=== PATIENT | female | born 2000 | race Caucasian/White ===

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

== ENCOUNTER 2025-04-14 01:39 | Inpatient (IN) | payer BC, SELFPAY ==
[2025-04-14] VITALS (53 sets, daily range): BP systolic 106–129; BP diastolic 51–102; PULSE 61–101; RESP 14–20; TEMP 36.4–37.5; O2SAT 90–100
--- OUTSIDE RECORDS SUMMARY | 2025-04-14 02:01 | XMS RPT_ITS | CCD ---
Author Organization [facility] Care Team Providers Care Olericulturist Name Role Phone MEAGHAN CHAVES (KNOCK UP ASSEMBLER) Unavailable Unavail able MEAGHAN CHAVES (KNOCK UP ASSEMBLER) Unavailable Unavail Lupillo Ervin MD Primary Care Provider PHYSICIAN, NONE Primary Care Physician UnavailLupillo Tejeda MD Primary Care Provider Lupillo Bolton MD Primary Care Provider TRIXIE GOLDSMITH, DR BRET Eldridge Attending Unavailable PHYSICIAN, NONE Primary Care Unavailable ESPERANZA GOLDSMITH, DR SINCLAIR Attending Unavailab sherice PHYSICIAN, NONE Primary Care Unavailable Antonia Baker Attending Unavailable Lupillo Bolton Referring Unavailable Lupillo Bolton Primary Care Unavailable Lupillo Bolton MD Primary Care Provider MAKENZIE ARANGO Attending Unavailable LUPILLO BOLTON Primary Care Unavailable Allergies Allergy Classification Reported Allergen(s) Allergy Type Date of Onset Reaction(s) Facility (11 sources) sulfamethoxazole / trimethoprim; Translations: [SULFAMETHOXAZOLE-TR IMETHOPRIM] Drug Allergy 8 Rash [facility] Other [place] [facility] (3 sources) Bacitracin; Translations: [bacitracin] Drug Allergy [facility] Medications Current Medications Medication Drug Class(es) Dates Sig (Normalized) Sig (Original) acetaminophen 325 mg / butalbital 50 mg / caffeine 40 mg oral tablet (1 source) Barbiturate, Central Nervous System Stimulant, Methylxanthine Start: 05-16-2022 End: 05-19-2022 take 1 tablet by mouth every four hours as needed APAP/butalbital/caf feine 325-50-40 mg oral tablet (Fioricet) Dose = 1 tab(s), Oral, q4h, PRN as needed, X 3 day(s), # 18 tab(s), 0 Refill(s), Migraine Start Date: 05/16/22 Stop Date: 05/19/22 Status: Ordered cephalexin 500 mg oral capsule (2 sources) Cephalosporin Antibacterial Start: 06-10-2023 End: 06-17-2023 take 1 capsule by mouth twice daily cephALEXin (KEFLEX) 500 mg capsule Indications: Recurrent UTI (urinary tract infection) Take 1 capsule by mouth twice daily for 7 days. 14 capsule 0 06/10/2023 06/17/2023 Active Comment on above: [facility]. FLUoxetine 20 mg oral capsule (3 sources) Serotonin Reuptake Inhibitor Start: 09-13-2020 FLUoxetine 20 mg oral capsule Dose : 20 mg = 1 cap(s), Oral, qDay, # 30 cap(s), 0 Refill(s) Start Date: 09/13/20 Status: Ordered nitrofurantoin, macrocrystals 25 mg / nitrofurantoin, monohydrate 75 mg oral capsule (2 sources) Nitrofuran Antibacterial Start: 11-11-2022 End: 11-16-2022 take 1 capsule by mouth twice daily nitrofurantoin monohydrate and macrocrystal (MACROBID) 100 mg capsule Indications: Acute UTI Take 1 capsule by mouth twice daily for 5 days. 10 capsule 0 11/11/2022 11/16/2022 Active Comment on above: [facility] 1 capsule [facility] for 5 days. SUMAtriptan 100 mg oral tablet (1 source) Serotonin-1b and Serotonin-1d Receptor Agonist Start: 04-10-2022 End: 05-10-2022 take 1 tablet by mouth every twenty-four hours Imitrex 100 mg oral tablet Dose : 50 mg = 0.5 tab(s), Oral, qDay, PRN as needed for migraine headache, may repeat dose after 90 mins up to a maximum of 100 mg in 24 hours, X 30 day(s), # 9 tab(s), 0 Refill(s), 05/10/22 16:22:00 EDT, Headache Start Date: 04/10/22 Stop Date: 05/10/22 Status: Ordered Completed/Discontinued Medications Medication Drug Class(es) Dates Sig (Normalized) Sig (Original) Blood-Glucose Meter (PRECISION XTRA) misc (9 sources) Start: 12-01-2017 End: 12-29-2024 Blood-Glucose Meter (PRECISION XTRA) misc Use as directed 1 Each 12/01/2017 12/29/2024 Discontinued Start: 12-01-2017 Blood-Glucose Meter (PRECISION XTRA) misc Use as directed 1 Each 12/01/2017 Active Comment on above: Use as directed cyproheptadine hydrochloride 4 mg oral tablet (4 sources) Start: 04-03-20 End: 07-13-20 take 1 tablet by mouth at bedtime cyproheptadine (PERIACTIN) 4 mg tablet take 1 tablet by mouth at bedtime 30 tablet 2 04/03/2020 07/13/2022 Discontinued Comment on above: take 1 tablet by francisco th at bedtime Desogestrel / Ethinyl Estradiol (9 sources) Progestin, Estrogen Start: 04-25-20 End: 12-30-19 take 1 tablet by mouth once daily, then take 0.15 tablet by mouth once Desogestrel-Ethinyl Estradiol (APRI) 0.15-0.03 mg per tablet Take 1 tablet by mouth once daily. 1 Package 11 04/25/2020 12/29/2024 Discontinued Start: 04-25-2020 take 1 tablet by francisco th once daily, then take 0.15 tablet by mouth once Desogestrel-Ethinyl Estradiol (APRI) 0.15-0.03 mg per tablet Take 1 tablet by mouth once daily. 1 Package 11 04/25/2020 Active Comment on above: Take 1 tablet by francisco th once daily. FREESTYLE LITE METER monitoring kit (9 sources) Start: 12-01-2017 End: 12-29-2024 FREESTYLE LITE METER monitoring kit Supply to be used as directed. 1 Each 12/01/2017 12/29/2024 Discontinued Start: 12-01-2017 FREESTYLE LITE METER monitoring kit Supply to be used as directed. 1 Each 12/01/2017 Active Comment on above: Supply to be used as directed. ibuprofen 600 mg oral tablet (9 sources) Nonsteroidal Anti-inflammatory Drug Start: 12-11-19 End: 03-21-20 25 take 1 tablet by mouth every eight hours at mealtime ibuprofen (MOTRIN) 600 mg tablet TAKE 1 TABLET BY MOUTH EVERY 8 HOURS IF NEEDED. TAKE AT ONSET OF MIGRAINE AND WITH FOOD 30 tablet 2 12/11/2019 12/29/2024 Discontinued Comment on above: TAKE 1 TABLET BY FRANCISCO TH EVERY 8 HOURS IF NEEDED. TAKE AT ONSET OF MIGRAINE AND WITH FOOD 2 ml ketorolac tromethamine 30 mg/ml injection (1 source) Nonsteroidal Anti-inflammatory Drug, Cyclooxygenase Inhibitor Start: 03-17-20 End: 03-17-20 keTORolac 30 mg injection (TORADOL) Start: 03-17-2022 End: 03-17-2022 keTORolac 30 mg injection (T ORADOL) ondansetron 4 mg disintegrating oral tablet (1 source) Serotonin-3 Receptor Antagonist Start: 03-17-2022 End: 03-17-2022 ondansetron orally disintegrating 4 mg tab(s) (ZOFRAN ODT) Start: 03-17-2022 End: 03-17-2022 ondansetron orally disintegr ating 4 mg tab(s) (ZOFRAN ODT) pediatric multivitamin without iron chewable (POLY-VITAMINS) chewable tablet (4 sources) Start: 03-13-2015 End: 07-13-2022 take 1 tablet by mouth once daily pediatric multivitamin without iron chewable (POLY-VITAMINS) chewable tablet Take 1 tablet by mouth once daily. 30 tablet 11 03/13/2015 07/13/2022 Discontinued Start: 03-13-2015 take 1 tablet by francisco th once daily pediatric multivitamin without iron chewable (POLY-VITAMINS) chewable tablet Take 1 tablet by mouth once daily. 30 tablet 11 03/13/2015 Active Comment on above: Take 1 tablet by francisco th once daily. PRECISION XTRA B-KETONE strp (9 sources) Start: 12-01-2017 End: 12-29-2024 PRECISION XTRA B-KETONE strp Monitor blood ketones x3-4/day 100 Strip 11 12/01/2017 12/29/2024 Discontinued Start: 12-01-2017 PRECISION XTRA B-KETONE strp Monitor blood ketones x3-4/day 100 Strip 11 12/01/2017 Active Comment on above: Monitor blood ketone s x3-4/day Problems Active Problems Problem Classification Problem Date Documented Date Episodic/Chronic Contraceptive and procreative management (1 source) Patient encounter status; Translations: [Encounter for contraceptive management, unspecified] Episodic Genitourinary symptoms and ill-defined conditions (2 sources) Increased frequency of urination; Translations: [Frequency of micturition] Episodic Headache; including migraine (3 sources) Migraine; Translations: [Migraine, unspecified, not intractable, without status migrainosus] Onset: 05-16-2022 Chronic Headache; including migraine (2 sources) Headache; Translations: [Headache, unspecified headache type] Onset: 04-10-2022 Episodic Menstrual disorders (2 sources) Missed period; Translations: [Irregular menstruation, unspecified] Onset: 12-29-2024 12-29-2024 Chronic Nausea and vomiting (1 source) Vomiting; Translations: [Vomiting, unspecified] Episodic Nonmalignant breast conditions (1 source) Lump in upper outer quadrant of left breast; Translations: [Unspecified lump in the left breast, upper outer quadrant] Episodic Other endocrine disorders (9 sources) Hypoglycemia; Translations: [Hypoglycemia, unspecified] Onset: 08-10-2013 08-10-2013 Chronic Other nutritional; endocrine; and metabolic disorders (9 sources) Ketosis; 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] Onset: 03-27-2015 03-27-2015 Chronic Other nutritional; endocrine; and metabolic disorders (12 sources) Glycogen storage disease; Translations: [Glycogen storage disease, unspecified] 11-16-2017 Chronic Unclassified (1 source) Unknown / UNK(Unknown) Onset: 11-16-2017 Unclassified (3 sources) None (qualifier value) 08-28-2014 Urinary tract infections (2 sources) Acute urinary tract infection; Translations: [Urinary tract infection, site not specified] Episodic Past or Other Problems Problem Classification Problem Date Documented Da te Episodic/Chronic Diabetes mellitus without complication (9 sources) Hyperglycemia; Translations: [Hyperglycemia, unspecified] Onset: 08-10-2013 08-10-2013 Episodic Results Test Name Value Interpretation Reference Range Facility [facility] 12-29-2024 CNOV Office Visit (OBGYWM ) -------- ANIYAH KAPADIA ([id number]) 2 F Date Time Provider Department 12/29/24 2:45 PM MAKENZIE ARANGO OBGYWM During your visit today, we recorded the following information about you: Blood pressure Weight Last Period 110/60 51.3 kg 11/15/24 Makenzie Arango APRN.KNOCK UP ASSEMBLER 12/29/2024 2:55 PM Signed Aniyah Kapadia is a 24 year old female who presents for problem visit missed menses, LMP 11/15/2024, reported HPT 12/28/2024. 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 Worker History LMP: 11/15/2024 (Exact Date), Having periods Age at Menarche: Age at First : Age at Menopause: Soap Worker History Comments: Sexual Activity: Yes; Male Contraception: Pill PAST MEDICAL HISTORY Diagnosis Date Glycogen storage disease (HCC) PAST SURGICAL HISTORY Procedure Laterality Date NONE FAMILY HISTORY Problem Relation Age of Onset None Father Diabetes Maternal Grandmother Hypertension Maternal Grandmother Diabetes Maternal Grandfather Cancer Maternal Grandfather hodgkins Diabetes Paternal Grandmother Hypertension Paternal Grandmother Cancer Paternal Grandfather other (hypoglycemic) Mother Social History Tobacco Use Smoking status: Never Passive exposure: Yes Smokeless tobacco: Never Tobacco comments: mom and dad smoke - outside Vaping Use Vaping status: Never Used Substance Use Topics Alcohol use: Yes Comment: Occasionally Drug use: Yes Frequency: 1.0 times per week Types: Marijuana No current outpatient medications on file. No current facility-administered medications for this visit. Allergies As of Date: 12/29/2024 Allergen Noted Reaction BACTRIM [SULFAMETHOXAZOLE-TRIMET H*11/16/2007 Rash Fully Assessed 06/10/2023 REVIEW OF SYSTEMS Expanded ROS: N/A Allergies and current medication updated:Yes SENSITIVE EXAM: Sensitive exam not performed. EXAM: BP 110/60 Wt 113 lb 3.2 oz (51.3kg) LMP 11/15/2024 GENERAL: pleasant, female in no apparent distress HEENT: Normocephalic, atraumatic, mucus membranes moist, and no lesions CHEST: Normal inspiratory effort NEURO: alert and oriented x3,exam grossly non-focal EXTREMITIES: normal ASSESSMENT/PLAN: 1. Missed menses - ICD9: 626.4, ICD10: N92.6 - UA DIP,URINE HCG (POC)-positive Termination information given Follow up after for control options Makenzie Arango APRN.CNP Medical Decision Making: Problems: Low: Acute, uncomplicated illness or injury Data: Unique test(s) ordered: 1 Risk: Low: Low risk from testing/treatment Medical Decision Making Level: 3 - Low Allergies As of Date: 12/29/2024 Noted Allergy Reaction BACTRIM (SULFAMETHOXAZOLE-TRIMET H*11/16/2007 2 - Rash Date Reviewed: 06/10/2023 Reviewed by: Mery Mercado LPN - Fully Assessed Reason for Visit: Problem Visit [Other] Primary Visit Diagnosis:Missed menses [N92.6] Order(s):UA DIP,URINE HCG (POC) [[id number]] Order #: [id number] #:[id number] Meds Comments as of 04/19/2012: Problem List As Of Date 12/29/2024 Noted Resolved Hypoglycemia [E16.2] 08/10/2013 Hyperglycemia [R73.9] 08/10/2013 Ketosis [E88.89] 03/27/2015 Glycogen storage disease (HCC) [E74.00] Medications Discontinued During This Encounter Prescriptions - blood sugar diagnostic (FREESTYLE TEST) test strip (Discontinued) Monitor blood glucose 3 times daily Takes as needed - Desogestrel-Ethinyl Estradiol (APRI) 0.15-0.03 mg per tablet (Discontinued) Reported on 12/29/2024 - FREESTYLE LITE METER monitoring kit (Discontinued) Reported on 12/29/2024 - ibuprofen (MOTRIN) 600 mg tablet (Discontinued) Reported on 12/29/2024 - Ketone Blood Test (PRECISION XTRA B-KETONE) strp (Discontinued) Reported on 12/29/2024 - Lancets lancets (Discontinued) Monitor blood glucose 3 times daily Uses as needed - PRECISION XTRA B-KETONE strp (Discontinued) Monitor blood ketones x3-4/day Uses as needed - Blood-Glucose Meter (PRECISION XTRA) [facility] (Discontinued) Use as directed Encounter Status:Closed by MAKENZIE ARANGO on 12/29/24 Normal [facility] UA DIP,URINE HCG (POC)on Beta HCG ( test) Ql (U) Positive Abnormal Negative [facility] Comment on above: Location:[facility], [address] , [place], [address] Interpretation and review of laboratory results Abnormal [facility] Blood Bank Specialist (POCT) Internal QC OK [facility] Location:[facility], [address], [place], [address] [facility] POINT OF CARE [facility] UA DIP, URINE (POC)on 2022 BILIRUBIN UA (POCT) Small Abnormal Negative [facility] CLARITY UA (POCT) Clear [facility] COLOR UA (POCT) Rona [facility] GLUCOSE UA (POCT) Negative Negative mg/dL [facility] Hemoglobin Ql (U) Large Abnormal Negative [facility] KETONE UA (POCT) Trace Negative mg/dL [facility] LEUKOCYTES UA (POCT) Trace Abnormal Negative [facility] NITRITE UA (POCT) Negative Negative [facility] PH UA (POCT) 5.5 4.5 - 8.0 [facility] Protein Ql (U) >=300 Abnormal Negative mg/dL [facility] SPECIFIC GRAVITY UA (POCT) >=1.030 1.005 - 1.030 [facility] UROBILINOGEN UA (POCT) 1.0 E.U./dL Normal E.U./dL [facility] UA DIP, URINE (POC)on 2022 BILIRUBIN UA (POCT) Negative Negative [facility] CLARITY UA (POCT) Clear [facility] COLOR UA (POCT) Yellow [facility] GLUCOSE UA (POCT) Negative Negative mg/dL [facility] HEMOGLOBIN/BLOOD UA (POCT) Moderate Abnormal Negative [facility] KETONE UA (POCT) Negative Negative mg/dL [facility] LEUKOCYTES UA (POCT) Trace Abnormal Negative [facility] NITRITE UA (POCT) Negative Negative [facility] PH UA (POCT) 5.5 4.5 - 8.0 [facility] Protein Ql (U) Trace Abnormal Negative mg/dL [facility] SPECIFIC GRAVITY UA (POCT) 1.020 1.005 - 1.030 [facility] UROBILINOGEN UA (POCT) 0.2 E.U./dL Normal E.U./dL [facility] AFPon 11-16-2017 AFP <3.0 Normal <11 [facility] Comment on above: Result Comment: Resu lt rechecked. Performed By: #### C BCDIF, WSR, CK, CRP, IRON, URIC, CMP, FERR, VITD, AFP ####[place] [phone]#### LIPB ####[place] [address] C-Reactive Proteinon 018 C reactive protein (CRP) 0.1 mg/dL Normal <0.9 [facility] Comment on above: Performed By: #### C BCDIF, WSR, CK, CRP, IRON, URIC, CMP, FERR, VITD, AFP ####[place] [address]#### LIPB ####[place] [address] CBC and Differentialon 11-16 Abs Baso 0.08 k/uL Normal <0.11 [facility] Comment on above: Performed By: #### C BCDIF, WSR, CK, CRP, IRON, URIC, CMP, FERR, VITD, AFP ####[address] [place] [id number]#### LIPB ####[place] [address] [address] [place] [phone] Abs [place] 0.50 k/uL Normal <0.87 [facility] Comment on above: Performed By: #### C BCDIF, WSR, CK, CRP, IRON, URIC, CMP, FERR, VITD, AFP ####[address] [place] [phone]#### LIPB ####[place] [address] [place] [phone] Abs Neut 5.27 k/uL Normal 1.45-7.50 [facility] Comment on above: Performed By: #### C BCDIF, WSR, CK, CRP, IRON, URIC, CMP, FERR, VITD, AFP ####[place] [phone]#### LIPB ####[place] [phone] Basophils/100 WBC Auto (Bld) 0.8 % Normal [facility] Comment on above: Performed By: #### C BCDIF, WSR, CK, CRP, IRON, URIC, CMP, FERR, VITD, AFP ####[place] [phone]#### LIPB ####[place] [phone] DTYPE Auto Diff Normal [facility] Comment on above: Performed By: #### C BCDIF, WSR, CK, CRP, IRON, URIC, CMP, FERR, VITD, AFP ####[place] [phone]#### LIPB ####[place] [phone] Eosinophils 0.25 10*3/uL Normal <0.46 [facility] Comment on above: Performed By: #### C BCDIF, WSR, CK, CRP, IRON, URIC, CMP, FERR, VITD, AFP ####[place] [phone]#### LIPB ####[place] [phone] Eosinophils/100 leukocytes 2.6 % Normal [facility] Comment on above: Performed By: #### C BCDIF, WSR, CK, CRP, IRON, URIC, CMP, FERR, VITD, AFP ####[place] [phone]#### LIPB ####[place] [phone] Erythrocyte distribution width Auto Ratio (RBC) 12.0 % Normal 11.5-15.0 [facility] Comment on above: Performed By: #### C BCDIF, WSR, CK, CRP, IRON, URIC, CMP, FERR, VITD, AFP ####[place] [phone]#### LIPB ####[place] [phone] Erythrocytes (RBC) 0.1 /100 WBC High 0 [facility] Comment on above: Performed By: #### C BCDIF, WSR, CK, CRP, IRON, URIC, CMP, FERR, VITD, AFP ####[address] [place] [phone]#### LIPB ####[place] [phone] Erythrocytes (RBC) 10 10*6/uL High <0.01 [facility] Comment on above: Performed By: #### C BCDIF, WSR, CK, CRP, IRON, URIC, CMP, FERR, VITD, AFP ####[place] [phone]#### LIPB ####[place] [phone] Erythrocytes (RBC) 4.56 10*6/uL Normal 3.90-5.20 [facility] Comment on above: Performed By: #### C BCDIF, WSR, CK, CRP, IRON, URIC, CMP, FERR, VITD, AFP ####[place] [phone]#### LIPB ####[place] [address] Hematocrit (HCT) 40.0 % Normal 36.0-46.0 [facility] Comment on above: Performed By: #### C BCDIF, WSR, CK, CRP, IRON, URIC, CMP, FERR, VITD, AFP ####[address] [place] [place] [phone]#### LIPB ####[place] [address] [address], [place] [phone] Hemoglobin mass conc (Bld) 13.5 g/dL Normal 11.5-15.5 [facility] Comment on above: Performed By: #### C BCDIF, WSR, CK, CRP, IRON, URIC, CMP, FERR, VITD, AFP ####[place] [phone]#### LIPB ####[place] [phone] Lymphocytes 3.66 10*3/uL Normal 1.00-4.00 [facility] Comment on above: Performed By: #### C BCDIF, WSR, CK, CRP, IRON, URIC, CMP, FERR, VITD, AFP ####[place] [phone]#### LIPB ####[place] [phone] Lymphocytes/100 leukocytes 37.5 % Normal [facility] Comment on above: Performed By: #### C BCDIF, WSR, CK, CRP, IRON, URIC, CMP, FERR, VITD, AFP ####[place] [phone]#### LIPB ####[place] [id number] [phone] MCH 29.6 pG Normal 26.0-34.0 [facility] Comment on above: Performed By: #### C BCDIF, WSR, CK, CRP, IRON, URIC, CMP, FERR, VITD, AFP ####[address] [place] [phone]#### LIPB ####[place] [phone] MCHC mass conc (RBC) 33.8 g/dL Normal 30.5-36.0 [facility] Comment on above: Performed By: #### C BCDIF, WSR, CK, CRP, IRON, URIC, CMP, FERR, VITD, AFP ####[place] [phone]#### LIPB ####[place] [phone] MCV 87.7 fL Normal 80.0-100.0 [facility] Comment on above: Performed By: #### C BCDIF, WSR, CK, CRP, IRON, URIC, CMP, FERR, VITD, AFP ####[place] [phone]#### LIPB ####[place] [phone] Monocytes/100 leukocytes 5.1 % Normal [facility] Comment on above: Performed By: #### C BCDIF, WSR, CK, CRP, IRON, URIC, CMP, FERR, VITD, AFP ####[place] [phone]#### LIPB ####[place] [address] [place], [place] [address] Neutrophils/100 WBC Auto (Bld) 54.0 % Normal [facility] Comment on above: Performed By: #### C BCDIF, WSR, CK, CRP, IRON, URIC, CMP, FERR, VITD, AFP ####[address] [place] [phone]#### LIPB ####[place] [phone] Platelet mean volume (PMV) 10.5 fL Normal 9.0-12.7 [facility] Comment on above: Performed By: #### C BCDIF, WSR, CK, CRP, IRON, URIC, CMP, FERR, VITD, AFP ####[address] [place] [phone]#### LIPB ####[place] [phone] Platelets 335 10*3/uL Normal 150-400 [facility] Comment on above: Performed By: #### C BCDIF, WSR, CK, CRP, IRON, URIC, CMP, FERR, VITD, AFP ####[place] [phone]#### LIPB ####[place] [address] [place] [phone] WBC (Leukocytes) 9.76 10*3/uL Normal 3.70-11.00 [facility] Comment on above: Performed By: #### C BCDIF, WSR, CK, CRP, IRON, URIC, CMP, FERR, VITD, AFP ####[address] [place] [phone]#### LIPB ####[place] [phone] [address] [address] [place], [place] [phone] CKon 11-16-2017 Creatine kinase (CK) 106 U/L Normal 42-196 [facility] Comment on above: Result Comment: Refe rence ranges for this patient's age group have not been established. These reference ranges reflect verified or established ranges for the adult population. Interpret these ranges with caution using the clinical context and additional reference resources.Please note the updated, gender-specific reference range for this test (effective 09/24/2016). Performed By: #### C BCDIF, WSR, CK, CRP, IRON, URIC, CMP, FERR, VITD, AFP ####[address] [phone]#### LIPB ####[place] [phone] [place], [place] [phone] Comp Metabolic Panelon 11-16 Alanine aminotransferase (ALT) 12 U/L Normal 7-38 [facility] Comment on above: Result Comment: (NOT E)Reference ranges for this patient's age group have not beenestablished. These reference ranges reflect verified or establishedranges for the adult population. Interpret these ranges wtih cautionusing clinical context and additional reference resources. Performed By: #### C BCDIF, WSR, CK, CRP, IRON, URIC, CMP, FERR, VITD, AFP ####[address] [place] [phone]#### LIPB ####[place] [phone] [place] [address] [place], [place] [phone] Albumin 4.9 g/dL High 3.2-4.5 [facility] Comment on above: Performed By: #### C BCDIF, WSR, CK, CRP, IRON, URIC, CMP, FERR, VITD, AFP ####[place] [id number] [place], [place] [phone]#### LIPB ####[place] [phone] [phone] Alkaline phosphatase (ALP) 86 U/L Normal 32-117 [facility] Comment on above: Result Comment: (NOT E)Note that results are flagged as abnormal based on ADULT referenceranges, rather than age-specific ranges for the pediatric population.Lab-specific normal ranges have not been determined for thispatient's age group. Published reference range data, shown in thetable below, may contribute to proper clinical interpretation. Male FemaleAge Reference Range Reference Range Units1-30 days 75-316 48-406 U/L31-365 days 82-383 124-341 U/L1-3 years 104-345 108-317 U/L4-6 years 93-309 96-297 U/L7-9 years 86-315 69-325 U/L10-12 years 42-362 51-332 U/L13-15 years 74-390 50-162 U/L16-17 years 52-171 47-119 U/LReference:Deon MCCALLUM, Romaine GARCIA, Aurelia J, et al. Pediatric reference ranges foralkaline phosphatase on the [employer] 747 analyzer. Clin [id number];43:S198. Performed By: #### C BCDIF, WSR, CK, CRP, IRON, URIC, CMP, FERR, VITD, AFP ####[address] [phone]#### LIPB ####[place] [phone] [phone] Anion gap 12 mmol/L Normal 9-18 [facility] Comment on above: Result Comment: (NOT E)Reference ranges for this patient's age group have not beenestablished. These reference ranges reflect verified or establishedranges for the adult population. Interpret these ranges with cautionusing the clinical context and additional reference resources. Performed By: #### C BCDIF, WSR, CK, CRP, IRON, URIC, CMP, FERR, VITD, AFP ####[address] [place] [address]#### LIPB ####[place] [address] [place] [place] [address] Aspartate aminotransferase (AST) 21 U/L Normal 13-35 [facility] Comment on above: Result Comment: (NOT E)Reference ranges for this patient's age group have not beenestablished. These reference ranges reflect verified or establishedranges for the adult population. Interpret these ranges with cautionusing clinical context and additional reference resources. Performed By: #### C BCDIF, WSR, CK, CRP, IRON, URIC, CMP, FERR, VITD, AFP ####[place] [phone]#### LIPB ####[place] [address] Bilirubin (total) 0.4 mg/dL Normal 0.2-1.3 [facility] Comment on above: Result Comment: (NOT E)Reference ranges for this patient's age group have not beenestablished. These reference ranges reflect verified or establishedranges for the adult population. Interpret these ranges with cautionusing the clinical context and additional reference resources. Performed By: #### C BCDIF, WSR, CK, CRP, IRON, URIC, CMP, FERR, VITD, AFP ####[address] [place] [phone]#### LIPB ####[place] [address] [place] [phone] Calcium 9.5 mg/dL Normal 8.4-10.2 [facility] Comment on above: Performed By: #### C BCDIF, WSR, CK, CRP, IRON, URIC, CMP, FERR, VITD, AFP ####[place] [address] [address] [place] [phone]#### LIPB ####[place] [address] [address] [place] [phone] Chloride 102 mmol/L Normal 97-105 [facility] Comment on above: Result Comment: (NOT E)Reference ranges for this patient's age group have not beenestablished. These reference ranges reflect verified or establishedranges for the adult population. Interpret these ranges with cautionusing the clinical context and additional reference resources. Performed By: #### C BCDIF, WSR, CK, CRP, IRON, URIC, CMP, FERR, VITD, AFP ####[place] [address] [address] [place] [phone]#### LIPB ####[place] [address] [address] [place] [phone] CO2 24 mmol/L Normal 22-30 [facility] Comment on above: Result Comment: (NOT E)Reference ranges for this patient's age group have not beenestablished. These reference ranges reflect verified or establishedranges for the adult population. Interpret these ranges with cautionusing the clinical context and additional reference resources. Performed By: #### C BCDIF, WSR, CK, CRP, IRON, URIC, CMP, FERR, VITD, AFP ####[place] [address] [address] [place] [phone]#### LIPB ####[place] [address] [address] [place] [phone] Creatinine 0.73 mg/dL Normal 0.58-0.96 [facility] Comment on above: Result Comment: Refe rence ranges for this patient's age group have not been established. These reference ranges reflect verified or established ranges for the adult population. Interpret these ranges with caution using the clinical context and additional reference resources. Performed By: #### C BCDIF, WSR, CK, CRP, IRON, URIC, CMP, FERR, VITD, AFP ####[facility] [place] [phone]#### LIPB ####[place] [phone] [place] [address] [place] [phone] eGFR (non-black) 0.75 mL/min/{1.73_m2} Normal [facility] Comment on above: Result Comment: eGFR (Estimated GFR) Units of measure: mL/min/1.73 meters squaredeGFR in pediatric patients is derived from the 4 variable Hardin equation for glomerular filtration rate (GFR) based on a stable serum creatinine, gender, age, and height. The creatinine assay has been calibrated to be traceable to IDMS.TO CALCULATE THE PATIENT'S ESTIMATED GFR: Multiply the GFR Pediatric Factor by the patient's height (centimeters).An eGFR <60 mL/min/1.73m2 for >3 months is consistent with chronic kidney disease. Refer to KDOQI guidelines for clinical interpretation. Performed By: #### C BCDIF, WSR, CK, CRP, IRON, URIC, CMP, FERR, VITD, AFP ####[facility] [phone]#### LIPB ####[place] [phone] [place] [address] [address] [place] [phone] Glucose mass conc 78 mg/dL Normal 74-99 [facility] Comment on above: Result Comment: Refe rence ranges for this patient's age group have not been established. These reference ranges reflect verified or established ranges for the adult population. Interpret these ranges with caution using the clinical context and additional reference resources.The [place] Diabetes Association (ADA) provides guidance for cutoff values for fasting glucose and random glucose. The ADA defines fasting as no caloric intake for at least 8 hours. Fasting plasma glucose results between 100 to 125 mg/dL indicate increased risk for diabetes (prediabetes).Fasting plasma glucose results greater than or equal to 126 mg/dL meet the criteria for diagnosis of diabetes. In the absence of unequivocal hyperglycemia, results should be confirmed by repeat testing. In a patient with classic symptoms of hyperglycemia or hyperglycemic crisis, random plasma glucose results greater than or equal to 200 mg/dL meet the criteria for diagnosis of diabetes.Reference: Standards of Medical Care in Diabetes 2016, [place] Diabetes Association. Diabetes Care. 2016.39(Suppl 1). Performed By: #### C BCDIF, WSR, CK, CRP, IRON, URIC, CMP, FERR, VITD, AFP ####[place] [address] [address] [place] [phone]#### LIPB ####[place] [address] [place] [phone] Potassium molar conc 3.5 mmol/L Low 3.7-5.1 [facility] Comment on above: Result Comment: (NOT E)Reference ranges for this patient's age group have not beenestablished. These reference ranges reflect verified or establishedranges for the adult population. Interpret these ranges with cautionusing the clinical context and additional reference resources. Performed By: #### C BCDIF, WSR, CK, CRP, IRON, URIC, CMP, FERR, VITD, AFP ####[facility] [place] [phone]#### LIPB ####[place] [address] [address] [place] [phone] Protein 8.2 g/dL High 6.3-8.0 [facility] Comment on above: Result Comment: (NOT E)Note that results are flagged as abnormal based on ADULT referenceranges, rather than age-specific ranges for the pediatric population.Lab-specific normal ranges have not been determined for thispatient's age group. Published reference range data, shown in thetable below, may contibute to proper clinical interpretation.Age Reference Range Units0-12 months 4.9-7.3 g/dL1-5 years 6.2-8.0 g/dL6-10 years 6.6-8.6 g/dL11-14 years 6.4-8.5 g/dL15-17 years 6.4-8.3 g/dLReference:John OWENS, Angus I, [place] M, et al. [place] LaboratoryInitiative on Reference Interval Database(CALIPER): pediatricreference intervals for an integrated clinical chemistry andimmunoassay analyzer, Perez [employer] FORMING MACHINE TENDER [id number]. Clin Fpvdylo0648;42:885-891. Performed By: #### C BCDIF, WSR, CK, CRP, IRON, URIC, CMP, FERR, VITD, AFP ####[place] [phone]#### LIPB ####[place] [phone] [place] [address] [place] [phone] Sodium 138 mmol/L Normal 136-144 [facility] Comment on above: Result Comment: (NOT E)Reference ranges for this patient's age group have not beenestablished. These reference ranges reflect verified or establishedranges for the adult population. Interpret these ranges with cautionusing the clinical context and additional reference resources. Performed By: #### C BCDIF, WSR, CK, CRP, IRON, URIC, CMP, FERR, VITD, AFP ####[place] [id number] AveCMorris, [place] [phone]#### LIPB ####[place] [phone] [place], [place] [phone] Urea nitrogen 10 mg/dL Normal 5-18 [facility] Comment on above: Performed By: #### C BCDIF, WSR, CK, CRP, IRON, URIC, CMP, FERR, VITD, AFP ####[place] [phone]#### LIPB ####[place] [phone] Ferritinon 11-16-2017 Ferritin 48.6 ng/mL Normal 14.7-205.1 [facility] Comment on above: Performed By: #### C BCDIF, WSR, CK, CRP, IRON, URIC, CMP, FERR, VITD, AFP ####[place] [phone]#### LIPB ####[place] [phone] Iron and TIBCon 11-16-2017 Iron 89 ug/dL Normal 41-186 [facility] Comment on above: Performed By: #### C BCDIF, WSR, CK, CRP, IRON, URIC, CMP, FERR, VITD, AFP ####[place] [phone]#### LIPB ####[place] [phone] TIBC 316 ug/dL Normal 232-386 [facility] Comment on above: Performed By: #### C BCDIF, WSR, CK, CRP, IRON, URIC, CMP, FERR, VITD, AFP ####[place] [phone]#### LIPB ####[place] [phone] Transferrin Saturatn 28 % Normal 15-57 [facility] Comment on above: Performed By: #### C BCDIF, WSR, CK, CRP, IRON, URIC, CMP, FERR, VITD, AFP ####[place] [phone]#### LIPB ####[place] [phone] Lipid Panel, [facility] 018 Cholesterol 173 mg/dL High <170 [facility] Comment on above: Result Comment: <170 mg/dL, Acceptable 170-199 mg/dL, Borderline high>199 mg/dL, High Performed By: #### C BCDIF, WSR, CK, CRP, IRON, URIC, CMP, FERR, VITD, AFP ####[place] [phone]#### LIPB ####[place] [phone] Fasting Time Unknown Normal [facility] Comment on above: Performed By: #### C BCDIF, WSR, CK, CRP, IRON, URIC, CMP, FERR, VITD, AFP ####[place] [phone]#### LIPB ####[place] [address] [place] [address] HDL Cholesterol 40 mg/dL Low >45 [facility] Comment on above: Result Comment: >45 mg/dL, Acceptable 40-45 mg/dL, Borderline<40 mg/dL, Low Performed By: #### C BCDIF, WSR, CK, CRP, IRON, URIC, CMP, FERR, VITD, AFP ####[place] [address]#### LIPB ####[place] [phone] LDL Cholesterol 99 mg/dL Normal <110 [facility] Comment on above: Result Comment: <110 mg/dL, Acceptable 110-129 mg/dL, Borderline high>129 mg/dL, High Performed By: #### C BCDIF, WSR, CK, CRP, IRON, URIC, CMP, FERR, VITD, AFP ####[place] [address]#### LIPB ####[place] [address] LDL:HDL Ratio 2.48 High <2.42 [facility] Comment on above: Result Comment: Ethan sanchez:1. Expert Panel on Integrated Guidelines for Cardiovascular Health and Risk Reduction in Children and Adolescents: National Heart, Lung and Blood [place]. Pediatrics. 2011: 128(Suppl 5):G296-213. Performed By: #### C BCDIF, WSR, CK, CRP, IRON, URIC, CMP, FERR, VITD, AFP ####[place] [phone]#### LIPB ####[address] Non HDL Cholesterol 133 mg/dL High <120 [facility] Comment on above: Result Comment: <120 mg/dL, Acceptable 120-144 mg/dL, Borderline high>144 mg/dL, High Performed By: #### C BCDIF, WSR, CK, CRP, IRON, URIC, CMP, FERR, VITD, AFP ####[place] [address]#### LIPB ####[place] [address] TC:HDL Ratio 4.33 High <3.76 [facility] Comment on above: Performed By: #### C BCDIF, WSR, CK, CRP, IRON, URIC, CMP, FERR, VITD, AFP ####[place] [address]#### LIPB ####[place] [address] Triglyceride 169 mg/dL High <90 [facility] Comment on above: Result Comment: <90 mg/dL, Acceptable 90-129 mg/dL, Borderline high>129 mg/dL, High Performed By: #### C BCDIF, WSR, CK, CRP, IRON, URIC, CMP, FERR, VITD, AFP ####[place] [address]#### LIPB ####[place] [address] VLDL Cholesterol 34 mg/dL High <18 [facility] Comment on above: Performed By: #### C BCDIF, WSR, CK, CRP, IRON, URIC, CMP, FERR, VITD, AFP ####[place] [address] [address] [place] [phone]#### LIPB ####[place] [address] [place] [phone] Sed Rate Westergrenon 2017 Sed Rate Westergren 2 mm/hr Normal 0-20 [facility] Comment on above: Performed By: #### C BCDIF, WSR, CK, CRP, IRON, URIC, CMP, FERR, VITD, AFP ####[place] [phone]#### LIPB ####[place] [phone] Uric Acidon 11-16-2017 Urate 5.7 mg/dL Normal 2.5-6.6 [facility] Comment on above: Performed By: #### C BCDIF, WSR, CK, CRP, IRON, URIC, CMP, FERR, VITD, AFP ####[place] [phone]#### LIPB ####[place] [phone] Vitamin D 25 Hydroxyon 11-16 Vitamin D 25 Hydroxy 23.5 ng/mL Low 31.0-80.0 [facility] Comment on above: Result Comment: Clas sification of 25 [place] Vitamin D status:Insufficiency/Moderate Deficiency: < or = 30 ng/mLSufficiency/Optimal Levels: 31 to 80 ng/mLToxicity: > 100 ng/mLTest performed by chemiluminescent immunoassay. Performed By: #### C BCDIF, WSR, CK, CRP, IRON, URIC, CMP, FERR, VITD, AFP ####[facility] [address] [place], [place] [phone]#### LIPB ####[place] [id number] [place], [place] [phone] [facility] [place], [place] [phone] Vital Signs Date Time Vital Sign Value Performing Clinician Facility 12-29-2024 14:43-0400 Body mass index (BMI) [Ratio] 19.28 kg/m2 Makenzie Alba NEGATIVE TURNER.KNOCK UP ASSEMBLER Work Phone: [facility] 12-29-2024 14:43-0400 Body weight 51.35 kg Makenzie Alba NEGATIVE TURNER.KNOCK UP ASSEMBLER Work Phone: [facility] 12-29-2024 14:43-0400 Diastolic blood pressure 60 mm[Hg] Makenzie Alba NEGATIVE TURNER.KNOCK UP ASSEMBLER Work Phone: [facility] 12-29-2024 14:43-0400 Systolic blood pressure 110 mm[Hg] Makenzie Nba NEGATIVE TURNER.KNOCK UP ASSEMBLER Work Phone: [facility] 06-10-2023 19:09-0400 Body temperature 98.4 [degF] Treasure Lamb APRN.KNOCK UP ASSEMBLER Work Phone: [facility] 06-10-2023 19:09-0400 Body weight 50.35 kg Treasure Lamb APRN.KNOCK UP ASSEMBLER Work Phone: [facility] 06-10-2023 19:09-0400 Diastolic blood pressure 74 mm[Hg] Treasure Lamb APRN.KNOCK UP ASSEMBLER Work Phone: [facility] 06-10-2023 19:09-0400 Heart rate 99 /min Treasure Lamb APRN.KNOCK UP ASSEMBLER Work Phone: [facility] 06-10-2023 19:09-0400 Respiratory rate 18 /min Treasure Lamb APRN.KNOCK UP ASSEMBLER Work Phone: [facility] 06-10-2023 19:09-0400 SaO2% (BldA) [Mass fraction] 98 % Treasure Lamb APRN.KNOCK UP ASSEMBLER Work Phone: [facility] 06-10-2023 19:09-0400 Systolic blood pressure 110 mm[Hg] Treasure Lamb APRN.KNOCK UP ASSEMBLER Work Phone: [facility] 04-19-2023 22:27-0400 Diastolic Blood Pressure Non-Invasive [address] YAHIR MATA MD [facility] 04-19-2023 22:27-0400 Heart rate 86 /min DR YAHIR MATA MD [facility] 04-19-2023 22:27-0400 Reason For Taking VItal Signs DR YAHIR MATA MD [facility] 04-19-2023 22:27-0400 Respiratory rate 16 /min DR YAHIR MATA MD [facility] 04-19-2023 22:27-0400 Systolic Blood Pressure Non-Invasive [address] YAHIR MATA MD [facility] 04-19-2023 21:15-0400 Body temperature 98.6 [degF] DR YAHIR MATA MD [facility] 04-19-2023 21:15-0400 Diastolic Blood Pressure Non-Invasive [address] YAHIR MATA MD [facility] 04-19-2023 21:15-0400 Heart rate 113 /min DR YAHIR MATA MD [facility] 04-19-2023 21:15-0400 Respiratory rate 16 /min DR YAHIR MATA MD [facility] 04-19-2023 21:15-0400 Systolic Blood Pressure Non-Invasive [address] YAHIR MATA MD [facility] 11-11-2022 13:04-0500 Body temperature 98.71 [degF] Adore Praisler-Wood NEGATIVE TURNER.KNOCK UP ASSEMBLER Work Phone: [facility] 11-11-2022 13:04-0500 Body weight 53.43 kg Adore Praisler-Wood NEGATIVE TURNER.KNOCK UP ASSEMBLER Work Phone: [facility] 11-11-2022 13:04-0500 Diastolic blood pressure 82 mm[Hg] Adore Praisler-Wood NEGATIVE TURNER.KNOCK UP ASSEMBLER Work Phone: [facility] 11-11-2022 13:04-0500 Heart rate 98 /min Adore Praisler-Wood NEGATIVE TURNER.KNOCK UP ASSEMBLER Work Phone: [facility] 11-11-2022 13:04-0500 Respiratory rate 18 /min Adore Praisler-Wood NEGATIVE TURNER.KNOCK UP ASSEMBLER Work Phone: [facility] 11-11-2022 13:04-0500 SaO2% (BldA) [Mass fraction] 99 % Adore Praisler-Wood NEGATIVE TURNER.KNOCK UP ASSEMBLER Work Phone: [facility] 11-11-2022 13:04-0500 Systolic blood pressure 128 mm[Hg] Adore Praisler-Wood NEGATIVE TURNER.KNOCK UP ASSEMBLER Work Phone: [facility] 07-13-2022 13:28-0400 Body height 163.2 cm Makenzie Nba NEGATIVE TURNER.KNOCK UP ASSEMBLER Work Phone: [facility] 07-13-2022 13:28-0400 Body weight 54.43 kg Makenzie Nba NEGATIVE TURNER.KNOCK UP ASSEMBLER Work Phone: [facility] 07-13-2022 13:28-0400 Diastolic blood pressure 70 mm[Hg] Makenzie Alba NEGATIVE TURNER.KNOCK UP ASSEMBLER Work Phone: [facility] 07-13-2022 13:28-0400 Heart rate 114 /min Makenzie Nba NEGATIVE TURNER.KNOCK UP ASSEMBLER Work Phone: [facility] 07-13-2022 13:28-0400 Respiratory rate 14 /min Makenzie Alba NEGATIVE TURNER.KNOCK UP ASSEMBLER Work Phone: [facility] 07-13-2022 13:28-0400 SaO2% (BldA) [Mass fraction] 100 % Makenzie Alba NEGATIVE TURNER.KNOCK UP ASSEMBLER Work Phone: [facility] 07-13-2022 13:28-0400 Systolic blood pressure 130 mm[Hg] Makenzie Nba NEGATIVE TURNER.KNOCK UP ASSEMBLER Work Phone: [facility] 07-10-2022 17:23-0400 Body temperature 99.1 [degF] Dina Ke NEGATIVE TURNER.KNOCK UP ASSEMBLER Work Phone: [facility] 07-10-2022 17:23-0400 Body weight 55.16 kg Dina Ke NEGATIVE TURNER.KNOCK UP ASSEMBLER Work Phone: [facility] 07-10-2022 17:23-0400 Diastolic blood pressure 82 mm[Hg] Dina Ke NEGATIVE TURNER.KNOCK UP ASSEMBLER Work Phone: [facility] 07-10-2022 17:23-0400 Heart rate 136 /min Dina Ke NEGATIVE TURNER.KNOCK UP ASSEMBLER Work Phone: [facility] 07-10-2022 17:23-0400 Respiratory rate 18 /min Dina Ke NEGATIVE TURNER.KNOCK UP ASSEMBLER Work Phone: [facility] 07-10-2022 17:23-0400 SaO2% (BldA) [Mass fraction] 100 % Dina Ke NEGATIVE TURNER.KNOCK UP ASSEMBLER Work Phone: [facility] 07-10-2022 17:23-0400 Systolic blood pressure 128 mm[Hg] Dina Ke NEGATIVE TURNER.KNOCK UP ASSEMBLER Work Phone: [facility] 05-16-2022 22:22-0400 Diastolic blood pressure 72 mm[Hg] DR BRET MARCUM MD [facility] 05-16-2022 22:22-0400 Heart rate 72 /min DR BRET MARCUM MD [facility] 05-16-2022 22:22-0400 Respiratory rate 16 /min DR BRET MARCUM MD [facility] 05-16-2022 22:22-0400 Systolic blood pressure 122 mm[Hg] DR BRET MARCUM MD [facility] 05-16-2022 21:46-0400 Heart rate 74 /min DR BRET MARCUM MD [facility] 05-16-2022 21:46-0400 Respiratory rate 16 /min DR BRET MARCUM MD [facility] 05-16-2022 21:06-0400 Body temperature 98.96 [degF] DR BRET MARCUM MD [facility] 05-16-2022 21:06-0400 Diastolic blood pressure 82 mm[Hg] DR BRET MARCUM MD [facility] 05-16-2022 21:06-0400 Heart rate 75 /min DR BRET MARCUM MD [facility] 05-16-2022 21:06-0400 Mean blood pressure 103 mm[Hg] DR BRET MARCUM MD [facility] 05-16-2022 21:06-0400 Respiratory rate 18 /min DR BRET MARCUM MD [facility] 05-16-2022 21:06-0400 Systolic blood pressure 146 mm[Hg] DR BRET MARCUM MD [facility] 04-10-2022 17:04-0400 Diastolic blood pressure 70 mm[Hg] DR SCOT LEIVA DO [facility] 04-10-2022 17:04-0400 Heart rate 99 /min DR SCOT LEIVA DO [facility] 04-10-2022 17:04-0400 Respiratory rate 16 /min DR SCOT LEIVA DO [facility] 04-10-2022 17:04-0400 Systolic blood pressure 105 mm[Hg] DR SCOT LEIVA DO [facility] 04-10-2022 16:01-0400 Body temperature 98.96 [degF] DR SCOT LEIVA DO [facility] 04-10-2022 16:01-0400 Body weight 53.[address] SCOT LEIVA DO [facility] 04-10-2022 16:01-0400 Diastolic blood pressure 75 mm[Hg] DR SOCT LEIVA DO [facility] 04-10-2022 16:01-0400 Heart rate 108 /min DR SCOT LEIVA DO [facility] 04-10-2022 16:01-0400 Mean blood pressure 84 mm[Hg] DR SCOT LEIVA DO [facility] 04-10-2022 16:01-0400 Respiratory rate 16 /min DR SCOT LEIVA DO [facility] 04-10-2022 16:01-0400 Systolic blood pressure 103 mm[Hg] DR SCOT LEIVA DO [facility] 04-10-2022 14:30-0400 Body temperature 98.1 [degF] Treasure Lamb APRN.KNOCK UP ASSEMBLER Work Phone: [facility] 04-10-2022 14:30-0400 Body weight 53.43 kg Treasure Lamb APRN.KNOCK UP ASSEMBLER Work Phone: [facility] 04-10-2022 14:30-0400 Diastolic blood pressure 80 mm[Hg] Treasure Adonis NEGATIVE TURNER.KNOCK UP ASSEMBLER Work Phone: [facility] 04-10-2022 14:30-0400 Heart rate 123 /min Treasure Lamb NEGATIVE TURNER.KNOCK UP ASSEMBLER Work Phone: [facility] 04-10-2022 14:30-0400 Respiratory rate 20 /min Treasure Lamb NEGATIVE TURNER.KNOCK UP ASSEMBLER Work Phone: [facility] 04-10-2022 14:30-0400 SaO2% (BldA) [Mass fraction] 100 % Treasure Lamb NEGATIVE TURNER.KNOCK UP ASSEMBLER Work Phone: [facility] 04-10-2022 14:30-0400 Systolic blood pressure 110 mm[Hg] Treasure Adonis NEGATIVE TURNER.KNOCK UP ASSEMBLER Work Phone: [facility] 03-17-2022 16:22-0400 Body temperature 98.91 [degF] Mo Lalito NEGATIVE TURNER.KNOCK UP ASSEMBLER Work Phone: [facility] 03-17-2022 16:22-0400 Body weight 53.8 kg Mosenia Starkey NEGATIVE TURNER.KNOCK UP ASSEMBLER Work Phone: [facility] 03-17-2022 16:22-0400 Diastolic blood pressure 82 mm[Hg] Mo Lalito NEGATIVE TURNER.KNOCK UP ASSEMBLER Work Phone: [facility] [facility] 03-17-2022 16:22-0400 Heart rate 111 /min Mo Lalito NEGATIVE TURNER.KNOCK UP ASSEMBLER Work Phone: [facility] 03-17-2022 16:22-0400 Respiratory rate 20 /min Mo Lalito NEGATIVE TURNER.KNOCK UP ASSEMBLER Work Phone: [facility] 03-17-2022 16:22-0400 SaO2% (BldA) [Mass fraction] 100 % Mo Lalito NEGATIVE TURNER.KNOCK UP ASSEMBLER Work Phone: [facility] 03-17-2022 16:22-0400 Systolic blood pressure 126 mm[Hg] Mo Lalito NEGATIVE TURNER.KNOCK UP ASSEMBLER Work Phone: [facility] Encounters Encounter Date Encounter Type Care Provider Facility Start: 12-29-2024 End: 12-29-2024 Patient encounter procedure Makenzie Arango NEGATIVE TURNER.KNOCK UP ASSEMBLER Work Phone: OB/Gynecology Comment on above: Missed menses (Prima ry Dx) Start: 12-29-2024 End: 12-29-2024 ambulatory MAKENZIE LAZAROCALF Facility:[facility] Start: 08-07-2023 End: 08-07-2023 ambulatory Antonia CRUZ Facility:[facility] Start: 06-12-2023 Telephone encounter Kendall Bowden MD Work Phone: [facility] Comment on above: Results (Urine Cx mi xed.) Start: 06-10-2023 End: 06-10-2023 Patient encounter procedure Treasure Lamb NEGATIVE TURNER.KNOCK UP ASSEMBLER Work Phone: [facility] Comment on above: Urinary frequency (P rimary Dx); Recurrent UTI (urinary tract infection) Start: 04-19-2023 End: 04-20-2023 Emergency department patient visit DR YAHIR MATA MD Facility: Start: 04-19-2023 End: 04-19-2023 Emergency department patient visit DR YAHIR MATA MD [facility] Start: 11-13-2022 Telephone encounter Hollie Mehran vasquez NEGATIVE TURNER.KNOCK UP ASSEMBLER Work Phone: [facility] Comment on above: Results Start: 11-11-2022 End: 11-11-2022 Patient encounter procedure Adore Granado NEGATIVE TURNER.KNOCK UP ASSEMBLER Work Phone: [facility] Comment on above: Acute UTI (Primary D x); Urinary frequency Start: 07-13-2022 End: 07-13-2022 Patient encounter procedure Makenzie Arango NEGATIVE TURNER.KNOCK UP ASSEMBLER Work Phone: OB/Gynecology Comment on above: Encounter for gyneco logical examination (general) (routine) without abnormal findings (Primary Dx); Encounter for contraceptive management, unspecified type Start: 07-10-2022 End: 07-10-2022 Patient encounter procedure Dina Dempsey MACEY.KNOCK UP ASSEMBLER Work Phone: [facility] Comment on above: Mass of upper outer quadrant of left breast (Primary Dx) Start: 05-16-2022 End: 05-17-2022 Emergency department patient visit DR BRET MARCUM MD Facility:[facility] Start: 05-16-2022 End: 05-16-2022 Emergency department patient visit DR BRET MARCUM MD [facility] Start: 04-10-2022 End: 04-10-2022 Emergency department patient visit DR SCOT LEIVA DO [facility] Start: 04-10-2022 End: 04-10-2022 Patient encounter procedure Treasure Lamb APRN.[facility] Work Phone: [facility] Comment on above: Headache, unspecifie d headache type (Primary Dx); Vomiting, unspecified vomiting type, unspecified whether nausea present Start: 03-17-2022 End: 03-17-2022 Patient encounter procedure Mo Starkey APRN.KNOCK UP ASSEMBLER Work Phone: [facility] Comment on above: Migraine unspecified (Primary Dx) Start: 11-16-2017 Ambulatory MEAGHAN (KNOCK UP ASSEMBLER ) [facility] Procedures Date Procedure Procedure Detail Performing Clinician Start: 12-29-2024 UA DIP,URINE HCG (POC) Makenzie Arango NEGATIVE TURNER.KNOCK UP ASSEMBLER Work Phone: Start: 06-10-2023 Urnls dip stick/tabl et rgnt auto w/o microscopy Adore Granado NEGATIVE TURNER.KNOCK UP ASSEMBLER Work Phone: Start: 11-11-2022 Urnls dip stick/tabl et rgnt auto w/o microscopy Shanna Willams PA-C Work Phone: Start: 06-28-2019 Adult depression screening assessment Mo Starkey APRN.KNOCK UP ASSEMBLER Work Phone: None (qualifier value) DR RADHA LEIVA DO Plan of Treatment Date Care Activity Detail Author Start: 06-29-2024 Urine microalbumin profile [facility] Start: 06-11-2024 Covid-19 Vaccine ( season) Covid-19 Vaccine ( season) [facility] Start: 06-11-2024 Influenza vaccination Influenza Vacc ine (#1) [facility] Start: 06-11-2023 Influenza vaccination INFLUENZA (#1) [facility] Start: 2022 PAP TESTING PAP TESTING [facility] Start: 2022 Screening for malign ant neoplasm of cervix Cervical Cancer Screening [facility] Start: 10-11-2022 DEPRESSION ASSESSMENT DEPRESSION ASS ESSMENT [facility] Start: 06-11-2022 Influenza vaccination C [facility] Start: 04-10-2022 End: 04-24-2022 Influenza virus A and B RNA and SARS-CoV-2 (COVID-19) N gene panel - Respiratory specimen by KVNG with probe detection [facility] Work Phone: Comment on above: Expected: 04/10/2022 , Expires: 04/24/2022 Start: 01-05-2022 COVID-19 VACCINE (4 - Booster for Moderna series) COVID-19 VACCINE (4 - Booster for Moderna series) [facility] Start: 01-05-2022 COVID-19 VACCINE (4 - Moderna series) COVID-19 VACCINE (4 - Moderna series) [facility] Start: 10-11-2021 DEPRESSION ASSESSMENT DEPRESSION ASS ESSMENT [facility] Start: 06-28-2020 Adult depression screening assessment DEPRESSION SCREENING [facility] Start: 2019 Anxiety Screening Anxiety Screening [facility] Start: 2019 CHLAMYDIA SCREENING (18-24) CHLAMYDIA SCREENING (18-24) [facility] Start: 2019 Depression Screening Depression Scre ening [facility] Start: 2019 GC (GONORRHEA) SCREE ROMERO (18-24) GC (GONORRHEA) SCREENING (18-24) [facility] Start: 2019 HEPATITIS C SCREENING HEPATITIS C [facility] Start: 2019 Hepatitis C screening [facility] Start: 2019 HIV SCREENING HIV SCREENING [facility] Start: 2019 HIV screening HIV Screening [facility] Start: 2019 Screening for Chlamy mervin trachomatis Chlamydia Screening (18-24) [facility] Start: 2017 Meningococcal B Vacc ine (1 of 2 - Standard) Meningococcal B Vaccine (1 of 2 - Standard) [facility] Start: 2017 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 B: Consider based on risk (1 of 2 - Patient Seeks Protection) 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 B: Consider based on risk (1 of 2 - Patient Seeks Protection) [facility] Start: 2015 PEDS TO ADULT TRANSI TION ANNUAL ASSESSMENT PEDS TO ADULT TRANSITION ANNUAL ASSESSMENT [facility] Start: 2013 PEDS TO ADULT TRANSI TION INITIAL DISCUSSION PEDS TO ADULT TRANSITION INITIAL DISCUSSION [facility] Start: 2011 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 B: Consider based on risk (1 of 2 - Risk Bexsero 2-dose series) 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 B: Consider based on risk (1 of 2 - Risk Bexsero 2-dose series) [facility] Bacteria identified in Urine by Culture URINE CULTURE Microbiology Routine Urinary frequency Ordered: 11/11/2022 [facility] Work Phone: Comment on above: Ordered: 11/11/2022 Bacteria identified in Urine by Culture URINE CULTURE Microbiology Routine Urinary frequency 06/10/2023 7:44 PM EDT [facility] Work Phone: End: 08-09-2023 Us breast uni real time with image limited US BREAST LTD LT Radiology STAT Mass of upper outer quadrant of left breast 1 Occurrences starting 07/10/2022 until 08/09/2023 [facility] Work Phone: Comment on above: 1 Occurrences starti ng 07/10/2022 until 08/09/2023 [facility] Immun[facility] Immunization Date Immunization Notes Care Provider Destiny cevallos 06-28-2019 influenza, injectabl e, quadrivalent, contains preservative Mo Starkey APRN.CNP Work Phone: [facility] 06-28-2019 influenza virus vacc ine, unspecified formulation Makenzie Arango APRN.CNP Work Phone: [facility] 10-26-2017 Human Papillomavirus 9-valent vaccine Mo Starkey NEGATIVE TURNER.KNOCK UP ASSEMBLER Work Phone: [facility] 10-26-2017 influenza, injectabl e, quadrivalent, contains preservative Mo Starkey NEGATIVE TURNER.KNOCK UP ASSEMBLER Work Phone: [facility] 10-26-2017 meningococcal polysaccharide (groups A, C, Y and W-135) diphtheria toxoid conjugate vaccine (MCV4P) Mo Starkey APRN.KNOCK UP ASSEMBLER Work Phone: [facility] 07-13-2014 influenza, live, intranasal, quadrivalent Mo Starkey NEGATIVE TURNER.KNOCK UP ASSEMBLER Work Phone: [facility] 06-29-2014 human papilloma viru s vaccine, quadrivalent Mo Starkey NEGATIVE TURNER.[facility] Work Phone: [facility] Work Phone: 06-29-2014 meningococcal polysaccharide (groups A, C, Y and W-135) diphtheria toxoid conjugate vaccine (MCV4P) Mo Starkey APRN.KNOCK UP ASSEMBLER Work Phone: [facility] Work Phone: 06-29-2014 tetanus toxoid, redu leona diphtheria toxoid, and acellular pertussis vaccine, adsorbed Mo Starkey NEGATIVE TURNER.[facility] Work Phone: [facility] Work Phone: 07-13-2009 influenza virus vacc ine, unspecified formulation Mo Starkey NEGATIVE TURNER.KNOCK UP ASSEMBLER Work Phone: [facility] Work Phone: 06-09-2007 diphtheria, tetanus toxoids and acellular pertussis vaccine Mo Starkey NEGATIVE TURNER.KNOCK UP ASSEMBLER Work Phone: [facility] Work Phone: 06-09-2007 measles, mumps and rubella virus vaccine Mo Starkey NEGATIVE TURNER.KNOCK UP ASSEMBLER Work Phone: [facility] Work Phone: 06-09-2007 pneumococcal conjuga te vaccine, 7 valent Mo Starkey NEGATIVE TURNER.KNOCK UP ASSEMBLER Work Phone: [facility] Work Phone: 06-09-2007 poliovirus vaccine, inactivated Mo Starkey NEGATIVE TURNER.KNOCK UP ASSEMBLER Work Phone: [facility] Work Phone: 06-09-2007 varicella virus vaccine River tSarkey NEGATIVE TURNER.KNOCK UP ASSEMBLER Work Phone: [facility] Work Phone: 04-17-2004 diphtheria, tetanus toxoids and acellular pertussis vaccine Mo Starkey NEGATIVE TURNER.KNOCK UP ASSEMBLER Work Phone: [facility] Work Phone: 04-17-2004 haemophilus influenz ae type b vaccine, HbOC conjugate Mo King NEGATIVE TURNER.[facility] Work Phone: [facility] Work Phone: 04-17-2004 hepatitis B vaccine, pediatric or pediatric/adolescent dosage Mo Starkey NEGATIVE TURNER.[facility] Work Phone: [facility] Work Phone: 04-17-2004 varicella virus vaccine [place] Starkey NEGATIVE TURNER.[facility] Work Phone: [facility] Work Phone: 11-01-2002 measles, mumps and rubella virus vaccine Mo Starkey NEGATIVE TURNER.KNOCK UP ASSEMBLER Work Phone: [facility] Work Phone: 11-01-2002 pneumococcal conjuga te vaccine, 7 valent Mosenia Starkey NEGATIVE TURNER.KNOCK UP ASSEMBLER Work Phone: [facility] Work Phone: 11-01-2002 poliovirus vaccine, inactivated Mo Starkey NEGATIVE TURNER.KNOCK UP ASSEMBLER Work Phone: [facility] Work Phone: 04-21-2002 diphtheria, tetanus toxoids and acellular pertussis vaccine Mo Starkey NEGATIVE TURNER.KNOCK UP ASSEMBLER Work Phone: [facility] Work Phone: 04-21-2002 haemophilus influenz ae type b vaccine, HbOC conjugate Mo Lalito NEGATIVE TURNER.KNOCK UP ASSEMBLER Work Phone: [facility] Work Phone: 04-21-2002 pneumococcal conjuga te vaccine, 7 valent Mo Lalito NEGATIVE TURNER.KNOCK UP ASSEMBLER Work Phone: [facility] Work Phone: 02-13-2002 diphtheria, tetanus toxoids and acellular pertussis vaccine Mo Lalito NEGATIVE TURNER.[facility] Work Phone: [facility] Work Phone: 02-13-2002 haemophilus influenz ae type b vaccine, HbOC conjugate Mo Lalito NEGATIVE TURNER.[facility] Work Phone: [facility] Work Phone: 02-13-2002 pneumococcal conjuga te vaccine, 7 valent Mo Lalito NEGATIVE TURNER.[facility] Work Phone: [facility] Work Phone: 02-13-2002 poliovirus vaccine, inactivated Mo Lalito NEGATIVE TURNER.[facility] Work Phone: [facility] Work Phone: 2001 diphtheria, tetanus toxoids and acellular pertussis vaccine Mo Lalito NEGATIVE TURNER.[facility] Work Phone: [facility] Work Phone: 2001 haemophilus influenz ae type b vaccine, HbOC conjugate Mo Lalito NEGATIVE TURNER.[facility] Work Phone: [facility] Work Phone: 2001 hepatitis B vaccine, pediatric or pediatric/adolescent dosage Mo King NEGATIVE TURNER.KNOCK UP ASSEMBLER Work Phone: [facility] Work Phone: 2001 pneumococcal conjuga te vaccine, 7 valent Mo Lalito NEGATIVE TURNER.KNOCK UP ASSEMBLER Work Phone: [facility] Work Phone: 2001 poliovirus vaccine, inactivated Mo Lalito NEGATIVE TURNER.[facility] Work Phone: [facility] Work Phone: 2001 hepatitis B vaccine, pediatric or pediatric/adolescent dosage Mo Starkey APRN.[facility] Work Phone: [facility] Work Phone: Payers Date Payer Category Payer [employer] BLUE CARD PPO OOS [id number] 2024 Unknown [id number] 2023 Self-pay 2023 Private Health Insurance [id number] 2022 Private Health Insurance [id number] 2017 Medicaid [employer] [id number] 2017-Present [phone] [address] [place] [address] Medicaid [id number] 2017 Medicaid [id number] 2001 Unknown [id number] 2001 Unknown [id number] Unknown [id number] Social History Date Type Detail Facility Start: 09-13-2020 End: 07-10-2022 Tobacco smoking status NHIS Never smoked tobacco [facility] Start: 03-17-2022 End: 09-30-2022 Alcohol intake Lifetime non-drinker (finding) [facility] Start: 06-28-2019 History SDOH Alcohol Frequency 1 [facility] Start: 08-10-2013 End: 07-10-2022 Tobacco Comment mom and dad smoke - outside [facility] Start: 2001 Sex Assigned At Not on file [facility] Start: 03-31-2022 End: 07-13-2022 Exposure to SARS-CoV-2 (event) Not sure [facility] Work Phone: Sex Assigned At Sex [facility] History of tobacco use Passive smoker [facility] Start: 07-10-2022 Tobacco use and exposure Smokeless tobacco non-user [facility] Start: 07-13-2022 End: 06-10-2023 Alcohol intake Current drinker of alcohol (finding) [facility] Start: 07-13-2022 History SDOH Alcohol Comment Occasionally [facility] Start: 06-28-2019 End: 12-29-2024 History of Social function [facility] Start: 06-28-2019 End: 12-29-2024 Alcohol Use Disorder Identification Test - Consumption [AUDIT-C] [facility] How often to you hav e a drink containing alcohol? Never [facility] Average Number of Drinks Not on file [facility] Medical Equipment Procedure Code Equipment Code Equipment Origin al Text Equipment Identifier Dates [id number], [id number], [id number] Start: 12-01-2017 End: 12-29-2024 Comment on above: Monitor blood glucos e 3 times daily MONITOR BLOOD KETONE S X3-4/DAY. Precision ketone strips only. Take 30 g by mouth t hree times daily. Functional Status Date Assessment Result Facility 04-19-2023 Functional Status ID band on, Call device within reach, Bed in low position, Wheels locked, Bedside Cart Locked, Visitor at bedside, Safety level maintained [facility] 04-19-2023 Functional Status [facility] 05-16-2022 Functional Status Independent [facility] 05-16-2022 Functional Status Standard Safet y ID band on, Allergy Band on, Call device within reach, Bed in low position, Wheels locked, Upper/Half-Length side-rails up, Phone within reach, personal items within reach, Safety level maintained [facility] 04-10-2022 Functional Status Independent [place] [facility] w[facility] 04-10-2022 Functional Status Standard Safet y ID band on, Allergy Band on, Call device within reach, Bed in low position, Wheels locked, Upper/Half-Length side-rails up, Phone within reach, personal items within reach, Visitor at bedside [facility] 05-16-2015 Are you deaf, or do you have serious difficulty hearing No 05/16/2015 11:30 AM Elaine Johnosn Ma [facility] 05-16-2015 Are you blind, or do you have serious difficulty seeing, even when wearing glasses No 05/16/2015 11:30 AM Elaine Johnson Ma [facility] 05-16-2015 Do you have serious difficulty walking or climbing stairs No 05/16/2015 11:30 AM Elaine Johnson Ma [facility] 05-16-2015 Do you have difficul ty dressing or bathing No 05/16/2015 11:30 AM Elaine Johnson Ma [facility] Mental Status Date Assessment Result Facility 04-19-2023 Mental Status Oriented x 4 [facility] 04-19-2023 Mental Status [facility] 05-16-2022 Mental Status Orientation Oriented x 4 [facility] 05-16-2022 Mental Status [facility] 04-10-2022 Mental Status Orientation Oriented x 4 [facility] 04-10-2022 Mental Status [facility] 05-16-2015 Because of a physica l, mental, or emotional condition, do you have serious difficulty concentrating, remembering, or making decisions No 05/16/2015 11:30 AM Elaine Johnson Ma [facility] Clinical Notes 03-17-2022 to 12-29-2024 Makenzie Arango APRN.TONI - 12/29/2024 2:34 PM EDTTelephone Encounter - Lisa Lopez MA - 06/13/2023 2:42 PM EDTTelephone Encounter - María Elena Valdez LPN - 06/12/2023 8:50 AM EDT Note Date & Type Note Facility 12-29-2024 Note HNO ID: [id number] Author: MAKENZIE ARANGO APRN.KNOCK UP ASSEMBLER Service: ? Author Type: Nurse Practitioner Type: Progress Notes Filed: 12/29/2024 14:55 Note Text: Aniyah Kapadia is a 24 year old female who presents for problem visit missed menses, LMP 11/15/2024, reported HPT 12/28/2024. 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 Worker History LMP: 11/15/2024 (Exact Date), Having periods Age at Menarche: Age at First : Age at Menopause: Soap Worker History Comments: Sexual Activity: Yes; Male Contraception: Pill PAST MEDICAL HISTORY Diagnosis Date Glycogen storage disease (HCC) PAST SURGICAL HISTORY Procedure Laterality Date NONE FAMILY HISTORY Problem Relation Age of Onset None Father Diabetes Maternal Grandmother Hypertension Maternal Grandmother Diabetes Maternal Grandfather Cancer Maternal Grandfather hodgkins Diabetes Paternal Grandmother Hypertension Paternal Grandmother Cancer Paternal Grandfather other (hypoglycemic) Mother Social History Tobacco Use Smoking status: Never Passive exposure: Yes Smokeless tobacco: Never Tobacco comments: mom and dad smoke - outside Vaping Use Vaping status: Never Used Substance Use Topics Alcohol use: Yes Comment: Occasionally Drug use: Yes Frequency: 1.0 times per week Types: Marijuana No current outpatient medications on file. No current facility-administered medications for this visit. Allergies As of Date: 12/29/2024 Allergen Noted Reaction BACTRIM [SULFAMETHOXAZOLE-TRIMETH*2007 Rash Fully Assessed 06/10/2023 REVIEW OF SYSTEMS Expanded ROS: N/A Allergies and current medication updated:Yes SENSITIVE EXAM: Sensitive exam not performed. EXAM: BP 110/60 Wt 113 lb 3.2 oz (51.3kg) LMP 11/15/2024 GENERAL: pleasant, female in no apparent distress HEENT: Normocephalic, atraumatic, mucus membranes moist, and no lesions CHEST: Normal inspiratory effort NEURO: alert and oriented x3,exam grossly non-focal EXTREMITIES: normal ASSESSMENT/PLAN: 1. Missed menses - ICD9: 626.4, ICD10: N92.6 - UA DIP,URINE HCG (POC)-positive Termination information given Follow up after for control options Makenzie Arango APRN.TONI Medical Decision Making: Problems: Low: Acute, uncomplicated illness or injury Data: Unique test(s) ordered: 1 Risk: Low: Low risk from testing/treatment Medical Decision Making Level: 3 - Low [facility] 12-29-2024 History of Presen t illness Narrative Aniyah Kapadia is a 24 year old female who presents for problem visit missed menses, LMP 11/15/2024, reported HPT 12/28/2024. 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 Worker History LMP: 11/15/2024 (Exact Date), Having periods Age at Menarche: Age at First : Age at Menopause: Soap Worker History Comments: Sexual Activity: Yes; Male Contraception: Pill PAST MEDICAL HISTORY Diagnosis Date Glycogen storage disease (HCC) PAST SURGICAL HISTORY Procedure Laterality Date NONE FAMILY HISTORY Problem Relation Age of Onset None Father Diabetes Maternal Grandmother Hypertension Maternal Grandmother Diabetes Maternal Grandfather Cancer Maternal Grandfather hodgkins Diabetes Paternal Grandmother Hypertension Paternal Grandmother Cancer Paternal Grandfather other (hypoglycemic) Mother Social History Tobacco Use Smoking status: Never Passive exposure: Yes Smokeless tobacco: Never Tobacco comments: mom and dad smoke - outside Vaping Use Vaping status: Never Used Substance Use Topics Alcohol use: Yes Comment: Occasionally Drug use: Yes Frequency: 1.0 times per week Types: Marijuana No current outpatient medications on file. No current facility-administered medications for this visit. Allergies As of Date: 12/29/2024 Allergen Noted Reaction BACTRIM [SULFAMETHOXAZOLE-TRIMETH*2007 Rash Fully Assessed 06/10/2023 REVIEW OF SYSTEMS Expanded ROS: N/A Allergies and current medication updated:Yes SENSITIVE EXAM: Sensitive exam not performed. EXAM: BP 110/60 Wt 113 lb 3.2 oz (51.3kg) LMP 11/15/2024 GENERAL: pleasant, female in no apparent distress HEENT: Normocephalic, atraumatic, mucus membranes moist, and no lesions CHEST: Normal inspiratory effort NEURO: alert and oriented x3,exam grossly non-focal EXTREMITIES: normal ASSESSMENT/PLAN: 1. Missed menses - ICD9: 626.4, ICD10: N92.6 - UA DIP,URINE HCG (POC)-positive Termination information given Follow up after for control options Makenzie Arango APRN.TONI Medical Decision Making: Problems: Low: Acute, uncomplicated illness or injury Data: Unique test(s) ordered: 1 Risk: Low: Low risk from testing/treatment Medical Decision Making Level: 3 - Low documented in this encounter [facility] 06-13-2023 Miscellaneous Notes Patient notified of results, verbalized understanding of instructions given as listed below. Lisa Lopez MA Left message for patient to return call. María Elena Valdez LPN Urine culture did not look like a clear sample so it did not show a clear infection. She may finish the antibiotic if helping and follow up with PCP, urology, or SCIENTIST IMMUNOLOGY if symptoms persist. documented in this encounter [facility] 06-10-2023 History of Presen t illness Narrative CC: Patient presents with: Urinary Frequency: Frequency, burning x 1 day HPI Aniyah Kapadia is a 22 year old female who presents with complaint of possible UTI. These symptoms have been present for 1 days. Associated symptoms: burning and frequency Denies: hematuria, pressure, fever, chills, sweats, abdominal pain, and flank pain Treatments: nothing The ROS was otherwise negative. PMH, Medications, labs, allergies, and recent past visits with PCP were reviewed and updated as able. PHYSICAL EXAM: BP 110/74 Pulse 99 Temp 36.9 C (98.4 F) (Tympanic) Resp 18 Wt 50.3 kg (111 lb) LMP 07/09/2022 (Exact Date) SpO2 98% BMI 18.91 kg/m General: Well appearing and alert CV: Regular rate and rhythm without obvious murmur Lungs: clear to auscultation bilaterally Back: straight and symmetric Abdomen: soft, nontender, nondistended PAST MEDICAL HISTORY Diagnosis Date Glycogen storage disease (HCC) PAST SURGICAL HISTORY Procedure Laterality Date NONE ALLERGIES Bactrim [Sulfamethoxazole-Trimethoprim] MEDICATIONS Desogestrel-Ethinyl Estradiol (APRI) 0.15-0.03 mg per tablet Take 1 tablet by mouth once daily. ibuprofen (MOTRIN) 600 mg tablet TAKE 1 TABLET BY MOUTH EVERY 8 HOURS IF NEEDED. TAKE AT ONSET OF MIGRAINE AND WITH FOOD Ketone Blood Test (PRECISION XTRA B-KETONE) strp MONITOR BLOOD KETONES X3-4/DAY. Precision ketone strips only. Lancets lancets Monitor blood glucose 3 times daily (Patient taking differently: Monitor blood glucose 3 times daily Uses as needed) PRECISION XTRA B-KETONE strp Monitor blood ketones x3-4/day (Patient taking differently: Monitor blood ketones x3-4/day Uses as needed) Blood-Glucose Meter (PRECISION XTRA) [facility] Use as directed FREESTYLE LITE METER monitoring kit Supply to be used as directed. blood sugar diagnostic (FREESTYLE TEST) test strip Monitor blood glucose 3 times daily (Patient taking differently: Monitor blood glucose 3 times daily Takes as needed) cephALEXin (KEFLEX) 500 mg capsule Take 1 capsule by mouth twice daily for 7 days. FAMILY HISTORY Problem Relation Age of Onset None Father Diabetes Maternal Grandmother Hypertension Maternal Grandmother Diabetes Maternal Grandfather Cancer Maternal Grandfather hodgkins Diabetes Paternal Grandmother Hypertension Paternal Grandmother Cancer Paternal Grandfather other (hypoglycemic) Mother Social History Tobacco Use Smoking status: Never Passive exposure: Yes Smokeless tobacco: Never Tobacco comments: mom and dad smoke - outside Vaping Use Vaping Use: Never used Substance Use Topics Alcohol use: Yes Comment: Occasionally Drug use: Yes Frequency: 1.0 times per week Types: Marijuana ASSESSMENT/PLAN: 1. Urinary frequency - ICD9: 788.41, ICD10: R35.0 (primary diagnosis) - UA DIP, URINE (POC) - URINE CULTURE 2. Recurrent UTI (urinary tract infection) - ICD9: 599.0, ICD10: N39.0 - CEPHALEXIN 500 MG CAPSULE Prescription instructions reviewed with patient as applicable. Potential red flag symptoms discussed with the patient. Reviewed appropriate action plan to take if red flag symptoms occur. Patient agreeable to treatment plan. Treasure Lamb APRN.KNOCK UP ASSEMBLER documented in this encounter [facility] 04-20-2023 Hospital Discharg e instructions Patient Education 04/19/2023 22:35:34 HEADACHE, Migraine (Classical) Migraine Headache Migraine headaches are caused by changes in blood flow to the brain. This causes throbbing or constant pain on one or both sides of your head. The pain may last from a few hours to several days. You usually will have nausea, vomiting, sensitivity to light and sound, and blurred vision. A migraine may be triggered by emotional stress or depression, or by hormone changes during the menstrual cycle. Other triggers include control pills, overuse of migraine medicines, alcohol or caffeine, foods with tyramine, eye strain, weather changes, missed meals, or too little or too much sleep. Home care Follow these tips when taking care of yourself at home: Don t drive yourself home if you were given pain medicine for your headache. Instead, have someone else drive you home. Try to sleep when you get home. You should feel much better when you wake up. Cold can help ease migraine symptoms. Put an ice pack on your forehead or at the base of your skull. Put heat on the back of your neck to help ease any neck spasm. Drink only clear liquids or eat a light diet until your symptoms get better. This will help you avoid nausea and vomiting. How to prevent migraines Pay attention to what seems to trigger your headache. Try to avoid the triggers when you can. If you have frequent headaches, consider keeping a headache diary. In it, write down what you were doing, feeling, or eating in the hours before each headache. Show this to your health care provider to help find the cause of your headaches. If stress seems to be a trigger for your headaches, figure out what is causing stress in your life. Learn new ways to handle your stress. Ideas include regular exercise, biofeedback, self-hypnosis, and meditation. Talk with your health care provider to find out more information about managing stress. Many books and digital media are also available on this subject. Tyramine is a substance found in many foods. It can trigger a migraine in some people. These foods contain tyramine: Chocolate Yogurt All cheeses but cottage cheese and cream cheese Smoked or pickled fish and meat, including courtney, caviar, bologna, pepperoni, and salami Liver Avocados Bananas Figs Raisins Red wine Try staying away from these foods for 1 to 2 months to see if you have fewer headaches. How to treat future headaches Take time out at the first sign of a headache, if possible. Find a quiet, dark, comfortable place to sit or lie down. Let yourself relax or sleep. Put an ice pack on your forehead or on the area of greatest pain. A heating pad and massage may help if you are having a muscle spasm and tightness in your neck. If you have been prescribed a medicine to stop a migraine headache, use this at the first warning sign of the headache for best results. First signs may be an aura or pain. If you need to take medicine often for your migraine, talk with your health care provider about other ways to prevent your headaches. Follow-up care Follow up with your health care provider if your headache doesn t get better within the next 24 hours. Talk with your provider if you have frequent headaches. He or she can figure out a treatment plan. Ask if you can have medicine to take at home the next time you get a bad headache. This may keep you from having to visit the emergency department in the future. You may need to see a headache specialist (neurologist) if you continue to have headaches. When to seek medical advice Call your health care provider right away if any of these occur: Your head pain gets worse, or doesn t get better within 24 hours You can t keep liquids down (repeated vomiting) Pain in your sinuses, ears, or throat Fever of 100.4 F (38 C) or higher, or as directed by your health care provider Stiff neck Extreme drowsiness, confusion, or fainting Dizziness, or dizziness with spinning sensation (vertigo) Weakness in an arm or leg, or on one side of your face Difficulty talking or seeing 1144-5971 [employer]. [address] [place], [place] [id number]. All rights reserved. This information is not intended as a substitute for professional medical care. Always follow your healthcare professional's instructions. Follow Up Care 04/19/2023 21:13:08 With:Call Physician Referral Address:Unknown [facility] Discharge summary Discharge Instructions Thank you for allowing [facility] to assist you with your healthcare needs. The following is important discharge information regarding your hospital visit. Diagnosis from Today's Visit Migraine aura without headache Headache What to Do Next Instructions from Your Care Team No qualifying data available. Post Acute Orders No qualifying data available. You Need to Schedule the Following Appointments Follow Up with Call Physician Referral When Within 2-4 days Allergies bacitracin Medications Please ask your primary doctor or pharmacist before taking any other medication not listed, including over the counter drugs, herbal medications, vitamins and or supplements as they may interact with your home medications. What How Much When Instructions Last Dose Unchanged FLUoxetine (FLUoxetine 20 mg oral capsule) 1 cap by mouth Once a day Please take this list to your next doctor s visit. Bring all medications you take, including over the counter medications, herbals and other supplements with you to your doctor s visit. Patients and families are reminded to discard old lists and to update any records with all medication providers or retail pharmacies. Education Materials Migraine Headache Migraine headaches are caused by changes in blood flow to the brain. This causes throbbing or constant pain on one or both sides of your head. The pain may last from a few hours to several days. You usually will have nausea, vomiting, sensitivity to light and sound, and blurred vision. A migraine may be triggered by emotional stress or depression, or by hormone changes during the menstrual cycle. Other triggers include control pills, overuse of migraine medicines, alcohol or caffeine, foods with tyramine, eye strain, weather changes, missed meals, or too little or too much sleep. Home care Follow these tips when taking care of yourself at home: Don t drive yourself home if you were given pain medicine for your headache. Instead, have someone else drive you home. Try to sleep when you get home. You should feel much better when you wake up. Cold can help ease migraine symptoms. Put an ice pack on your forehead or at the base of your skull. Put heat on the back of your neck to help ease any neck spasm. Drink only clear liquids or eat a light diet until your symptoms get better. This will help you avoid nausea and vomiting. How to prevent migraines Pay attention to what seems to trigger your headache. Try to avoid the triggers when you can. If you have frequent headaches, consider keeping a headache diary. In it, write down what you were doing, feeling, or eating in the hours before each headache. Show this to your health care provider to help find the cause of your headaches. If stress seems to be a trigger for your headaches, figure out what is causing stress in your life. Learn new ways to handle your stress. Ideas include regular exercise, biofeedback, self-hypnosis, and meditation. Talk with your health care provider to find out more information about managing stress. Many books and digital media are also available on this subject. Tyramine is a substance found in many foods. It can trigger a migraine in some people. These foods contain tyramine: Chocolate Yogurt All cheeses but cottage cheese and cream cheese Smoked or pickled fish and meat, including courtney, caviar, bologna, pepperoni, and salami Liver Avocados Bananas Figs Raisins Red wine Try staying away from these foods for 1 to 2 months to see if you have fewer headaches. How to treat future headaches Take time out at the first sign of a headache, if possible. Find a quiet, dark, comfortable place to sit or lie down. Let yourself relax or sleep. Put an ice pack on your forehead or on the area of greatest pain. A heating pad and massage may help if you are having a muscle spasm and tightness in your neck. If you have been prescribed a medicine to stop a migraine headache, use this at the first warning sign of the headache for best results. First signs may be an aura or pain. If you need to take medicine often for your migraine, talk with your health care provider about other ways to prevent your headaches. Follow-up care Follow up with your health care provider if your headache doesn t get better within the next 24 hours. Talk with your provider if you have frequent headaches. He or she can figure out a treatment plan. Ask if you can have medicine to take at home the next time you get a bad headache. This may keep you from having to visit the emergency department in the future. You may need to see a headache specialist (neurologist) if you continue to have headaches. When to seek medical advice Call your health care provider right away if any of these occur: Your head pain gets worse, or doesn t get better within 24 hours You can t keep liquids down (repeated vomiting) Pain in your sinuses, ears, or throat Fever of 100.4 F (38 C) or higher, or as directed by your health care provider Stiff neck Extreme drowsiness, confusion, or fainting Dizziness, or dizziness with spinning sensation (vertigo) Weakness in an arm or leg, or on one side of your face Difficulty talking or seeing [id number] [employer]. [address] [place] [address]. All rights reserved. This information is not intended as a substitute for professional medical care. Always follow your healthcare professional's instructions. Additional Information VACCINATE! IT SAVES LIVES! Members of the community who have not yet received the COVID-19 vaccine and would like to receive it can visit one of [facility] vaccine clinics. There are many vaccine clinic locations within the [facility]. For locations and available times, please visit [email or web address] It is important to note that some COVID mobile vaccine clinics are held outdoors and may be canceled in rainy or stormy conditions. To learn more about pediatric vaccinations (ages 5-11), we invite you to visit the [facility] webpage. [email or web address]/p [email or web address]-Tnrijsgmnkw-Freq [email or web address].[email or web address] To learn more about the COVID-19 vaccine, we invite you to visit the CDC website for a list of frequently asked questions. https://www.cdc.gov/coronavirus/ 2019-ncov/vaccines/faq.html [facility] Patient Portal Access Instructions: Stay connected with your healthcare team and access your personal medical information anytime with the [facility] Patient Portal. If you would like a full copy of your medical records please contact the [facility] Medical Records Department Wednesday through Wednesday between 8a.m. and 4:30p.m. Please follow the directions below to access the portal: 1.Access the email account you provided upon registration to the hospital.2.Look for an invitation email from [facility].3.Open the email and access the invitation link: [facility].Fill in the required mary to create your account. Sign into [email or web address] with your username and password that you created in the above steps to stay up to date. You can then view a summary of results, a summary of your visits, and the ability to download your summaries to your computer or send the information securely to a physician. Remember that your healthcare information is confidential, so carefully consider who you will allow to register on the [employer] Patient Portal for access to your information. You can also access the [employer] Patient Portal on the [employer]. Simply click on Health Records under Health Data and then click on the [employer] logo. HOW TO SAFELY DISPOSE OF PRESCRIPTION MEDICATIONS Please use one of the following methods to safely dispose of your unused medications. 1.Use a drug disposal kit: the drug disposal pouch allows you to safely discard your old and unused drugs. Ask your nurse to give you one when you are discharged.2.Visit a local take-back location: Many local pharmacies and police departments have programs that collect old and unwanted prescription drugs. Call your local pharmacy or go to http://makr.ChannelAdvisor/0A5Lw7e to find one close to you.3.Make use of household items: Use cat litter or old coffee grounds to dispose medications if other options are not available. Mix your drugs with these household products, seal them in an airtight container and throw it into the garbage. Call [facility]: [phone] to be sure your drugs can be disposed of in this way. Some medicines may require a different approach.4.Never flush your medications down the toilet. IF YOU HAVE BEEN PRESCRIBED AN OPIOIDS FOR PAIN If you have been prescribed an opioid (such as hydrocodone, oxycodone or morphine), it is critical to understand the possible side effects and risks of opioid pain medications. Even when taken as directed, opioids can have several side effects including: Tolerance, meaning you might need to take more of a medication for the same pain relief. Nausea, vomiting and/or constipation. Sleepiness, dizziness, dry mouth, confusion, depression or itching. Physical dependence, meaning you have withdrawal symptoms when a medication is stopped ? this can develop within a few days. KNOW YOUR RESPONSIBILITIES It is important to know exactly how much and how often to take the opioid pain medications you are prescribed. Never take opioids in higher amounts or more often than prescribed. Do not combine opioids with alcohol or other drugs that cause drowsiness, such as benzodiazepines, also known as benzos, including diazepam and alprazolam, muscle relaxants or sleep aids. Never sell or share prescription opioids. This is illegal. Store opioids in a secure place and out of reach of others (including children, family, friends and visitors). The last page(s) of this document has been signed and retained as a CHART COPY Signatures Patient Education Materials HEADACHE, Migraine (Classical) Medication Leaflets My discharge plan and instructions have been reviewed and explained to me and IMINISTERIO MADISON N understand my current condition and have read and understand these discharge instructions. I have received a written copy of the plan/instructions. If I have questions, I am aware that I should contact my doctor. Patient/Packaging Specialist Signature: Date/Time: Relationship to Patient: Witness Name/Signature: Date/Time: [facility] 11-13-2022 Miscellaneous Notes Urine culture returns. > 100,000 e. Coli ATB prescribed is appropriate. Phone call placed. No answer. Voicemail message left. documented in this encounter [facility] 11-11-2022 Instructions Patience Bueno - 11/11/2022 1:28 PM EST ASSESSMENT/PLAN: 1. Acute UTI - ICD9: 599.0, ICD10: N39.0 (primary diagnosis) acute - UA positive for cr esterase, hematuria, and proteinuria - Send urine for culture - Begin treatment with Macrobid 100 mg BID for 5 days - Patient education for prevention given - NITROFURANTOIN MONOHYDRATE & MACROCRYSTAL 100 MG ORAL CAP 2. Urinary frequency - ICD9: 788.41, ICD10: R35.0 acute - UA DIP, URINE (POC) - URINE CULTURE Patience Bueno APRN -student Patient Education for Female Urinary Tract Infections Possible complications: Pyelonehritis Renal abscess Expected course/prognosis: * symptoms resolve within 2-3 days after starting treatment in almost all patients * one-fourth of women with simple UTI experience a second UTI within 6 months, and half at some time during lifetime. * patients with multiple recurrent UTI and no underlying urinary tract abnormality may receive long-term prophylactic antibioitic treatment. Trimethoprim-sulfamethoxazole and nitrofurantoin common used. * women with frequent or intercourse-related UTI should empty bladder immediately before and following intercourse and consider postcoital antibiotic treament Instructions: * Maintain good hydration * Avoid sexual intercourse when symptoms present *Take antibiotic as directed * Return if symptoms not resolved or markedly improved within 48 hours * Return if fever, chills, or flank pain develop * If taking prophylactic antiobiotics, take at bedtime * Take showers instead of tub baths * Avoid feminine hygiene sprays and scented douches * Wipe urethra from front to back documented in this encounter [facility] 11-11-2022 History of Presen t illness Narrative Subjective HPI Aniyah Kapadia is a 22 year old female who presents with 4 days of dysuria, and frequency. Patient reports hematuria for one day. Denies fever, chills, abdominal pain, back pain. Denies nausea, vomiting, diarrhea. Patient reports history of left ovarian cysts. LMP was 11/02/22. Denies vaginal itching, discharge, perineal lesions, rash or odor. No new sexual partners. Reports two days of AZO but discontinued use due to nausea. No recent use of antibiotics. Review of Systems Constitutional: Negative for chills, fever and malaise/fatigue. Respiratory: Negative for cough and shortness of breath. Cardiovascular: Negative for chest pain. Gastrointestinal: Negative for abdominal pain, diarrhea, nausea and vomiting. Genitourinary: Positive for dysuria, frequency and hematuria. Negative for flank pain. Musculoskeletal: Negative for back pain. PAST MEDICAL HISTORY Diagnosis Date Glycogen storage disease (HCC) PAST SURGICAL HISTORY Procedure Laterality Date NONE ALLERGIES Bactrim [Sulfamethoxazole-Trimethoprim] MEDICATIONS Desogestrel-Ethinyl Estradiol (APRI) 0.15-0.03 mg per tablet Take 1 tablet by mouth once daily. ibuprofen (MOTRIN) 600 mg tablet TAKE 1 TABLET BY MOUTH EVERY 8 HOURS IF NEEDED. TAKE AT ONSET OF MIGRAINE AND WITH FOOD Ketone Blood Test (PRECISION XTRA B-KETONE) strp MONITOR BLOOD KETONES X3-4/DAY. Precision ketone strips only. Lancets lancets Monitor blood glucose 3 times daily (Patient taking differently: Monitor blood glucose 3 times daily Uses as needed) PRECISION XTRA B-KETONE strp Monitor blood ketones x3-4/day (Patient taking differently: Monitor blood ketones x3-4/day Uses as needed) Blood-Glucose Meter (PRECISION XTRA) [facility] Use as directed FREESTYLE LITE METER monitoring kit Supply to be used as directed. blood sugar diagnostic (FREESTYLE TEST) test strip Monitor blood glucose 3 times daily (Patient taking differently: Monitor blood glucose 3 times daily Takes as needed) nitrofurantoin monohydrate and macrocrystal (MACROBID) 100 mg capsule Take 1 capsule by mouth twice daily for 5 days. FAMILY HISTORY Problem Relation Age of Onset None Father Diabetes Maternal Grandmother Hypertension Maternal Grandmother Diabetes Maternal Grandfather Cancer Maternal Grandfather hodgkins Diabetes Paternal Grandmother Hypertension Paternal Grandmother Cancer Paternal Grandfather other (hypoglycemic) Mother Social History Tobacco Use Smoking status: Never Passive exposure: Yes Smokeless tobacco: Never Tobacco comments: mom and dad smoke - outside Vaping Use Vaping Use: Never used Substance Use Topics Alcohol use: Yes Comment: Occasionally Drug use: Yes Frequency: 1.0 times per week Types: Marijuana Objective BP 128/82 Pulse 98 Temp 37.1 C (98.7 F) (Tympanic) Resp 18 Wt 53.4 kg (117 lb 12.8 oz) LMP 07/09/2022 (Exact Date) SpO2 99% BMI 20.06 kg/m Physical Exam Vitals reviewed. Constitutional: General: She is not in acute distress. Appearance: Normal appearance. She is not ill-appearing. HENT: Head: Normocephalic and atraumatic. Cardiovascular: Rate and Rhythm: Normal rate and regular rhythm. Pulmonary: Effort: Pulmonary effort is normal. Breath sounds: Normal breath sounds. Abdominal: General: Abdomen is flat. Bowel sounds are normal. There is no distension. Palpations: Abdomen is soft. Tenderness: There is abdominal tenderness in the left lower quadrant. There is no right CVA tenderness, left CVA tenderness or guarding. Neurological: Mental Status: She is alert. ASSESSMENT/PLAN: 1. Acute UTI - ICD9: 599.0, ICD10: N39.0 (primary diagnosis) acute - UA positive for cr esterase, hematuria, and proteinuria - Send urine for culture - Begin treatment with Macrobid 100 mg BID for 5 days - Patient education for prevention given - NITROFURANTOIN MONOHYDRATE & MACROCRYSTAL 100 MG ORAL CAP 2. Urinary frequency - ICD9: 788.41, ICD10: R35.0 acute - UA DIP, URINE (POC) - URINE CULTURE Patience Bueno APRN -student TEACHING PROVIDER (Physician/PA/NEGATIVE TURNER) NOTE OF PERSONAL INVOLVEMENT IN CARE: I have personally seen and examined the patient and performed the medical decision-making components. I have reviewed the Advanced Practice Registered Nurse (NEGATIVE TURNER) Student's documentation and verified the findings in the note as written. Any additions or changes are noted in bold/italics. Signature: Adore Granado Date: 11/11/2022 Time: 2:06 PM documented in this encounter [facility] 07-13-2022 History of Presen t illness Narrative Billboard Poster offered: Patient declines. Dill is a 21 year old who presents for an annual gynecologic exam without complaints. Presents: with partner Menses: cycles every 21-23 days and 4-5 days of flow. Contraception: combined hormonal contraceptives HPV vaccine: Yes Last pap smear: never Sexually active: Yes History of STDS: None Patient concerns for STD exposure: No. OB History T0 L0 SAB0 IAB0 Ectopic0 Multiple0 Live Births0 Soap Worker History LMP: 03/23/2022, Having periods Age at Menarche: Age at First : Age at Menopause: Soap Worker History Comments: Sexual Activity: Never; No partner data on record Contraception: No contraception data on record PAST MEDICAL HISTORY Diagnosis Date Glycogen storage disease (HCC) PAST SURGICAL HISTORY Procedure Laterality Date NONE FAMILY HISTORY Problem Relation Age of Onset None Father Diabetes Maternal Grandmother Hypertension Maternal Grandmother Diabetes Maternal Grandfather Cancer Maternal Grandfather hodgkins Diabetes Paternal Grandmother Hypertension Paternal Grandmother Cancer Paternal Grandfather other (hypoglycemic) Mother SOCIAL HISTORY Social History Tobacco Use Smoking status: Never Passive exposure: Yes Smokeless tobacco: Never Tobacco comments: mom and dad smoke - outside Substance Use Topics Alcohol use: Never Drug use: Never REVIEW OF SYSTEMS Abdomen: No bloating, early satiety, indigestion, or increased flatulence. No abdominal pain, nausea, vomiting, diarrhea, or constipation. Bladder: No dysuria, gross hematuria, urinary frequency, urinary urgency, or incontinence. Breast: Breast lump(s) noted. Left breast noticed a small lump and some pain- has US scheduled Allergies and current medication updated:Yes EXAM: LMP 03/23/2022 GENERAL: pleasant, in no apparent distress HEENT: Normocephalic, atraumatic, and no lesions CHEST: Normal inspiratory effort NEURO: alert and oriented x3,exam grossly non-focal EXTREMITIES: normal ASSESSMENT/PLAN: 1) Health maintenance: Pap starting at the age of 22. HPV vaccine completed series.. 2) Contraception: combined hormonal contraceptives. Contraceptive options reviewed and information provided. 3) STD screening: Declined STD check. 4) Follow up one year or sooner as needed. Makenzie Arango APRN.CNP documented in this encounter [facility] 07-10-2022 Instructions Dina Dempsey APRN.CNP - 07/10/2022 5:32 PM EDT Will check US and set up recheck with cytology laboratory manager documented in this encounter [facility] 07-10-2022 History of Presen t illness Narrative Images from the original note were not included. Subjective The history is provided by the patient and a friend. ALLAN Kapadia is a 21 year old female who presents today for CC of possible lump in upper left breast, states it doesn't feel right. She is mid cycle. She states she has limited caffeine use. She denies any family history of breast cancer. BP 128/82 Pulse (!) 136 Temp 37.3 C (99.1 F) Resp 18 Wt 55.2 kg (121 lb 9.6 oz) LMP 03/23/2022 SpO2 100% Social History Tobacco Use Smoking status: Never Passive exposure: Yes Smokeless tobacco: Never Tobacco comments: mom and dad smoke - outside Substance Use Topics Alcohol use: Never Drug use: Never PAST MEDICAL HISTORY Diagnosis Date Glycogen storage disease (HCC) I have confirmed and edited as necessary, the [facility] Review of Systems Constitutional: Negative for chills and fever. Musculoskeletal: Negative for joint pain and myalgias. Skin: Negative for itching and rash. ? Palpable breast lump, left upper quadrant All other systems reviewed and are negative. Objective Physical Exam Vitals and nursing note reviewed. Exam conducted with a check writing machine operator present. Pulmonary: Effort: Pulmonary effort is normal. Chest: Breasts: Right: Normal. Left: Normal. No swelling, bleeding, mass or tenderness. Comments: Diffuse small nodules present consistant with fibrocystic breast Skin: General: Skin is warm and dry. Neurological: Mental Status: She is alert and oriented to person, place, and time. Psychiatric: Mood and Affect: Affect normal. ASSESSMENT/PLAN: 1. Mass of upper outer quadrant of left breast - ICD9: 611.72, ICD10: N63.21 Will check us and follow up with results Advise patient to follow up with [facility] for recheck Will schedule appointments. - US BREAST LTD LT Diagnosis and treatment plan were discussed and questions were answered to the patient's satisfaction. Pt acknowledged understanding of concepts and follow up plan. Specific signs and symptoms that would indicate the need for higher level of care were discussed in detail warranting prompt ER evaluation. Dina Dempsey APRN.CNP documented in this encounter [facility] 05-17-2022 Hospital Discharg e instructions Patient Education 05/16/2022 22:29:57 Headache, Migraine, Classic Migraine Headache This often severe type of headache is different from other types of headaches in that symptoms other than pain occur with the headache. Nausea and vomiting, lightheadedness, sensitivity to light (photophobia), and other visual disturbances are common migraine symptoms. The pain may last from a few hours to several days. It is not clear why migraines occur but certain factors called triggers can raise the risk of having a migraine attack. A migraine may be triggered by emotional stress or depression, or by hormone changes during the menstrual cycle. Other triggers include control pills, overuse of migraine medicines, alcohol or caffeine, foods with tyramine (such as aged cheese and wine), eyestrain, weather changes, missed meals, or too little or too much sleep. Home care Follow these tips when taking care of yourself at home: Don t drive yourself home if you were given pain medicine for your headache or are having visual symptoms. Instead, have someone else drive you home. Try to sleep when you get home. You should feel much better when you wake up. Cold can help ease migraine symptoms. Put an ice pack on your forehead or at the base of your skull. Put heat on the back of your neck to help ease any neck spasm. Drink only clear liquids or eat a light diet until your symptoms get better. This will help you avoid nausea and vomiting. How to prevent migraines Pay attention to what seems to trigger your headache. Try to avoid the triggers when you can. If you have frequent headaches, consider keeping a headache diary. In it, write down what you were doing, feeling, or eating in the hours before each headache. Show this to your healthcare provider to help find the cause of your headaches. If stress seems to be a trigger for your headaches, figure out what is causing stress in your life. Learn new ways to handle your stress. Ideas include regular exercise, biofeedback, self-hypnosis, yoga, and meditation. Talk with your healthcare provider to find out more information about managing stress. Many books and digital media are also available on this subject. Tyramine is a substance found in many foods. It can trigger a migraine in some people. These foods contain tyramine: Chocolate Yogurt All cheeses, but especially aged cheeses Smoked or pickled fish and meat, including courtney, caviar, bologna, pepperoni, and salami Liver Avocados Bananas Figs Raisins Red wine Try staying away from these foods for 1 to 2 months to see if you have fewer headaches. How to treat future headaches Take time out at the first sign of a headache, if possible. Find a quiet, dark, comfortable place to sit or lie down. Let yourself relax or sleep. Put an ice pack on your forehead or on the area of greatest pain. A heating pad and massage may help if you are having a muscle spasm and tightness in your neck. If you have been prescribed a medicine to stop a migraine headache, use this at the first warning sign of the headache for best results. First signs may be an aura or pain. If you need to take medicine often for your migraine, talk with your healthcare provider about other ways to prevent your headaches. Follow-up care Follow up with your healthcare provider, or as advised. Talk with your provider if you have frequent headaches. He or she can figure out a treatment plan. Ask if you can have medicine to take at home the next time you get a bad headache. This may keep you from having to visit the emergency department in the future. You may need to see a headache specialist (neurologist) if you continue to have headaches. When to seek medical advice Call your healthcare provider right away if any of these occur: Your head pain gets worse, or doesn t get better within 24 hours You can t keep liquids down (repeated vomiting) Pain in your sinuses, ears, or throat Fever of 100.4 F (38 C) or higher, or as directed by your healthcare provider Stiff neck Extreme drowsiness, confusion, or fainting Dizziness, or dizziness with spinning sensation (vertigo) Weakness in an arm or leg, or on one side of your face Difficulty talking or seeing 4640-6417 [employer]. [address] [place] [address], [place] [address]. All rights reserved. This information is not intended as a substitute for professional medical care. Always follow your healthcare professional's instructions. Follow Up Care 05/16/2022 20:58:50 With:WILLI TOSCANO MD Address: [address] [place], [place] [id number]- When:2-4 days With:[facility] Address: [phone] When:2-4 days [facility] 05-16-2022 Note Discharge Instructions Thank you for allowing [facility] to assist you with your healthcare needs. The following is important discharge information regarding your hospital visit. Diagnosis from Today's Visit Migraine Headache What to Do Next Instructions from Your Care Team No qualifying data available. Post Acute Orders No qualifying data available. You Need to Schedule the Following Appointments Follow Up with WILLI TOSCANO MD When Within 2-4 days Where: [address] [place] [address]- Follow Up with [facility] When Within 2-4 days Where: [phone] Allergies bacitracin Medications Please ask your primary doctor or pharmacist before taking any other medication not listed, including over the counter drugs, herbal medications, vitamins and or supplements as they may interact with your home medications. What How Much When Why Instructions Last Dose New APAP/ butalbital/ caffeine (APAP/ butalbital/ caffeine 325-50-40 mg oral tablet (Fioricet)) 1 tab(s) by mouth Every 4 hours as needed for as needed Migraine Duration: 3 Days Printed Prescription Unchanged FLUoxetine (FLUoxetine 20 mg oral capsule) 1 cap by mouth Once a day Please take this list to your next doctor s visit. Bring all medications you take, including over the counter medications, herbals and other supplements with you to your doctor s visit. Patients and families are reminded to discard old lists and to update any records with all medication providers or retail pharmacies. Education Materials Migraine Headache This often severe type of headache is different from other types of headaches in that symptoms other than pain occur with the headache. Nausea and vomiting, lightheadedness, sensitivity to light (photophobia), and other visual disturbances are common migraine symptoms. The pain may last from a few hours to several days. It is not clear why migraines occur but certain factors called triggers can raise the risk of having a migraine attack. A migraine may be triggered by emotional stress or depression, or by hormone changes during the menstrual cycle. Other triggers include control pills, overuse of migraine medicines, alcohol or caffeine, foods with tyramine (such as aged cheese and wine), eyestrain, weather changes, missed meals, or too little or too much sleep. Home care Follow these tips when taking care of yourself at home: Don t drive yourself home if you were given pain medicine for your headache or are having visual symptoms. Instead, have someone else drive you home. Try to sleep when you get home. You should feel much better when you wake up. Cold can help ease migraine symptoms. Put an ice pack on your forehead or at the base of your skull. Put heat on the back of your neck to help ease any neck spasm. Drink only clear liquids or eat a light diet until your symptoms get better. This will help you avoid nausea and vomiting. How to prevent migraines Pay attention to what seems to trigger your headache. Try to avoid the triggers when you can. If you have frequent headaches, consider keeping a headache diary. In it, write down what you were doing, feeling, or eating in the hours before each headache. Show this to your healthcare provider to help find the cause of your headaches. If stress seems to be a trigger for your headaches, figure out what is causing stress in your life. Learn new ways to handle your stress. Ideas include regular exercise, biofeedback, self-hypnosis, yoga, and meditation. Talk with your healthcare provider to find out more information about managing stress. Many books and digital media are also available on this subject. Tyramine is a substance found in many foods. It can trigger a migraine in some people. These foods contain tyramine: Chocolate Yogurt All cheeses, but especially aged cheeses Smoked or pickled fish and meat, including courtney, caviar, bologna, pepperoni, and salami Liver Avocados Bananas Figs Raisins Red wine Try staying away from these foods for 1 to 2 months to see if you have fewer headaches. How to treat future headaches Take time out at the first sign of a headache, if possible. Find a quiet, dark, comfortable place to sit or lie down. Let yourself relax or sleep. Put an ice pack on your forehead or on the area of greatest pain. A heating pad and massage may help if you are having a muscle spasm and tightness in your neck. If you have been prescribed a medicine to stop a migraine headache, use this at the first warning sign of the headache for best results. First signs may be an aura or pain. If you need to take medicine often for your migraine, talk with your healthcare provider about other ways to prevent your headaches. Follow-up care Follow up with your healthcare provider, or as advised. Talk with your provider if you have frequent headaches. He or she can figure out a treatment plan. Ask if you can have medicine to take at home the next time you get a bad headache. This may keep you from having to visit the emergency department in the future. You may need to see a headache specialist (neurologist) if you continue to have headaches. When to seek medical advice Call your healthcare provider right away if any of these occur: Your head pain gets worse, or doesn t get better within 24 hours You can t keep liquids down (repeated vomiting) Pain in your sinuses, ears, or throat Fever of 100.4 F (38 C) or higher, or as directed by your healthcare provider Stiff neck Extreme drowsiness, confusion, or fainting Dizziness, or dizziness with spinning sensation (vertigo) Weakness in an arm or leg, or on one side of your face Difficulty talking or seeing [id number] [employer]. [address] [place] [address]. All rights reserved. This information is not intended as a substitute for professional medical care. Always follow your healthcare professional's instructions. Additional Information VACCINATE! IT SAVES LIVES! Members of the community who have not yet received the COVID-19 vaccine and would like to receive it can visit one of [facility] vaccine clinics. There are many vaccine clinic locations within the [facility]. For locations and available times, please visit [email or web address]. It is important to note that some COVID mobile vaccine clinics are held outdoors and may be canceled in rainy or stormy conditions. To learn more about pediatric vaccinations (ages 5-11), we invite you to visit the [facility] webpage. [email or web address] [email or web address] To learn more about the COVID-19 vaccine, we invite you to visit the [employer] website for a list of frequently asked questions. [email or web address] [facility] Patient Portal Access Instructions: Stay connected with your healthcare team and access your personal medical information anytime with the [employer] Patient Portal. If you would like a full copy of your medical records please contact the [facility] Medical Records Department Wednesday through Wednesday between 8a.m. and 4:30p.m. Please follow the directions below to access the portal: 1.Access the email account you provided upon registration to the [facility].2.Look for an invitation email from [facility].3.Open the email and access the invitation link: Accept Invitation to [facility]4.Fill in the required mary to create your account. Sign into [email or web address] with your username and password that you created in the above steps to stay up to date. You can then view a summary of results, a summary of your visits, and the ability to download your summaries to your computer or send the information securely to a physician. Remember that your healthcare information is confidential, so carefully consider who you will allow to register on the [employer] Patient Portal for access to your information. You can also access the [employer] Patient Portal on the [employer] ama. Simply click on Health Records under Health Data and then click on the [employer] logo. HOW TO SAFELY DISPOSE OF PRESCRIPTION MEDICATIONS Please use one of the following methods to safely dispose of your unused medications. 1.Use a drug disposal kit: the drug disposal pouch allows you to safely discard your old and unused drugs. Ask your nurse to give you one when you are discharged.2.Visit a local take-back location: Many local pharmacies and police departments have programs that collect old and unwanted prescription drugs. Call your local pharmacy or go to http://bit.ChannelAdvisor/2A4Hg6p to find one close to you.3.Make use of household items: Use cat litter or old coffee grounds to dispose medications if other options are not available. Mix your drugs with these household products, seal them in an airtight container and throw it into the garbage. Call [facility]: [phone] to be sure your drugs can be disposed of in this way. Some medicines may require a different approach.4.Never flush your medications down the toilet. IF YOU HAVE BEEN PRESCRIBED AN OPIOIDS FOR PAIN If you have been prescribed an opioid (such as hydrocodone, oxycodone or morphine), it is critical to understand the possible side effects and risks of opioid pain medications. Even when taken as directed, opioids can have several side effects including: Tolerance, meaning you might need to take more of a medication for the same pain relief. Nausea, vomiting and/or constipation. Sleepiness, dizziness, dry mouth, confusion, depression or itching. Physical dependence, meaning you have withdrawal symptoms when a medication is stopped ? this can develop within a few days. KNOW YOUR RESPONSIBILITIES It is important to know exactly how much and how often to take the opioid pain medications you are prescribed. Never take opioids in higher amounts or more often than prescribed. Do not combine opioids with alcohol or other drugs that cause drowsiness, such as benzodiazepines, also known as benzos, including diazepam and alprazolam, muscle relaxants or sleep aids. Never sell or share prescription opioids. This is illegal. Store opioids in a secure place and out of reach of others (including children, family, friends and visitors). The last page(s) of this document has been signed and retained as a CHART COPY Signatures Patient Education Materials Headache, Migraine, Classic Medication Leaflets My discharge plan and instructions have been reviewed and explained to me and IMINISTERIO MADISON N understand my current condition and have read and understand these discharge instructions. I have received a written copy of the plan/instructions. If I have questions, I am aware that I should contact my doctor. Patient/Packaging Specialist Signature: Date/Time: Relationship to Patient: Witness Name/Signature: Date/Time: [facility] 04-10-2022 Hospital Discharg e instructions Patient Education 04/10/2022 16:21:46 Headache, Unspecified Headache, Unspecified A number of things can cause headaches. The cause of your headache isn t clear. But it doesn t seem to be a sign of any serious illness. Headache affects almost everyone at some time. It is the most common reason people miss days from work or school. You could have a tension headache or a migraine headache. Stress can cause a tension headache. This can happen if you tense the muscles of your shoulders, neck, and scalp without knowing it. If this stress lasts long enough, you may develop a tension headache. It is not clear why migraines occur, but certain things called triggers can raise the risk of having a migraine attack. Migraine triggers may include emotional stress or depression, or by hormone changes during the menstrual cycle. Other triggers include control pills and other medicines, alcohol or caffeine, foods with tyramine (such as aged cheese, wine), eyestrain, weather changes, missed meals, and lack of sleep or oversleeping. Other causes of headache include: Viral illness with high fever Head injury with concussion Sinus, ear, or throat infection Dental pain and jaw joint (TMJ) pain More serious but less common causes of headache include stroke, brain hemorrhage, brain tumor, meningitis, and encephalitis. Home care Follow these tips when taking care of yourself at home: Don t drive yourself home if you were given pain medicine for your headache. Instead, have someone else drive you home. Try to sleep when you get home. You should feel much better when you wake up. Apply heat to the back of your neck to ease a neck muscle spasm. Take care of a migraine headache by putting an ice pack on your forehead or at the base of your skull. If you have nausea or vomiting, eat a light diet until your headache eases. If you have a migraine headache, use sunglasses when in the daylight or around bright indoor lighting until your symptoms get better. Bright glaring light can make this type of headache worse. Follow-up care Follow up with your healthcare provider, or as advised. Talk with your provider if you have frequent headaches. He or she can help figure out a treatment plan. By knowing the earliest signs of headache, and starting treatment right away, you may be able to stop the pain yourself. When to seek medical advice Call your healthcare provider right away if any of these occur: Your head pain suddenly gets worse after sexual intercourse or strenuous activity Your head pain doesn t get better within 24 hours You aren t able to keep liquids down (repeated vomiting) Fever of 100.4 F (38 C) or higher, or as directed by your healthcare provider Stiff neck Extreme drowsiness, confusion, or fainting Dizziness or dizziness with spinning sensation (vertigo) Weakness in an arm or leg or one side of your face You have trouble talking or seeing [id number] [employer]. [address] [place] [id number]. All rights reserved. This information is not intended as a substitute for professional medical care. Always follow your healthcare professional's instructions. Follow Up Care 04/10/2022 15:48:55 With:Follow up with primary care provider Address:Unknown When:2-4 days [facility] 04-10-2022 Note Discharge Instructions Thank you for allowing [facility] to assist you with your healthcare needs. The following is important discharge information regarding your hospital visit. Diagnosis from Today's Visit Headache Headache What to Do Next Instructions from Your Care Team No qualifying data available. Post Acute Orders No qualifying data available. You Need to Schedule the Following Appointments Follow Up with Follow up with primary care provider When Within 2-4 days Allergies bacitracin Medications Please ask your primary doctor or pharmacist before taking any other medication not listed, including over the counter drugs, herbal medications, vitamins and or supplements as they may interact with your home medications. What How Much When Why Instructions Last Dose New SUMAtriptan (Imitrex 100 mg oral tablet) 0.5 tab(s) by mouth Once a day as needed for as needed for migraine headache Headache Duration: 30 Days may repeat dose after 90 mins up to a maximum of 100 mg in 24 hours Printed Prescription Unchanged FLUoxetine (FLUoxetine 20 mg oral capsule) 1 cap by mouth Once a day Please take this list to your next doctor s visit. Bring all medications you take, including over the counter medications, herbals and other supplements with you to your doctor s visit. Patients and families are reminded to discard old lists and to update any records with all medication providers or retail pharmacies. Education Materials Headache, Unspecified A number of things can cause headaches. The cause of your headache isn t clear. But it doesn t seem to be a sign of any serious illness. Headache affects almost everyone at some time. It is the most common reason people miss days from work or school. You could have a tension headache or a migraine headache. Stress can cause a tension headache. This can happen if you tense the muscles of your shoulders, neck, and scalp without knowing it. If this stress lasts long enough, you may develop a tension headache. It is not clear why migraines occur, but certain things called triggers can raise the risk of having a migraine attack. Migraine triggers may include emotional stress or depression, or by hormone changes during the menstrual cycle. Other triggers include control pills and other medicines, alcohol or caffeine, foods with tyramine (such as aged cheese, wine), eyestrain, weather changes, missed meals, and lack of sleep or oversleeping. Other causes of headache include: Viral illness with high fever Head injury with concussion Sinus, ear, or throat infection Dental pain and jaw joint (TMJ) pain More serious but less common causes of headache include stroke, brain hemorrhage, brain tumor, meningitis, and encephalitis. Home care Follow these tips when taking care of yourself at home: Don t drive yourself home if you were given pain medicine for your headache. Instead, have someone else drive you home. Try to sleep when you get home. You should feel much better when you wake up. Apply heat to the back of your neck to ease a neck muscle spasm. Take care of a migraine headache by putting an ice pack on your forehead or at the base of your skull. If you have nausea or vomiting, eat a light diet until your headache eases. If you have a migraine headache, use sunglasses when in the daylight or around bright indoor lighting until your symptoms get better. Bright glaring light can make this type of headache worse. Follow-up care Follow up with your healthcare provider, or as advised. Talk with your provider if you have frequent headaches. He or she can help figure out a treatment plan. By knowing the earliest signs of headache, and starting treatment right away, you may be able to stop the pain yourself. When to seek medical advice Call your healthcare provider right away if any of these occur: Your head pain suddenly gets worse after sexual intercourse or strenuous activity Your head pain doesn t get better within 24 hours You aren t able to keep liquids down (repeated vomiting) Fever of 100.4 F (38 C) or higher, or as directed by your healthcare provider Stiff neck Extreme drowsiness, confusion, or fainting Dizziness or dizziness with spinning sensation (vertigo) Weakness in an arm or leg or one side of your face You have trouble talking or seeing [phone] [employer]. [address] [place] [address]. All rights reserved. This information is not intended as a substitute for professional medical care. Always follow your healthcare professional's instructions. Additional Information VACCINATE! IT SAVES LIVES! Members of the community who have not yet received the COVID-19 vaccine and would like to receive it can visit one of [facility] vaccine clinics. There are many vaccine clinic locations within the [facility]. For locations and available times, please visit [email or web address]. It is important to note that some COVID mobile vaccine clinics are held outdoors and may be canceled in rainy or stormy conditions. To learn more about pediatric vaccinations (ages 5-11), we invite you to visit the [facility] webpage. [email or web address] To learn more about the COVID-19 vaccine, we invite you to visit the [facility] website for a list of frequently asked questions. [email or web address] [facility] Patient Portal Access Instructions: Stay connected with your healthcare team and access your personal medical information anytime with the [employer] Patient Portal. If you would like a full copy of your medical records please contact the [facility] Medical Records Department Wednesday through Wednesday between 8a.m. and 4:30p.m. Please follow the directions below to access the portal: 1.Access the email account you provided upon registration to the hospital.2.Look for an invitation email from [facility].3.Open the email and access the invitation link: Accept Invitation to [employer]4.Fill in the required mary to create your account. Sign into [email or web address] with your username and password that you created in the above steps to stay up to date. You can then view a summary of results, a summary of your visits, and the ability to download your summaries to your computer or send the information securely to a physician. Remember that your healthcare information is confidential, so carefully consider who you will allow to register on the [employer] Patient Portal for access to your information. You can also access the [employer] Patient Portal on the [employer] ama. Simply click on Health Records under Health Data and then click on the [employer] logo. HOW TO SAFELY DISPOSE OF PRESCRIPTION MEDICATIONS Please use one of the following methods to safely dispose of your unused medications. 1.Use a drug disposal kit: the drug disposal pouch allows you to safely discard your old and unused drugs. Ask your nurse to give you one when you are discharged.2.Visit a local take-back location: Many local pharmacies and police departments have programs that collect old and unwanted prescription drugs. Call your local pharmacy or go to http://makr.[email or web address]/[email or web address] to find one close to you.3.Make use of household items: Use cat litter or old coffee grounds to dispose medications if other options are not available. Mix your drugs with these household products, seal them in an airtight container and throw it into the garbage. Call [facility]: [phone] to be sure your drugs can be disposed of in this way. Some medicines may require a different approach.4.Never flush your medications down the toilet. IF YOU HAVE BEEN PRESCRIBED AN OPIOIDS FOR PAIN If you have been prescribed an opioid (such as hydrocodone, oxycodone or morphine), it is critical to understand the possible side effects and risks of opioid pain medications. Even when taken as directed, opioids can have several side effects including: Tolerance, meaning you might need to take more of a medication for the same pain relief. Nausea, vomiting and/or constipation. Sleepiness, dizziness, dry mouth, confusion, depression or itching. Physical dependence, meaning you have withdrawal symptoms when a medication is stopped ? this can develop within a few days. KNOW YOUR RESPONSIBILITIES It is important to know exactly how much and how often to take the opioid pain medications you are prescribed. Never take opioids in higher amounts or more often than prescribed. Do not combine opioids with alcohol or other drugs that cause drowsiness, such as benzodiazepines, also known as benzos, including diazepam and alprazolam, muscle relaxants or sleep aids. Never sell or share prescription opioids. This is illegal. Store opioids in a secure place and out of reach of others (including children, family, friends and visitors). The last page(s) of this document has been signed and retained as a CHART COPY Signatures Patient Education Materials Headache, Unspecified Medication Leaflets My discharge plan and instructions have been reviewed and explained to me and IMINISTERIO MADISON N understand my current condition and have read and understand these discharge instructions. I have received a written copy of the plan/instructions. If I have questions, I am aware that I should contact my doctor. Patient/Packaging Specialist Signature: Date/Time: Relationship to Patient: Witness Name/Signature: Date/Time: [facility] 04-10-2022 History of Presen t illness Narrative CC: Patient presents with: Headache: with vomiting x1 day Patient said that it started last night only puked early this morning about 2am and hasn't since. Does not have any other symptoms at this time. No chance of . denies feeling like the worst headache of her life, denies feeling like a tight band, denies vision changes. No other symptoms associated not sure if she came in contact with anyone sick. HPI: Aniyah Kapadia is a 21 year old female who presents to the office with complaint of headache since last night. Symptoms are improving Associated symptoms includes headache and vomiting . Denies headache, body aches, fever, cough and diarrhea. Treatments tried include nothing so far. with no relief of symptoms. Sick contacts: unknown. History of asthma, frequent episodes of bronchitis, chronic bronchitis, bronchiectasis or COPD: No Smoker: No Seasonal/environmental allergies: No The ROS is otherwise negative. The patient's pmh, medications, allergies, and past visits are reviewed. PHYSICAL EXAM: BP 110/80 Pulse (!) 123 Temp 36.7 C (98.1 F) Resp 20 Wt 53.4 kg (117 lb 12.8 oz) LMP 03/23/2022 SpO2 100% General appearance: alert, cooperative, pleasant, in no acute distress Head: Normocephalic Eyes: EOM's intact, conjunctiva pink and moist, no icterus, sclera white, non-injected Heart: Negative. RRR without obvious murmur, gallop, or rubs. No ectopy. Lungs: clear to auscultation, without rales or wheeze, good air exchange PAST MEDICAL HISTORY Diagnosis Date Glycogen storage disease (HCC) PAST SURGICAL HISTORY Procedure Laterality Date NONE ALLERGIES Bactrim [Sulfamethoxazole-Trimethoprim] MEDICATIONS Desogestrel-Ethinyl Estradiol (APRI) 0.15-0.03 mg per tablet Take 1 tablet by mouth once daily. ibuprofen (MOTRIN) 600 mg tablet TAKE 1 TABLET BY MOUTH EVERY 8 HOURS IF NEEDED. TAKE AT ONSET OF MIGRAINE AND WITH FOOD Ketone Blood Test (PRECISION XTRA B-KETONE) strp MONITOR BLOOD KETONES X3-4/DAY. Precision ketone strips only. Protein (BENEPROTEIN) powd Take 30 g by mouth three times daily. Lancets lancets Monitor blood glucose 3 times daily PRECISION XTRA B-KETONE strp Monitor blood ketones x3-4/day Blood-Glucose Meter (PRECISION XTRA) [facility] Use as directed FREESTYLE LITE METER monitoring kit Supply to be used as directed. blood sugar diagnostic (FREESTYLE TEST) test strip Monitor blood glucose 3 times daily cyproheptadine (PERIACTIN) 4 mg tablet take 1 tablet by mouth at bedtime pediatric multivitamin without iron chewable (POLY-VITAMINS) chewable tablet Take 1 tablet by mouth once daily. FAMILY HISTORY Problem Relation Age of Onset None Father Diabetes Maternal Grandmother Hypertension Maternal Grandmother Diabetes Maternal Grandfather Cancer Maternal Grandfather hodgkins Diabetes Paternal Grandmother Hypertension Paternal Grandmother Cancer Paternal Grandfather other (hypoglycemic) Mother Social History Tobacco Use Smoking status: Passive Smoke Exposure - Never Smoker Smokeless tobacco: Never Used Tobacco comment: mom and dad smoke - outside Substance Use Topics Alcohol use: Never Drug use: Never ASSESSMENT/PLAN: 1. Headache, unspecified headache type - ICD9: 784.0, ICD10: R51.9 - COVID WITH FLUA+B, ROUTINE 2. Vomiting, unspecified vomiting type, unspecified whether nausea present - ICD9: 787.03, ICD10: R11.10 - COVID WITH FLUA+B, ROUTINE Potential red flag symptoms discussed with the patient and to proceed to the ER if any of these occur. Reviewed appropriate action plan to take if red flag symptoms occur. Patient agreeable to treatment plan. Treasure Lamb APRN.TONI documented in this encounter [facility] 03-17-2022 History of Presen t illness Narrative Subjective HPI HPI Aniyah Kapadia is a 21 year old female who presents today for CC of migrain. This started 2 days ago. Has tried otc medication without rleief. Symptoms are worsened by light. Risk factors hx of migraines, has needed a shot in the past to help. Denies possibility of being . Denies head injury. .Patient presents with: Headache: migraine x2 days, light sensitivity, nausea PAST MEDICAL HISTORY Diagnosis Date Glycogen storage disease (HCC) PAST SURGICAL HISTORY Procedure Laterality Date NONE ALLERGIES Bactrim [Sulfamethoxazole-Trimethoprim] MEDICATIONS Desogestrel-Ethinyl Estradiol (APRI) 0.15-0.03 mg per tablet Take 1 tablet by mouth once daily. ibuprofen (MOTRIN) 600 mg tablet TAKE 1 TABLET BY MOUTH EVERY 8 HOURS IF NEEDED. TAKE AT ONSET OF MIGRAINE AND WITH FOOD Ketone Blood Test (PRECISION XTRA B-KETONE) strp MONITOR BLOOD KETONES X3-4/DAY. Precision ketone strips only. Protein (BENEPROTEIN) powd Take 30 g by mouth three times daily. Lancets lancets Monitor blood glucose 3 times daily PRECISION XTRA B-KETONE strp Monitor blood ketones x3-4/day Blood-Glucose Meter (PRECISION XTRA) [facility] Use as directed FREESTYLE LITE METER monitoring kit Supply to be used as directed. blood sugar diagnostic (FREESTYLE TEST) test strip Monitor blood glucose 3 times daily cyproheptadine (PERIACTIN) 4 mg tablet take 1 tablet by mouth at bedtime pediatric multivitamin without iron chewable (POLY-VITAMINS) chewable tablet Take 1 tablet by mouth once daily. FAMILY HISTORY Problem Relation Age of Onset None Father Diabetes Maternal Grandmother Hypertension Maternal Grandmother Diabetes Maternal Grandfather Cancer Maternal Grandfather hodgkins Diabetes Paternal Grandmother Hypertension Paternal Grandmother Cancer Paternal Grandfather other (hypoglycemic) Mother Social History Tobacco Use Smoking status: Passive Smoke Exposure - Never Smoker Smokeless tobacco: Never Used Tobacco comment: mom and dad smoke - outside Substance Use Topics Alcohol use: Never Drug use: Never Review of Systems Constitutional: Negative for chills and fever. HENT: Negative for congestion, ear discharge, ear pain, hearing loss and sore throat. Eyes: Negative for blurred vision, double vision, photophobia, pain, discharge and redness. Respiratory: Negative for cough and shortness of breath. Cardiovascular: Negative for chest pain. Gastrointestinal: Negative for abdominal pain, nausea and vomiting. Musculoskeletal: Negative for myalgias and neck pain. Skin: Negative for rash. Neurological: Positive for headaches. Negative for dizziness, tremors, sensory change, speech change and focal weakness. Psychiatric/Behavioral: Negative for depression. Objective Physical Exam Constitutional: General: She is not in acute distress. Appearance: She is not diaphoretic. HENT: Head: Normocephalic and atraumatic. Right Ear: Hearing, tympanic membrane, ear canal and external ear normal. Left Ear: Hearing, tympanic membrane, ear canal and external ear normal. Eyes: General: Lids are normal. Lids are everted, no foreign bodies appreciated. No scleral icterus. Right eye: No discharge. Left eye: No discharge. Conjunctiva/sclera: Conjunctivae normal. Pupils: Pupils are equal, round, and reactive to light. Neck: Trachea: Trachea normal. Cardiovascular: Rate and Rhythm: Normal rate and regular rhythm. Heart sounds: Normal heart sounds. Pulmonary: Effort: Pulmonary effort is normal. Breath sounds: Normal breath sounds. Musculoskeletal: Cervical back: Normal range of motion and neck supple. Lymphadenopathy: Cervical: No cervical adenopathy. Skin: Findings: No rash. Neurological: Mental Status: She is alert. She is not disoriented. Cranial Nerves: Cranial nerves are intact. Sensory: Sensation is intact. Motor: No weakness or tremor. Coordination: Romberg sign negative. Coordination normal. Kmvltz-Pveo-Chxtje Test and Heel to Olivas Test normal. Rapid alternating movements normal. Gait: Gait is intact. Deep Tendon Reflexes: Reflexes are normal and symmetric. Reflex Scores: Bicep reflexes are 2+ on the right side and 2+ on the left side. Patellar reflexes are 2+ on the right side and 2+ on the left side. ASSESSMENT/PLAN: 1. Migraine unspecified - ICD9: 346.90, ICD10: G43.909 Patient reported relief Discussed lifestyle modification to improve migraines F/u for continued/worsening s/s. - KETOROLAC 60 MG/2 ML INTRAMUSCULAR SOLUTION - ONDANSETRON 4 MG DISINTEGRATING TABLET Mo Starkey APRN.TONI documented in this encounter [facility] Evaluation + Plan note No data available for this section [facility] Evaluation note Diagnosis Migraine unspecified- Primary [facility] Diagnosis Headache, unspecified headache type- Primary Vomiting, unspecified vomiting type, unspecified whether nausea present [facility] Diagnosis Mass of upper outer quadrant of left breast- Primary [facility]* Diagnosis Encounter for contraceptive management, unspecified type [facility] encounter [facility] Diagnosis Acute UTI- Primary Urinary tract infection, site not specified Urinary frequency [facility]* Diagnosis Urinary frequency- Primary Recurrent UTI (urinary tract infection) Urinary tract infection, site not specified documented [facility] this [facility]* Diagnosis Missed menses- Primary Absence of menstruation [facility] Diagnostic Procedure Only (Urgent) - Authorized Specialty Diagnoses / Procedures Referred By Sean nam Referred To Contact [facility] Diagnoses Mass of upper outer quadrant of left breast Procedures US BREAST LTD LT US BREAST UNI REAL TIME WITH IMAGE LIMITED Dina Dempsey APRN.CNP [address] [place] [address] [facility] [address] [id number] Referral ID Status Reason Start Date Expiration Date Visits Requested Visits Authorized [id number] Authorized Auto-Generat ed Referral 07/10/2022 08/09/2023 1 1 [facility] Summary Purpose Family History No Family History Records FoundNo Family History Records FoundNo Family History Records FoundNo Family History Records Found Advance Directives No Advanced Directives Records FoundNo Advanced Directives Records FoundNo Advanced Directives Records FoundNo Advanced Directives Records Found Medications Administered Section Inactive Administered Medications - up to 3 most recent administrations Medication Order MAR Action Action Date Dose Rate Site keTORolac 30 mg injection (TORADOL) 30 mg, INTRAMUSCULAR, ONCE, 1 dose, On Wed03/17/22 at 1700, Ketorolac (Toradol) is indicated for the short-term (up to 5 days) management of moderately severe acute pain. Continuation of ketorolac (Toradol) beyond 5 days increases the risk of developing serious adverse events. Please verify the duration of therapy for ketorolac (Toradol)., If ordered PRN for pain, patient/guardian may elect to receive this medication for higher pain levels INSTEAD of the opioid, if preferred: Yes Given 03/17/2022 4:43 PM EDT 30 mg Buttocks, Right ondansetron orally disintegrating 4 mg tab(s) (ZOFRAN ODT) 4 mg, ORAL, ONCE, 1 dose, On Wed03/17/22 at 1700, Place tablet on tongue and allow to dissolve; do not chew. Open packaging using dry hands; do not push tablet through packaging. Given 03/17/2022 4:46 PM EDT 4 mg Health Concerns Infection Onset Date Last Indicated Resolved Time COVID-19 Rule-Out 04/10/2022 04/10/2022 Additional Source Comments INFORMATION SOURCE (unrecogn ized section and content) DATE CREATED AUTHOR 04/04/2018 [facility] DATE CREATED AUTHOR AUTHOR'S ORGANIZ ATION 04/29/2023 [facility] ([place] DATE CREATED AUTHOR AUTHOR'S ORGANIZ ATION 08/09/2023 [facility] DATE CREATED AUTHOR AUTHOR'S ORGANIZ ATION 01/02/2025 [facility] Source Comments (unrecognize d section and content) In the event this informatio n is protected by the Federal Confidentiality of Alcohol and Drug Abuse Patient Records regulations: The Federal rules restrict any use of the information to criminally investigate or prosecute any alcohol or drug abuse patient.[facility] the event this information is protected by the Federal Confidentiality of Alcohol and Drug Abuse Patient Records regulations: The Federal rules restrict any use of the information to criminally investigate or prosecute any alcohol or drug abuse patient.[facility] the event this information is protected by the Federal Confidentiality of Alcohol and Drug Abuse Patient Records regulations: The Federal rules restrict any use of the information to criminally investigate or prosecute any alcohol or drug abuse patient.[facility] Center[facility] the event this information is protected by the Federal Confidentiality of Alcohol and Drug Abuse Patient Records regulations: The Federal rules restrict any use of the information to criminally investigate or prosecute any alcohol or drug abuse patient.[facility] Center[facility] the event this information is protected by the Federal Confidentiality of Alcohol and Drug Abuse Patient Records regulations: The Federal rules restrict any use of the information to criminally investigate or prosecute any alcohol or drug abuse patient.[facility] Center[facility] the event this information is protected by the Federal Confidentiality of Alcohol and Drug Abuse Patient Records regulations: The Federal rules restrict any use of the information to criminally investigate or prosecute any alcohol or drug abuse patient.[facility] Center[facility] the event this information is protected by the Federal Confidentiality of Alcohol and Drug Abuse Patient Records regulations: The Federal rules restrict any use of the information to criminally investigate or prosecute any alcohol or drug abuse patient.[facility] Center[facility] the event this information is protected by the Federal Confidentiality of Alcohol and Drug Abuse Patient Records regulations: The Federal rules restrict any use of the information to criminally investigate or prosecute any alcohol or drug abuse patient.[facility] Center[facility] the event this information is protected by the Federal Confidentiality of Alcohol and Drug Abuse Patient Records regulations: The Federal rules restrict any use of the information to criminally investigate or prosecute any alcohol or drug abuse patient.[facility] Reason for Visit (unrecogniz ed section and content) Reason Comments Headache migraine x2 days, li ght sensitivity, nausea Reason Comments Headache with vomiting x1 day Reason Comments Breast Problem Soreness in L breast x1 week, noticed lump last night 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 Reason Comments Problem Visit Care Teams (unrecognized sec tion and content) Olericulturist Relationship Specialty Start Date End Date Lupillo Bolton MD [address] [place], [place] [id number] PCP - General 11/07/07 Olericulturist Relationship Specialty Start Date End Date Lupillo Bolton MD [address] [place], [place] [id number] PCP - General 11/07/07 Olericulturist Relationship Specialty Start Date End Date Luplilo Bolton MD [address] [place], [place] [id number] PCP - General 11/07/07 Olericulturist Relationship Specialty Start Date End Date Lupillo Bolton MD [address] [place], [place] [id number] PCP - General 11/07/07 Olericulturist Relationship Specialty Start Date End Date Aramis, Lupillo P, MD [address] [place] [id number] PCP - General 11/07/07 Olericulturist Relationship Specialty Start Date End Date Lupillo Bolton MD [address] [place], [place] [id number] PCP - General 11/07/07 Olericulturist Relationship Specialty Start Date End Date Lupillo Bolton MD [address] [place], [place] [id number] PCP - General 11/07/07 Care Team (unrecognized sect ion and content) Care Team Personnel Name: PHYSICIAN, NONE Position: Physician Member Role: Primary Care Physician Care Team Related Persons Name: KULWANT ESPAÑA Address: [place] [address] [place] Name: KULWANT ESPAÑA Address: [place] [address] [place] Name: KULWANT ESPAÑA Address: [address] Care Team Personnel Name: PHYSICIAN, NONE Position: Physician Member Role: Primary Care Physician Care Team Related Persons Name: KULWANT ESPAÑA Address: [address] Name: KULWANT ESPAÑA Address: [place] [address] [place] Name: KULWANT ESPAÑA Address: [address] FOR RECORDS PERTAINING TO PATIENTS WHO ARE OR HAVE BEEN ENROLLED IN A CHEMICAL DEPENDENCY/SUBSTANCEABUSE PROGRAM, SOME INFORMATION MAY BE OMITTED. This clinical summary was aggregated from multiple sources. Caution should be exercised in using it in the provision of clinical care. This summary normalizes information from multiple sources, and as a consequence, information in this document may materially change the coding, format and clinical context of patient data. In addition, data may be omitted in some cases. CLINICAL DECISIONS SHOULD BE BASED ON THE PRIMARY CLINICAL RECORDS. [facility] [employer] [facility]. provides no warranty or guarantee of the accuracy or completeness of information in this document.
[2025-04-14 02:02] LABS: Hematocrit 32.9 % (37-47); Hemoglobin 11.9 g/dL (12.0-15.0); Immature Granulocytes Count 0.230 X10^3/uL (0.0-0.0); Mean Corp Hgb Conc 36.2 g/dL (32-36); Mean Corpuscular Volume 89.2 fL (81-99); Mean Platelet Vol. 10.4 fl (6.2-12.0); NRBC Flagged by Analyzer 0 % (0-5); POSITIVE DIFFERENTIAL YES; Platelet Count 285 K/mm3 (150-450); RBC Distribution Width CV 13.0 % (11.6-14.6); RBC Distribution Width SD 42.5 fl (35.1-43.9); Red Blood Count 3.69 M/mm3 (4.2-5.4); White Blood Count 23.9 K/mm3 (4.4-11.0)
[2025-04-14 02:04] LABS: Differential Indicated SCAN CRITERIA MET
--- NOTE | 2025-04-14 02:32 | EX.ED.DYSGE1 ---
HPI History of Present Illness Chief Complaint: Abd Pain Detail of Chief Complaint: Severe abdominal pain after taking Cytotec Informant: patient and spouse/S.O. Onset/Context/Timing Onset: Today and Yesterday Timing: Continuous and Waxes and wanes Quality: Colicky Location: Pelvic Current Severity: Severe Maximum Severity: Severe Worsened by: Taking additional doses of Cytotec Relieved by: Nothing Associated Symptoms Associated Symptoms: Nausea Narrative Narrative: Patient is a 24-year-old G1, P0 Ab0 female who believes she is 9 weeks gestation. Patient does not know blood type. She states she her customer solutions representative is through the [facility]. She denies any OB care. She states she obtained the Cytotec through an online service. She was instructed to take 4 200 mcg tablets followed by 4 additional tablets 4 to 5 hours later. She took her first dose at 1 AM on April 13. He took an additional 4 tablets at approximately 6 AM. Since she did not have any bleeding she contacted the online service. They told her to take an additional 2+2 tablets. Uncertain timeframe. She does not know her blood type. She has history of ovarian cyst. Denies history of endometriosis. Denies history of STI. Prior similar symptoms: No Recent Illness/Hospitalization: No PFSH PFSH Medical History no medical history no medical history Home Medications ?Medication ?Instructions ?Recorded ?Last Taken ?Type NK 04/14/25 Unknown History Allergy/AdvReac Type Severity Reaction Status Date / Time bacitracin Allergy Rash Verified 04/14/25 01:44 Surgical History no surgical history no surgical history Social History (Updated 04/14/25 @ 02:[address] Gatito Gottlieb MD) household members: significant other Smoking Status: Never smoker ROS ROS ED Constitutional Constitutional ED: Denies chills, fever(s), subjective or sweats Eyes Eyes: Denies blurry vision or change in vision ENT ENT ED: Denies ear pain or rhinorrhea Cardiovascular Cardiovascular: Denies chest pain or palpitations Respiratory/Chest Respiratory/Chest: Denies cough, dyspnea or dyspnea on exertion Gastrointestinal Gastrointestinal: Reports abdominal pain; Denies nausea or vomiting Musculoskeletal Musculoskeletal: Denies arthralgias or myalgias Integumentary Denies rash Neurologic Neurologic: Denies headache(s) Psychiatric Psychiatric: Reports anxiety Hematologic/Lymphatic Hematologic/Lymphatic: Reports systems reviewed and no addt'l complaints, except as documented EXAM Physical Exam Const Vital Signs: 04/14/25 01:41 Temperature 98.6 F Temperature Source Oral Pulse Rate 97 Respiratory Rate 20 H Blood Pressure 129/102 H Blood Pressure Mean 111 Pulse Ox 100 Positive well nourished and well developed Constitutional Narrative: Patient is in obvious discomfort. She is doubled over. General Appearance ED: well developed and pallor HEENT Reports moist mucous membranes HEENT Narrative: Head is atraumatic and normocephalic. Ears normal. Nares patent. Posterior pharynx is normal. Eyes PERRL and EOMs intact bilaterally General Eye ED: Negative for pale conjunctiva or scleral icterus Neck no lymphadenopathy, supple and no JVD Chest Wall inspection of chest normal and palpation of chest normal Resp normal respiratory effort and clear to auscultation bilaterally Cardio regular rate, regular rhythm, S1 normal heart sound, S2 normal heart sound and no murmurs GI no masses; Negative for normal to inspection, nondistended, normoactive bowel sounds, non-tender, non-distended or hepatosplenomegaly GI Narrative: Patient's abdomen is firm. Clinically I believe she is father than 9 weeks. Auscultation: hypoactive bowel sounds Back/Spine no CVA tenderness Extremity normal to inspection General Extremety ED: Negative for edema or tenderness General Extremity: Negative for edema Neuro oriented x3 and CN's II-XII intact bilaterally Sensorium / Orientation: alert Psych Mood & Affect: anxious Skin no rashes or lesions noted, no wounds and skin turgor normal General Skin Exam: pallor; Negative for jaundice MDM MDM MDM Narrative Medical decision making narrative: Patient took Cytotec as described in the HPI. Clinically I believe she is farther than 9 weeks. Ultrasound was ordered. Serum quantitative hCG was ordered, CBC as well to assess white count and H&H. Patient was made NPO. Patient went to the restroom. She delivered a nonviable uterus that is greater than 20 weeks. The umbilical cord was clamped. Spoke with customer solutions representative on [address] [facility] [address] Kelsey Leo. Plan is observation status L&D for her to deliver the placenta. If patient has Rh- blood will order RhoGAM protocol. Charge nurse is going through the protocol for demise greater than 20 weeks. Lab Data Lab results narrative: White count is elevated 23.9 thousand. There is a shift. H&H is 11.9 and 32.9. Labs: Laboratory Results - last 24 hr 04/14/25 01:53 WBC 23.9 H RBC 3.69 L Hgb 11.9 L Hct 32.9 L MCV 89.2 MCH 32.2 H MCHC 36.2 H RDW Std Deviation 42.5 RDW Coeff of Demetrio 13.0 Plt Count 285 MPV 10.4 Immature Gran % (Auto) 1.000 H Neut % (Auto) 85.4 H Lymph % (Auto) 8.6 L [place] % (Auto) 4.6 Eos % (Auto) 0.1 Baso % (Auto) 0.3 Absolute Neuts (auto) 20.4 H Absolute Lymphs (auto) 2.05 Nucleated RBC % 0 Management Discussion w/another healthcare provider: Nut Sheller Machine Operator (Documented MDM portion of the EMR) Treatment and Re-Evaluation :: Patient having minimal bleeding at this time. The umbilical cord was clamped. Discharge Plan Dx/Rx/DC Orders Clinical Impression: Medical , incomplete, without complication, Elevated blood-pressure reading without diagnosis of hypertension Disposition Disposition: Acute Care Hospital [facility]
[2025-04-14 02:53] LABS: Differential Comment SCANNED
[2025-04-14] MEDS: Oxytocin 15 Units/NS 250ml 15 UNITS/250 ML IV.SOLN 83 UNITS IV (02:55)
--- OUTSIDE RECORDS SUMMARY | 2025-04-14 02:55 | XMS RPT_ITS | CCD ---
Author Organization [facility] Care Team Providers Care Humidifier Maintenance Worker Name Role Phone MEAGHAN CHAVES (WORK STATION SUPPORT SPECIALIST) Unavailable Unavail able MEAGHAN CHAVES (WORK STATION SUPPORT SPECIALIST) Unavailable Unavail Lupillo Ervin MD Primary Care [...] Translations: [SULFAMETHOXAZOLE-TR IMETHOPRIM] Drug Allergy 8 Rash [facility] Other [place] Repository (3 sources) Bacitracin; Translations: [bacitracin] Drug Allergy [facility] Medications Current Medications Medication Drug Class(es) Dates [...] Comment on above: Take 1 capsule by [facility] twice daily for 7 days. FLUoxetine [...] Comment on above: Take 1 capsule by [facility] twice daily for 5 days. SUMAtriptan [...] Test Name Value Interpretation Reference Range Facility [facility] 12-29-2024 CNOV Office Visit (OBGYWM ) -------- ANIYAH KAPADIA ([id number]) 2 F Date Time Provider Department 12/29/24 2:45 PM MAKENZIE ARANGO OBGYWM During your visit today, we recorded the following information about you: Blood pressure Weight Last Period 110/60 51.3 kg 11/15/24 Makenzie Arango APRN.WORK STATION SUPPORT SPECIALIST 12/29/2024 2:55 PM Signed Aniyah Kapadia is a 24 year old female who presents for problem visit missed menses, LMP 11/15/2024, reported HPT 12/28/2024. 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 #:[id number] Meds Comments as of 04/19/2012: Problem [...] as needed - Blood-Glucose Meter (PRECISION XTRA[place] [facility] [place] Use as directed Encounter Status:Closed by MAKENZIE ARANGO on 12/29/24 Normal [facility] UA DIP,URINE HCG (POC)on Beta HCG ( test) Ql (U) Positive Abnormal Negative [facility] Comment on above: Location:[facility], [address] , [place], [address] Interpretation and review of laboratory results Abnormal [facility] Architecture Department Chair (POCT) Internal QC OK [facility] Location:[facility], [address] [facility], [place], [address] [facility] POINT OF CARE [facility] UA DIP, URINE (POC)on 2022 BILIRUBIN UA (POCT) Small Abnormal Negative [facility] CLARITY UA (POCT) Clear [facility] COLOR UA (POCT) Rona [facility] GLUCOSE UA (POCT) Negative Negative mg/dL [facility] Hemoglobin Ql (U) Large Abnormal Negative [facility] KETONE UA (POCT) Trace Negative mg/dL [facility] LEUKOCYTES UA (POCT) Trace Abnormal Negative [facility] NITRITE UA (POCT) Negative Negative [facility] PH UA (POCT) 5.5 4.5 - 8.0 [facility] Protein Ql (U) >=300 Abnormal Negative mg/dL [facility] SPECIFIC GRAVITY UA (POCT) >=1.030 1.005 - 1.030 [facility] UROBILINOGEN UA (POCT) 1.0 E.U./dL Normal E.U./dL [facility] UA DIP, URINE (POC)on 2022 BILIRUBIN UA (POCT) Negative Negative [facility] CLARITY UA (POCT) Clear [facility] COLOR UA (POCT) Yellow [facility] GLUCOSE UA (POCT) Negative Negative mg/dL [facility] HEMOGLOBIN/BLOOD UA (POCT) Moderate Abnormal Negative [facility] KETONE UA (POCT) Negative Negative mg/dL [facility] LEUKOCYTES UA (POCT) Trace Abnormal Negative [facility] NITRITE UA (POCT) Negative Negative [facility] PH UA (POCT) 5.5 4.5 - 8.0 [facility] Protein Ql (U) Trace Abnormal Negative mg/dL [facility] SPECIFIC GRAVITY UA (POCT) 1.020 1.005 - 1.030 [facility] UROBILINOGEN UA (POCT) 0.2 E.U./dL Normal E.U./dL [facility] AFPon 11-16-2017 AFP <3.0 Normal <11 [facility] Comment on above: Result Comment: Resu lt rechecked. Performed By: #### C BCDIF, WSR, CK, CRP, IRON, URIC, CMP, FERR, VITD, AFP ####[place] [phone]#### LIPB ####[place] [address] C-Reactive Proteinon 018 C reactive protein (CRP) 0.1 mg/dL Normal <0.9 [facility] Comment on above: Performed By: #### C BCDIF, WSR, CK, CRP, IRON, URIC, CMP, FERR, VITD, AFP ####[place] [address]#### LIPB ####[place] [address] CBC and Differentialon 11-16 Abs Baso 0.08 k/uL Normal <0.11 [facility] Comment on above: Performed By: #### C BCDIF, WSR, CK, CRP, IRON, URIC, CMP, FERR, VITD, AFP ####[address] [place] [place] [id number]#### LIPB ####[place] [address] [address] [place] [phone] Abs Arenac 0.50 k/uL Normal <0.87 [facility] Comment on above: Performed By: #### C BCDIF, WSR, CK, CRP, IRON, URIC, CMP, FERR, VITD, AFP ####[address] [place] [phone]#### LIPB ####[place] [address] [place] [address] Abs Neut 5.27 k/uL Normal 1.45-7.50 [facility] Comment on above: Performed By: #### C BCDIF, WSR, CK, CRP, IRON, URIC, CMP, FERR, VITD, AFP ####[place] [phone]#### LIPB ####[place] [phone] Basophils/100 WBC Auto (Bld) 0.8 % Normal [facility] Comment on above: Performed By: #### C BCDIF, WSR, CK, CRP, IRON, URIC, CMP, FERR, VITD, AFP ####[place] [phone]#### LIPB ####[place] [phone] DTYPE Auto Diff Normal [facility] Comment on above: Performed By: #### C BCDIF, WSR, CK, CRP, IRON, URIC, CMP, FERR, VITD, AFP ####[place] [phone]#### LIPB ####[place] [phone] Eosinophils 0.25 10*3/uL Normal <0.46 [facility] Comment on above: Performed By: #### C BCDIF, WSR, CK, CRP, IRON, URIC, CMP, FERR, VITD, AFP ####[place] [phone]#### LIPB ####[place] [phone] Eosinophils/100 leukocytes 2.6 % Normal [facility] Comment on above: Performed By: #### C BCDIF, WSR, CK, CRP, IRON, URIC, CMP, FERR, VITD, AFP ####[place] [phone]#### LIPB ####[place] [phone] Erythrocyte distribution width Auto Ratio (RBC) 12.0 % Normal 11.5-15.0 [facility] Comment on above: Performed By: #### C BCDIF, WSR, CK, CRP, IRON, URIC, CMP, FERR, VITD, AFP ####[place] [phone]#### LIPB ####[place] [phone] Erythrocytes (RBC) 0.1 /100 WBC High 0 [facility] Comment on above: Performed By: #### C BCDIF, WSR, CK, CRP, IRON, URIC, CMP, FERR, VITD, AFP ####[address] [place] [phone]#### LIPB ####[place] [phone] Erythrocytes (RBC) 10 10*6/uL High <0.01 [facility] Comment on above: Performed By: #### C BCDIF, WSR, CK, CRP, IRON, URIC, CMP, FERR, VITD, AFP ####[place] [phone]#### LIPB ####[place] [phone] Erythrocytes (RBC) 4.56 10*6/uL Normal 3.90-5.20 [facility] Comment on above: Performed By: #### C BCDIF, WSR, CK, CRP, IRON, URIC, CMP, FERR, VITD, AFP ####[place] [phone]#### LIPB ####[place] [address] Hematocrit (HCT) 40.0 % Normal 36.0-46.0 [facility] Comment on above: Performed By: #### C BCDIF, WSR, CK, CRP, IRON, URIC, CMP, FERR, VITD, AFP ####[address] [place] [phone]#### LIPB ####[place] [address] [address], [place] [phone] Hemoglobin mass conc (Bld) 13.5 g/dL Normal 11.5-15.5 [facility] Comment on above: Performed By: #### C BCDIF, WSR, CK, CRP, IRON, URIC, CMP, FERR, VITD, AFP ####[place] [phone]#### LIPB ####[place] [phone] Lymphocytes 3.66 10*3/uL Normal 1.00-4.00 [facility] Comment on above: Performed By: #### C BCDIF, WSR, CK, CRP, IRON, URIC, CMP, FERR, VITD, AFP ####[place] [phone]#### LIPB ####[place] [phone] Lymphocytes/100 leukocytes 37.5 % Normal [facility] Comment on above: Performed By: #### C BCDIF, WSR, CK, CRP, IRON, URIC, CMP, FERR, VITD, AFP ####[place] [phone]#### LIPB ####[place] [address] [phone] MCH 29.6 pG Normal 26.0-34.0 [facility] Comment on above: Performed By: #### C BCDIF, WSR, CK, CRP, IRON, URIC, CMP, FERR, VITD, AFP ####[address] [place] [phone]#### LIPB ####[place] [phone] MCHC mass conc (RBC) 33.8 g/dL Normal 30.5-36.0 [facility] Comment on above: Performed By: #### C BCDIF, WSR, CK, CRP, IRON, URIC, CMP, FERR, VITD, AFP ####[place] [phone]#### LIPB ####[place] [phone] MCV 87.7 fL Normal 80.0-100.0 [facility] Comment on above: Performed By: #### C BCDIF, WSR, CK, CRP, IRON, URIC, CMP, FERR, VITD, AFP ####[place] [phone]#### LIPB ####[place] [phone] Monocytes/100 leukocytes 5.1 % Normal [facility] Comment on above: Performed By: #### C BCDIF, WSR, CK, CRP, IRON, URIC, CMP, FERR, VITD, AFP ####[place] [phone]#### LIPB ####[place] [address] [place], [place] [address] Neutrophils/100 WBC Auto (Bld) 54.0 % Normal [facility] Comment on above: Performed By: #### C BCDIF, WSR, CK, CRP, IRON, URIC, CMP, FERR, VITD, AFP ####[address] [place] [phone]#### LIPB ####[place] [phone] Platelet mean volume (PMV) 10.5 fL Normal 9.0-12.7 [facility] Comment on above: Performed By: #### C BCDIF, WSR, CK, CRP, IRON, URIC, CMP, FERR, VITD, AFP ####[address] [place] [phone]#### LIPB ####[place] [phone] Platelets 335 10*3/uL Normal 150-400 [facility] Comment on above: Performed By: #### C BCDIF, WSR, CK, CRP, IRON, URIC, CMP, FERR, VITD, AFP ####[place] [phone]#### LIPB ####[place] [address] [place] [phone] WBC (Leukocytes) 9.76 10*3/uL Normal 3.70-11.00 [facility] Comment on above: Performed By: #### C BCDIF, WSR, CK, CRP, IRON, URIC, CMP, FERR, VITD, AFP ####[address] [place] [phone]#### LIPB ####[place] [phone] [address] [address] [place], [place] [phone] CKon 11-16-2017 Creatine kinase (CK) 106 U/L Normal 42-196 [facility] Comment on above: Result Comment: Refe [...] CRP, IRON, URIC, CMP, FERR, VITD, AFP ####[address] [phone]#### LIPB ####[place] [address] [place], [place] [address] Comp Metabolic Panelon 11-16 Alanine aminotransferase (ALT) 12 U/L Normal 7-38 [facility] Comment on above: Result Comment: (NOT E)Reference ranges for this patient's age group have not beenestablished. These reference ranges reflect verified or establishedranges for the adult population. Interpret these ranges wtih cautionusing clinical context and additional reference resources. Performed By: #### C BCDIF, WSR, CK, CRP, IRON, URIC, CMP, FERR, VITD, AFP ####[address] [place] [phone]#### LIPB ####[place] [phone] [place] [address] [place], [place] [phone] Albumin 4.9 g/dL High 3.2-4.5 [facility] Comment on above: Performed By: #### C BCDIF, WSR, CK, CRP, IRON, URIC, CMP, FERR, VITD, AFP ####[place] [address] [place], [place] [phone]#### LIPB ####[place] [phone] [phone] Alkaline phosphatase (ALP) 86 U/L Normal 32-117 [facility] Comment on above: Result Comment: (NOT E)Note [...] phosphatase on the [employer]achi 747 analyzer. Clin [id number];43:S198. Performed By: #### C BCDIF, WSR, CK, CRP, IRON, URIC, CMP, FERR, VITD, AFP ####[address] [phone]#### LIPB ####[place] [phone] [phone] Anion gap 12 mmol/L Normal 9-18 [facility] Comment on above: Result Comment: (NOT E)Reference ranges for this patient's age group have not beenestablished. These reference ranges reflect verified or establishedranges for the adult population. Interpret these ranges with cautionusing the clinical context and additional reference resources. Performed By: #### C BCDIF, WSR, CK, CRP, IRON, URIC, CMP, FERR, VITD, AFP ####[address] [place] [address]#### LIPB ####[place] [address] [place] [place] [address] Aspartate aminotransferase (AST) 21 U/L Normal 13-35 [facility] Comment on above: Result Comment: (NOT E)Reference ranges for this patient's age group have not beenestablished. These reference ranges reflect verified or establishedranges for the adult population. Interpret these ranges with cautionusing clinical context and additional reference resources. Performed By: #### C BCDIF, WSR, CK, CRP, IRON, URIC, CMP, FERR, VITD, AFP ####[place] [phone]#### LIPB ####[place] [address] Bilirubin (total) 0.4 mg/dL Normal 0.2-1.3 [facility] Comment on above: Result Comment: (NOT E)Reference ranges for this patient's age group have not beenestablished. These reference ranges reflect verified or establishedranges for the adult population. Interpret these ranges with cautionusing the clinical context and additional reference resources. Performed By: #### C BCDIF, WSR, CK, CRP, IRON, URIC, CMP, FERR, VITD, AFP ####[address] [place] [phone]#### LIPB ####[place] [address] [address] [place] [phone] Calcium 9.5 mg/dL Normal 8.4-10.2 [facility] Comment on above: Performed By: #### C BCDIF, WSR, CK, CRP, IRON, URIC, CMP, FERR, VITD, AFP ####[place] [address] [address] [place] [phone]#### LIPB ####[place] [address] [address] [place] [phone] Chloride 102 mmol/L Normal 97-105 [facility] Comment on above: Result Comment: (NOT E)Reference ranges for this patient's age group have not beenestablished. These reference ranges reflect verified or establishedranges for the adult population. Interpret these ranges with cautionusing the clinical context and additional reference resources. Performed By: #### C BCDIF, WSR, CK, CRP, IRON, URIC, CMP, FERR, VITD, AFP ####[place] [address] [address] [place] [phone]#### LIPB ####[place] [address] [address] [place] [phone] CO2 24 mmol/L Normal 22-30 [facility] Comment on above: Result Comment: (NOT E)Reference ranges for this patient's age group have not beenestablished. These reference ranges reflect verified or establishedranges for the adult population. Interpret these ranges with cautionusing the clinical context and additional reference resources. Performed By: #### C BCDIF, WSR, CK, CRP, IRON, URIC, CMP, FERR, VITD, AFP ####[place] [address] [address] [place] [phone]#### LIPB ####[place] [address] [address] [place]la [place] [phone] Creatinine 0.73 mg/dL Normal 0.58-0.96 [facility] Comment on above: Result Comment: Refe rence ranges for this patient's age group have not been established. These reference ranges reflect verified or established ranges for the adult population. Interpret these ranges with caution using the clinical context and additional reference resources. Performed By: #### C BCDIF, WSR, CK, CRP, IRON, URIC, CMP, FERR, VITD, AFP ####[facility] [place] [phone]#### LIPB ####[place] [address] [place] [address] [place] [phone] eGFR (non-black) 0.75 mL/min/{1.73_m2} Normal [facility] Comment on above: Result Comment: eGFR (Estimated [...] CRP, IRON, URIC, CMP, FERR, VITD, AFP ####[facility] [place] [phone]#### LIPB ####[place] [address] [place] [address] [place] [phone] Glucose mass conc 78 mg/dL Normal 74-99 [facility] Comment on above: Result Comment: Refe rence ranges for this patient's age group have not been established. These reference ranges reflect verified or established ranges for the adult population. Interpret these ranges with caution using the clinical context and additional reference resources.The [place] Diabetes Association (ADA) provides guidance for cutoff [...] Standards of Medical Care in Diabetes 2016, [place] Diabetes Association. Diabetes Care. 2016.39(Suppl 1). Performed By: #### C BCDIF, WSR, CK, CRP, IRON, URIC, CMP, FERR, VITD, AFP ####[place] [address] [address] [place] [phone]#### LIPB ####[place] [address] [place] [phone] Potassium molar conc 3.5 mmol/L Low 3.7-5.1 [facility] Comment on above: Result Comment: (NOT E)Reference ranges for this patient's age group have not beenestablished. These reference ranges reflect verified or establishedranges for the adult population. Interpret these ranges with cautionusing the clinical context and additional reference resources. Performed By: #### C BCDIF, WSR, CK, CRP, IRON, URIC, CMP, FERR, VITD, AFP ####[facility] [place] [phone]#### LIPB ####[place] [address] [address] [place] [phone] Protein 8.2 g/dL High 6.3-8.0 [facility] Comment on above: Result Comment: (NOT E)Note [...] OWENS, Angus I, [place] M, et al. [place] LaboratoryInitiative on Reference Interval Database(CALIPER): pediatricreference intervals for an integrated clinical chemistry andimmunoassay analyzer, Perez STERILE PROCESSING TECH [id number]. Clin Uvzkhfo1164;42:885-891. Performed By: #### C BCDIF, WSR, CK, CRP, IRON, URIC, CMP, FERR, VITD, AFP ####[place] [phone]#### LIPB ####[place] [address] [place] [address] [place] [phone] Sodium 138 mmol/L Normal 136-144 [facility] Comment on above: Result Comment: (NOT E)Reference ranges for this patient's age group have not beenestablished. These reference ranges reflect verified or establishedranges for the adult population. Interpret these ranges with cautionusing the clinical context and additional reference resources. Performed By: #### C BCDIF, WSR, CK, CRP, IRON, URIC, CMP, FERR, VITD, AFP ####[place] [address] Ave[address], [place] [phone]#### LIPB ####[place] [address] [place], [place] [address] Urea nitrogen 10 mg/dL Normal 5-18 [facility] Comment on above: Performed By: #### C BCDIF, WSR, CK, CRP, IRON, URIC, CMP, FERR, VITD, AFP ####[place] [phone]#### LIPB ####[place] [phone] Ferritinon 11-16-2017 Ferritin 48.6 ng/mL Normal 14.7-205.1 [facility] Comment on above: Performed By: #### C BCDIF, WSR, CK, CRP, IRON, URIC, CMP, FERR, VITD, AFP ####[place] [phone]#### LIPB ####[place] [phone] Iron and TIBCon 11-16-2017 Iron 89 ug/dL Normal 41-186 [facility] Comment on above: Performed By: #### C BCDIF, WSR, CK, CRP, IRON, URIC, CMP, FERR, VITD, AFP ####[place] [phone]#### LIPB ####[place] [phone] TIBC 316 ug/dL Normal 232-386 [facility] Comment on above: Performed By: #### C BCDIF, WSR, CK, CRP, IRON, URIC, CMP, FERR, VITD, AFP ####[place] [phone]#### LIPB ####[place] [phone] Transferrin Saturatn 28 % Normal 15-57 [facility] Comment on above: Performed By: #### C BCDIF, WSR, CK, CRP, IRON, URIC, CMP, FERR, VITD, AFP ####[place] [phone]#### LIPB ####[place] [phone] Lipid Panel, [facility] 018 Cholesterol 173 mg/dL High <170 [facility] Comment on above: Result Comment: <170 mg/dL, Acceptable 170-199 mg/dL, Borderline high>199 mg/dL, High Performed By: #### C BCDIF, WSR, CK, CRP, IRON, URIC, CMP, FERR, VITD, AFP ####[place] [phone]#### LIPB ####[place] [phone] Fasting Time Unknown Normal [facility] Comment on above: Performed By: #### C BCDIF, WSR, CK, CRP, IRON, URIC, CMP, FERR, VITD, AFP ####[place] [phone]#### LIPB ####[place] [address] [place] [address] HDL Cholesterol 40 mg/dL Low >45 [facility] Comment on above: Result Comment: >45 mg/dL, Acceptable 40-45 mg/dL, Borderline<40 mg/dL, Low Performed By: #### C BCDIF, WSR, CK, CRP, IRON, URIC, CMP, FERR, VITD, AFP ####[place] [address]#### LIPB ####[place] [phone] LDL Cholesterol 99 mg/dL Normal <110 [facility] Comment on above: Result Comment: <110 mg/dL, Acceptable 110-129 mg/dL, Borderline high>129 mg/dL, High Performed By: #### C BCDIF, WSR, CK, CRP, IRON, URIC, CMP, FERR, VITD, AFP ####[place] [address]#### LIPB ####[place] [address] LDL:HDL Ratio 2.48 High <2.42 [facility] Comment on above: Result Comment: Ethan sanchez:1. Expert Panel on Integrated Guidelines for Cardiovascular Health and Risk Reduction in Children and Adolescents: National Heart, Lung and Blood Mclean. Pediatrics. 2011: 128(Suppl 5):D864-168. Performed By: #### C BCDIF, WSR, CK, CRP, IRON, URIC, CMP, FERR, VITD, AFP ####[place] [id number]#### LIPB ####[address] Non HDL Cholesterol 133 mg/dL High <120 [facility] Comment on above: Result Comment: <120 mg/dL, Acceptable 120-144 mg/dL, Borderline high>144 mg/dL, High Performed By: #### C BCDIF, WSR, CK, CRP, IRON, URIC, CMP, FERR, VITD, AFP ####[place] [address]#### LIPB ####[place] [address] TC:HDL Ratio 4.33 High <3.76 [facility] Comment on above: Performed By: #### C BCDIF, WSR, CK, CRP, IRON, URIC, CMP, FERR, VITD, AFP ####[place] [address]#### LIPB ####[place] [address] Triglyceride 169 mg/dL High <90 [facility] Comment on above: Result Comment: <90 mg/dL, Acceptable 90-129 mg/dL, Borderline high>129 mg/dL, High Performed By: #### C BCDIF, WSR, CK, CRP, IRON, URIC, CMP, FERR, VITD, AFP ####[place] [address]#### LIPB ####[place] [address] VLDL Cholesterol 34 mg/dL High <18 [facility] Comment on above: Performed By: #### C BCDIF, WSR, CK, CRP, IRON, URIC, CMP, FERR, VITD, AFP ####[place] [address] [address] [place] [phone]#### LIPB ####[place] [address] [place] [address] Sed Rate Westergrenon 2017 Sed Rate Westergren 2 mm/hr Normal 0-20 [facility] Comment on above: Performed By: #### C BCDIF, WSR, CK, CRP, IRON, URIC, CMP, FERR, VITD, AFP ####[place] [phone]#### LIPB ####[place] [phone] Uric Acidon 11-16-2017 Urate 5.7 mg/dL Normal 2.5-6.6 [facility] Comment on above: Performed By: #### C BCDIF, WSR, CK, CRP, IRON, URIC, CMP, FERR, VITD, AFP ####[place] [address]56014[address]#### LIPB ####[place] 489364[address]5755 Vitamin D 25 Hydroxyon 11-16 Vitamin D 25 Hydroxy 23.5 ng/mL Low 31.0-80.0 [facility] Comment on above: Result Comment: Clas sification of 25 [place] Vitamin D status:Insufficiency/Moderate Deficiency: < or = 30 ng/mLSufficiency/Optimal Levels: 31 to 80 ng/mLToxicity: > 100 ng/mLTest performed by chemiluminescent immunoassay. Performed By: #### C BCDIF, WSR, CK, CRP, IRON, URIC, CMP, FERR, VITD, AFP ####[facility] [address] [place], [place] [phone]#### LIPB ####[place] [address] [place], [place] [phone] [place], [place] [phone] Vital Signs Date Time Vital Sign Value Performing Clinician Facility 12-29-2024 14:43-0400 Body mass index (BMI) [Ratio] 19.28 kg/m2 [place] FRONT DESK ADMINISTRATOR.WORK STATION SUPPORT SPECIALIST Work Phone: [facility] 12-29-2024 14:43-0400 Body weight 51.35 kg Makenzie [place] FRONT DESK ADMINISTRATOR.WORK STATION SUPPORT SPECIALIST Work Phone: [facility] 12-29-2024 14:43-0400 Diastolic blood pressure 60 mm[Hg] Makenzie [place] FRONT DESK ADMINISTRATOR.WORK STATION SUPPORT SPECIALIST Work Phone: [facility] 12-29-2024 14:43-0400 Systolic blood pressure 110 mm[Hg] Makenzie Nba FRONT DESK ADMINISTRATOR.WORK STATION SUPPORT SPECIALIST Work Phone: [facility] 06-10-2023 19:09-0400 Body temperature 98.4 [degF] Treasure Lamb APRN.WORK STATION SUPPORT SPECIALIST Work Phone: [facility] 06-10-2023 19:09-0400 Body weight 50.35 kg Treasure Lamb APRN.WORK STATION SUPPORT SPECIALIST Work Phone: [facility] 06-10-2023 19:09-0400 Diastolic blood pressure 74 mm[Hg] Treasure Lamb APRN.WORK STATION SUPPORT SPECIALIST Work Phone: [facility] 06-10-2023 19:09-0400 Heart rate 99 /min Treasure Lamb APRN.WORK STATION SUPPORT SPECIALIST Work Phone: [facility] 06-10-2023 19:09-0400 Respiratory rate 18 /min Treasure Lamb APRN.WORK STATION SUPPORT SPECIALIST Work Phone: [facility] 06-10-2023 19:09-0400 SaO2% (BldA) [Mass fraction] 98 % Treasure Lamb APRN.WORK STATION SUPPORT SPECIALIST Work Phone: [facility] 06-10-2023 19:09-0400 Systolic blood pressure 110 mm[Hg] Treasure Lamb APRN.WORK STATION SUPPORT SPECIALIST Work Phone: [facility] 04-19-2023 22:27-0400 Diastolic Blood Pressure Non-Invasive [address] YAHIR MATA MD [facility] 04-19-2023 22:27-0400 Heart rate 86 /min DR YAHIR MATA MD [facility] 04-19-2023 22:27-0400 Reason For Taking VItal Signs DR YAHIR MATA MD [facility] 04-19-2023 22:27-0400 Respiratory rate 16 /min DR YAHIR MATA MD [facility] 04-19-2023 22:27-0400 Systolic Blood Pressure Non-Invasive [address] YAHIR MATA MD [facility] 04-19-2023 21:15-0400 Body temperature 98.6 [degF] DR YAHIR MATA MD [facility] 04-19-2023 21:15-0400 Diastolic Blood Pressure Non-Invasive [address] YAHIR MATA MD [facility] 04-19-2023 21:15-0400 Heart rate 113 /min DR YAHIR MATA MD [facility] 04-19-2023 21:15-0400 Respiratory rate 16 /min DR YAHIR MATA MD [facility] 04-19-2023 21:15-0400 Systolic Blood Pressure Non-Invasive [address] YAHIR MATA MD [facility] 11-11-2022 13:04-0500 Body temperature 98.71 [degF] Adore [place] FRONT DESK ADMINISTRATOR.WORK STATION SUPPORT SPECIALIST Work Phone: [facility] 11-11-2022 13:04-0500 Body weight 53.43 kg Adore [place] FRONT DESK ADMINISTRATOR.WORK STATION SUPPORT SPECIALIST Work Phone: [facility] 11-11-2022 13:04-0500 Diastolic blood pressure 82 mm[Hg] Adore P[place]Wood FRONT DESK ADMINISTRATOR.WORK STATION SUPPORT SPECIALIST Work Phone: [facility] 11-11-2022 13:04-0500 Heart rate 98 /min Adore Praisler-Wood FRONT DESK ADMINISTRATOR.WORK STATION SUPPORT SPECIALIST Work Phone: [facility] 11-11-2022 13:04-0500 Respiratory rate 18 /min Adore Praisler-Wood FRONT DESK ADMINISTRATOR.WORK STATION SUPPORT SPECIALIST Work Phone: [facility] 11-11-2022 13:04-0500 SaO2% (BldA) [Mass fraction] 99 % Adore Praisler-Wood FRONT DESK ADMINISTRATOR.WORK STATION SUPPORT SPECIALIST Work Phone: [facility] 11-11-2022 13:04-0500 Systolic blood pressure 128 mm[Hg] Adore P[place]ler[place] FRONT DESK ADMINISTRATOR.WORK STATION SUPPORT SPECIALIST Work Phone: [facility] 07-13-2022 13:28-0400 Body height 163.2 cm Makenzie Nba FRONT DESK ADMINISTRATOR.WORK STATION SUPPORT SPECIALIST Work Phone: [facility] 07-13-2022 13:28-0400 Body weight 54.43 kg Makenzie Nba FRONT DESK ADMINISTRATOR.WORK STATION SUPPORT SPECIALIST Work Phone: [facility] 07-13-2022 13:28-0400 Diastolic blood pressure 70 mm[Hg] Makenzie [place] FRONT DESK ADMINISTRATOR.WORK STATION SUPPORT SPECIALIST Work Phone: [facility] 07-13-2022 13:28-0400 Heart rate 114 /min Makenzie Nba FRONT DESK ADMINISTRATOR.WORK STATION SUPPORT SPECIALIST Work Phone: [facility] 07-13-2022 13:28-0400 Respiratory rate 14 /min Makenzie [place] FRONT DESK ADMINISTRATOR.WORK STATION SUPPORT SPECIALIST Work Phone: [facility] 07-13-2022 13:28-0400 SaO2% (BldA) [Mass fraction] 100 % Makenzie [place] FRONT DESK ADMINISTRATOR.WORK STATION SUPPORT SPECIALIST Work Phone: [facility] 07-13-2022 13:28-0400 Systolic blood pressure 130 mm[Hg] Makenzie Nba FRONT DESK ADMINISTRATOR.WORK STATION SUPPORT SPECIALIST Work Phone: [facility] 07-10-2022 17:23-0400 Body temperature 99.1 [degF] Dina Ke FRONT DESK ADMINISTRATOR.WORK STATION SUPPORT SPECIALIST Work Phone: [facility] 07-10-2022 17:23-0400 Body weight 55.16 kg Dina Ke FRONT DESK ADMINISTRATOR.WORK STATION SUPPORT SPECIALIST Work Phone: [facility] 07-10-2022 17:23-0400 Diastolic blood pressure 82 mm[Hg] Dina Ke FRONT DESK ADMINISTRATOR.WORK STATION SUPPORT SPECIALIST Work Phone: [facility] 07-10-2022 17:23-0400 Heart rate 136 /min Dina Ke FRONT DESK ADMINISTRATOR.WORK STATION SUPPORT SPECIALIST Work Phone: [facility] 07-10-2022 17:23-0400 Respiratory rate 18 /min Dina Ke FRONT DESK ADMINISTRATOR.WORK STATION SUPPORT SPECIALIST Work Phone: [facility] 07-10-2022 17:23-0400 SaO2% (BldA) [Mass fraction] 100 % Dina Ke FRONT DESK ADMINISTRATOR.WORK STATION SUPPORT SPECIALIST Work Phone: [facility] 07-10-2022 17:23-0400 Systolic blood pressure 128 mm[Hg] Dina Ke FRONT DESK ADMINISTRATOR.WORK STATION SUPPORT SPECIALIST Work Phone: [facility] 05-16-2022 22:22-0400 Diastolic blood pressure 72 mm[Hg] DR BRET MARCUM MD [facility] 05-16-2022 22:22-0400 Heart rate 72 /min DR BRET MARCUM MD [facility] 05-16-2022 22:22-0400 Respiratory rate 16 /min DR BRET MARCUM MD [facility] 05-16-2022 22:22-0400 Systolic blood pressure 122 mm[Hg] DR BRET MARCUM MD [facility] 05-16-2022 21:46-0400 Heart rate 74 /min DR BRET MARCUM MD [facility] 05-16-2022 21:46-0400 Respiratory rate 16 /min DR BRET MARCUM MD [facility] 05-16-2022 21:06-0400 Body temperature 98.96 [degF] DR BRET MARCUM MD [facility] 05-16-2022 21:06-0400 Diastolic blood pressure 82 mm[Hg] DR BRET MARCUM MD [facility] 05-16-2022 21:06-0400 Heart rate 75 /min DR BRET MARCUM MD [facility] 05-16-2022 21:06-0400 Mean blood pressure 103 mm[Hg] DR BRET MARCUM MD [facility] 05-16-2022 21:06-0400 Respiratory rate 18 /min DR BRET MARCUM MD [facility] 05-16-2022 21:06-0400 Systolic blood pressure 146 mm[Hg] DR BRET MARCUM MD [facility] 04-10-2022 17:04-0400 Diastolic blood pressure 70 mm[Hg] DR SCOT LEIVA DO [facility] 04-10-2022 17:04-0400 Heart rate 99 /min DR SCOT LEIVA DO [facility] 04-10-2022 17:04-0400 Respiratory rate 16 /min DR SCOT LEIVA DO [facility] 04-10-2022 17:04-0400 Systolic blood pressure 105 mm[Hg] DR SCOT LEIVA DO [facility] 04-10-2022 16:01-0400 Body temperature 98.96 [degF] DR SCOT LEIVA DO [facility] 04-10-2022 16:01-0400 Body weight 53.[address] SCOT LEIVA DO [facility] 04-10-2022 16:01-0400 Diastolic blood pressure 75 mm[Hg] DR SCOT LEIVA DO [facility] 04-10-2022 16:01-0400 Heart rate 108 /min DR SCOT LEIVA DO [facility] 04-10-2022 16:01-0400 Mean blood pressure 84 mm[Hg] DR SCOT LEIVA DO [facility] 04-10-2022 16:01-0400 Respiratory rate 16 /min DR SCOT LEIVA DO [facility] 04-10-2022 16:01-0400 Systolic blood pressure 103 mm[Hg] DR SCOT LEIVA DO [facility] 04-10-2022 14:30-0400 Body temperature 98.1 [degF] Treasure Lamb APRN.WORK STATION SUPPORT SPECIALIST Work Phone: [facility] 04-10-2022 14:30-0400 Body weight 53.43 kg Treasure Lamb APRN.WORK STATION SUPPORT SPECIALIST Work Phone: [facility] 04-10-2022 14:30-0400 Diastolic blood pressure 80 mm[Hg] Treasure Adonis FRONT DESK ADMINISTRATOR.WORK STATION SUPPORT SPECIALIST Work Phone: [facility] 04-10-2022 14:30-0400 Heart rate 123 /min Treasure Lamb FRONT DESK ADMINISTRATOR.WORK STATION SUPPORT SPECIALIST Work Phone: [facility] 04-10-2022 14:30-0400 Respiratory rate 20 /min Treasure Lamb FRONT DESK ADMINISTRATOR.WORK STATION SUPPORT SPECIALIST Work Phone: [facility] 04-10-2022 14:30-0400 SaO2% (BldA) [Mass fraction] 100 % Treasure Lamb FRONT DESK ADMINISTRATOR.WORK STATION SUPPORT SPECIALIST Work Phone: [facility] 04-10-2022 14:30-0400 Systolic blood pressure 110 mm[Hg] Treasure Adonis FRONT DESK ADMINISTRATOR.WORK STATION SUPPORT SPECIALIST Work Phone: [facility] 03-17-2022 16:22-0400 Body temperature 98.91 [degF] Mo Lalito FRONT DESK ADMINISTRATOR.WORK STATION SUPPORT SPECIALIST Work Phone: [facility] 03-17-2022 16:22-0400 Body weight 53.8 kg Mosenia Starkey FRONT DESK ADMINISTRATOR.WORK STATION SUPPORT SPECIALIST Work Phone: [facility] 03-17-2022 16:22-0400 Diastolic blood pressure 82 mm[Hg] Mo Lalito FRONT DESK ADMINISTRATOR.WORK STATION SUPPORT SPECIALIST Work Phone: [facility] 03-17-2022 16:22-0400 Heart rate 111 /min Mo Lalito FRONT DESK ADMINISTRATOR.WORK STATION SUPPORT SPECIALIST Work Phone: [facility] 03-17-2022 16:22-0400 Respiratory rate 20 /min Mo Lalito FRONT DESK ADMINISTRATOR.WORK STATION SUPPORT SPECIALIST Work Phone: [facility] 03-17-2022 16:22-0400 SaO2% (BldA) [Mass fraction] 100 % Mo Lalito FRONT DESK ADMINISTRATOR.WORK STATION SUPPORT SPECIALIST Work Phone: [facility] 03-17-2022 16:22-0400 Systolic blood pressure 126 mm[Hg] Mo Lalito FRONT DESK ADMINISTRATOR.WORK STATION SUPPORT SPECIALIST Work Phone: [facility] Encounters Encounter Date Encounter Type Care Provider Facility Start: 12-29-2024 End: 12-29-2024 Patient encounter procedure Makenzie Arango FRONT DESK ADMINISTRATOR.WORK STATION SUPPORT SPECIALIST Work Phone: OB/Gynecology Comment on above: Missed menses (Prima ry Dx) Start: 12-29-2024 End: 12-29-2024 ambulatory MAKENZIE LAZAROCALF Facility:[facility] Start: 08-07-2023 End: 08-07-2023 ambulatory Antonia CRUZ Facility:[facility] Start: 06-12-2023 Telephone encounter Kendall Bowden MD Work Phone: [facility] Comment on above: Results (Urine Cx mi xed.) Start: 06-10-2023 End: 06-10-2023 Patient encounter procedure Treasure Lamb FRONT DESK ADMINISTRATOR.WORK STATION SUPPORT SPECIALIST Work Phone: [facility] Comment on above: Urinary frequency (P rimary Dx); Recurrent UTI (urinary tract infection) Start: 04-19-2023 End: 04-20-2023 Emergency department patient visit DR YAHIR MATA MD Facility: Start: 04-19-2023 End: 04-19-2023 Emergency department patient visit DR YAHIR MATA MD [facility] Start: 11-13-2022 Telephone encounter Hollie Mehran vasquez FRONT DESK ADMINISTRATOR.WORK STATION SUPPORT SPECIALIST Work Phone: [facility] Comment on above: Results Start: 11-11-2022 End: 11-11-2022 Patient encounter procedure Adore Granado FRONT DESK ADMINISTRATOR.WORK STATION SUPPORT SPECIALIST Work Phone: [facility] Comment on above: Acute UTI (Primary D x); Urinary frequency Start: 07-13-2022 End: 07-13-2022 Patient encounter procedure Makenzie Arango FRONT DESK ADMINISTRATOR.WORK STATION SUPPORT SPECIALIST Work Phone: OB/Gynecology Comment on above: Encounter for gyneco logical examination (general) (routine) without abnormal findings (Primary Dx); Encounter for contraceptive management, unspecified type Start: 07-10-2022 End: 07-10-2022 Patient encounter procedure Dina Dempsey MACEY.WORK STATION SUPPORT SPECIALIST Work Phone: [facility] Comment on above: Mass of upper outer quadrant of left breast (Primary Dx) Start: 05-16-2022 End: 05-17-2022 Emergency department patient visit DR BRET MARCUM MD Facility:[facility] Start: 05-16-2022 End: 05-16-2022 Emergency department patient visit DR BRET MARCUM MD [facility] Start: 04-10-2022 End: 04-10-2022 Emergency department patient visit DR SCOT LEIVA DO [facility] Start: 04-10-2022 End: 04-10-2022 Patient encounter procedure Treasure Lamb APRN.[facility] Work Phone: [facility] Comment on above: Headache, unspecifie d headache type (Primary Dx); Vomiting, unspecified vomiting type, unspecified whether nausea present Start: 03-17-2022 End: 03-17-2022 Patient encounter procedure Mo Starkey APRN.WORK STATION SUPPORT SPECIALIST Work Phone: [facility] Comment on above: Migraine unspecified (Primary Dx) Start: 11-16-2017 Ambulatory MEAGHAN (WORK STATION SUPPORT SPECIALIST ) [facility] Procedures Date Procedure Procedure Detail Performing Clinician Start: 12-29-2024 UA DIP,URINE HCG (POC) Makenzie Arango FRONT DESK ADMINISTRATOR.WORK STATION SUPPORT SPECIALIST Work Phone: Start: 06-10-2023 Urnls dip stick/tabl et rgnt auto w/o microscopy Adore Granado FRONT DESK ADMINISTRATOR.WORK STATION SUPPORT SPECIALIST Work Phone: Start: 11-11-2022 Urnls dip stick/tabl et rgnt auto w/o microscopy Shanna Willams PA-C Work Phone: Start: 06-28-2019 Adult depression screening assessment Mo Starkey APRN.WORK STATION SUPPORT SPECIALIST Work Phone: None (qualifier value) DR RADHA LEIVA DO Plan of Treatment Date Care Activity Detail Author Start: 06-29-2024 Urine microalbumin profile [facility] Start: 06-11-2024 Covid-19 Vaccine ( season) Covid-19 Vaccine ( season) [facility] Start: 06-11-2024 Influenza vaccination Influenza Vacc ine (#1) [facility] Start: 06-11-2023 Influenza vaccination INFLUENZA (#1) [facility] Start: 2022 PAP TESTING PAP TESTING [facility] Start: 2022 Screening for malign ant neoplasm of cervix Cervical Cancer Screening [facility] Start: 10-11-2022 DEPRESSION ASSESSMENT DEPRESSION ASS ESSMENT [facility] Start: 06-11-2022 Influenza vaccination [facility] Start: 04-10-2022 End: 04-24-2022 Influenza virus A and B RNA and SARS-CoV-2 (COVID-19) N gene panel - Respiratory specimen by KVNG with probe detection [facility] Work Phone: Comment on above: Expected: 04/10/2022 , Expires: 04/24/2022 Start: 01-05-2022 COVID-19 VACCINE (4 - Booster for Moderna series) COVID-19 VACCINE (4 - Booster for Moderna series) [facility] Start: 01-05-2022 COVID-19 VACCINE (4 - Moderna series) COVID-19 VACCINE (4 - Moderna series) [facility] Start: 10-11-2021 DEPRESSION ASSESSMENT DEPRESSION ASS ESSMENT [facility] Start: 06-28-2020 Adult depression screening assessment DEPRESSION SCREENING [facility] Start: 2019 Anxiety Screening Anxiety Screening [facility] Start: 2019 CHLAMYDIA SCREENING (18-24) CHLAMYDIA SCREENING (18-24) [facility] Start: 2019 Depression Screening Depression Scre ening [facility] Start: 2019 GC (GONORRHEA) SCREE ROMERO (18-24) GC (GONORRHEA) SCREENING (18-24) [facility] Start: 2019 HEPATITIS C SCREENING HEPATITIS C [facility] Start: 2019 Hepatitis C screening Hepatitis C [facility] Start: 2019 HIV SCREENING HIV SCREENING [facility] Start: 2019 HIV screening HIV Screening [facility] Start: 2019 Screening for Chlamy mervin trachomatis Chlamydia Screening (18-24) [facility] Start: 2017 Meningococcal B Vacc ine (1 of 2 - Standard) Meningococcal B Vaccine (1 of 2 - Standard) [facility] Start: 2017 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 B: Consider based on risk (1 of 2 - Patient Seeks Protection) 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 B: Consider based on risk (1 of 2 - Patient Seeks Protection) [facility] Start: 2015 PEDS TO ADULT TRANSI TION ANNUAL ASSESSMENT PEDS TO ADULT TRANSITION ANNUAL ASSESSMENT [facility] Start: 2013 PEDS TO ADULT TRANSI TION INITIAL DISCUSSION PEDS TO ADULT TRANSITION INITIAL DISCUSSION [facility] Start: 2011 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 B: Consider based on risk (1 of 2 - Risk Bexsero 2-dose series) 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 B: Consider based on risk (1 of 2 - Risk Bexsero 2-dose series) [facility] Bacteria identified in Urine by Culture URINE CULTURE Microbiology Routine Urinary frequency Ordered: 11/11/2022 [facility] Work Phone: Comment on above: Ordered: 11/11/2022 Bacteria identified in Urine by Culture URINE CULTURE Microbiology Routine Urinary frequency 06/10/2023 7:44 PM EDT [facility] Work Phone: End: 08-09-2023 Us breast uni real time with image limited US BREAST LTD LT Radiology STAT Mass of upper outer quadrant of left breast 1 Occurrences starting 07/10/2022 until 08/09/2023 [facility] Work Phone: Comment on above: 1 Occurrences starti ng 07/10/2022 until 08/09/2023 [facility] Immunizations Immunization Date Immunization Notes Care Provider Destiny cevallos 06-28-2019 influenza, injectabl e, quadrivalent, contains preservative Mo Starkey APRN.CNP Work Phone: [facility] 06-28-2019 influenza virus vacc ine, unspecified formulation Makenzie Arango APRN.CNP Work Phone: [facility] 10-26-2017 Human Papillomavirus 9-valent vaccine Mo Starkey FRONT DESK ADMINISTRATOR.WORK STATION SUPPORT SPECIALIST Work Phone: [facility] 10-26-2017 influenza, injectabl e, quadrivalent, contains preservative Mo Starkey FRONT DESK ADMINISTRATOR.WORK STATION SUPPORT SPECIALIST Work Phone: [facility] 10-26-2017 meningococcal polysaccharide (groups A, C, Y and W-135) diphtheria toxoid conjugate vaccine (MCV4P) Mo Starkey APRN.WORK STATION SUPPORT SPECIALIST Work Phone: [facility] 07-13-2014 influenza, live, intranasal, quadrivalent Mo Starkey FRONT DESK ADMINISTRATOR.WORK STATION SUPPORT SPECIALIST Work Phone: [facility] 06-29-2014 human papilloma viru s vaccine, quadrivalent Mo Starkey FRONT DESK ADMINISTRATOR.[facility] Work Phone: [facility] Work Phone: 06-29-2014 meningococcal polysaccharide (groups A, C, Y and W-135) diphtheria toxoid conjugate vaccine (MCV4P) Mo Starkey APRN.WORK STATION SUPPORT SPECIALIST Work Phone: [facility] Work Phone: 06-29-2014 tetanus toxoid, redu leona diphtheria toxoid, and acellular pertussis vaccine, adsorbed Mo Starkey FRONT DESK ADMINISTRATOR.[facility] Work Phone: [facility] Work Phone: 07-13-2009 influenza virus vacc ine, unspecified formulation Mo Starkey FRONT DESK ADMINISTRATOR.WORK STATION SUPPORT SPECIALIST Work Phone: [facility] Work Phone: 06-09-2007 diphtheria, tetanus toxoids and acellular pertussis vaccine Mo Starkey FRONT DESK ADMINISTRATOR.WORK STATION SUPPORT SPECIALIST Work Phone: [facility] Work Phone: 06-09-2007 measles, mumps and rubella virus vaccine Mo Starkey FRONT DESK ADMINISTRATOR.WORK STATION SUPPORT SPECIALIST Work Phone: [facility] Work Phone: 06-09-2007 pneumococcal conjuga te vaccine, 7 valent Mo Starkey FRONT DESK ADMINISTRATOR.WORK STATION SUPPORT SPECIALIST Work Phone: [facility] Work Phone: 06-09-2007 poliovirus vaccine, inactivated Mo Starkey FRONT DESK ADMINISTRATOR.WORK STATION SUPPORT SPECIALIST Work Phone: [facility] Work Phone: 06-09-2007 varicella virus vaccine River Starkey FRONT DESK ADMINISTRATOR.WORK STATION SUPPORT SPECIALIST Work Phone: [facility] Work Phone: 04-17-2004 diphtheria, tetanus toxoids and acellular pertussis vaccine Mo Starkey FRONT DESK ADMINISTRATOR.WORK STATION SUPPORT SPECIALIST Work Phone: [facility] Work Phone: 04-17-2004 haemophilus influenz ae type b vaccine, HbOC conjugate Mo King FRONT DESK ADMINISTRATOR.[facility] Work Phone: [facility] Work Phone: 04-17-2004 hepatitis B vaccine, pediatric or pediatric/adolescent dosage Mo Starkey FRONT DESK ADMINISTRATOR.[facility] Work Phone: [facility] Work Phone: 04-17-2004 varicella virus vaccine River Starkey FRONT DESK ADMINISTRATOR.[facility] Work Phone: [facility] Work Phone: 11-01-2002 measles, mumps and rubella virus vaccine Mo Starkey FRONT DESK ADMINISTRATOR.WORK STATION SUPPORT SPECIALIST Work Phone: [facility] Work Phone: 11-01-2002 pneumococcal conjuga te vaccine, 7 valent Mosenia Starkey FRONT DESK ADMINISTRATOR.WORK STATION SUPPORT SPECIALIST Work Phone: [facility] Work Phone: 11-01-2002 poliovirus vaccine, inactivated Mo Starkey FRONT DESK ADMINISTRATOR.WORK STATION SUPPORT SPECIALIST Work Phone: [facility] Work Phone: 04-21-2002 diphtheria, tetanus toxoids and acellular pertussis vaccine Mo Starkey FRONT DESK ADMINISTRATOR.WORK STATION SUPPORT SPECIALIST Work Phone: [facility] Work Phone: 04-21-2002 haemophilus influenz ae type b vaccine, HbOC conjugate Mo Lalito FRONT DESK ADMINISTRATOR.WORK STATION SUPPORT SPECIALIST Work Phone: [facility] Work Phone: 04-21-2002 pneumococcal conjuga te vaccine, 7 valent Mo Lalito FRONT DESK ADMINISTRATOR.WORK STATION SUPPORT SPECIALIST Work Phone: [facility] Work Phone: 02-13-2002 diphtheria, tetanus toxoids and acellular pertussis vaccine Mo Lalito FRONT DESK ADMINISTRATOR.[facility] Work Phone: [facility] Work Phone: 02-13-2002 haemophilus influenz ae type b vaccine, HbOC conjugate Mo Lalito FRONT DESK ADMINISTRATOR.[facility] Work Phone: [facility] Work Phone: 02-13-2002 pneumococcal conjuga te vaccine, 7 valent Mo Lalito FRONT DESK ADMINISTRATOR.[facility] Work Phone: [facility] Work Phone: 02-13-2002 poliovirus vaccine, inactivated Mo Lalito FRONT DESK ADMINISTRATOR.[facility] Work Phone: [facility] Work Phone: 2001 diphtheria, tetanus toxoids and acellular pertussis vaccine Mo Lalito FRONT DESK ADMINISTRATOR.[facility] Work Phone: [facility] Work Phone: 2001 haemophilus influenz ae type b vaccine, HbOC conjugate Mo Lalito FRONT DESK ADMINISTRATOR.[facility] Work Phone: [facility] Work Phone: 2001 hepatitis B vaccine, pediatric or pediatric/adolescent dosage Mo King FRONT DESK ADMINISTRATOR.WORK STATION SUPPORT SPECIALIST Work Phone: [facility] Work Phone: 2001 pneumococcal conjuga te vaccine, 7 valent Mo Lalito FRONT DESK ADMINISTRATOR.WORK STATION SUPPORT SPECIALIST Work Phone: [facility] Work Phone: 2001 poliovirus vaccine, inactivated Mo Lalito FRONT DESK ADMINISTRATOR.[facility] Work Phone: [facility] Work Phone: 2001 hepatitis B vaccine, pediatric or pediatric/adolescent dosage Mo Starkey APRN.[facility] Work Phone: [facility] Work Phone: Payers Date Payer Category Payer [employer] Blue [employer] BLUE CARD PPO OOS [id number] 2024 Unknown [id number] 2023 Self-pay 2023 Private Health Insurance [id number] 2022 Private Health Insurance [id number] 2017 Medicaid [facility] MEDICAID [facility] COMMUNITY PLAN MEDICAID [id number] 2017-Present [phone] [address] [place] [address] Medicaid [id number] 2017 Medicaid [id number] 2001 Unknown [id number] 2001 Unknown [id number] Unknown [id number] Social History Date Type Detail Facility Start: 09-13-2020 End: 07-10-2022 Tobacco smoking status NHIS Never smoked tobacco [facility] Start: 03-17-2022 End: 09-30-2022 Alcohol intake Lifetime non-drinker (finding) [facility] Start: 06-28-2019 History SDOH Alcohol Frequency 1 [facility] Start: 08-10-2013 End: 07-10-2022 Tobacco Comment mom and dad smoke - outside [facility] Start: 2000 Sex Assigned At Not on file [facility] Start: 03-31-2022 End: 07-13-2022 Exposure to SARS-CoV-2 (event) Not sure [facility] Work Phone: Sex Assigned At Sex [facility] History of tobacco use Passive smoker [facility] Start: 07-10-2022 Tobacco use and exposure Smokeless tobacco non-user [facility] Start: 07-13-2022 End: 06-10-2023 Alcohol intake Current drinker of alcohol (finding) [facility] Start: 07-13-2022 History SDOH Alcohol Comment Occasionally [facility] Start: 06-28-2019 End: 12-29-2024 History of Social function [facility] Start: 06-28-2019 End: 12-29-2024 Alcohol Use Disorder Identification Test - Consumption [AUDIT-C] [facility] How often to you hav e a drink containing alcohol? Never [facility] Average Number of Drinks Not on file [facility] Medical Equipment Procedure Code Equipment Code Equipment Origin al Text Equipment Identifier Dates [id number], [id number], [id number] Start: 12-01-2017 End: 12-29-2024 Comment on above: Monitor blood glucos e 3 times daily MONITOR BLOOD KETONE S X3-4/DAY. Precision ketone strips only. Take 30 g by mouth t hree times daily. Functional Status Date Assessment Result Facility 04-19-2023 Functional Status ID band on, Call device within reach, Bed in low position, Wheels locked, Bedside Cart Locked, Visitor at bedside, Safety level maintained [facility] 04-19-2023 Functional Status [facility] 05-16-2022 Functional Status Independent [facility] 05-16-2022 Functional Status Standard Safet y ID band on, Allergy Band on, Call device within reach, Bed in low position, Wheels locked, Upper/Half-Length side-rails up, Phone within reach, personal items within reach, Safety level maintained [facility] 04-10-2022 Functional Status Independent [facility] 04-10-2022 Functional Status Standard Safet y ID band on, Allergy Band on, Call device within reach, Bed in low position, Wheels locked, Upper/Half-Length side-rails up, Phone within reach, personal items within reach, Visitor at bedside [facility] 05-16-2015 Are you deaf, or do you have serious difficulty hearing No 05/16/2015 11:30 AM Elaine Johnson Ma [facility] 05-16-2015 Are you blind, or do you have serious difficulty seeing, even when wearing glasses No 05/16/2015 11:30 AM Elaine Jonhson Ma [facility] 05-16-2015 Do you have serious difficulty walking or climbing stairs No 05/16/2015 11:30 AM Elaine Johnson Ma [facility] 05-16-2015 Do you have difficul ty dressing or bathing No 05/16/2015 11:30 AM Elaine Johnson Ma [facility] Mental Status Date Assessment Result Facility 04-19-2023 Mental Status Oriented x 4 [facility] 04-19-2023 Mental Status [facility] 05-16-2022 Mental Status Orientation Oriented x 4 [facility]3] 05-16-2022 Mental Status [facility] 04-10-2022 Mental Status Orientation Oriented x 4 [facility]3] 04-10-2022 Mental Status [facility] 05-16-2015 Because of a physica l, mental, or emotional condition, do you have serious difficulty concentrating, remembering, or making decisions No 05/16/2015 11:30 AM Elaine Johnson Ma [facility] Clinical Notes 03-17-2022 to 12-29-2024 Makenzie Arango APRN.TONI - 12/29/2024 2:34 PM EDTTelephone Encounter - Lisa Lopez MA - 06/13/2023 2:42 PM EDTTelephone Encounter - María Elena Valdez LPN - 06/12/2023 8:50 AM EDT Note Date & Type Note Facility 12-29-2024 Note HNO ID: [id number] Author: MAKENZIE ARANGO APRN.WORK STATION SUPPORT SPECIALIST Service: ? Author Type: Nurse Practitioner Type: Progress Notes Filed: 12/29/2024 14:55 Note Text: Aniyah Kapadia is a 24 year old female who presents for problem visit missed menses, LMP 11/15/2024, reported HPT 12/28/2024. 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 Lisa Lopez MA Left message for patient to return call. María Elena Valdez LPN Urine culture did not look like a clear sample so it did not show a clear infection. She may finish the antibiotic if helping and follow up with PCP, urology, or INTERNET PROJECT MANAGER if symptoms persist. documented in this encounter [facility] 06-10-2023 History of Presen t illness Narrative [...] Uses as needed) Blood-Glucose Meter (PRECISION XTRA) [facility] Use as directed FREESTYLE LITE METER monitoring [...] Patient agreeable to treatment plan. Treasure Lamb APRN.WORK STATION SUPPORT SPECIALIST documented in this encounter [facility] 04-20-2023 Hospital Discharg e instructions Patient Education [...] of your face Difficulty talking or seeing [phone] [employer]. [address] [place], [place] [address]. All rights reserved. This information is not intended as a substitute for professional medical care. Always follow your healthcare professional's instructions. Follow Up Care 04/19/2023 21:13:08 With:Call Physician Referral Address:Unknown When:2-[address] [facility] Emergency department Discharge summary Discharge Instructions Thank you for allowing [facility] to assist you with your healthcare needs. [...] of your face Difficulty talking or seeing [phone] [employer]. [address] [place] [address]. All rights reserved. This information is not intended as a substitute for professional medical care. Always follow your healthcare professional's instructions. Additional Information VACCINATE! IT SAVES LIVES! Members of the community who have not yet received the COVID-19 vaccine and would like to receive it can visit one of [facility] vaccine clinics. There are many vaccine clinic locations within the [facility]. For locations and available times, please visit [email or web address] [email or web address] It is important to note that some COVID mobile vaccine clinics are held outdoors and may be canceled in rainy or stormy conditions. To learn more about pediatric vaccinations (ages 5-11), we invite you to visit the [facility] webpage. https://www.[facility].org/p ages/0237-Rttxp-Sssibromjnf-Freq bhwmlv-Dnqpa-Hupijohkr.html To learn more about the COVID-19 vaccine, we invite you to visit the CDC website for a list of frequently asked questions. https://www.cdc.gov/coronavirus/ 2019-ncov/vaccines/faq.html [facility] Patient Portal Access Instructions: Stay connected with your healthcare team and access your personal medical information anytime with the [facility] Patient Portal. If you would like a full copy of your medical records please contact the [facility] Medical Records Department Wednesday through Wednesday between 8a.m. and 4:30p.m. Please follow the directions below to access the portal: 1.Access the email account you provided upon registration to the hospital.2.Look for an invitation email from [facility].3.Open the email and access the invitation link: Accept Invitation to [facility].Fill in the required mary to create your account. Sign into [email or web address] with your username and password that you [...] you will allow to register on the [facility] Patient Portal for access to your information. You can also access the [facility] Patient Portal on the Mamba. Simply click on Health Records under Health Data and then click on the [employer] logo. HOW TO SAFELY DISPOSE OF PRESCRIPTION [...] Call your local pharmacy or go to http://Picovico.UP Online/1Y6Ka9v to find one close to you.3.Make use of household items: Use cat litter or old coffee grounds to dispose medications if other options are not available. Mix your drugs with these household products, seal them in an airtight container and throw it into the garbage. Call [facility]: [phone] to be sure your drugs can be [...] aware that I should contact my doctor. 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 > 100,000 e. Coli ATB prescribed is appropriate. Phone call placed. No answer. Voicemail message left. documented in this encounter [facility] 11-11-2022 Instructions Patience Bueno - 11/11/2022 1:28 [...] front to back documented in this encounter [facility] 11-11-2022 History of Presen t illness Narrative [...] Uses as needed) Blood-Glucose Meter (PRECISION XTRA) [facility] Use as directed FREESTYLE LITE METER monitoring [...] CULTURE Patience Bueno APRN -student TEACHING PROVIDER (Physician/PA/FRONT DESK ADMINISTRATOR) NOTE OF PERSONAL INVOLVEMENT IN CARE: I have personally seen and examined the patient and performed the medical decision-making components. I have reviewed the Advanced Practice Registered Nurse (FRONT DESK ADMINISTRATOR) Student's documentation and verified the findings in the note as written. Any additions or changes are noted in bold/italics. Signature: Adore Granado Date: 11/11/2022 Time: 2:06 PM documented in this encounter [facility] 07-13-2022 History of Presen t illness Narrative Division Supervisor offered: Patient declines. Dill is a 21 [...] L0 SAB0 IAB0 Ectopic0 Multiple0 Live Births0 Mercury Recoverer History LMP: 03/23/2022, Having periods Age at Menarche: Age at First : Age at Menopause: Mercury Recoverer History Comments: Sexual Activity: Never; No partner [...] Makenzie Arango APRN.CNP documented in this encounter [facility] 07-10-2022 Instructions Dina Dempsey APRN.CNP - 07/10/2022 5:32 PM EDT Will check US and set up recheck with ob/gyn doctor documented in this encounter [facility] 07-10-2022 History of Presen t illness Narrative [...] have confirmed and edited as necessary, the [facility] Review of Systems Constitutional: Negative for chills and fever. Musculoskeletal: Negative for joint pain and myalgias. Skin: Negative for itching and rash. ? Palpable breast lump, left upper quadrant All other systems reviewed and are negative. Objective Physical Exam Vitals and nursing note reviewed. Exam conducted with a electro optical engineer present. Pulmonary: Effort: Pulmonary effort is normal. [...] results Advise patient to follow up with INTERNET PROJECT MANAGER for recheck Will schedule appointments. - US BREAST LTD LT Diagnosis and treatment plan were discussed and questions were answered to the patient's satisfaction. Pt acknowledged understanding of concepts and follow up plan. Specific signs and symptoms that would indicate the need for higher level of care were discussed in detail warranting prompt ER evaluation. Dina Dempsey APRN.CNP documented in this encounter [facility] 05-17-2022 Hospital Discharg e instructions Patient Education [...] of your face Difficulty talking or seeing [phone] [employer]. [address] [place] [address], [place] [address]. All rights reserved. This information is not intended as a substitute for professional medical care. Always follow your healthcare professional's instructions. Follow Up Care 05/16/2022 20:58:50 With:WILLI TOSCANO MD Address: [address] [place], [place] [id number]- When:2-4 days With:[facility] Address: [phone] When:2-4 days [facility] 05-16-2022 Note Discharge Instructions Thank you for [...] 2-4 days Where: [address] [place] [address]- Follow Up with neurockamron When Within 2-4 days Where: [phone] Allergies bacitracin Medications Please ask your primary [...] of your face Difficulty talking or seeing [phone] [employer]. [address] [place] [address]. All rights reserved. This information is not intended as a substitute for professional medical care. Always follow your healthcare professional's instructions. Additional Information VACCINATE! IT SAVES LIVES! Members of the community who have not yet received the COVID-19 vaccine and would like to receive it can visit one of [facility] vaccine clinics. There are many vaccine clinic locations within the [facility]. For locations and available times, please visit www.[email or web address]. org. It is important to note that some COVID mobile vaccine clinics are held outdoors and may be canceled in rainy or stormy conditions. To learn more about pediatric vaccinations (ages 5-11), we invite you to visit the [facility] webpage. https://www.[facility].org/p ages/3228-Kqykp-Bljtrgbrsnd-Freq ugbpsi-Swfkq-Fjftilprf.html To learn more about the COVID-19 vaccine, we invite you to visit the [employer] website for a list of frequently asked questions. [email or web address] [email or web address] requently_[email or web address].pdf [facility] Patient Portal Access Instructions: Stay connected with your healthcare team and access your personal medical information anytime with the [facility] Patient Portal. If you would like a full copy of your medical records please contact the [facility] Medical Records Department Wednesday through Wednesday between 8a.m. and 4:30p.m. Please follow the directions below to access the portal: 1.Access the email account you provided upon registration to the [facility].2.Look for an invitation email from [facility].3.Open the email and access the invitation link: Accept Invitation to [facility]4.Fill in the required mary to create your account. Sign into [email or web address] with your username and password that you [...] you will allow to register on the [facility] Patient Portal for access to your information. You can also access the [facility] Patient Portal on the [employer] ama. Simply click on Health Records under Health Data and then click on the Venturepax logo. HOW TO SAFELY DISPOSE OF PRESCRIPTION [...] Call your local pharmacy or go to http://bit.UP Online/6Q5Jo9e to find one close to you.3.Make use of household items: Use cat litter or old coffee grounds to dispose medications if other options are not available. Mix your drugs with these household products, seal them in an airtight container and throw it into the garbage. Call [facility]: [phone] to be sure your drugs can be [...] aware that I should contact my doctor. Patient/Aerospace Engineer Officer Armament Signature: Date/Time: Relationship to Patient: Witness Name/Signature: Date/Time: [facility] 04-10-2022 Hospital Discharg e instructions Patient Education [...] face You have trouble talking or seeing [phone] [employer]. [address] [place] [address]. All rights reserved. This information is not intended as a substitute for professional medical care. Always follow your healthcare professional's instructions. Follow Up Care 04/10/2022 15:48:55 With:Follow up with primary care provider Address:Unknown When:2-4 days [facility] 04-10-2022 Note Discharge Instructions Thank you for allowing [facility] to assist you with your healthcare needs. [...] face You have trouble talking or seeing [phone] [employer]. [address] [place] [address]. All rights reserved. This information is not intended as a substitute for professional medical care. Always follow your healthcare professional's instructions. Additional Information VACCINATE! IT SAVES LIVES! Members of the community who have not yet received the COVID-19 vaccine and would like to receive it can visit one of [facility] vaccine clinics. There are many vaccine clinic locations within the [facility]. For locations and available times, please visit www.[email or web address].[place]. org. It is important to note that some COVID mobile vaccine clinics are held outdoors and may be canceled in rainy or stormy conditions. To learn more about pediatric vaccinations (ages 5-11), we invite you to visit the [facility] webpage. https://www.[facility].org/p ages/3987-Ujanr-Omrnqxprxko-Freq ygmztc-Oujcy-Xreiqgunb.html To learn more about the COVID-19 vaccine, we invite you to visit the [facility] website for a list of frequently asked questions. [email or web address] obu-[email or web address]/sdisi-Fssvenl-P requently_Asked-Questions.pdf [facility] Patient Portal Access Instructions: Stay connected with your healthcare team and access your personal medical information anytime with the [facility] Patient Portal. If you would like a full copy of your medical records please contact the [facility] Medical Records Department Wednesday through Wednesday between 8a.m. and 4:30p.m. Please follow the directions below to access the portal: 1.Access the email account you provided upon registration to the hospital.2.Look for an invitation email from [facility].3.Open the email and access the invitation link: Accept Invitation to [facility]4.Fill in the required mary to create your account. Sign into [email or web address] with your username and password that you [...] you will allow to register on the [facility] Patient Portal for access to your information. You can also access the [facility] Patient Portal on the [employer] ama. Simply click on Health Records under Health Data and then click on the [employer] logo. HOW TO SAFELY DISPOSE OF PRESCRIPTION [...] Call your local pharmacy or go to http://Picovico.UP Online/4Y1Hr1i to find one close to you.3.Make use of household items: Use cat litter or old coffee grounds to dispose medications if other options are not available. Mix your drugs with these household products, seal them in an airtight container and throw it into the garbage. Call [facility]: [phone] to be sure your drugs can be [...] aware that I should contact my doctor. Patient/Aerospace Engineer Officer Armament Signature: Date/Time: Relationship to Patient: Witness Name/Signature: Date/Time: [facility] 04-10-2022 History of Presen t illness Narrative [...] blood ketones x3-4/day Blood-Glucose Meter (PRECISION XTRA) [facility] Use as directed FREESTYLE LITE METER monitoring [...] Treasure Lamb APRN.TONI documented in this encounter [facility] 03-17-2022 History of Presen t illness Narrative [...] blood ketones x3-4/day Blood-Glucose Meter (PRECISION XTRA) [facility] Use as directed FREESTYLE LITE METER monitoring [...] tremor. Coordination: Romberg sign negative. Coordination normal. Apqfrk-Zxvi-Adozvb Test and Heel to Olivas Test normal. [...] Mo Starkey APRN.TONI documented in this encounter [facility] Evaluation + Plan note No data available for this section [facility] Evaluation note Diagnosis Migraine unspecified- Primary [facility] [place] [facility] Diagnosis Headache, unspecified headache type- Primary Vomiting, unspecified vomiting type, unspecified whether nausea present [facility] [place] [facility]* Diagnosis Mass of upper outer quadrant of left breast- Primary documented [facility] [place] [facility]* Diagnosis Encounter for contraceptive management, unspecified type [facility] Diagnosis Acute UTI- Primary Urinary tract infection, site not specified Urinary frequency [facility] Diagnosis Urinary frequency- Primary Recurrent UTI (urinary tract infection) Urinary tract infection, site not specified documented [facility] Diagnosis Missed menses- Primary Absence of menstruation [facility] Diagnostic Procedure Only (Urgent) - Authorized Specialty Diagnoses / Procedures Referred By Sean nam Referred To Contact [facility] Diagnoses Mass of upper outer quadrant of left breast Procedures US BREAST LTD LT US BREAST UNI REAL TIME WITH IMAGE LIMITED Dina Dempsey APRN.CNP [address] [place] [address] [facility] [address] [id number] Referral ID Status Reason Start Date Expiration Date Visits Requested Visits Authorized [id number] Authorized Auto-Generat ed Referral 07/10/2022 08/09/2023 1 1 [facility] Summary Purpose Family History No Family History [...] section and content) DATE CREATED AUTHOR 04/04/2018 [facility] DATE CREATED AUTHOR AUTHOR'S ORGANIZ ATION 04/29/2023 [facility] DATE CREATED AUTHOR AUTHOR'S ORGANIZ ATION 08/09/2023 [facility] DATE CREATED AUTHOR AUTHOR'S ORGANIZ ATION 01/02/2025 [facility] Source Comments (unrecognize d section and content) In the event this informatio n is protected by the Federal Confidentiality of Alcohol and Drug Abuse Patient Records regulations: The Federal rules restrict any use of the information to criminally investigate or prosecute any alcohol or drug abuse patient.[facility] HospitalIn the event this information is protected by the Federal Confidentiality of Alcohol and Drug Abuse Patient Records regulations: The Federal rules restrict any use of the information to criminally investigate or prosecute any alcohol or drug abuse patient.[facility] Hospital[facility] the event this information is protected by the Federal Confidentiality of Alcohol and Drug Abuse Patient Records regulations: The Federal rules restrict any use of the information to criminally investigate or prosecute any alcohol or drug abuse patient.[facility] the event this information is protected by the Federal Confidentiality of Alcohol and Drug Abuse Patient Records regulations: The Federal rules restrict any use of the information to criminally investigate or prosecute any alcohol or drug abuse patient.[facility] HospitalIn the event this information is protected by the Federal Confidentiality of Alcohol and Drug Abuse Patient Records regulations: The Federal rules restrict any use of the information to criminally investigate or prosecute any alcohol or drug abuse patient.[facility] HospitalIn the event this information is protected by the Federal Confidentiality of Alcohol and Drug Abuse Patient Records regulations: The Federal rules restrict any use of the information to criminally investigate or prosecute any alcohol or drug abuse patient.[facility] HospitalIn the event this information is protected by the Federal Confidentiality of Alcohol and Drug Abuse Patient Records regulations: The Federal rules restrict any use of the information to criminally investigate or prosecute any alcohol or drug abuse patient.[facility] HospitalIn the event this information is protected by the Federal Confidentiality of Alcohol and Drug Abuse Patient Records regulations: The Federal rules restrict any use of the information to criminally investigate or prosecute any alcohol or drug abuse patient.[facility] HospitalIn the event this information is protected by the Federal Confidentiality of Alcohol and Drug Abuse Patient Records regulations: The Federal rules restrict any use of the information to criminally investigate or prosecute any alcohol or drug abuse patient.[facility] Reason for Visit (unrecogniz ed section and content) Reason Comments Headache migraine x2 days, li ght sensitivity, nausea Reason Comments Headache with vomiting x1 day Reason Comments Breast Problem Soreness in L breast x1 week, noticed lump last night Reason Comments Mercury Recoverer Exam Contraception Reason Comments Urinary Frequency Frequency and burnin g x 4 days Reason Comments Results Reason Comments Urinary Frequency Frequency, burning x 1 day Reason Comments Results Urine Cx mixed. Reason Comments Problem Visit Care Teams (unrecognized sec tion and content) Humidifier Maintenance Worker Relationship Specialty Start Date End Date Lupillo Bolton MD [address] [place], [place] [id number] PCP - General 11/07/07 Humidifier Maintenance Worker Relationship Specialty Start Date End Date Lupillo Bolton MD [address] [place], [place] [id number] PCP - General 11/07/07 Humidifier Maintenance Worker Relationship Specialty Start Date End Date Lupillo Bolton MD [address] [place], [place] [id number] PCP - General 11/07/07 Humidifier Maintenance Worker Relationship Specialty Start Date End Date Lupillo Bolton MD [address], [place] [id number] PCP - General 11/07/07 Humidifier Maintenance Worker Relationship Specialty Start Date End Date Aramis, Lupillo P, MD [address] [place] [id number] PCP - General 11/07/07 Humidifier Maintenance Worker Relationship Specialty Start Date End Date Lupillo Bolton MD [address] [place], [place] [id number] PCP - General 11/07/07 Humidifier Maintenance Worker Relationship Specialty Start Date End Date Lupillo Bolton MD [address] [place], [place] [id number] PCP - General 11/07/07 Care Team (unrecognized sect ion and content) Care Team Personnel Name: PHYSICIAN, NONE Position: Physician Member Role: Primary Care Physician Care Team Related Persons Name: KULWANT ESPAÑA Address: [place] [address] [place] Name: KULWANT ESPAÑA Address: [place] [address] [place] Name: KULWANT ESPAÑA Address: [address] Care Team Personnel Name: PHYSICIAN, NONE Position: Physician Member Role: Primary Care Physician Care Team Related Persons Name: KULWANT ESPAÑA Address: [address] Name: KULWANT ESPAÑA Address: [place] [address] [place] Name: KULWANT ESPAÑA Address: [address] FOR RECORDS PERTAINING TO PATIENTS WHO [...] BE BASED ON THE PRIMARY CLINICAL RECORDS. [facility] [employer] [facility]. provides no warranty or guarantee of the accuracy or completeness of information in this document.
[2025-04-14 03:00] LABS: hCG Titer Quant., Serum 33542 mIU/mL (<9 non-preg)
--- NOTE | 2025-04-14 03:01 | ED.RN ---
Patient requesting to use the restroom to pee. Patient ambulated with S.O to bathroom. Patients S.O called Rn to bathroom. RN enters bathroom. patient states there is something in the toilet that I want to show you. RN states ok, when you are ready. RN sees baby legs in the toilet. Dr. Gottlieb requested to come to bathroom. patient asked to continue to push to deliver baby. Rn holds baby's feet as patient begins to push. baby's head delivered. Patient placed safely back in bed and returned to room. Umbilical clamp placed by Dr. Gottlieb. [facility] Nurse Roxann called and requested to help with further instructions for delivery. Baby delivery packet started in ED. TRACY Hackett states she will continue the paperwork in [facility]. Roxann clamped and cut cord. Patient states she thought she was 9 weeks and ordered the medication online to abort the baby. S.O states she has taken a total of 12 pills but unsure of the dosing.
--- NOTE | 2025-04-14 03:13 | PCM.HP.OB ---
HPI - General General Date of Admission: 04/14/25 Date of Service: 04/14/25 Chief Complaint: pain HPI Narrative JEFFERSON MANDEL, is a 24 F who presented to the ER in pain after taking 12 tablets of either 100 mcg or 200 mcg of Cytotec that she ordered through an online service for termination. She states she is uncertain of LMP and she was unsure how far along in the she was. She used an online service to obtain medication to terminate the , and took the medication yesterday. When in the ER she passed a 20+ week fetus that was already demised per ER physician into the toilet. The ER physician clamped the cord. She was brought to L&D for further management. PFSH PFSH Medical History no medical history Home Medications ?Medication ?Instructions ?Recorded ?Last Taken ?Type NK 04/14/25 Unknown History Allergy/AdvReac Type Severity Reaction Status Date / Time bacitracin Allergy Rash Verified 04/14/25 01:44 Surgical History no surgical history Social History (Updated 04/14/25 @ 02:[address] Gatito Gottlieb MD) household members: significant other Smoking Status: Never smoker History Addt'l History: Patient states this is her first Vital Signs Vital Signs Vital Signs: 04/14/25 01:41 04/14/25 02:53 04/14/25 02:53 Temperature 98.6 F Temperature Source Oral Temporal Pulse Rate 97 Respiratory Rate 20 H 14 Blood Pressure 129/102 H Blood Pressure Mean 111 BP Systolic BP Diastolic Pulse Ox 100 04/14/25 02:53 04/14/25 02:55 Temperature 98.7 F Temperature Source Pulse Rate Respiratory Rate Blood Pressure 127/69 H Blood Pressure Mean BP Systolic 127 BP Diastolic 69 Pulse Ox Weight Weight: 120 lb 13.013 oz Body Mass Index (BMI) 20.0 Physical Exam Const alert and no apparent distress General Appearance: comfortable Resp normal respiratory effort GI soft to palpation GI Narrative: FF@U-1 Narrative: Umbilical cord already clamped and at vaginal opening. With fundal massage and gentle traction on the umbilical cord the placenta did not deliver. Minimal dark red bleeding Labs Labs Labs: Blood Type A POSITIVE Hct 32.9 % (37-47) L Hgb 11.9 g/dL (12.0-15.0) L Assessment & Plan (1) Medical , incomplete, without complication: PLAN: Patient used an online service to terminate the using Cytotec. Presented to the ER in pain and passed the fetus. Fetus inspected and grossly normal in appearance, and 20-24 week gestation in size. Retained placenta at this time. Start Pitocin to assist with delivery. Will re assess. CBC and T&S completed in ER. Bleeding minimal currently.
--- NOTE | 2025-04-14 03:16 | NURSING ---
This RN was called by Khris GOLDSMITH to notify that there was a patient in the ED who presented with abdominal pain after taking cytotec at home thinking she was early gestation. Patient up to BR in ED and delivered infant on toilet, noted to be upon delivery, estimated gestation 20weeks. ED moved patient back to bed and called provider. Provider would like RN to go assess patient and call with update. This RN went to ER and upon assessment, noted approx 20-24 week gestation infant still attached to umbilical cord, bleeding minimal. Cord clamped and cut and fetus moved to crib. Slight traction applied to cord per this RN with no advancement of placenta. RN called provider, plan to admit patient down to [facility] and will be in for assessment.
--- NOTE | 2025-04-14 04:03 | PCM.PN.BLA ---
Progress Note At bedside to check on patient. Pain improved with Morphine. Assessment & Plan Assessment/Plan (1) Medical , incomplete, without complication: PLAN: Cont Morphine IV PRN. Bleeding minimal. Gentle traction applied to cord and placenta remains undelivered.
--- OUTSIDE RECORDS SUMMARY | 2025-04-14 05:43 | XMS RPT_ITS | CCD ---
Author Organization [facility] Care Team Providers Care Toll Gate Keeper Name Role Phone MEAGHAN CHAVES (LINING MAKER) Unavailable Unavail able MEAGHAN CHAVES (LINING MAKER) Unavailable Unavail Lupillo Ervin MD Primary Care Provider PHYSICIAN, NONE Primary Care Physician Unavailab Lupillo Eddy MD Primary Care Provider Lupillo Bolton MD Primary Care Provider TRIXIE GOLDSMITH, DR BRET Eldridge Attending Unavailable PHYSICIAN, NONE Primary Care Unavailable ESPERANZA GOLDSMITH, DR SINCLAIR Attending Unavailab le PHYSICIAN, NONE Primary Care Unavailable Antonia Baker Attending Unavailable Lupillo Bolton Referring Unavailable Lupillo Bolton Primary Care Unavailable Lupillo Bolton MD Primary Care Provider MAKENZIE ARANGO Attending Unavailable LUPILLO BOLTON Primary Care Unavailable Dr. Gatito Gottlieb MD Emergency Provider Care Physician, No Primary Primary Care Provider Unavailable Dr. Izzy Leo DO Admit Provider Dr. Izzy Leo DO Attending Provider [phone] Allergies Allergy Classification Reported Allergen(s) Allergy Type Date of Onset Reaction(s) Facility (11 sources) sulfamethoxazole / trimethoprim; Translations: [SULFAMETHOXAZOLE-TR IMETHOPRIM] Drug Allergy 8 [facility] Repository (4 sources) Bacitracin; Translations: [bacitracin] Drug Allergy 5 [facility] Medications Current Medications Medication Drug Class(es) [...] Comment on above: Take 1 capsule by mo [facility] twice daily for 7 days. FLUoxetine [...] Comment on above: Take 1 capsule by mo ut twice daily for 5 days. [place] (Nk) (1 source) Start: 04-14-2025 [place] (Nk) Active April 14, 2025 12:00am SUMAtriptan 100 mg oral tablet (1 source) [...] XTRA) misc Use as directed 1 Each 1 12/01/2017 12/29/2024 Discontinued Start: 12-01-2017 Blood-Glucose Meter (PRECISION XTRA) misc Use as directed 1 Each 1 12/01/2017 Active Comment on above: Use as [...] to be used as directed. 1 Each 1 12/01/2017 12/29/2024 Discontinued Start: 12-01-2017 FREESTYLE LITE METER monitoring kit Supply to be used as directed. 1 Each 12/01/2017 Active Comment on above: Supply to be used as directed. ibuprofen 600 mg oral tablet (9 sources) Nonsteroidal Anti-inflammatory Drug Start: 12-11-19 End: 12-30-19 take 1 tablet by mouth every eight [...] on above: Monitor blood ketone s x3-4/day predniSONE 20 mg oral tablet (1 source) Start: End: take 2 tablets by mouth once daily at mealtime Prednisone 20 MG tablet Discontinued 40 mg PO DAILY 4 0 May 16, 2019 12:00am April 14, 2025 1:42am With Food Problems Active Problems Problem Classification Problem Date Documented Date Episodic/Chronic Allergic reactions (1 source) Allergic reaction to drug; Translations: [Allergy, unspecified, initial encounter] 05-17-2019 Episodic Contraceptive and procreative management (1 source) Patient encounter status; Translations: [Encounter for contraceptive management, unspecified] Episodic Genitourinary symptoms and ill-defined conditions (2 sources) Increased frequency of urination; Translations: [Frequency of micturition] Episodic Headache; including migraine (3 sources) Migraine; Translations: [Migraine, unspecified, not intractable, without status migrainosus] Onset: 05-16-2022 Chronic Headache; including migraine (2 sources) Headache; Translations: [Headache, unspecified headache type] Onset: 04-10-2022 Episodic Induced (2 sources) Incomplete induced termination of ; Translations: [Failed attempted termination of without complication] 04-14-2025 Episodic Menstrual disorders (2 sources) Missed period; Translations: [Irregular menstruation, unspecified] Onset: 12-29-2024 12-29-2024 Chronic Nausea and vomiting (1 source) Vomiting; Translations: [Vomiting, unspecified] Episodic Nonmalignant breast conditions (1 source) Lump in upper outer quadrant of left breast; Translations: [Unspecified lump in the left breast, upper outer quadrant] Episodic Other circulatory disease (2 sources) Elevated blood-pressure reading without diagnosis of hypertension; Translations: [Elevated blood-pressure reading, without diagnosis of hypertension] 04-14-2025 Episodic Other endocrine disorders (9 sources) Hypoglycemia; [...] Test Name Value Interpretation Reference Range Facility Absolute lymphocyte countOrd ered By: Gatitoyojana Gottlieb on 04-14-2025 Lymphocytes Auto (Unsp spec) [#/Vol] 2.05 10*3/uL 0.83-4.51 [facility] Absolute neutrophil countOrd ered By: Gatitoyojana Gottlieb on 04-14-2025 Neutrophils (Bld) [#/Vol] 20.4 10*3/uL High 2.0-7.7 [facility] Automated lymphocyte count a s percentage of total leukocytesOrdered By: Gatiot Gottlieb on 04-14-2025 Lymphocytes/100 WBC Auto (Unsp spec) 8.6 % Low 19-41 [facility] Basophil percentageOrdered B y: Gatito Gottlieb on 04-14-2025 Basophils/100 WBC (Bld) 0.3 % 0-1 [facility] Blood manual differential co mment interpretation (narrative result)Ordered By: Gatito Gottlieb on 04-14-2025 Manual differential comment Alen (Bld) [Interp] SCANNED [facility] Eosinophil percentageOrdered By: Gatitoyojana Gottlieb on 04-14-2025 Eosinophils/100 WBC (Bld) 0.1 % 0-5 [facility] Erythrocyte distribution wid th ratioOrdered By: Gatitoyojana Gottlieb on 04-14-2025 Erythrocyte distribution width (RBC) [Ratio] 13.0 % 11.6-14.6 [facility] Erythrocyte distribution wid th standard deviationOrdered By: Gatito Gottlieb on 04-14-2025 Erythrocyte distribution width (RBC) [Ratio] 42.5 fl 35.1-43.9 [facility] Hematocrit Auto (Bld) [Volum e fraction]Ordered By: Gatito Gottlieb on 04-14-2025 Hematocrit (Bld) [Volume fraction] 32.9 % Low 37-47 [facility] Hemoglobin measurementOrdere d By: Gatito Gottlieb on 04-14-2025 Hemoglobin (Bld) [Mass/Vol] 11.9 g/dL Low 12.0-15.0 [facility] Immature granulocytes/100 WB C Auto (Bld)Ordered By: Gatitoyojana Gottlieb on 04-14-2025 Immature granulocytes/100 WBC (Bld) 1.000 % High 0.0-0.9 [facility] Comment on above: IG% - Immature Granu locytes (promyelocytes, myelocytes and metamyelocytes) > 1% indicates that a LEFT SHIFT is Present. MCV (mean corpuscular volume ) determinationOrdered By: Gatito Gottlieb on 04-14-2025 MCV (RBC) [Entitic vol] 89.2 fL 81-99 [facility] Mean corpuscular hemoglobin (MCH) determinationOrdered By: Gatitoyojana Gottlieb on 04-14-2025 MCH (RBC) [Entitic mass] 32.2 pg High 27.0-32.0 [facility] Mean corpuscular hemoglobin concentration (MCHC) determinationOrdered By: Gatito Gottlieb on 04-14-2025 MCHC (RBC) [Mass/Vol] 36.2 g/dL High 32-36 [facility] Mean platelet volume determi nationOrdered By: Gatito Gottlieb on 04-14-2025 Platelet mean volume (Bld) [Entitic vol] 10.4 fL 6.2-12.0 [facility] Monocyte percentageOrdered B y: Gatito Gottlieb on 04-14-2025 Monocytes/100 WBC (Bld) 4.6 % 0-10 [facility] Neutrophil percentageOrdered By: Gatitoyojana Gottlieb on 04-14-2025 Neutrophils/100 WBC (Bld) 85.4 % High 47-70 [facility] Nucleated red blood cell per centageOrdered By: Gatito Gottlieb on 04-14-2025 Nucleated RBC/100 WBC (Bld) [Ratio] 0 % 0-5 [facility] Platelet countOrdered By: Janel Gottlieb on 04-14-2025 Platelets (Bld) [#/Vol] 285 10*3/uL 150-450 [facility] RBC Auto (Bld) [#/Vol]Ordere d By: Gatito Gottlieb on 04-14-2025 RBC (Bld) [#/Vol] 3.69 10*6/uL Low 4.2-5.4 [facility] Serum human chorionic gonado tropin detection for pregnancyOrdered By: Gatito Gottlieb on 04-14-2025 HCG ( test) [place]l [address] mIU/mL High <9 [facility] Comment on above: Gestational Age0.2-1 Week: 5-50 mIU/mL1-2 Weeks: 50-500 mIU/mL2-3 Weeks: 100-5000 mIU/mL3-4 Weeks: 500-10,000 mIU/mL4-5 Weeks:1000-50,000 mIU/mL5-6 Weeks: 10,000-100,000 mIU/mL6-8 Weeks: 15,000-200,000 mIU/mL2-3 Months:10,000-100,000 mIU/mL White blood cell (WBC) count Ordered By: Gatito Gottlieb on 04-14-2025 WBC (Bld) [#/Vol] 23.9 10*3/uL High 4.4-11.0 [facility] CNOVon 12-29-2024 CNOV Office Visit (OBGYWM ) ANIYAH KAPADIA ([id number]) 2 F Date Time Provider Department 12/29/24 2:45 PM MAKENZIE ARANGO OBDUSTINWAlyce During your visit today, we recorded the following information about you: Blood pressure Weight Last Period 110/60 51.3 kg 11/15/24 Makenzie Arango APRN.CNP 12/29/2024 2:55 PM Signed Aniyah Kapadia is a 24 year old female who presents for problem visit missed menses, LMP 11/15/2024, reported HPT 12/28/2024. HPI: pt present for confirmation of and termination options OB History Gravida0 Para0 Term0 Preterm0 AB0 Living0 SAB0 IAB0 Ectopic0 Multiple0 Live Births0 Ux Manager History LMP: 11/15/2024 (Exact Date), Having periods Age at Menarche: Age at First : Age at Menopause: Ux Manager History Comments: Sexual Activity: Yes; Male Contraception: [...] of Date: 12/29/2024 Allergen Noted Reaction BACTRIM [SULFAMETHOXAZOLE-TRIME TH*11/16/2007 Rash Fully Assessed 06/10/2023 REVIEW OF SYSTEMS [...] of Date: 12/29/2024 Noted Allergy Reaction BACTRIM (SULFAMETHOXAZOLE-TRIME TH*11/16/2007 2 - Rash Date Reviewed: 06/10/2023 Reviewed by: Mery Mercado LPN - Fully Assessed Reason for Visit: Problem Visit [Other] Primary Visit Diagnosis:Missed menses [N92.6] Order(s):UA DIP,URINE HCG (POC) [[id number]] Order #: [id number]. #:[id number] Meds Comments as of 04/19/2012: Problem List [...] as needed - Blood-Glucose Meter (PRECISION XTRA) [facility] (Discontinued) Use as directed Encounter Status:Closed by MAKENZIE ARANGO on 12/29/24 Normal [facility] UA DIP,URINE HCG (POC)on Beta HCG ( test) Ql (U) Positive Abnormal Negative [facility] Comment on above: Location:[facility], [address], [place], [address] Interpretation and review of laboratory results Abnormal [facility] Care Manager (POCT) Internal QC OK [facility] Location: Jennifer [facility], [address], [place], [address] [facility] PO[facility] UA DIP, URINE (POC)on 2022 BILIRUBIN UA (POCT) Small Abnormal Negative [facility] CLARITY UA (POCT) Clear [facility] COLOR UA (POCT) Rona [facility] GLUCOSE UA (POCT) Negative Negative mg/dL [facility] Hemoglobin Ql (U) Large Abnormal [facility] KETONE UA (POCT) Trace Negative mg/dL [facility] LEUKOCYTES UA (POCT) Trace Abnormal Negative [facility] NITRITE UA (POCT) Negative Negative [facility] PH UA (POCT) 5.5 4.5 - 8.0 [facility] Protein Ql (U) >=300 Abnormal Negative mg/dL [facility] SPECIFIC GRAVITY UA (POCT) >=1.030 1.005 - 1.030 [facility] UROBILINOGEN UA (POCT) 1.0 E.U./dL Parul l E.U./dL [facility] UA DIP, URINE (POC)on 2022 BILIRUBIN UA (POCT) Negative Negative C[facility]ric [facility] CLARITY UA (POCT) Clear [facility] COLOR UA (POCT) Yellow [facility] GLUCOSE UA (POCT) Negative Negative mg/dL [facility] HEMOGLOBIN/BLOOD UA (POCT) Moderate Abnormal Negative [facility] KETONE UA (POCT) Negative Negative mg/dL [facility] LEUKOCYTES UA (POCT) Trace Abnormal Negative [facility] NITRITE UA (POCT) Negative Negative [facility] PH UA (POCT) 5.5 4.5 - 8.0 [facility] Protein Ql (U) Trace Abnormal Negative mg/dL [facility] SPECIFIC GRAVITY UA (POCT) 1.020 1.005 - 1.030 [facility] UROBILINOGEN UA (POCT) 0.2 E.U./dL Parul l E.U./dL [facility] AFPon 11-16-2017 AFP <3.0 Normal <11 [facility] Comment on above: Result Comment: Resu lt rechecked. Performed By: #### C BCDIF, WSR, CK, CRP, IRON, URIC, CMP, FERR, VITD, AFP ####[place] [address] [address] [place] [phone]#### LIPB ####[place] [address] [address] [place] [place] [address] C-Reactive Proteinon 018 C reactive protein (CRP) 0.1 mg/dL Normal <0.9 [facility] Comment on above: Performed By: #### C BCDIF, WSR, CK, CRP, IRON, URIC, CMP, FERR, VITD, AFP ####[address] [place] [phone]#### LIPB ####[place] [address] [address] [place] [address] CBC and Differentialon 11-16 Abs Baso 0.08 k/uL Normal <0.11 [facility] Comment on above: Performed By: #### C BCDIF, WSR, CK, CRP, IRON, URIC, CMP, FERR, VITD, AFP ####[place] [address] [address] [phone]#### LIPB ####[place] [address] [address] [place] [address] Abs [place] 0.50 k/uL Normal <0.87 [facility] Comment on above: Performed By: #### C BCDIF, WSR, CK, CRP, IRON, URIC, CMP, FERR, VITD, AFP ####[place] [address] [address] [phone]#### LIPB ####[place] [phone] Abs Neut 5.27 k/uL Normal 1.45-7.50 [facility] Comment on above: Performed By: #### C BCDIF, WSR, CK, CRP, IRON, URIC, CMP, FERR, VITD, AFP ####[place] [phone]#### LIPB ####[place] [phone] Basophils/100 WBC Auto (Bld) 0.8 % Normal [facility] Comment on above: Performed By: #### C BCDIF, WSR, CK, CRP, IRON, URIC, CMP, FERR, VITD, AFP ####[place] [phone]#### LIPB ####[place] [phone] DTYPE Auto Diff Normal [facility] Comment on above: Performed By: #### C BCDIF, WSR, CK, CRP, IRON, URIC, CMP, FERR, VITD, AFP ####[place] [phone]#### LIPB ####[place] [phone] Eosinophils 0.25 10*3/uL Normal <0.46 [facility] Comment on above: Performed By: #### C BCDIF, WSR, CK, CRP, IRON, URIC, CMP, FERR, VITD, AFP ####[place] [address] [address] [phone]#### LIPB ####[place] [address] [address] [place] [phone] Eosinophils/100 leukocytes 2.6 % Normal [facility] Comment on above: Performed By: #### C BCDIF, WSR, CK, CRP, IRON, URIC, CMP, FERR, VITD, AFP ####[place] [phone]#### LIPB ####[address] [place] [address] Erythrocyte distribution width Auto Ratio (RBC) 12.0 % Normal 11.5-15.0 [facility] Comment on above: Performed By: #### C BCDIF, WSR, CK, CRP, IRON, URIC, CMP, FERR, VITD, AFP ####[address] [place] [phone]#### LIPB ####[place] [address] [address] [place] [address] Erythrocytes (RBC) 0.1 /100 WBC High 0 [facility] Comment on above: Performed By: #### C BCDIF, WSR, CK, CRP, IRON, URIC, CMP, FERR, VITD, AFP ####[address] [place] [phone]#### LIPB ####[place] [address] [address] [place] [place] [phone] Erythrocytes (RBC) 10 10*6/uL High <0.01 [facility] Comment on above: Performed By: #### C BCDIF, WSR, CK, CRP, IRON, URIC, CMP, FERR, VITD, AFP ####[address] [place] [address]#### LIPB ####[place] [address] Erythrocytes (RBC) 4.56 10*6/uL Normal 3.90-5.20 [facility] Comment on above: Performed By: #### C BCDIF, WSR, CK, CRP, IRON, URIC, CMP, FERR, VITD, AFP ####[place] [address]#### LIPB ####[place] [address] Hematocrit (HCT) 40.0 % Normal 36.0-46.0 [facility] Comment on above: Performed By: #### C BCDIF, WSR, CK, CRP, IRON, URIC, CMP, FERR, VITD, AFP ####[place] [address]#### LIPB ####[place] [address] Hemoglobin mass conc (Bld) 13.5 g/dL Normal 11.5-15.5 [facility] Comment on above: Performed By: #### C BCDIF, WSR, CK, CRP, IRON, URIC, CMP, FERR, VITD, AFP ####[address], [place] [phone]#### LIPB ####[place] [phone] Lymphocytes 3.66 10*3/uL Normal 1.00-4.00 [facility] Comment on above: Performed By: #### C BCDIF, WSR, CK, CRP, IRON, URIC, CMP, FERR, VITD, AFP ####[phone]#### LIPB ####[place] [phone] Lymphocytes/100 leukocytes 37.5 % Normal [facility] Comment on above: Performed By: #### C BCDIF, WSR, CK, CRP, IRON, URIC, CMP, FERR, VITD, AFP ####[place] [phone]#### LIPB ####[phone] MCH 29.6 pG Normal 26.0-34.0 [facility] Comment on above: Performed By: #### C BCDIF, WSR, CK, CRP, IRON, URIC, CMP, FERR, VITD, AFP ####[place] [phone]#### LIPB ####[place] [phone] [place] [phone] MCHC mass conc (RBC) 33.8 g/dL Normal 30.5-36.0 [facility] Comment on above: Performed By: #### C BCDIF, WSR, CK, CRP, IRON, URIC, CMP, FERR, VITD, AFP ####[place] [phone]#### LIPB ####[place] [phone] MCV 87.7 fL Normal 80.0-100.0 [facility] Comment on above: Performed By: #### C BCDIF, WSR, CK, CRP, IRON, URIC, CMP, FERR, VITD, AFP ####[place] [phone]#### LIPB ####[place] [phone] Monocytes/100 leukocytes 5.1 % Normal [facility] Comment on above: Performed By: #### C BCDIF, WSR, CK, CRP, IRON, URIC, CMP, FERR, VITD, AFP ####[place] [phone]#### LIPB ####[place] [phone] Neutrophils/100 WBC Auto (Bld) 54.0 % Normal [facility] Comment on above: Performed By: #### C BCDIF, WSR, CK, CRP, IRON, URIC, CMP, FERR, VITD, AFP ####[place] [phone]#### LIPB ####[place] [address] [phone] Platelet mean volume (PMV) 10.5 fL Normal 9.0-12.7 [facility] Comment on above: Performed By: #### C BCDIF, WSR, CK, CRP, IRON, URIC, CMP, FERR, VITD, AFP ####[place] [phone]#### LIPB ####[place] [phone] [phone] Platelets 335 10*3/uL Normal 150-400 [facility] Comment on above: Performed By: #### C BCDIF, WSR, CK, CRP, IRON, URIC, CMP, FERR, VITD, AFP ####[place] [phone]#### LIPB ####[place] [address] [place], [place] [phone] WBC (Leukocytes) 9.76 10*3/uL Normal 3.70-11.00 [facility] Comment on above: Performed By: #### C BCDIF, WSR, CK, CRP, IRON, URIC, CMP, FERR, VITD, AFP ####[place] [phone]#### LIPB ####[place] [address] [place], [place] [phone] CKon 11-16-2017 Creatine kinase (CK) 106 U/L Normal 42-196 [facility] Comment on above: Result Comment: Refe [...] CRP, IRON, URIC, CMP, FERR, VITD, AFP ####[place] [address] [address] [phone]#### LIPB ####[place] [address] [phone] Comp Metabolic Panelon 11-16 Alanine aminotransferase (ALT) 12 U/L Normal 7-38 [facility] Comment on above: Result Comment: (NOT E)Reference ranges for this patient's age group have not beenestablished. These reference ranges reflect verified or establishedranges for the adult population. Interpret these ranges wtih cautionusing clinical context and additional reference resources. Performed By: #### C BCDIF, WSR, CK, CRP, IRON, URIC, CMP, FERR, VITD, AFP ####[address] [place] [phone]#### LIPB ####[place] [address] [address] [phone] Albumin 4.9 g/dL High 3.2-4.5 [facility] Comment on above: Performed By: #### C BCDIF, WSR, CK, CRP, IRON, URIC, CMP, FERR, VITD, AFP ####[place] [address] [address] [phone]#### LIPB ####[place] [address] [address] [phone] Alkaline phosphatase (ALP) 86 U/L Normal 32-117 [facility] Comment on above: Result Comment: (NOT [...] phosphatase on the [employer] 747 analyzer. Clin [id number];43:[id number]. Performed By: #### C BCDIF, WSR, CK, CRP, IRON, URIC, CMP, FERR, VITD, AFP ####[place] [phone]#### LIPB ####[address] [phone] [phone] Anion gap 12 mmol/L Normal 9-18 [facility] Comment on above: Result Comment: (NOT E)Reference ranges for this patient's age group have not beenestablished. These reference ranges reflect verified or establishedranges for the adult population. Interpret these ranges with cautionusing the clinical context and additional reference resources. Performed By: #### C BCDIF, WSR, CK, CRP, IRON, URIC, CMP, FERR, VITD, AFP ####[address] [phone]#### LIPB ####[address] [phone] [place], [place] [phone] [phone] Aspartate aminotransferase (AST) 21 U/L Normal 13-35 [facility] Comment on above: Result Comment: (NOT E)Reference ranges for this patient's age group have not beenestablished. These reference ranges reflect verified or establishedranges for the adult population. Interpret these ranges with cautionusing clinical context and additional reference resources. Performed By: #### C BCDIF, WSR, CK, CRP, IRON, URIC, CMP, FERR, VITD, AFP ####[place] [address] [address] [place] [phone]#### LIPB ####[place] [phone] [place] [address] [address] [place] [phone] Bilirubin (total) 0.4 mg/dL Normal 0.2-1.3 [facility] Comment on above: Result Comment: (NOT E)Reference ranges for this patient's age group have not beenestablished. These reference ranges reflect verified or establishedranges for the adult population. Interpret these ranges with cautionusing the clinical context and additional reference resources. Performed By: #### C BCDIF, WSR, CK, CRP, IRON, URIC, CMP, FERR, VITD, AFP ####[place] [address] [address] [phone]#### LIPB ####[place] [phone] [place] [address] [address] [place] [phone] Calcium 9.5 mg/dL Normal 8.4-10.2 [facility] Comment on above: Performed By: #### C BCDIF, WSR, CK, CRP, IRON, URIC, CMP, FERR, VITD, AFP ####[place] [address] [address] [phone]#### LIPB ####[place] [address] [address] [place] [phone] Chloride 102 mmol/L Normal 97-105 [facility] Comment on above: Result Comment: (NOT E)Reference ranges for this patient's age group have not beenestablished. These reference ranges reflect verified or establishedranges for the adult population. Interpret these ranges with cautionusing the clinical context and additional reference resources. Performed By: #### C BCDIF, WSR, CK, CRP, IRON, URIC, CMP, FERR, VITD, AFP ####[place] [address] [address] [place] [phone]#### LIPB ####[place] [address] [address] [place] [phone] CO2 24 mmol/L Normal 22-30 [facility] Comment on above: Result Comment: (NOT E)Reference ranges for this patient's age group have not beenestablished. These reference ranges reflect verified or establishedranges for the adult population. Interpret these ranges with cautionusing the clinical context and additional reference resources. Performed By: #### C BCDIF, WSR, CK, CRP, IRON, URIC, CMP, FERR, VITD, AFP ####[place] [address] [address] [place] [phone]#### LIPB ####[place] [address] [address] [place] [phone] Creatinine 0.73 mg/dL Normal 0.58-0.96 [facility] Comment on above: Result Comment: Refe rence ranges for this patient's age group have not been established. These reference ranges reflect verified or established ranges for the adult population. Interpret these ranges with caution using the clinical context and additional reference resources. Performed By: #### C BCDIF, WSR, CK, CRP, IRON, URIC, CMP, FERR, VITD, AFP ####[place] [phone]#### LIPB ####[place] [phone] [place], [place] [phone] eGFR (non-black) 0.75 mL/min/{1.73_m2} Normal [facility] Comment on above: Result Comment: eGFR [...] CRP, IRON, URIC, CMP, FERR, VITD, AFP ####[place] [phone]#### LIPB ####[place] [phone] [place] [address] [place] [phone] Glucose mass conc 78 mg/dL Normal 74-99 [facility] Comment on above: Result Comment: Refe rence ranges for this patient's age group have not been established. These reference ranges reflect verified or established ranges for the adult population. Interpret these ranges with caution using the clinical context and additional reference resources.The [place] Diabetes Association (ADA) provides guidance for cutoff [...] Standards of Medical Care in Diabetes 2016, [place] Diabetes Association. Diabetes Care. 2016.39(Suppl 1). Performed By: #### C BCDIF, WSR, CK, CRP, IRON, URIC, CMP, FERR, VITD, AFP ####[place] [address] [place] [phone]#### LIPB ####[place] [address] [place] [phone] Potassium molar conc 3.5 mmol/L Low 3.7-5.1 [facility] Comment on above: Result Comment: (NOT E)Reference ranges for this patient's age group have not beenestablished. These reference ranges reflect verified or establishedranges for the adult population. Interpret these ranges with cautionusing the clinical context and additional reference resources. Performed By: #### C BCDIF, WSR, CK, CRP, IRON, URIC, CMP, FERR, VITD, AFP ####[place] [address] [place] [phone]#### LIPB ####[place] [address] [place] [phone] Protein 8.2 g/dL High 6.3-8.0 [facility] Comment on above: Result Comment: (NOT [...] OWENS, Angus I, [place] M, et al. [facility] LaboratoryInitiative on Reference Interval Database(CALIPER): pediatricreference intervals for an integrated clinical chemistry andimmunoassay analyzer, Perez LINE STAKER ow1993. Clin [id number];42:885-891. Performed By: #### C BCDIF, WSR, CK, CRP, IRON, URIC, CMP, FERR, VITD, AFP ####[place] [phone]#### LIPB ####[place] [address] [place] [phone] Sodium 138 mmol/L Normal 136-144 [facility] Comment on above: Result Comment: (NOT E)Reference ranges for this patient's age group have not beenestablished. These reference ranges reflect verified or establishedranges for the adult population. Interpret these ranges with cautionusing the clinical context and additional reference resources. Performed By: #### C BCDIF, WSR, CK, CRP, IRON, URIC, CMP, FERR, VITD, AFP ####[place] [address] [place] [phone]#### LIPB ####[place] [id number] [address] [place] [phone] Urea nitrogen 10 mg/dL Normal 5-18 [facility] Comment on above: Performed By: #### C BCDIF, WSR, CK, CRP, IRON, URIC, CMP, FERR, VITD, AFP ####[place] [address] [place] [phone]#### LIPB ####[place] [phone] Ferritinon 11-16-2017 Ferritin 48.6 ng/mL Normal 14.7-205.1 [facility] Comment on above: Performed By: #### C BCDIF, WSR, CK, CRP, IRON, URIC, CMP, FERR, VITD, AFP ####[place] [phone]#### LIPB ####[place] [phone] Iron and TIBCon 11-16-2017 Iron 89 ug/dL Normal 41-186 [facility] Comment on above: Performed By: #### C BCDIF, WSR, CK, CRP, IRON, URIC, CMP, FERR, VITD, AFP ####[place] [phone]#### LIPB ####[place] [phone] TIBC 316 ug/dL Normal 232-386 [facility] Comment on above: Performed By: #### C BCDIF, WSR, CK, CRP, IRON, URIC, CMP, FERR, VITD, AFP ####[place] [phone]#### LIPB ####[place] [phone] Transferrin Saturatn 28 % Normal 15-57 [facility] Comment on above: Performed By: #### C BCDIF, WSR, CK, CRP, IRON, URIC, CMP, FERR, VITD, AFP ####[address]#### LIPB ####[address] [place], [place] [phone] Lipid Panel, [place] 018 Cholesterol 173 mg/dL High <170 [facility] Comment on above: Result Comment: <170 mg/dL, Acceptable 170-199 mg/dL, Borderline high>199 mg/dL, High Performed By: #### C BCDIF, WSR, CK, CRP, IRON, URIC, CMP, FERR, VITD, AFP ####[place] [address]#### LIPB ####[place] [address] Fasting Time Unknown Normal [facility] Comment on above: Performed By: #### C BCDIF, WSR, CK, CRP, IRON, URIC, CMP, FERR, VITD, AFP ####[place] [address]#### LIPB ####[place] [address] [address] [place] [address] HDL Cholesterol 40 mg/dL Low >45 [facility] Comment on above: Result Comment: >45 mg/dL, Acceptable 40-45 mg/dL, Borderline<40 mg/dL, Low Performed By: #### C BCDIF, WSR, CK, CRP, IRON, URIC, CMP, FERR, VITD, AFP ####[place] [phone]#### LIPB ####[place] [phone] LDL Cholesterol 99 mg/dL Normal <110 [facility] Comment on above: Result Comment: <110 mg/dL, Acceptable 110-129 mg/dL, Borderline high>129 mg/dL, High Performed By: #### C BCDIF, WSR, CK, CRP, IRON, URIC, CMP, FERR, VITD, AFP ####[place] [phone]#### LIPB ####[place] [phone] LDL:HDL Ratio 2.48 High <2.42 [facility] Comment on above: Result Comment: Refe daniel:1. Expert Panel on Integrated Guidelines for Cardiovascular Health and Risk Reduction in Children and Adolescents: National Heart, Lung and Blood Anderson. Pediatrics. 2011: 128(Suppl 5):C105-288. Performed By: #### C BCDIF, WSR, CK, CRP, IRON, URIC, CMP, FERR, VITD, AFP ####[place] [phone]#### LIPB ####[place] [phone] [place], [place] [phone] Non HDL Cholesterol 133 mg/dL High <120 [facility] Comment on above: Result Comment: <120 mg/dL, Acceptable 120-144 mg/dL, Borderline high>144 mg/dL, High Performed By: #### C BCDIF, WSR, CK, CRP, IRON, URIC, CMP, FERR, VITD, AFP ####[place] [phone]#### LIPB ####[place] [address] TC:HDL Ratio 4.33 High <3.76 [facility] Comment on above: Performed By: #### C BCDIF, WSR, CK, CRP, IRON, URIC, CMP, FERR, VITD, AFP ####[place] [phone]#### LIPB ####[place] [address] Triglyceride 169 mg/dL High <90 [facility] Comment on above: Result Comment: <90 mg/dL, Acceptable 90-129 mg/dL, Borderline high>129 mg/dL, High Performed By: #### C BCDIF, WSR, CK, CRP, IRON, URIC, CMP, FERR, VITD, AFP ####[address]#### LIPB ####[place] [address] VLDL Cholesterol 34 mg/dL High <18 [facility] Comment on above: Performed By: #### C BCDIF, WSR, CK, CRP, IRON, URIC, CMP, FERR, VITD, AFP ####[place] [phone]#### LIPB ####[place] [phone] Sed Rate Westergrenon 2017 Sed Rate Westergren 2 mm/hr Normal 0-20 [facility] Comment on above: Performed By: #### C BCDIF, WSR, CK, CRP, IRON, URIC, CMP, FERR, VITD, AFP ####[place] [phone]#### LIPB ####[place] [phone] Uric Acidon 11-16-2017 Urate 5.7 mg/dL Normal 2.5-6.6 [facility] Comment on above: Performed By: #### C BCDIF, WSR, CK, CRP, IRON, URIC, CMP, FERR, VITD, AFP ####[place] [phone]#### LIPB ####[place] [phone] Vitamin D 25 Hydroxyon 11-16 Vitamin D 25 Hydroxy 23.5 ng/mL Low 31.0-80.0 [facility] Comment on above: Result Comment: Clas sification of 25 [place] Vitamin D status:Insufficiency/Moderate Deficiency: < or = 30 ng/mLSufficiency/Optimal Levels: 31 to 80 ng/mLToxicity: > 100 ng/mLTest performed by chemiluminescent immunoassay. Performed By: #### C BCDIF, WSR, CK, CRP, IRON, URIC, CMP, FERR, VITD, AFP ####[place] [phone]#### LIPB ####[place] [id number] [phone] Vital Signs Date Time Vital Sign Value Performing Clinician Facility 04-14-2025 02:55-0400 Diastolic blood pressure 69 mm[Hg] Dr. Gatito Gottlieb MD Work Phone: 5(778)[phone] [place] [address] 04-14-2025 02:55-0400 Systolic blood pressure 127 mm[Hg] Dr. Gatito Gottlieb MD Work Phone: [phone](654)015-829527 [place] [address] 04-14-2025 02:53-0400 Body temperature 98.7 [degF] Dr. Gatito Gottlieb MD Work Phone: 6(556)328-231827 [place] [address] 04-14-2025 02:53-0400 Respiratory rate 14 /min Dr. Gatito Gottlieb MD Work Phone: 8([phone])[phone] [place] [address] 04-14-2025 01:41-0400 Body height 165.[address] Gatito Gottlieb MD Work Phone: 0([phone])[phone] [place] [address] 04-14-2025 01:41-0400 Body mass index (BMI) [Ratio] 20 kg/m2 Dr. Gatito Gottlieb MD Work Phone: 9(018)[phone] [place] [address] 04-14-2025 01:41-0400 Body weight 54.[address] Gatito Gottlieb MD Work Phone: 3([phone])[phone] [place] [address] 04-14-2025 01:41-0400 Heart rate 97 /min Dr. Gatito oGttlieb MD Work Phone: 8([phone])[phone] [place] [address] 04-14-2025 01:41-0400 SaO2% (BldA) [Mass fraction] 100 % Dr. Gatito Gottlieb MD Work Phone: [phone] [address] 12-29-2024 14:43-0400 Body mass index (BMI) [Ratio] 19.28 kg/m2 Makenzie Tom WE[employer]OWER.[employer]ING [employer] Work Phone: [facility] 12-29-2024 14:43-0400 Body weight 51.35 kg Makenzie Mojave [employer] Work Phone: [facility] 12-29-2024 14:43-0400 Diastolic blood pressure 60 mm[Hg] Makenzie Tom WE[employer] Work Phone: [facility] 12-29-2024 14:43-0400 Systolic blood pressure 110 mm[Hg] Makenzie Mojave [employer] Work Phone: [facility] 06-10-2023 19:09-0400 Body temperature 98.4 [degF] Treasure Lamb APRN.LINING MAKER Work Phone: [facility] 06-10-2023 19:09-0400 Body weight 50.35 kg Treasure Lamb APRN.LINING MAKER Work Phone: [facility] 06-10-2023 19:09-0400 Diastolic blood pressure 74 mm[Hg] Treasure Lamb APRN.LINING MAKER Work Phone: [facility] 06-10-2023 19:09-0400 Heart rate 99 /min Treasure Lamb APRN.LINING MAKER Work Phone: [facility] 06-10-2023 19:09-0400 Respiratory rate 18 /min Treasure Lamb APRN.LINING MAKER Work Phone: [facility] 06-10-2023 19:09-0400 SaO2% (BldA) [Mass fraction] 98 % Treasure Lamb APRN.LINING MAKER Work Phone: [facility] 06-10-2023 19:09-0400 Systolic blood pressure 110 mm[Hg] Treasure Lamb APRN.LINING MAKER Work Phone: [facility] 04-19-2023 22:27-0400 Diastolic Blood Pressure Non-Invasive [address] YAHIR MATA MD [facility] 04-19-2023 22:27-0400 Heart rate 86 /min DR YAHIR MATA MD [facility] 04-19-2023 22:27-0400 Reason For Taking VItal Signs DR YAHIR MATA MD [facility] 04-19-2023 22:27-0400 Respiratory rate 16 /min DR YAHIR MATA MD [facility] 04-19-2023 22:27-0400 Systolic Blood Pressure Non-Invasive [address] YAHIR MATA MD [facility] 04-19-2023 21:15-0400 Body temperature 98.6 [degF] DR YAHIR MATA MD [facility] 04-19-2023 21:15-0400 Diastolic Blood Pressure Non-Invasive [address] YAHIR MATA MD [facility] 04-19-2023 21:15-0400 Heart rate 113 /min DR YAHIR MATA MD [facility] 04-19-2023 21:15-0400 Respiratory rate 16 /min DR YAHIR MATA MD [facility] 04-19-2023 21:15-0400 Systolic Blood Pressure Non-Invasive [address] YAHIR MATA MD [facility] 11-11-2022 13:04-0500 Body temperature 98.71 [degF] Adore Praisler-Wood [employer] Work Phone: [facility] 11-11-2022 13:04-0500 Body weight 53.43 kg Adore Praisler-Wood [employer] Work Phone: [facility] 11-11-2022 13:04-0500 Diastolic blood pressure 82 mm[Hg] Adore Praisler-Wood [employer]ING [employer]KER Work Phone: [facility] 11-11-2022 13:04-0500 Heart rate 98 /min Adore Praisler-Wood [employer] Work Phone: [facility] 11-11-2022 13:04-0500 Respiratory rate 18 /min Adore Praisler-Wood [employer] Work Phone: [facility] 11-11-2022 13:04-0500 SaO2% (BldA) [Mass fraction] 99 % Adore Praisler-Wood [employer] Work Phone: [facility] 11-11-2022 13:04-0500 Systolic blood pressure 128 mm[Hg] Adore Praisler-Wood [employer] Work Phone: [facility] 07-13-2022 13:28-0400 Body height 163.2 cm Makenzie Mojave [employer] Work Phone: [facility] 07-13-2022 13:28-0400 Body weight 54.43 kg Makenzie Tom [employer] Work Phone: [facility] 07-13-2022 13:28-0400 Diastolic blood pressure 70 mm[Hg] Makenzie Tom [employer] Work Phone: [facility] 07-13-2022 13:28-0400 Heart rate 114 /min Makenzie Tom [employer] Work Phone: [facility] 07-13-2022 13:28-0400 Respiratory rate 14 /min Makenzie Mojave [employer] Work Phone: [facility] 07-13-2022 13:28-0400 SaO2% (BldA) [Mass fraction] 100 % Makenzie Mojave [employer] Work Phone: [facility] 07-13-2022 13:28-0400 Systolic blood pressure 130 mm[Hg] Makenzie Mojave [employer] Work Phone: [facility] 07-10-2022 17:23-0400 Body temperature 99.1 [degF] Dina Ke [employer] Work Phone: [facility] 07-10-2022 17:23-0400 Body weight 55.16 kg Dina Ke [employer] Work Phone: [facility] 07-10-2022 17:23-0400 Diastolic blood pressure 82 mm[Hg] Dina Ke [employer] Work Phone: [facility] 07-10-2022 17:23-0400 Heart rate 136 /min Dina Ke [employer] Work Phone: [facility] 07-10-2022 17:23-0400 Respiratory rate 18 /min Dina Ke [employer]KER Work Phone: [facility] 07-10-2022 17:23-0400 SaO2% (BldA) [Mass fraction] 100 % Dina Ke [employer]KER Work Phone: [facility] 07-10-2022 17:23-0400 Systolic blood pressure 128 mm[Hg] Dina Ke WE[employer]ING [employer]KER Work Phone: [facility] 05-16-2022 22:22-0400 Diastolic blood pressure 72 mm[Hg] DR BRET MARCUM MD [facility] 05-16-2022 22:22-0400 Heart rate 72 /min DR BRET MARCUM MD [facility] 05-16-2022 22:22-0400 Respiratory rate 16 /min DR BRET MARCUM MD [facility] 05-16-2022 22:22-0400 Systolic blood pressure 122 mm[Hg] DR BRET MARCUM MD [facility] 05-16-2022 21:46-0400 Heart rate 74 /min DR BRET MARCUM MD [facility] 05-16-2022 21:46-0400 Respiratory rate 16 /min DR BRET MARCUM MD [facility] 05-16-2022 21:06-0400 Body temperature 98.96 [degF] DR BRET MARCUM MD [facility] 05-16-2022 21:06-0400 Diastolic blood pressure 82 mm[Hg] DR BRET MARCUM MD [facility] 05-16-2022 21:06-0400 Heart rate 75 /min DR BRET MARCUM MD [facility] 05-16-2022 21:06-0400 Mean blood pressure 103 mm[Hg] DR BRET MARCUM MD [facility] 05-16-2022 21:06-0400 Respiratory rate 18 /min DR BRET MARCUM MD [facility] 05-16-2022 21:06-0400 Systolic blood pressure 146 mm[Hg] DR BRET MARCUM MD [facility] 04-10-2022 17:04-0400 Diastolic blood pressure 70 mm[Hg] DR SCOT LEIVA DO [facility] 04-10-2022 17:04-0400 Heart rate 99 /min DR SCOT LEIVA DO [facility] 04-10-2022 17:04-0400 Respiratory rate 16 /min DR SCOT LEIVA DO [facility] 04-10-2022 17:04-0400 Systolic blood pressure 105 mm[Hg] DR SCOT LEIVA DO [facility] 04-10-2022 16:01-0400 Body temperature 98.96 [degF] DR SCOT LEIVA DO [facility] 04-10-2022 16:01-0400 Body weight 53.[address] SCOT LEIVA DO [facility] 04-10-2022 16:01-0400 Diastolic blood pressure 75 mm[Hg] DR SCOT LEIVA DO [facility] 04-10-2022 16:01-0400 Heart rate 108 /min DR SCOT LEIVA DO [facility] 04-10-2022 16:01-0400 Mean blood pressure 84 mm[Hg] DR SCOT LEIVA DO [facility] 04-10-2022 16:01-0400 Respiratory rate 16 /min DR SCOT LEIVA DO [facility] 04-10-2022 16:01-0400 Systolic blood pressure 103 mm[Hg] DR SCOT LEIVA DO [facility] 04-10-2022 14:30-0400 Body temperature 98.1 [degF] Treasure Lamb APRN.LINING MAKER Work Phone: [facility] 04-10-2022 14:30-0400 Body weight 53.43 kg Treasure Lamb APRN.LINING MAKER Work Phone: [facility] 04-10-2022 14:30-0400 Diastolic blood pressure 80 mm[Hg] Treasure Lamb APRN.LINING MAKER Work Phone: [facility] 04-10-2022 14:30-0400 Heart rate 123 /min Treasure Lamb APRN.LINING MAKER Work Phone: [facility] 04-10-2022 14:30-0400 Respiratory rate 20 /min Treasure Lamb APRN.LINING MAKER Work Phone: [facility] 04-10-2022 14:30-0400 SaO2% (BldA) [Mass fraction] 100 % Treasure Lamb APRN.LINING MAKER Work Phone: [facility] 04-10-2022 14:30-0400 Systolic blood pressure 110 mm[Hg] Treasure Lamb APRN.LINING MAKER Work Phone: [facility] 03-17-2022 16:22-0400 Body temperature 98.91 [degF] Mo Starkey [employer] Work Phone: [facility] 03-17-2022 16:22-0400 Body weight 53.8 kg Mo Starkey [employer] Work Phone: [facility] 03-17-2022 16:22-0400 Diastolic blood pressure 82 mm[Hg] Mo Starkey [employer] Work Phone: [facility] 03-17-2022 16:22-0400 Heart rate 111 /min Mo Starkey [employer]ER Work Phone: [facility] 03-17-2022 16:22-0400 Respiratory rate 20 /min Mo Starkey [employer]KER Work Phone: [facility] 03-17-2022 16:22-0400 SaO2% (BldA) [Mass fraction] 100 % Mo Starkey [employer]KER Work Phone: [facility] 03-17-2022 16:22-0400 Systolic blood pressure 126 mm[Hg] Mo Starkey [employer]KER Work Phone: [facility] Encounters Encounter Date Encounter Type Care Provider Facility Start: 04-14-2025 Evaluation and manag ement of inpatient Dr. Izzy Leo DO -[facility] [place] Work Phone: Start: 04-14-[address] Gatito Gottlieb MD [facility] Start: 12-29-2024 End: 12-29-2024 Patient encounter procedure Makenzie Mojave [employer] Work Phone: OB/Gynecology Comment on above: Missed menses (Prima ry Dx) Start: 12-29-2024 End: 12-29-2024 ambulatory MAKENZIE TOM Facility:[facility] Start: 08-07-2023 End: 08-07-2023 ambulatory Antonia CRUZ [place]: 06-12-2023 Telephone encounter Kendall Bowden MD Work Phone: [facility] Comment on above: Results (Urine Cx mi xed.) Start: 06-10-2023 End: 06-10-2023 Patient encounter procedure Treasure Lamb [employer] Work Phone: [facility] Comment on above: Urinary frequency (P rimary Dx); Recurrent UTI (urinary tract infection) Start: 04-19-2023 End: 04-20-2023 Emergency department patient visit DR YAHIR MATA MD Facility:[facility] Start: 04-19-2023 End: 04-19-2023 Emergency department patient visit DR YAHIR MATA MD [facility] Start: 11-13-2022 Telephone encounter Hollie Mehran vasquez [employer] Work Phone: [facility] Comment on above: Results Start: 11-11-2022 End: 11-11-2022 Patient encounter procedure Adore Granado [employer] Work Phone: [facility] Comment on above: Acute UTI (Primary D x); Urinary frequency Start: 07-13-2022 End: 07-13-2022 Patient encounter procedure Makenzie Arango [employer] Work Phone: OB/Gynecology Comment on above: Encounter for gyneco logical examination (general) (routine) without abnormal findings (Primary Dx); Encounter for contraceptive management, unspecified type Start: 07-10-2022 End: 07-10-2022 Patient encounter procedure Dina Dempsey [employer] Work Phone: [facility] Comment on above: Mass of upper outer quadrant of left breast (Primary Dx) Start: 05-16-2022 End: 05-17-2022 Emergency department patient visit DR BRET MARCUM MD Facility:[facility] Start: 05-16-2022 End: 05-16-2022 Emergency department patient visit DR BRET MARCUM MD [facility] Start: 04-10-2022 End: 04-10-2022 Emergency department patient visit DR SCOT LEIVA DO [facility] Start: 04-10-2022 End: 04-10-2022 Patient encounter procedure Treasure James MACEY.LINING MAKER Work Phone: [facility] Comment on above: Headache, unspecifie d headache type (Primary Dx); Vomiting, unspecified vomiting type, unspecified whether nausea present Start: 03-17-2022 End: 03-17-2022 Patient encounter procedure Mo King [employer]ACEY.LINING MAKER Work Phone: [facility] Comment on above: Migraine unspecified (Primary Dx) Start: 11-16-2017 Ambulatory MEAGHAN (LINING MAKER ) [facility] Procedures Date Procedure Procedure Detail Performing Clinician Start: 12-29-2024 UA DIP,URINE HCG (POC) Makenzie Arango APRN.LINING MAKER Work Phone: Start: 06-10-2023 Urnls dip stick/tabl et rgnt auto w/o microscopy Adore Granado APRN.LINING MAKER Work Phone: Start: 11-11-2022 Urnls dip stick/tabl et rgnt auto w/o microscopy Shanna Willams PA-C Work Phone: Start: 06-28-2019 Adult depression screening assessment Mo Starkey APRN.LINING MAKER Work Phone: None (qualifier value) DR RADHA LEIVA DO Plan of Treatment Date Care Activity Detail Author Start: 04-14-2025 Vital signs measurements [facility] Start: 04-14-2025 Vital signs measurements [facility] Start: 04-14-2025 Vital signs measurements [facility] Start: 04-14-2025 Vital signs measurements [facility] Start: 04-14-2025 Vital signs measurements [facility] Start: 04-14-2025 Vital signs measurements [facility] Start: 04-14-2025 Vital signs measurements [facility] Start: 04-14-2025 Vital signs measurements [facility] Start: 04-14-2025 Vital signs measurements [facility] Start: 04-14-2025 Vital signs measurements [facility] Start: 04-14-2025 Admission procedure [facility] Start: 04-14-2025 Assessment of risk o f venous thromboembolism [facility] Start: 04-14-2025 Medication education [facility] Start: 04-14-2025 Application of intermittent pneumatic compression device [facility] Start: 04-14-2025 Bedrest with bathroo m privileges [facility] Start: 04-14-2025 Verification routine [facility] Start: 04-14-2025 Hospital admission, emergency, from emergency room, medical nature [facility] Start: 04-14-2025 Consultation [facility] Start: 06-29-2024 Urine microalbumin profile [facility] Start: 06-11-2024 Covid-19 Vaccine ( season) Covid-19 Vaccine () [facility] Start: 06-11-2024 Influenza vaccination Influenza Vacc ine (#1) [facility] Start: 06-11-2023 Influenza vaccination INFLUENZA (#1) [facility] Start: 2022 PAP TESTING PAP TESTING [facility] Start: 2022 Screening for malign ant neoplasm of cervix Cervical Cancer Screening [facility] Start: 10-11-2022 DEPRESSION ASSESSMENT DEPRESSION ASS ESSMENT [facility] Start: 06-11-[address] [facility] Start: 04-10-2022 End: 04-24-2022 Influenza virus A and B RNA and SARS-CoV-2 (COVID-19) N gene panel - Respiratory specimen by KVNG with probe detection [facility] Work Phone: Comment on above: Expected: 04/10/2022 , Expires: 04/24/2022 Start: 01-05-2022 COVID-19 VACCINE (4 - Booster for Moderna series) COVID-19 VACCINE (4 - Booster for Moderna series) [facility] Start: 01-05-2022 COVID-19 VACCINE (4 - Moderna series) COVID-19 VACCINE (4 - Moderna series) [facility] Start: 10-11-2021 DEPRESSION ASSESSMENT DEPRESSION ASS ESSMENT [facility] Start: 06-28-2020 Adult depression screening assessment DEPRESSION SCREENING [facility] Start: 2019 Anxiety Screening Anxiety Screening [facility] Start: 2019 CHLAMYDIA SCREENING (18-24) CHLAMYDIA SCREENING (1824) [facility] Start: 2019 Depression Screening Depression Scre ening [facility] Start: 2019 GC (GONORRHEA) SCREE ROMERO (1824) GC (GONORRHEA) SCREENING (18-24) [facility] Start: 2019 HEPATITIS C SCREENING HEPATITIS C [facility] Start: 2019 Hepatitis C screening Hepatitis C [facility] Start: 2019 HIV SCREENING HIV SCREENING [facility] Start: 2019 HIV screening HIV Screening [facility] Start: 2019 Screening for Chlamy mervin trachomatis Chlamydia Screening () [facility] Start: 2017 Meningococcal B Vacc ine (1 of 2 - Standard) Meningococcal B Vaccine (1 of 2 - Standard) [facility] Start: 2017 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 (1 of 2 - Patient Seeks Protection) 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 B: Consider based on risk (1 of 2 - Patient Seeks Protection) [facility] Start: 2015 PEDS TO ADULT TRANSI TION ANNUAL ASSESSMENT PEDS TO ADULT TRANSITION ANNUAL ASSESSMENT [facility] Start: 2013 PEDS TO ADULT TRANSI TION INITIAL DISCUSSION PEDS TO ADULT TRANSITION INITIAL DISCUSSION [facility] Start: 2011 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 (1 of 2 - Risk Bexsero 2-dose series) 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 B: Consider based on risk (1 of 2 - Risk Bexsero 2-dose series) [facility] Bacteria identified in Urine by Culture URINE CULTURE Microbiology Routine Urinary frequency Ordered: 11/11/2022 [facility] Work Phone: Comment on above: Ordered: 11/11/2022 Bacteria identified in Urine by Culture URINE CULTURE Microbiology Routine Urinary frequency 06/10/2023 7:44 PM EDT [facility] Work Phone: End: 08-09-2023 Us breast uni real time with image limited US BREAST LTD LT Radiology STAT Mass of upper outer quadrant of left breast 1 Occurrences starting 07/10/2022 until 08/09/2023 [facility] Work Phone: Comment on above: 1 Occurrences starti ng 07/10/2022 until 08/09/2023 [facility] Immunizations Immunization Date Immunization Notes Care Provider Destiny cevallos 06-28-2019 influenza, injectabl e, quadrivalent, contains preservative Mo Lalito WELL BLOWER.LINING MAKER Work Phone: [facility] 06-28-2019 influenza virus vacc ine, unspecified formulation Makenzie Tom WELL BLOWER.LINING MAKER Work Phone: [facility] 10-26-2017 Human Papillomavirus 9-valent vaccine Mo Lalito WELL BLOWER.LINING MAKER Work Phone: [facility] 10-26-2017 influenza, injectabl e, quadrivalent, contains preservative Mo Lalito WELL BLOWER.LINING MAKER Work Phone: [facility] 10-26-2017 meningococcal polysaccharide (groups A, C, Y and W-135) diphtheria toxoid conjugate vaccine (MCV4P) Mo Lalito WELL BLOWER.LINING MAKER Work Phone: [facility] 07-13-2014 influenza, live, intranasal, quadrivalent Mo Lalito WELL BLOWER.LINING MAKER Work Phone: [facility] 06-29-2014 human papilloma viru s vaccine, quadrivalent Mo Lalito WELL BLOWER.LINING MAKER Work Phone: [facility] Work Phone: 06-29-2014 meningococcal polysaccharide (groups A, C, Y and W-135) diphtheria toxoid conjugate vaccine (MCV4P) Mo Starkey WELL BLOWER.LINING MAKER Work Phone: [facility] Work Phone: 06-29-2014 tetanus toxoid, redu leona diphtheria toxoid, and acellular pertussis vaccine, adsorbed Mo Lalito WELL BLOWER.LINING MAKER Work Phone: [facility] Work Phone: 07-13-2009 influenza virus vacc ine, unspecified formulation Mo Lalito WELL BLOWER.[facility] Work Phone: [facility] Work Phone: 06-09-2007 diphtheria, tetanus toxoids and acellular pertussis vaccine Mo Starkey APRN.LINING MAKER Work Phone: [facility] Work Phone: 06-09-2007 measles, mumps and rubella virus vaccine Mo King ISAIN.[facility] Work Phone: [facility] Work Phone: 06-09-2007 pneumococcal conjuga te vaccine, 7 valent Mo Starkey APRN.[facility] Work Phone: [facility] Work Phone: 06-09-2007 poliovirus vaccine, inactivated Mo Starkey APRN.[facility] Work Phone: [facility] Work Phone: 06-09-2007 varicella virus vaccine River monisha King MACEY.[facility] Work Phone: [facility] Work Phone: 04-17-2004 diphtheria, tetanus toxoids and acellular pertussis vaccine Mo King ISAIN.[facility] Work Phone: [facility] Work Phone: 04-17-2004 haemophilus influenz ae type b vaccine, HbOC conjugate Mo Starkey APRN.[facility] Work Phone: [facility] Work Phone: 04-17-2004 hepatitis B vaccine, pediatric or pediatric/adolescent dosage Mo Starkey APRN.LINING MAKER Work Phone: [facility] Work Phone: 04-17-2004 varicella virus vaccine Riverthomas bearden King MACEY.[facility] Work Phone: [facility] Work Phone: 11-01-2002 measles, mumps and rubella virus vaccine Mo King ISAIN.[facility] Work Phone: [facility] Work Phone: 11-01-2002 pneumococcal conjuga te vaccine, 7 valent Mo Lalito WELL BLOWER.[facility] Work Phone: [facility] Work Phone: 11-01-2002 poliovirus vaccine, inactivated Mo Lalito WELL BLOWER.LINING MAKER Work Phone: [facility] Work Phone: 04-21-2002 diphtheria, tetanus toxoids and acellular pertussis vaccine Mo Lalito WELL BLOWER.LINING MAKER Work Phone: [facility] Work Phone: 04-21-2002 haemophilus influenz ae type b vaccine, HbOC conjugate Mo Starkey WELL BLOWER.[facility] Work Phone: [facility] Work Phone: 04-21-2002 pneumococcal conjuga te vaccine, 7 valent Mo Lalito WELL BLOWER.[facility] Work Phone: [facility] Work Phone: 02-13-2002 diphtheria, tetanus toxoids and acellular pertussis vaccine Mo Lalito WELL BLOWER.LINING MAKER Work Phone: [facility] Work Phone: 02-13-2002 haemophilus influenz ae type b vaccine, HbOC conjugate Mo Starkey WELL BLOWER.LINING MAKER Work Phone: [facility] Work Phone: 02-13-2002 pneumococcal conjuga te vaccine, 7 valent Mo Lalito WELL BLOWER.LINING MAKER Work Phone: [facility] Work Phone: 02-13-2002 poliovirus vaccine, inactivated Mo Starkey WELL BLOWER.LINING MAKER Work Phone: [facility] Work Phone: 2001 diphtheria, tetanus toxoids and acellular pertussis vaccine Mo Lalito WELL BLOWER.LINING MAKER Work Phone: [facility] Work Phone: 2001 haemophilus influenz ae type b vaccine, HbOC conjugate Mo Lalito WELL BLOWER.LINING MAKER Work Phone: [facility] Work Phone: 2001 hepatitis B vaccine, pediatric or pediatric/adolescent dosage Mo Starkey WELL BLOWER.LINING MAKER Work Phone: [facility] Work Phone: 2001 pneumococcal conjuga te vaccine, 7 valent Mo Starkey WELL BLOWER.LINING MAKER Work Phone: [facility] Work Phone: 2001 poliovirus vaccine, inactivated Mo Starkey WELL BLOWER.LINING MAKER Work Phone: [facility] Work Phone: 2001 hepatitis B vaccine, pediatric or pediatric/adolescent dosage Mo Starkey WELL BLOWER.LINING MAKER Work Phone: [facility] Work Phone: Payers Date Payer Category Payer [place] Blue [facility] BLUE CARD PPO OOS [id number] 2024 Unknown [id number] 2023 Self-pay 2023 Private Health Insurance [id number] 2022 Private Health Insurance [id number] 2017 Medicaid [facility] MED[facility] [employer] MEDICAID [id number] 2017-Present [phone] [address] [place] [address] Medicaid [id number] 2017 Medicaid [id number] 2001 Unknown [id number] 2001 Unknown [id number] Unknown [id number] Unknown [id number] Social History Date Type Detail Facility Start: 09-13-2020 End: 04-14-2025 Tobacco smoking status NHIS Never smoked tobacco [facility] Start: 03-17-2022 End: 07-10-2022 Alcohol intake Lifetime non-drinker (finding) [facility] Start: 06-28-2019 History SDOH Alcohol Frequency 1 [facility] Start: 08-10-2013 End: 07-10-2022 Tobacco Comment mom and dad smoke - outside [facility] Start: 2001 Sex Assigned At Not on file [facility] Start: 03-31-2022 End: 07-13-2022 Exposure to SARS-CoV-2 (event) Not sure [facility] Work Phone: Sex Assigned At Sex [facility] History of tobacco use Passive smoker [facility] Start: 07-10-2022 Tobacco use and exposure Smokeless tobacco non-user [facility] Start: 07-13-2022 End: 06-10-2023 Alcohol intake Current drinker of alcohol (finding) [facility] Start: 07-13-2022 History SDOH Alcohol Comment Occasionally [facility] Start: 06-28-2019 End: 12-29-2024 History of Social function [facility] Start: 06-28-2019 End: 12-29-2024 Alcohol Use Disorder Identification Test - Consumption [AUDIT-C] [facility] How often to you hav e a drink containing alcohol? Never [facility] Average Number of Drinks Not on file [facility] Start: 05-16-2019 Lives Lives [facility] Start: 2001 Sex Assigned At Female [facility] Medical Equipment Procedure Code Equipment Code Equipment Origin al Text Equipment Identifier Dates [id number], [id number], [id number] Start: 12-01-2017 End: 12-29-2024 Comment on above: Monitor blood glucos e 3 times daily MONITOR BLOOD KETONE S X3-4/DAY. Precision ketone strips only. Take 30 g by mouth t hree times daily. Goals Date Patient Goal Desired Activity /State Functional Status Date Assessment Result Facility 04-19-2023 Functional Status ID band on, Call device within reach, Bed in low position, Wheels locked, Bedside Cart Locked, Visitor at bedside, Safety level maintained [facility] 04-19-2023 Functional Status [facility] 05-16-2022 Functional Status Independent [facility] 05-16-2022 Functional Status Standard Safet y ID band on, Allergy Band on, Call device within reach, Bed in low position, Wheels locked, Upper/Half-Length side-rails up, Phone within reach, personal items within reach, Safety level maintained [facility] 04-10-2022 Functional Status Independent [facility] 04-10-2022 Functional Status Standard Safet y ID band on, Allergy Band on, Call device within reach, Bed in low position, Wheels locked, Upper/Half-Length side-rails up, Phone within reach, personal items within reach, Visitor at bedside [facility] 05-16-2015 Are you deaf, or do you have serious difficulty hearing No 05/16/2015 11:30 AM Elaine Johnson Ma [facility] 05-16-2015 Are you blind, or do you have serious difficulty seeing, even when wearing glasses No 05/16/2015 11:30 AM Elaine Johnson Ma [facility] 05-16-2015 Do you have serious difficulty walking or climbing stairs No 05/16/2015 11:30 AM Elaine Johnson Ma [facility] 05-16-2015 Do you have difficul ty dressing or bathing No 05/16/2015 11:30 AM Elaine Johnson Ma [facility] Mental Status Date Assessment Result Facility 04-19-2023 Mental Status Oriented x [address] [facility] 04-19-[address] [facility] 05-16-2022 Mental Status Orientation Oriented x 4 [facility] 05-16-[address] [facility] 04-10-2022 Mental Status Orientation Oriented x 4 [facility] 04-10-[address] [facility] 05-16-2015 Because of a physica l, mental, or emotional condition, do you have serious difficulty concentrating, remembering, or making decisions No 05/16/2015 11:30 AM EDT Elaine Sanchez Ma [facility] Clinical Notes 03-17-2022 to 04-14-2025 Makenzie Arango APRN.CNP - 12/29/2024 2:34 PM EDTTelephone Encounter - Lisa Lopez MA - 06/13/2023 2:42 PM EDTTelephone Encounter - María Elena Valdez LPN - 06/12/2023 8:50 AM EDT Note Date & Type Note Facility 04-14-2025 Discharge summary [facility] 12-29-2024 Note HNO ID: [id number] Author: MAKENZIE ARANGO APRN.CNP Service: ? Author Type: Nurse Practitioner Type: Progress Notes Filed: 12/29/2024 14:55 Note Text: Aniyah Kapadia is a 24 year old female who presents for problem visit missed menses, LMP 11/15/2024, reported HPT 12/28/2024. HPI: pt present for confirmation of and termination options OB History Gravida0 Para0 Term0 Preterm0 AB0 Living0 SAB0 IAB0 Ectopic0 Multiple0 Live Births0 Ux Manager History LMP: 11/15/2024 (Exact Date), Having periods Age at Menarche: Age at First : Age at Menopause: Ux Manager History Comments: Sexual Activity: Yes; Male Contraception: [...] of Date: 12/29/2024 Allergen Noted Reaction BACTRIM [SULFAMETHOXAZOLE-TRIMETH*11/16/2007 Rash Fully Assessed 06/10/2023 REVIEW OF SYSTEMS [...] up after for control options Makenzie Arango APRN.LINING MAKER Medical Decision Making: Problems: Low: Acute, uncomplicated illness or injury Data: Unique test(s) ordered: 1 Risk: Low: Low risk from testing/treatment Medical Decision Making Level: 3 - Low [facility] 12-29-2024 History of Present illness Narrative Formatting of this note is different fro m the original. Aniyah Kapadia is a 24 year old female who presents for problem visit missed menses, LMP 11/15/2024, reported HPT 12/28/2024. HPI: pt present for confirmation of and termination options OB History Gravida0 Para0 Term0 Preterm0 AB0 Living0 SAB0 IAB0 Ectopic0 Multiple0 Live Births0 Ux Manager History LMP: 11/15/2024 (Exact Date), Having periods Age at Menarche: Age at First : Age at Menopause: Ux Manager History Comments: Sexual Activity: Yes; Male Contraception: [...] of Date: 12/29/2024 Allergen Noted Reaction BACTRIM [SULFAMETHOXAZOLE-TRIMETH*11/16/2007 Rash Fully Assessed 06/10/2023 REVIEW OF SYSTEMS [...] 3 - Low documented in this encounter [facility] 06-13-2023 Miscellaneous Notes Formatting of this note might be differe nt from the original. Patient notified of results, verbalized understanding of instructions given as listed below. Lisa Lopez MA Left message for patient to return call. María Elena Valdez LPN Urine culture did not look like a clear sample so it did not show a clear infection. She may finish the antibiotic if helping and follow up with PCP, urology, or LOANS OFFICER if symptoms persist. documented in this encounter [facility] 06-10-2023 History of Present illness Narrative Formatting of this note is different fro m the original. CC: Patient presents with: Urinary Frequency: Frequency, [...] Uses as needed) Blood-Glucose Meter (PRECISION XTRA) [facility] Use as directed FREESTYLE LITE METER monitoring [...] Patient agreeable to treatment plan. Treasure Lamb APRN.LINING MAKER documented in this encounter [facility] 04-20-2023 Hospital Discharge instructions Patient Education 04/19/2023 22:35:34 HEADACHE, Migraine [...] of your face Difficulty talking or seeing [phone] [employer]. [address] [place] [address]. All rights reserved. This information is not intended as a substitute for professional medical care. Always follow your healthcare professional's instructions. Follow Up Care 04/19/2023 21:13:08 With:Call Physician Referral Address:Unknown When:2-4 days [facility] 04-19-2023 Emergency department Discharge summary Discharge Instructions Thank you for allowing [facility] to assist you with your healthcare needs. [...] of your face Difficulty talking or seeing [phone] [employer]. [address] [place] [address], [place] [address]. All rights reserved. This information is not intended as a substitute for professional medical care. Always follow your healthcare professional's instructions. Additional Information VACCINATE! IT SAVES LIVES! Members of the community who have not yet received the COVID-19 vaccine and would like to receive it can visit one of [facility] vaccine clinics. There are many vaccine clinic locations within the [facility]. For locations and available times, please visit [email or web address] It is important to note that some COVID mobile vaccine clinics are held outdoors and may be canceled in rainy or stormy conditions. To learn more about pediatric vaccinations (ages 5-11), we invite you to visit the [facility] webpage. [email or web address] l To learn more about the COVID-19 vaccine, we invite you to visit the CDC website for a list of frequently asked questions. https://www.cdc.gov/coronavirus/2019-ncov/vac cines/faq.html [facility] Patient Portal Access Instructions: Stay connected with your healthcare team and access your personal medical information anytime with the [facility] Patient Portal. If you would like a full copy of your medical records please contact the [facility] Medical Records Department Wednesday through Wednesday between 8a.m. and 4:30p.m. Please follow the directions below to access the portal: 1.Access the email account you provided upon registration to the [facility].2.Look for an invitation email from [facility].3.Open the email and access the invitation link: Accept Invitation to [facility]4.Fill in the required mary to create your account. Sign into www.[facility] with your username and password that you [...] you will allow to register on the [facility] Patient Portal for access to your information. You can also access the [facility] Patient Portal on the [employer] ama. Simply click on Health Records under Health Data and then click on the [employer] logo. HOW TO SAFELY DISPOSE OF PRESCRIPTION [...] Call your local pharmacy or go to [email or web address] to find one close to you.3.Make use of household items: Use cat litter or old coffee grounds to dispose medications if other options are not available. Mix your drugs with these household products, seal them in an airtight container and throw it into the garbage. Call [facility]: [phone] to be sure your drugs can be [...] been reviewed and explained to me and I,ANIYAH KAPADIA understand my current condition and have read and understand these discharge instructions. I have received a written copy of the plan/instructions. If I have questions, I am aware that I should contact my doctor. Patient/Industrial Sociologist Signature: Date/Time: Relationship to Patient: Witness Name/Signature: Date/Time: [facility] [place] 11-13-2022 Miscellaneous Notes Formatting of this note might be differe nt from the original. Urine culture returns. > 100,000 e. Coli ATB prescribed is appropriate. Phone call placed. No answer. Voicemail message left. documented in this encounter [facility] 11-11-2022 Instructions Patience Bueno - 11/11/2022 [...] front to back documented in this encounter [facility] 11-11-2022 History of Present illness Narrative Formatting of this note is different fro m the original. Subjective HPI Aniyah Kapadia is a 22 [...] Uses as needed) Blood-Glucose Meter (PRECISION XTRA) [facility] Use as directed FREESTYLE LITE METER monitoring [...] CULTURE Patience Bueno APRN -student TEACHING PROVIDER (Physician/PA/WELL BLOWER) NOTE OF PERSONAL INVOLVEMENT IN CARE: I have personally seen and examined the patient and performed the medical decision-making components. I have reviewed the Advanced Practice Registered Nurse (WELL BLOWER) Student's documentation and verified the findings in the note as written. Any additions or changes are noted in bold/italics. Signature: Adore Granado Date: 11/11/2022 Time: 2:06 PM documented in this encounter [facility] 07-13-2022 History of Present illness Narrative Formatting of this note is different fro m the original. Mining Manager offered: Patient declines. Dill is a 21 [...] L0 SAB0 IAB0 Ectopic0 Multiple0 Live Births0 Ux Manager History LMP: 03/23/2022, Having periods Age at Menarche: Age at First : Age at Menopause: Ux Manager History Comments: Sexual Activity: Never; No partner [...] Makenzie Arango APRN.CNP documented in this encounter [facility] 07-10-2022 Instructions Dina Dempsey APRN.CNP - 07/10/2022 5:32 PM EDT Will check US and set up recheck with sleep technologist documented in this encounter [facility] 07-10-2022 History of Present illness Narrative Formatting of this note is different fro m the original. Images from the original note were not [...] have confirmed and edited as necessary, the [facility] Review of Systems Constitutional: Negative for chills and fever. Musculoskeletal: Negative for joint pain and myalgias. Skin: Negative for itching and rash. ? Palpable breast lump, left upper quadrant All other systems reviewed and are negative. Objective Physical Exam Vitals and nursing note reviewed. Exam conducted with a production clerks supervisor present. Pulmonary: Effort: Pulmonary effort is normal. [...] results Advise patient to follow up with LOANS OFFICER for recheck Will schedule appointments. - US BREAST LTD LT Diagnosis and treatment plan were discussed and questions were answered to the patient's satisfaction. Pt acknowledged understanding of concepts and follow up plan. Specific signs and symptoms that would indicate the need for higher level of care were discussed in detail warranting prompt ER evaluation. Dina Dempsey APRN.TONI documented in this encounter [facility] 05-17-2022 Hospital Discharge instructions Patient Education 05/16/2022 22:29:57 Headache, Migraine, [...] of your face Difficulty talking or seeing [phone] [employer]. [address] [place] [address]. All rights reserved. This information is not intended as a substitute for professional medical care. Always follow your healthcare professional's instructions. Follow Up Care 05/16/2022 20:58:50 With:WILLI TOSCANO MD Address: [address] [place] [address]- When:2-4 days With:[facility] Address: [phone] When:2-4 days [facility] 05-16-2022 Note Discharge Instructions Thank you for allowing [facility] to assist you with your healthcare needs. The following is important discharge information regarding your hospital visit. Diagnosis from Today's Visit Migraine Headache What to Do Next Instructions from Your Care Team No qualifying data available. Post Acute Orders No qualifying data available. You Need to Schedule the Following Appointments Follow Up with WILLI TOSCANO MD When Within 2-4 days Where: [place] [address]- Follow Up with [facility] When Within 2-4 days Where: [phone] Allergies bacitracin Medications Please ask your primary [...] of your face Difficulty talking or seeing [phone] [employer]. [address] [place] [address], [place] [address]. All rights reserved. This information is not intended as a substitute for professional medical care. Always follow your healthcare professional's instructions. Additional Information VACCINATE! IT SAVES LIVES! Members of the community who have not yet received the COVID-19 vaccine and would like to receive it can visit one of [facility] vaccine clinics. There are many vaccine clinic locations within the [facility]. For locations and available times, please visit [email or web address]. It is important to note that some COVID mobile vaccine clinics are held outdoors and may be canceled in rainy or stormy conditions. To learn more about pediatric vaccinations (ages 5-11), we invite you to visit the [facility] webpage. https://www.[facility].org/pages/ lp-Xhxbmmifgdz-Yaqlyyeges-Asked-Questions.htm l To learn more about the COVID-19 vaccine, we invite you to visit the [facility] website for a list of frequently asked questions. https://tanisha.org/assets/Vorjpchf-adp-Ivbif ors/wtsdu-Hjnyrra-Mswzkokzas_Nlgws-Questions. pdf [facility] Patient Portal Access Instructions: Stay connected with your healthcare team and access your personal medical information anytime with the [facility] Patient Portal. If you would like a full copy of your medical records please contact the [facility] Medical Records Department Wednesday through Wednesday between 8a.m. and 4:30p.m. Please follow the directions below to access the portal: 1.Access the email account you provided upon registration to the [facility].2.Look for an invitation email from [facility].3.Open the email and access the invitation link: Accept Invitation to [facility]4.Fill in the required mary to create your account. Sign into www.Link Medicine with your username and password that you [...] you will allow to register on the [facility] Patient Portal for access to your information. You can also access the [facility] Patient Portal on the [employer] ama. Simply click on Health Records under Health Data and then click on the [employer] logo. HOW TO SAFELY DISPOSE OF PRESCRIPTION [...] Call your local pharmacy or go to http://EQUIP Advantage.QuNano/8W8Rr7l to find one close to you.3.Make use of household items: Use cat litter or old coffee grounds to dispose medications if other options are not available. Mix your drugs with these household products, seal them in an airtight container and throw it into the garbage. Call [facility]: [phone] to be sure your drugs can be [...] been reviewed and explained to me and I,ANIYAH KAPADIA Calvin understand my current condition and have read and understand these discharge instructions. I have received a written copy of the plan/instructions. If I have questions, I am aware that I should contact my doctor. Patient/Industrial Sociologist Signature: Date/Time: Relationship to Patient: Witness Name/Signature: Date/Time: [facility] 04-10-2022 Hospital Discharge instructions Patient Education 04/10/2022 16:21:46 Headache, Unspecified [...] face You have trouble talking or seeing [phone] The [employer]. [address] [place] [address]. All rights reserved. This information is not intended as a substitute for professional medical care. Always follow your healthcare professional's instructions. Follow Up Care 04/10/2022 15:48:55 With:Follow up with primary care provider Address:Unknown When:2-4 days [facility] 04-10-2022 Note Discharge Instructions Thank you for allowing [facility] to assist you with your healthcare needs. [...] face You have trouble talking or seeing [phone] [employer]. [address] [place] [address]. All rights reserved. This information is not intended as a substitute for professional medical care. Always follow your healthcare professional's instructions. Additional Information VACCINATE! IT SAVES LIVES! Members of the community who have not yet received the COVID-19 vaccine and would like to receive it can visit one of [facility] vaccine clinics. There are many vaccine clinic locations within the [facility]. For locations and available times, please visit [email or web address]. It is important to note that some COVID mobile vaccine clinics are held outdoors and may be canceled in rainy or stormy conditions. To learn more about pediatric vaccinations (ages 5-11), we invite you to visit the [facility] webpage. https://www.[facility].org/pages/ bx-Uppqljvxrgj-Xpvizqkoff-Asked-Questions.htm l To learn more about the COVID-19 vaccine, we invite you to visit the [facility] website for a list of frequently asked questions. https://speedwell.[facility]/assets/Hxkqhedl-igv-Lgmsn ors/mlfhm-Nfaiyxw-Vihbrgbfbw_Vsqrk-Questions. pdf [facility] Patient Portal Access Instructions: Stay connected with your healthcare team and access your personal medical information anytime with the [facility] Patient [facility]. If you would like a full copy of your medical records please contact the [facility] Medical Records Department Wednesday through Wednesday between 8a.m. and 4:30p.m. Please follow the directions below to access the portal: 1.Access the email account you provided upon registration to the [facility].2.Look for an invitation email from [facility].3.Open the email and access the invitation link: Accept Invitation to [facility]4.Fill in the required mary to create your account. Sign into www.[email or web address] with your username and password that you [...] you will allow to register on the [facility] Patient Portal for access to your information. You can also access the [facility] Patient Portal on the [employer] ama. Simply click on Health Records under Health Data and then click on the Adility logo. HOW TO SAFELY DISPOSE OF PRESCRIPTION [...] Call your local pharmacy or go to http://bit.ly/8L7Ox8l to find one close to you.3.Make use of household items: Use cat litter or old coffee grounds to dispose medications if other options are not available. Mix your drugs with these household products, seal them in an airtight container and throw it into the garbage. Call [facility]: [phone] to be sure your drugs can be [...] aware that I should contact my doctor. Patient/Industrial Sociologist Signature: Date/Time: Relationship to Patient: Witness Name/Signature: Date/Time: [facility] 04-10-2022 History of Present illness Narrative CC: Patient presents with: Headache: [...] blood ketones x3-4/day Blood-Glucose Meter (PRECISION XTRA) [facility] [place] as directed FREESTYLE LITE METER monitoring [...] Treasure Lamb APRN.TONI documented in this encounter [facility] 03-17-2022 History of Present illness Narrative Subjective HPI HPI Aniyah Kapadia [...] blood ketones x3-4/day Blood-Glucose Meter (PRECISION XTRA) [facility] Use as directed FREESTYLE LITE METER monitoring [...] tremor. Coordination: Romberg sign negative. Coordination normal. Nrhscd-Twtt-Hwlsox Test and Heel to Olivas Test normal. [...] ONDANSETRON 4 MG DISINTEGRATING TABLET Mo Starkey APRN.LINING MAKER documented in this encounter [facility] Discharge summary Note Date/Time April 14, 2025 2:42am [facility] Medical Records Department [address] [place] [address] Emergency Department Summary 04/14/25 MR#: [id number] Acct: [id number] Name: ANIYAH KAPADIA Rep #:[id number] : 2000 24 From: Gatito Gottlieb MD PCP: Care Physician,No Primary Status :REG ER Location: ED HPI History of Present Illness Chief Complaint: Abd Pain Detail of Chief Complaint: Severe abdominal pain after taking Cytotec Informant: patient and spouse/S.O. Onset/Context/Timing Onset: Today and Yesterday Timing: Continuous and Waxes and wanes Quality: Colicky Location: Pelvic Current Severity: Severe Maximum Severity: Severe Worsened by: Taking additional doses of Cytotec Relieved by: Nothing Associated Symptoms Associated Symptoms: Nausea Narrative Narrative: Patient is a 24-year-old G1, P0 Ab0 female who believes she is 9 weeks gestation. Patient does not know blood type. She states she her sound installation worker is through the [facility]. She denies any OB care. She states she obtained the Cytotec through an online service. She was instructed to take 4 200 mcg tablets followed by 4 additional tablets 4 to 5 hours later. She took herfirst dose at 1 AM on April 13. He took an additional 4 tablets at approximately 6 AM. Since she did not have any bleeding she contacted the online service. They told her to take an additional 2+2 tablets. Uncertain timeframe. She doesnot know her blood type. She has history of ovarian cyst. Denies history of endometriosis. Denies history of STI. Prior similar symptoms: No Recent Illness/Hospitalization: No PFSH PFSH Medical History no medical history no medical history Home Medications ?Medication ?Instructions ?Recorded ?Last Taken ?Type NK 04/14/25 Unknown History Allergy/AdvReac Type Severity Reaction Status Date / Time bacitracin Allergy Rash Verified 04/14/25 01:44 Surgical History no surgical history no surgical history Social History (Updated 04/14/25 @ 02:[address] Gatito Gottlieb MD) household members: significant other Smoking Status: Never smoker ROS ROS ED Constitutional Constitutional ED: Denies chills, fever(s), subjective or sweats Eyes Eyes: Denies blurry vision or change in vision ENT ENT ED: Denies ear pain or rhinorrhea Cardiovascular Cardiovascular: Denies chest pain or palpitations Respiratory/Chest Respiratory/Chest: Denies cough, dyspnea or dyspnea on exertion Gastrointestinal Gastrointestinal: Reports abdominal pain; Denies nausea or vomiting Musculoskeletal Musculoskeletal: Denies arthralgias or myalgias Integumentary Denies rash Neurologic Neurologic: Denies headache(s) Psychiatric Psychiatric: Reports anxiety Hematologic/Lymphatic Hematologic/Lymphatic: Reports systems reviewed and no addt'l complaints, exceptas documented EXAM Physical Exam Const Vital Signs: 04/14/25 01:41 Temperature 98.6 F Temperature Source Oral Pulse Rate 97 Respiratory Rate 20 H Blood Pressure 129/102 H Blood Pressure Mean 111 Pulse Ox 100 Positive well nourished and well developed Constitutional Narrative: Patient is in obvious discomfort. She is doubled over. General Appearance ED: well developed and pallor HEENT Reports moist mucous membranes HEENT Narrative: Head is atraumatic and normocephalic. Ears normal. Nares patent. Posterior pharynx is normal. Eyes PERRL and EOMs intact bilaterally General Eye ED: Negative for pale conjunctiva or scleral icterus Neck no lymphadenopathy, supple and no JVD Chest Wall inspection of chest normal and palpation of chest normal Resp normal respiratory effort and clear to auscultation bilaterally Cardio regular rate, regular rhythm, S1 normal heart sound, S2 normal heart sound and no murmurs GI no masses; Negative for normal to inspection, nondistended, normoactive bowel sounds, non-tender, non-distended or hepatosplenomegaly GI Narrative: Patient's abdomen is firm. Clinically I believe she is father than 9 weeks. Auscultation: hypoactive bowel sounds Back/Spine no CVA tenderness Extremity normal to inspection General Extremety ED: Negative for edema or tenderness General Extremity: Negative for edema Neuro oriented x3 and CN's II-XII intact bilaterally Sensorium / Orientation: alert Psych Mood & Affect: anxious Skin no rashes or lesions noted, no wounds and skin turgor normal General Skin Exam: pallor; Negative for jaundice MDM MDM MDM Narrative Medical decision making narrative: Patient took Cytotec as described in the HPI. Clinically I believe she is farther than 9 weeks. Ultrasound was ordered. Serum quantitative hCG was ordered, CBC as well to assess white count and H&H. Patient was made NPO. Patient went to the restroom. She delivered a nonviable uterus that is greater than 20 weeks. The umbilical cord was clamped. Spoke with sound installation worker on [address] [facility] [address] Kelsey Leo. Plan is observation status L&D for her to deliver the placenta. If patient has Rh- blood will order RhoGAM protocol. Charge nurse is going through the protocol for demise greater than 20 weeks. Lab Data Lab results narrative: White count is elevated 23.9 thousand. There is a shift. H&H is 11.9 and 32.9. Labs: Laboratory Results - last 24 hr 04/14/25 01:53 WBC 23.9 H RBC 3.69 L Hgb 11.9 L Hct 32.9 L MCV 89.2 MCH 32.2 H MCHC 36.2 H RDW Std Deviation 42.5 RDW Coeff of Demetrio 13.0 Plt Count 285 MPV 10.4 Immature Gran % (Auto) 1.000 H Neut % (Auto) 85.4 H Lymph % (Auto) 8.6 L [place] % (Auto) 4.6 Eos % (Auto) 0.1 Baso % (Auto) 0.3 Absolute Neuts (auto) 20.4 H Absolute Lymphs (auto) 2.05 Nucleated RBC % 0 Management Discussion w/another healthcare provider: Cloud Subject Matter Expert (Documented MDM portion of the EMR) Treatment and Re-Evaluation :: Patient having minimal bleeding at this time. The umbilical cord was clamped. Discharge Plan Dx/Rx/DC Orders Clinical Impression: Medical , incomplete, without complication, Elevated blood-pressure reading without diagnosis of hypertension Disposition Disposition: Acute Care Hospital [facility] What to do if you have Problems For any increased pain, shortness of breath, bleeding, nausea or vomiting, chestpain, or any unexpected problems, contact your Primary Care Provider. Call [facility] ([phone]) or report to the closest Emergency Room. Call 911 if necessary. 04/14/25 0242 <Electronically signed by Gatito Gottlieb MD> Cosigner Signature (if applicable): CC: No Primary Care Physician ~ Signed [facility] Work Phone: Evaluation + Plan note No data available for this section [facility] Evaluation note* Diagnosis Migraine unspecified- Primary [facility] Diagnosis Headache, unspecified headache type- Primary Vomiting, unspecified vomiting type, unspecified whether nausea present [facility] Diagnosis Mass of upper outer quadrant of left breast- Primary [facility]* Diagnosis Encounter for contraceptive management, unspecified type [facility] Diagnosis Acute UTI- Primary Urinary tract infection, site not specified Urinary frequency documented in this encounter [facility] note* Diagnosis Urinary frequency- Primary Recurrent UTI (urinary tract infection) Urinary tract infection, site not specified documented in this encounter [facility] note* Diagnosis Missed menses- Primary Absence of menstruation documented in this encounter [facility] note* Diagnosis Onset Date Resolution Status Admit Date Elevated blood-pressure read ing without diagnosis of hypertension acute April 14, 2025 2:52am Medical , incomplete , without complication acute April 14 2:52am [facility] Work Phone: Reason for referral (narrative)* Diagnostic Procedure Only (Urgent) - Authorized Specialty Diagnoses / Procedures Referred By Contac t Referred To Contact [facility] Diagnoses Mass of upper outer quadrant of left breast Procedures US BREAST LTD LT US BREAST UNI REAL TIME WITH IMAGE LIMITED Dina Dempsey APRN.CNP [address] [place] [address] [facility] [address] [place] [address] Referral ID Status Reason Start Date Expiration Date Visits Requested Visits Authorized [id number] Authorized Auto-Generat ed Referral 07/10/2022 08/09/2023 1 1 [facility] for referral (narrative)No reason for referral [facility] Work Phone: Summary Purpose Family History No Family History Records FoundNo Family History Records FoundNo Family History Records FoundNo Family History Records Found Advance Directives Advance Directive Response Recorded Date/ Time Do you have a Healthcare Power of Animal Services Officer? No April 14, 2025 1:44am Medications Administered Section Inactive Administered Medications - [...] Indicated Resolved Time COVID-19 Rule-Out 04/10/2022 04/10/2022 Chief Complaint and Reason for Visit Chief Complaint Admit Date INCOMPLETE MEDICAL April 14 2:52am Reason for Visit Admit Date Elevated blood-pressure read ing without diagnosis of hypertension April 14, 2025 2:52am Medical , incomplete, without co mplication April 14, 2025 2:52am Additional Source Comments INFORMATION SOURCE (unrecogn ized section and content) DATE CREATED AUTHOR 04/04/2018 [facility] DATE CREATED AUTHOR AUTHOR'S ORGANIZ ATION 04/29/2023 [facility] ([place]) DATE CREATED AUTHOR AUTHOR'S ORGANIZ ATION 08/09/[address] [facility] DATE CREATED AUTHOR AUTHOR'S ORGANIZ ATION 01/02/2025 [facility] Source Comments (unrecognize d section and content) In the event this informatio n is protected by the Federal Confidentiality of Alcohol and Drug Abuse Patient Records regulations: The Federal rules restrict any use of the information to criminally investigate or prosecute any alcohol or drug abuse patient.[facility] the event this information is protected by the Federal Confidentiality of Alcohol and Drug Abuse Patient Records regulations: The Federal rules restrict any use of the information to criminally investigate or prosecute any alcohol or drug abuse patient.[facility] HospitalIn the event this information is protected by the Federal Confidentiality of Alcohol and Drug Abuse Patient Records regulations: The Federal rules restrict any use of the information to criminally investigate or prosecute any alcohol or drug abuse patient.[facility] HospitalIn the event this information is protected by the Federal Confidentiality of Alcohol and Drug Abuse Patient Records regulations: The Federal rules restrict any use of the information to criminally investigate or prosecute any alcohol or drug abuse patient.[facility] HospitalIn the event this information is protected by the Federal Confidentiality of Alcohol and Drug Abuse Patient Records regulations: The Federal rules restrict any use of the information to criminally investigate or prosecute any alcohol or drug abuse patient.[facility] HospitalIn the event this information is protected by the Federal Confidentiality of Alcohol and Drug Abuse Patient Records regulations: The Federal rules restrict any use of the information to criminally investigate or prosecute any alcohol or drug abuse patient.[facility] HospitalIn the event this information is protected by the Federal Confidentiality of Alcohol and Drug Abuse Patient Records regulations: The Federal rules restrict any use of the information to criminally investigate or prosecute any alcohol or drug abuse patient.[facility] HospitalIn the event this information is protected by the Federal Confidentiality of Alcohol and Drug Abuse Patient Records regulations: The Federal rules restrict any use of the information to criminally investigate or prosecute any alcohol or drug abuse patient.[facility] HospitalIn the event this information is protected by the Federal Confidentiality of Alcohol and Drug Abuse Patient Records regulations: The Federal rules restrict any use of the information to criminally investigate or prosecute any alcohol or drug abuse patient.[facility] Reason for Visit (unrecogniz ed section and content) Reason Comments Headache migraine x2 days, li ght sensitivity, nausea Reason Comments Headache with vomiting x1 day Reason Comments Breast Problem Soreness in L breast x1 week, noticed lump last night Reason Comments Ux Manager Exam Contraception Reason Comments Urinary Frequency Frequency and burnin g x 4 days Reason Comments Results Reason Comments Urinary Frequency Frequency, burning x 1 day Reason Comments Results Urine Cx mixed. Reason Comments Problem Visit Care Teams (unrecognized sec tion and content) Toll Gate Keeper Relationship Specialty Start Date End Date Lupillo Bolton MD [address] [place] [address] PCP - General 11/07/07 Toll Gate Keeper Relationship Specialty Start Date End Date Lupillo Bolton MD [address] [place] [address] PCP - General 11/07/07 Toll Gate Keeper Relationship Specialty Start Date End Date Lupillo Bolton MD [address] [place] [address] PCP - General 11/07/07 Toll Gate Keeper Relationship Specialty Start Date End Date Lupillo Bolton MD [address] [place] [address] PCP - General 11/07/07 Toll Gate Keeper Relationship Specialty Start Date End Date Lupillo Bolton MD [address] [place] [address] PCP - General 11/07/07 Toll Gate Keeper Relationship Specialty Start Date End Date Lupillo Bolton MD [address] [place] [address] PCP - General 11/07/07 Toll Gate Keeper Relationship Specialty [place] [address] [place] [id number] PCP - General 11/07/07 Team Status: Active Member Role/Relationship Status Dates No Primary Care Physician Primary Care Provider Active Team Status: Active Member Role/Relationship Status Dates Dr. Gatito Gottlieb MD Emergency Provider Active Sta rt: April 14, 2025 No Primary Care Physician Primary Care Provider Active Start: April 14, 2025 Dr. Izzy Leo DO Admit Provider Active Star t: April 14, 2025 Dr. Izzy Leo , Attending Provider Active Start: April 14, 2025 Care Team (unrecognized sect ion and content) Care Team Personnel Name: PHYSICIAN, NONE Position: Physician Member Role: Primary Care Physician Care Team Related Persons Name: KULWANT ESPAÑA Viet Address: [place] [address] [place] Name: HUONG ESPAÑAGINO Llanos Address: [place] [address] [place] Name: TACO KULWANT L Address: [address] Care Team Personnel Name: PHYSICIAN, NONE Position: Physician Member Role: Primary Care Physician Care Team Related Persons Name: KULWANT ESPAÑA Viet Address: [place] [address] [place] Name: HUOGN ESPAÑAGINO Llanos Address: [place] [address] [place] Name: KULWANT ESPAÑA Viet Address: [address] FOR RECORDS PERTAINING TO PATIENTS WHO [...] BE BASED ON THE PRIMARY CLINICAL RECORDS. [employer] provides no warranty or guarantee of the accuracy or completeness of information in this document.
--- OUTSIDE RECORDS SUMMARY | 2025-04-14 05:43 | XMS RPT_ITS | CCD ---
Author Organization [facility] Care Team Providers [employer] Cook Name Role Phone MEAGHAN CHAVES (WEIGHTS AND MEASURES INSPECTOR) Unavailable Unavail able MEAGHAN CHAVES (WEIGHTS AND MEASURES INSPECTOR) Unavailable Unavail Lupillo Ervin MD Primary Care [...] Provider Dr. Izzy Leo DO Attending Provider [phone] Allergies Allergy Classification Reported Allergen(s) Allergy Type Date of Onset Reaction(s) Facility (11 sources) sulfamethoxazole / trimethoprim; Translations: [SULFAMETHOXAZOLE-TR IMETHOPRIM] Drug Allergy 8 [facility] Repository (4 sources) Bacitracin; Translations: [bacitracin] Drug Allergy 5 [facility] Medications Current Medications Medication Drug Class(es) Dates [...] on above: Take 1 capsule by mo [facility] twice daily for 7 days. FLUoxetine 20 [...] mo ut twice daily for 5 days. [place] (Nk) (1 source) Start: 04-14-2025 [place] (Nk) Active April 14, 2025 12:00am SUMAtriptan [...] Auto (Unsp spec) [#/Vol] 2.05 10*3/uL 0.83-4.51 [facility] Absolute neutrophil countOrd ered By: Gatitoyojana Gottlieb on 04-14-2025 Neutrophils (Bld) [#/Vol] 20.4 10*3/uL High 2.0-7.7 [facility] Automated lymphocyte count a s percentage of total leukocytesOrdered By: Gatito Gottlieb on 04-14-2025 Lymphocytes/100 WBC Auto (Unsp spec) 8.6 % Low 19-41 [facility] Basophil percentageOrdered B y: Gatito Gottlieb on 04-14-2025 Basophils/100 WBC (Bld) 0.3 % 0-1 [facility] Blood manual differential co mment interpretation (narrative result)Ordered By: Gatito Gottlieb on 04-14-2025 Manual differential comment Alen (Bld) [Interp] SCANNED [facility] Eosinophil percentageOrdered By: Gatitoyojana Gottlieb on 04-14-2025 Eosinophils/100 WBC (Bld) 0.1 % 0-5 [facility] Erythrocyte distribution wid th ratioOrdered By: Gatitoyojana Gottlieb on 04-14-2025 Erythrocyte distribution width (RBC) [Ratio] 13.0 % 11.6-14.6 [facility] Erythrocyte distribution wid th standard deviationOrdered By: Gatito Gottlieb on 04-14-2025 Erythrocyte distribution width (RBC) [Ratio] 42.5 fl 35.1-43.9 [facility] Hematocrit Auto (Bld) [Volum e fraction]Ordered By: Gatito Gottlieb on 04-14-2025 Hematocrit (Bld) [Volume fraction] 32.9 % Low 37-47 [facility] Hemoglobin measurementOrdere d By: Gatito Gottlieb on 04-14-2025 Hemoglobin (Bld) [Mass/Vol] 11.9 g/dL Low 12.0-15.0 [facility] Immature granulocytes/100 WB C Auto (Bld)Ordered By: Gatitoyojana Gottlieb on 04-14-2025 Immature granulocytes/100 WBC (Bld) 1.000 % High 0.0-0.9 [facility] Comment on above: IG% - Immature Granu locytes (promyelocytes, myelocytes and metamyelocytes) > 1% indicates that a LEFT SHIFT is Present. MCV (mean corpuscular volume ) determinationOrdered By: Gatito Gottlieb on 04-14-2025 MCV (RBC) [Entitic vol] 89.2 fL 81-99 [facility] Mean corpuscular hemoglobin (MCH) determinationOrdered By: Gatitoyojana Gottlieb on 04-14-2025 MCH (RBC) [Entitic mass] 32.2 pg High 27.0-32.0 [facility] Mean corpuscular hemoglobin concentration (MCHC) determinationOrdered By: Gatito Gottlieb on 04-14-2025 MCHC (RBC) [Mass/Vol] 36.2 g/dL High 32-36 [facility] Mean platelet volume determi nationOrdered By: Gatito Gottlieb on 04-14-2025 Platelet mean volume (Bld) [Entitic vol] 10.4 fL 6.2-12.0 [facility] Monocyte percentageOrdered B y: Gaitto Gottlieb on 04-14-2025 Monocytes/100 WBC (Bld) 4.6 % 0-10 [facility] Neutrophil percentageOrdered By: Gatitoyojana Gottlieb on 04-14-2025 Neutrophils/100 WBC (Bld) 85.4 % High 47-70 [facility] Nucleated red blood cell per centageOrdered By: Gatito Gottlieb on 04-14-2025 Nucleated RBC/100 WBC (Bld) [Ratio] 0 % 0-5 [facility] Platelet countOrdered By: Janel Gottlieb on 04-14-2025 Platelets (Bld) [#/Vol] 285 10*3/uL 150-450 [facility] RBC Auto (Bld) [#/Vol]Ordere d By: Gatito Gottlieb on 04-14-2025 RBC (Bld) [#/Vol] 3.69 10*6/uL Low 4.2-5.4 [facility] Serum human chorionic gonado tropin detection for pregnancyOrdered By: Gatito Gottlieb on 04-14-2025 HCG ( test) [place]l [address] mIU/mL High <9 [facility] Comment on above: Gestational Age0.2-1 Week: 5-50 mIU/mL1-2 Weeks: 50-500 mIU/mL2-3 Weeks: 100-5000 mIU/mL3-4 Weeks: 500-10,000 mIU/mL4-5 Weeks:1000-50,000 mIU/mL5-6 Weeks: 10,000-100,000 mIU/mL6-8 Weeks: 15,000-200,000 mIU/mL2-3 Months:10,000-100,000 mIU/mL White blood cell (WBC) count Ordered By: Gatito Gottlieb on 04-14-2025 WBC (Bld) [#/Vol] 23.9 10*3/uL High 4.4-11.0 [facility] CNOVon 12-29-2024 CNOV Office Visit (OBGYWM ) ANIYAH KAPADIA ([id number]) 2 F Date Time Provider Department 12/29/24 [...] Living0 SAB0 IAB0 Ectopic0 Multiple0 Live 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 #:[id number] Meds Comments as of 04/19/2012: Problem [...] as needed - Blood-Glucose Meter (PRECISION XTRA) [facility] (Discontinued) Use as directed Encounter Status:Closed by MAKENZIE ARANGO on 12/29/24 Normal [place] UA DIP,URINE HCG (POC)on Beta HCG ( test) Ql (U) Positive Abnormal Negative [facility] Comment on above: Location:[facility], [address], [place], [address] Interpretation and review of laboratory results Abnormal [facility] Marketing Sales Representative (POCT) Internal QC OK [facility] Location: Jennifer [facility], [address], [place], [address] [facility] POINT [facility] C[facility] UA DIP, URINE (POC)on 2022 BILIRUBIN UA (POCT) Small Abnormal Negative [facility] CLARITY UA (POCT) Clear [facility] COLOR UA (POCT) Rona [facility] GLUCOSE UA (POCT) Negative Negative mg/dL [facility] Hemoglobin Ql (U) Large Abnormal Negative [facility] KETONE UA (POCT) Trace Negative mg/dL [facility] LEUKOCYTES UA (POCT) Trace Abnormal Negative [facility] NITRITE UA (POCT) Negative Negative [facility] PH UA (POCT) 5.5 4.5 - 8.0 [facility] Protein Ql (U) >=300 Abnormal Negative mg/dL [facility] SPECIFIC GRAVITY UA (POCT) >=1.030 1.005 - 1.030 [facility] UROBILINOGEN UA (POCT) 1.0 E.U./dL Parul l E.U./dL [facility] UA DIP, URINE (POC)on 2022 BILIRUBIN UA (POCT) Negative Negative [facility] CLARITY UA (POCT) Clear [facility] COLOR UA (POCT) Yellow [facility] GLUCOSE UA (POCT) Negative Negative mg/dL [facility] HEMOGLOBIN/BLOOD UA (POCT) Moderate Abnormal Negative [facility] KETONE UA (POCT) Negative Negative mg/dL [facility] LEUKOCYTES UA (POCT) Trace Abnormal Negative [facility] NITRITE UA (POCT) Negative Negative [facility] PH UA (POCT) 5.5 4.5 - 8.0 [facility] Protein Ql (U) Trace Abnormal Negative mg/dL [facility] SPECIFIC GRAVITY UA (POCT) 1.020 1.005 - 1.030 [facility] UROBILINOGEN UA (POCT) 0.2 E.U./dL Parul l E.U./dL [facility] AFPon 11-16-2017 AFP <3.0 Normal <11 [facility] Comment on above: Result Comment: Resu lt rechecked. Performed By: #### C BCDIF, WSR, CK, CRP, IRON, URIC, CMP, FERR, VITD, AFP ####[place] [address] [address] [place] [phone]#### LIPB ####[place] [address] [address] [place] [address] C-Reactive Proteinon 018 C reactive protein (CRP) 0.1 mg/dL Normal <0.9 [facility] Comment on above: Performed By: #### C BCDIF, WSR, CK, CRP, IRON, URIC, CMP, FERR, VITD, AFP ####[address] [place] [phone]#### LIPB ####[place] [address] [address] [place] [address] CBC and Differentialon 11-16 Abs Baso 0.08 k/uL Normal <0.11 [facility] Comment on above: Performed By: #### C BCDIF, WSR, CK, CRP, IRON, URIC, CMP, FERR, VITD, AFP ####[place] [address] [address] [phone]#### LIPB ####[place] [address] [address] [place] [address] Abs Navarro 0.50 k/uL Normal <0.87 [facility] Comment on above: Performed By: #### C BCDIF, WSR, CK, CRP, IRON, URIC, CMP, FERR, VITD, AFP ####[place] [address] [address] [phone]#### LIPB ####[place] [phone] Abs Neut 5.27 k/uL Normal 1.45-7.50 [facility] Comment on above: Performed By: #### C BCDIF, WSR, CK, CRP, IRON, URIC, CMP, FERR, VITD, AFP ####[place] [phone]#### LIPB ####[place] [phone] Basophils/100 WBC Auto (Bld) 0.8 % Normal [facility] Comment on above: Performed By: #### C BCDIF, WSR, CK, CRP, IRON, URIC, CMP, FERR, VITD, AFP ####[place] [phone]#### LIPB ####[place] [phone] DTYPE Auto Diff Normal [facility] Comment on above: Performed By: #### C BCDIF, WSR, CK, CRP, IRON, URIC, CMP, FERR, VITD, AFP ####[place] [phone]#### LIPB ####[place] [phone] Eosinophils 0.25 10*3/uL Normal <0.46 [facility] Comment on above: Performed By: #### C BCDIF, WSR, CK, CRP, IRON, URIC, CMP, FERR, VITD, AFP ####[place] [address] [address] [phone]#### LIPB ####[place] [address] [address] [place] [phone] Eosinophils/100 leukocytes 2.6 % Normal [facility] Comment on above: Performed By: #### C BCDIF, WSR, CK, CRP, IRON, URIC, CMP, FERR, VITD, AFP ####[place] [phone]#### LIPB ####[address] [address] Erythrocyte distribution width Auto Ratio (RBC) 12.0 % Normal 11.5-15.0 [facility] Comment on above: Performed By: #### C BCDIF, WSR, CK, CRP, IRON, URIC, CMP, FERR, VITD, AFP ####[address] [place] [phone]#### LIPB ####[place] [address] [address] [place] [address] Erythrocytes (RBC) 0.1 /100 WBC High 0 [facility] Comment on above: Performed By: #### C BCDIF, WSR, CK, CRP, IRON, URIC, CMP, FERR, VITD, AFP ####[address] [place] [phone]#### LIPB ####[place] [address] [address] [place] [phone] Erythrocytes (RBC) 10 10*6/uL High <0.01 [facility] Comment on above: Performed By: #### C BCDIF, WSR, CK, CRP, IRON, URIC, CMP, FERR, VITD, AFP ####[address] [place] [address]#### LIPB ####[place] [address] Erythrocytes (RBC) 4.56 10*6/uL Normal 3.90-5.20 [facility] Comment on above: Performed By: #### C BCDIF, WSR, CK, CRP, IRON, URIC, CMP, FERR, VITD, AFP ####[place] [address]#### LIPB ####[place] [address] Hematocrit (HCT) 40.0 % Normal 36.0-46.0 [facility] Comment on above: Performed By: #### C BCDIF, WSR, CK, CRP, IRON, URIC, CMP, FERR, VITD, AFP ####[place] [address]#### LIPB ####[place] [address] Hemoglobin mass conc (Bld) 13.5 g/dL Normal 11.5-15.5 [facility] Comment on above: Performed By: #### C BCDIF, WSR, CK, CRP, IRON, URIC, CMP, FERR, VITD, AFP ####[address], [place] [phone]#### LIPB ####[place] [phone] Lymphocytes 3.66 10*3/uL Normal 1.00-4.00 [facility] Comment on above: Performed By: #### C BCDIF, WSR, CK, CRP, IRON, URIC, CMP, FERR, VITD, AFP ####[phone]#### LIPB ####[place] [phone] Lymphocytes/100 leukocytes 37.5 % Normal [facility] Comment on above: Performed By: #### C BCDIF, WSR, CK, CRP, IRON, URIC, CMP, FERR, VITD, AFP ####[place] [phone]#### LIPB ####[phone] MCH 29.6 pG Normal 26.0-34.0 [facility] Comment on above: Performed By: #### C BCDIF, WSR, CK, CRP, IRON, URIC, CMP, FERR, VITD, AFP ####[place] [phone]#### LIPB ####[place] [phone] [place] [phone] MCHC mass conc (RBC) 33.8 g/dL Normal 30.5-36.0 [facility] Comment on above: Performed By: #### C BCDIF, WSR, CK, CRP, IRON, URIC, CMP, FERR, VITD, AFP ####[place] [phone]#### LIPB ####[place] [phone] MCV 87.7 fL Normal 80.0-100.0 [facility] Comment on above: Performed By: #### C BCDIF, WSR, CK, CRP, IRON, URIC, CMP, FERR, VITD, AFP ####[place] [phone]#### LIPB ####[place] [phone] Monocytes/100 leukocytes 5.1 % Normal [facility] Comment on above: Performed By: #### C BCDIF, WSR, CK, CRP, IRON, URIC, CMP, FERR, VITD, AFP ####[place] [phone]#### LIPB ####[place] [phone] Neutrophils/100 WBC Auto (Bld) 54.0 % Normal [facility] Comment on above: Performed By: #### C BCDIF, WSR, CK, CRP, IRON, URIC, CMP, FERR, VITD, AFP ####[place] [phone]#### LIPB ####[place] [address] [phone] Platelet mean volume (PMV) 10.5 fL Normal 9.0-12.7 [facility] Comment on above: Performed By: #### C BCDIF, WSR, CK, CRP, IRON, URIC, CMP, FERR, VITD, AFP ####[place] [phone]#### LIPB ####[place] [phone] [phone] Platelets 335 10*3/uL Normal 150-400 [facility] Comment on above: Performed By: #### C BCDIF, WSR, CK, CRP, IRON, URIC, CMP, FERR, VITD, AFP ####[place] [phone]#### LIPB ####[place] [phone] [place], [place] [address] WBC (Leukocytes) 9.76 10*3/uL Normal 3.70-11.00 [facility] Comment on above: Performed By: #### C BCDIF, WSR, CK, CRP, IRON, URIC, CMP, FERR, VITD, AFP ####[place] [phone]#### LIPB ####[place] [address] [place], [place] [phone] CKon 11-16-2017 Creatine kinase (CK) 106 U/L Normal 42-196 [facility] Comment on above: Result Comment: Refe [...] CRP, IRON, URIC, CMP, FERR, VITD, AFP ####[place] [address] [address] [place] [phone]#### LIPB ####[place] [address] [phone] Comp Metabolic Panelon 11-16 Alanine aminotransferase (ALT) 12 U/L Normal 7-38 [facility] Comment on above: Result Comment: (NOT E)Reference ranges for this patient's age group have not beenestablished. These reference ranges reflect verified or establishedranges for the adult population. Interpret these ranges wtih cautionusing clinical context and additional reference resources. Performed By: #### C BCDIF, WSR, CK, CRP, IRON, URIC, CMP, FERR, VITD, AFP ####[address] [place] [phone]#### LIPB ####[place] [address] [address] [place] [phone] Albumin 4.9 g/dL High 3.2-4.5 [facility] Comment on above: Performed By: #### C BCDIF, WSR, CK, CRP, IRON, URIC, CMP, FERR, VITD, AFP ####[place] [address] [address] [place] [phone]#### LIPB ####[place] [address] [address] [place] [phone] Alkaline phosphatase (ALP) 86 U/L Normal 32-117 [facility] Comment on above: Result Comment: (NOT E)Note [...] phosphatase on the [employer] 747 analyzer. Clin Mwco2008;43:S198. Performed By: #### C BCDIF, WSR, CK, CRP, IRON, URIC, CMP, FERR, VITD, AFP ####[place] [phone]#### LIPB ####[address] [phone] [phone] Anion gap 12 mmol/L Normal 9-18 [facility] Comment on above: Result Comment: (NOT E)Reference ranges for this patient's age group have not beenestablished. These reference ranges reflect verified or establishedranges for the adult population. Interpret these ranges with cautionusing the clinical context and additional reference resources. Performed By: #### C BCDIF, WSR, CK, CRP, IRON, URIC, CMP, FERR, VITD, AFP ####[address] [phone]#### LIPB ####[address] [phone] [place], [place] [phone] [phone] Aspartate aminotransferase (AST) 21 U/L Normal 13-35 [facility] Comment on above: Result Comment: (NOT E)Reference ranges for this patient's age group have not beenestablished. These reference ranges reflect verified or establishedranges for the adult population. Interpret these ranges with cautionusing clinical context and additional reference resources. Performed By: #### C BCDIF, WSR, CK, CRP, IRON, URIC, CMP, FERR, VITD, AFP ####[place] [address] [address] AveCE[address] [phone]#### LIPB ####[place] [phone] [place] [address] [place] [address] [place] [phone] Bilirubin (total) 0.4 mg/dL Normal 0.2-1.3 [facility] Comment on above: Result Comment: (NOT E)Reference ranges for this patient's age group have not beenestablished. These reference ranges reflect verified or establishedranges for the adult population. Interpret these ranges with cautionusing the clinical context and additional reference resources. Performed By: #### C BCDIF, WSR, CK, CRP, IRON, URIC, CMP, FERR, VITD, AFP ####[place] [address] [address] [phone]#### LIPB ####[place] [phone] [place] [address] [address] [place] [phone] Calcium 9.5 mg/dL Normal 8.4-10.2 [facility] Comment on above: Performed By: #### C BCDIF, WSR, CK, CRP, IRON, URIC, CMP, FERR, VITD, AFP ####[place] [address] [address] [phone]#### LIPB ####[place] [address] [address] [place] [phone] Chloride 102 mmol/L Normal 97-105 [facility] Comment on above: Result Comment: (NOT E)Reference ranges for this patient's age group have not beenestablished. These reference ranges reflect verified or establishedranges for the adult population. Interpret these ranges with cautionusing the clinical context and additional reference resources. Performed By: #### C BCDIF, WSR, CK, CRP, IRON, URIC, CMP, FERR, VITD, AFP ####[place] [address] [address] [place] [phone]#### LIPB ####[place] [address] [address] [place] [phone] CO2 24 mmol/L Normal 22-30 [facility] Comment on above: Result Comment: (NOT E)Reference ranges for this patient's age group have not beenestablished. These reference ranges reflect verified or establishedranges for the adult population. Interpret these ranges with cautionusing the clinical context and additional reference resources. Performed By: #### C BCDIF, WSR, CK, CRP, IRON, URIC, CMP, FERR, VITD, AFP ####[place] [address] [address] [place] [phone]#### LIPB ####[place] [address] [address] [place] [phone] Creatinine 0.73 mg/dL Normal 0.58-0.96 [facility] Comment on above: Result Comment: Refe rence ranges for this patient's age group have not been established. These reference ranges reflect verified or established ranges for the adult population. Interpret these ranges with caution using the clinical context and additional reference resources. Performed By: #### C BCDIF, WSR, CK, CRP, IRON, URIC, CMP, FERR, VITD, AFP ####[place] [phone]#### LIPB ####[place] [phone] [place], [place] [phone] eGFR (non-black) 0.75 mL/min/{1.73_m2} Normal [facility] Comment on above: Result Comment: eGFR (Estimated [...] CRP, IRON, URIC, CMP, FERR, VITD, AFP ####[place] [phone]#### LIPB ####[place] [phone] [place] [address] [place] [phone] Glucose mass conc 78 mg/dL Normal 74-99 [facility] Comment on above: Result Comment: Refe rence ranges for this patient's age group have not been established. These reference ranges reflect verified or established ranges for the adult population. Interpret these ranges with caution using the clinical context and additional reference resources.The [place] Diabetes Association (ADA) provides guidance for cutoff [...] Standards of Medical Care in Diabetes 2016, [place] Diabetes Association. Diabetes Care. 2016.39(Suppl 1). Performed By: #### C BCDIF, WSR, CK, CRP, IRON, URIC, CMP, FERR, VITD, AFP ####[place] [address] [address] [place] [phone]#### LIPB ####[place] [address] [address] [place] [phone] Potassium molar conc 3.5 mmol/L Low 3.7-5.1 [facility] Comment on above: Result Comment: (NOT E)Reference ranges for this patient's age group have not beenestablished. These reference ranges reflect verified or establishedranges for the adult population. Interpret these ranges with cautionusing the clinical context and additional reference resources. Performed By: #### C BCDIF, WSR, CK, CRP, IRON, URIC, CMP, FERR, VITD, AFP ####[place] [address] [address] [place] [phone]#### LIPB ####[place] [address] [address] [place] [phone] Protein 8.2 g/dL High 6.3-8.0 [facility] Comment on above: Result Comment: (NOT E)Note [...] OWENS, Angus I, [place] M, et al. [facility] LaboratoryInitiative on Reference Interval Database(CALIPER): pediatricreference intervals for an integrated clinical chemistry andimmunoassay analyzer, Perez BAND LINING BANDER cx2164. Clin Yifvlpl2053;42:885-891. Performed By: #### C BCDIF, WSR, CK, CRP, IRON, URIC, CMP, FERR, VITD, AFP ####[place] [phone]#### LIPB ####[place] [address] [address] [phone] Sodium 138 mmol/L Normal 136-144 [facility] Comment on above: Result Comment: (NOT E)Reference ranges for this patient's age group have not beenestablished. These reference ranges reflect verified or establishedranges for the adult population. Interpret these ranges with cautionusing the clinical context and additional reference resources. Performed By: #### C BCDIF, WSR, CK, CRP, IRON, URIC, CMP, FERR, VITD, AFP ####[place] [address] [address] [place] [phone]#### LIPB ####[place] [address] [address] [address] [place] [phone] Urea nitrogen 10 mg/dL Normal 5-18 [facility] Comment on above: Performed By: #### C BCDIF, WSR, CK, CRP, IRON, URIC, CMP, FERR, VITD, AFP ####[place] [address] [place] [phone]#### LIPB ####[place] [phone] Ferritinon 11-16-2017 Ferritin 48.6 ng/mL Normal 14.7-205.1 [facility] Comment on above: Performed By: #### C BCDIF, WSR, CK, CRP, IRON, URIC, CMP, FERR, VITD, AFP ####[place] [phone]#### LIPB ####[place] [phone] Iron and TIBCon 11-16-2017 Iron 89 ug/dL Normal 41-186 [facility] Comment on above: Performed By: #### C BCDIF, WSR, CK, CRP, IRON, URIC, CMP, FERR, VITD, AFP ####[place] [phone]#### LIPB ####[place] [phone] TIBC 316 ug/dL Normal 232-386 [facility] Comment on above: Performed By: #### C BCDIF, WSR, CK, CRP, IRON, URIC, CMP, FERR, VITD, AFP ####[place] [phone]#### LIPB ####[place] [phone] Transferrin Saturatn 28 % Normal 15-57 [facility] Comment on above: Performed By: #### C BCDIF, WSR, CK, CRP, IRON, URIC, CMP, FERR, VITD, AFP ####[address]5[address]#### LIPB ####[address] [place], [place] [phone] Lipid Panel, [place] 018 Cholesterol 173 mg/dL High <170 [facility] Comment on above: Result Comment: <170 mg/dL, Acceptable 170-199 mg/dL, Borderline high>199 mg/dL, High Performed By: #### C BCDIF, WSR, CK, CRP, IRON, URIC, CMP, FERR, VITD, AFP ####[place] [address]#### LIPB ####[place] [address] Fasting Time Unknown Normal [facility] Comment on above: Performed By: #### C BCDIF, WSR, CK, CRP, IRON, URIC, CMP, FERR, VITD, AFP ####[place] [address]#### LIPB ####[place] [address] [address] [place] [address] HDL Cholesterol 40 mg/dL Low >45 [facility] Comment on above: Result Comment: >45 mg/dL, Acceptable 40-45 mg/dL, Borderline<40 mg/dL, Low Performed By: #### C BCDIF, WSR, CK, CRP, IRON, URIC, CMP, FERR, VITD, AFP ####[place] [address]53154[address]#### LIPB ####[place] [id number] LDL Cholesterol 99 mg/dL Normal <110 [facility] Comment on above: Result Comment: <110 mg/dL, Acceptable 110-129 mg/dL, Borderline high>129 mg/dL, High Performed By: #### C BCDIF, WSR, CK, CRP, IRON, URIC, CMP, FERR, VITD, AFP ####[place] [id number]#### LIPB ####[place] [id number] LDL:HDL Ratio 2.48 High <2.42 [facility] Comment on above: Result Comment: Refe daniel:1. Expert Panel on Integrated Guidelines for Cardiovascular Health and Risk Reduction in Children and Adolescents: National Heart, Lung and Blood [place]. Pediatrics. 2011: 128(Suppl 5):N241-841. Performed By: #### C BCDIF, WSR, CK, CRP, IRON, URIC, CMP, FERR, VITD, AFP ####[place] [id number]#### LIPB ####[place] [id number] [place], [place] [address] Non HDL Cholesterol 133 mg/dL High <120 [facility] Comment on above: Result Comment: <120 mg/dL, Acceptable 120-144 mg/dL, Borderline high>144 mg/dL, High Performed By: #### C BCDIF, WSR, CK, CRP, IRON, URIC, CMP, FERR, VITD, AFP ####[place] [id number]#### LIPB ####[place] [address] TC:HDL Ratio 4.33 High <3.76 [facility] Comment on above: Performed By: #### C BCDIF, WSR, CK, CRP, IRON, URIC, CMP, FERR, VITD, AFP ####[place] [id number]#### LIPB ####[place] [address] Triglyceride 169 mg/dL High <90 [facility] Comment on above: Result Comment: <90 mg/dL, Acceptable 90-129 mg/dL, Borderline high>129 mg/dL, High Performed By: #### C BCDIF, WSR, CK, CRP, IRON, URIC, CMP, FERR, VITD, AFP ####[address]#### LIPB ####[place] [address] VLDL Cholesterol 34 mg/dL High <18 [facility] Comment on above: Performed By: #### C BCDIF, WSR, CK, CRP, IRON, URIC, CMP, FERR, VITD, AFP ####[place] [id number]#### LIPB ####[place] [id number] Sed Rate Westergrenon 2017 Sed Rate Westergren 2 mm/hr Normal 0-20 [facility] Comment on above: Performed By: #### C BCDIF, WSR, CK, CRP, IRON, URIC, CMP, FERR, VITD, AFP ####[place] [id number]#### LIPB ####[place] [id number] Uric Acidon 11-16-2017 Urate 5.7 mg/dL Normal 2.5-6.6 [facility] Comment on above: Performed By: #### C BCDIF, WSR, CK, CRP, IRON, URIC, CMP, FERR, VITD, AFP ####[place] [id number]#### LIPB ####[place] [id number] Vitamin D 25 Hydroxyon 11-16 Vitamin D 25 Hydroxy 23.5 ng/mL Low 31.0-80.0 [facility] Comment on above: Result Comment: Clas sification of 25 [place] Vitamin D status:Insufficiency/Moderate Deficiency: < or = 30 ng/mLSufficiency/Optimal Levels: 31 to 80 ng/mLToxicity: > 100 ng/mLTest performed by chemiluminescent immunoassay. Performed By: #### C BCDIF, WSR, CK, CRP, IRON, URIC, CMP, FERR, VITD, AFP ####[place] [id number]#### LIPB ####[place] [id number] [id number] Vital Signs Date Time Vital Sign Value Performing Clinician Facility 04-14-2025 02:55-0400 Diastolic blood pressure 69 mm[Hg] Dr. Gatito Gottlieb MD Work Phone: 0(527)165-488052 [place] [address] 04-14-2025 02:55-0400 Systolic blood pressure 127 mm[Hg] Dr. Gatito Gottlieb MD Work Phone: 5(214)997-537352 [place] [address] 04-14-2025 02:53-0400 Body temperature 98.7 [degF] Dr. Gatito Gottlieb MD Work Phone: 8(368)356-446852 [place] [address] 04-14-2025 02:53-0400 Respiratory rate 14 /min Dr. Gatito Gottlieb MD Work Phone: 5(721)509-885152 [place] [address] 04-14-2025 01:41-0400 Body height 165.[address] Gatito Gottlieb MD Work Phone: 8(442)105-508552 [place] [address] 04-14-2025 01:41-0400 Body mass index (BMI) [Ratio] 20 kg/m2 Dr. Gatito Gottlieb MD Work Phone: 2(405)111-665552 [place] [address] 04-14-2025 01:41-0400 Body weight 54.[address] Gatito Gottlieb MD Work Phone: 2(841)216-381452 [place] [address] 04-14-2025 01:41-0400 Heart rate 97 /min Dr. Gatito Gottlieb MD Work Phone: 2(419)211-181852 [place] [address] 04-14-2025 01:41-0400 SaO2% (BldA) [Mass fraction] 100 % Dr. Gatito Gottlieb MD Work Phone: 5(537)909-244649 [address] 12-29-2024 14:43-0400 Body mass index (BMI) [Ratio] 19.28 kg/m2 Makenzie Tom CURRICULUM COORDINATOR.WEIGHTS AND MEASURES INSPECTOR Work Phone: [facility] 12-29-2024 14:43-0400 Body weight 51.35 kg Makenzie Akron CURRICULUM COORDINATOR.WEIGHTS AND MEASURES INSPECTOR Work Phone: [facility] 12-29-2024 14:43-0400 Diastolic blood pressure 60 mm[Hg] Makenzie Tom CURRICULUM COORDINATOR.WEIGHTS AND MEASURES INSPECTOR Work Phone: [facility] 12-29-2024 14:43-0400 Systolic blood pressure 110 mm[Hg] Makenzie Akron CURRICULUM COORDINATOR.WEIGHTS AND MEASURES INSPECTOR Work Phone: [facility] 06-10-2023 19:09-0400 Body temperature 98.4 [degF] Treasure Lamb APRN.WEIGHTS AND MEASURES INSPECTOR Work Phone: [facility] 06-10-2023 19:09-0400 Body weight 50.35 kg Treasure Lamb APRN.WEIGHTS AND MEASURES INSPECTOR Work Phone: [facility] 06-10-2023 19:09-0400 Diastolic blood pressure 74 mm[Hg] Treasure Lamb APRN.WEIGHTS AND MEASURES INSPECTOR Work Phone: [facility] 06-10-2023 19:09-0400 Heart rate 99 /min Treasure Lamb APRN.WEIGHTS AND MEASURES INSPECTOR Work Phone: [facility] 06-10-2023 19:09-0400 Respiratory rate 18 /min Treasure Lamb APRN.WEIGHTS AND MEASURES INSPECTOR Work Phone: [facility] 06-10-2023 19:09-0400 SaO2% (BldA) [Mass fraction] 98 % Treasure Lamb APRN.WEIGHTS AND MEASURES INSPECTOR Work Phone: [facility] 06-10-2023 19:09-0400 Systolic blood pressure 110 mm[Hg] Treasure Lamb APRN.WEIGHTS AND MEASURES INSPECTOR Work Phone: [facility] 04-19-2023 22:27-0400 Diastolic Blood Pressure Non-Invasive [address] YAHIR MATA MD [facility] 04-19-2023 22:27-0400 Heart rate 86 /min DR YAHIR MATA MD [facility] 04-19-2023 22:27-0400 Reason For Taking VItal Signs DR YAHIR MATA MD [facility] 04-19-2023 22:27-0400 Respiratory rate 16 /min DR YAHIR MATA MD [facility] 04-19-2023 22:27-0400 Systolic Blood Pressure Non-Invasive [address] YAHIR MATA MD [facility] 04-19-2023 21:15-0400 Body temperature 98.6 [degF] DR YAHIR MATA MD [facility] 04-19-2023 21:15-0400 Diastolic Blood Pressure Non-Invasive [address] YAHIR MATA MD [facility] 04-19-2023 21:15-0400 Heart rate 113 /min DR YAHIR MATA MD [facility] 04-19-2023 21:15-0400 Respiratory rate 16 /min DR YAHIR MATA MD [facility] 04-19-2023 21:15-0400 Systolic Blood Pressure Non-Invasive [address] YAHIR MATA MD [facility] 11-11-2022 13:04-0500 Body temperature 98.71 [degF] Adore Praisler-Wood CURRICULUM COORDINATOR.WEIGHTS AND MEASURES INSPECTOR Work Phone: [facility] 11-11-2022 13:04-0500 Body weight 53.43 kg Adore Praisler-Wood CURRICULUM COORDINATOR.WEIGHTS AND MEASURES INSPECTOR Work Phone: [facility] 11-11-2022 13:04-0500 Diastolic blood pressure 82 mm[Hg] Adore Praisler-Wood CURRICULUM COORDINATOR.WEIGHTS AND MEASURES INSPECTOR Work Phone: [facility] 11-11-2022 13:04-0500 Heart rate 98 /min Adore Praisler-Wood CURRICULUM COORDINATOR.WEIGHTS AND MEASURES INSPECTOR Work Phone: [facility] 11-11-2022 13:04-0500 Respiratory rate 18 /min Adore Praisler-Wood CURRICULUM COORDINATOR.WEIGHTS AND MEASURES INSPECTOR Work Phone: [facility] 11-11-2022 13:04-0500 SaO2% (BldA) [Mass fraction] 99 % Adore Praisler-Wood CURRICULUM COORDINATOR.WEIGHTS AND MEASURES INSPECTOR Work Phone: [facility] 11-11-2022 13:04-0500 Systolic blood pressure 128 mm[Hg] Adore Praisler-Wood CURRICULUM COORDINATOR.WEIGHTS AND MEASURES INSPECTOR Work Phone: [facility] 07-13-2022 13:28-0400 Body height 163.2 cm Makenzie Akron CURRICULUM COORDINATOR.WEIGHTS AND MEASURES INSPECTOR Work Phone: [facility] 07-13-2022 13:28-0400 Body weight 54.43 kg Makenzie Tom CURRICULUM COORDINATOR.WEIGHTS AND MEASURES INSPECTOR Work Phone: [facility] 07-13-2022 13:28-0400 Diastolic blood pressure 70 mm[Hg] Makenzie Tom CURRICULUM COORDINATOR.WEIGHTS AND MEASURES INSPECTOR Work Phone: [facility] 07-13-2022 13:28-0400 Heart rate 114 /min Makenzie Tom CURRICULUM COORDINATOR.WEIGHTS AND MEASURES INSPECTOR Work Phone: [facility] 07-13-2022 13:28-0400 Respiratory rate 14 /min Makenzie Akron CURRICULUM COORDINATOR.WEIGHTS AND MEASURES INSPECTOR Work Phone: [facility] 07-13-2022 13:28-0400 SaO2% (BldA) [Mass fraction] 100 % Makenzie Akron CURRICULUM COORDINATOR.WEIGHTS AND MEASURES INSPECTOR Work Phone: [facility] 07-13-2022 13:28-0400 Systolic blood pressure 130 mm[Hg] Makenzie Akron CURRICULUM COORDINATOR.WEIGHTS AND MEASURES INSPECTOR Work Phone: [facility] 07-10-2022 17:23-0400 Body temperature 99.1 [degF] Dina Ke CURRICULUM COORDINATOR.WEIGHTS AND MEASURES INSPECTOR Work Phone: [facility] 07-10-2022 17:23-0400 Body weight 55.16 kg Dina Ke CURRICULUM COORDINATOR.WEIGHTS AND MEASURES INSPECTOR Work Phone: [facility] 07-10-2022 17:23-0400 Diastolic blood pressure 82 mm[Hg] Dina Ke CURRICULUM COORDINATOR.WEIGHTS AND MEASURES INSPECTOR Work Phone: [facility] 07-10-2022 17:23-0400 Heart rate 136 /min Dina Ke CURRICULUM COORDINATOR.WEIGHTS AND MEASURES INSPECTOR Work Phone: [facility] 07-10-2022 17:23-0400 Respiratory rate 18 /min Dina Ke CURRICULUM COORDINATOR.WEIGHTS AND MEASURES INSPECTOR Work Phone: [facility] 07-10-2022 17:23-0400 SaO2% (BldA) [Mass fraction] 100 % Dina Ke CURRICULUM COORDINATOR.WEIGHTS AND MEASURES INSPECTOR Work Phone: [facility] 07-10-2022 17:23-0400 Systolic blood pressure 128 mm[Hg] Dina Ke CURRICULUM COORDINATOR.WEIGHTS AND MEASURES INSPECTOR Work Phone: [facility] 05-16-2022 22:22-0400 Diastolic blood pressure 72 mm[Hg] DR BRET MARCUM MD [facility] 05-16-2022 22:22-0400 Heart rate 72 /min DR BRET MARCUM MD [facility] 05-16-2022 22:22-0400 Respiratory rate 16 /min DR BRET MARCUM MD [facility] 05-16-2022 22:22-0400 Systolic blood pressure 122 mm[Hg] DR BRET MARCUM MD [facility] 05-16-2022 21:46-0400 Heart rate 74 /min DR BRET MARCUM MD [facility] 05-16-2022 21:46-0400 Respiratory rate 16 /min DR BRET MARCUM MD [facility] 05-16-2022 21:06-0400 Body temperature 98.96 [degF] DR BRET MARCUM MD [facility] 05-16-2022 21:06-0400 Diastolic blood pressure 82 mm[Hg] DR BRET MARCUM MD [facility] 05-16-2022 21:06-0400 Heart rate 75 /min DR BRET MARCUM MD [facility] 05-16-2022 21:06-0400 Mean blood pressure 103 mm[Hg] DR BRET MARCUM MD [facility] 05-16-2022 21:06-0400 Respiratory rate 18 /min DR BRET MARCUM MD [facility] 05-16-2022 21:06-0400 Systolic blood pressure 146 mm[Hg] DR BRET MARCUM MD [facility] 04-10-2022 17:04-0400 Diastolic blood pressure 70 mm[Hg] DR SCOT LEIVA DO [facility] 04-10-2022 17:04-0400 Heart rate 99 /min DR SCOT LEIVA DO [facility] 04-10-2022 17:04-0400 Respiratory rate 16 /min DR SCOT LEIVA DO [facility] 04-10-2022 17:04-0400 Systolic blood pressure 105 mm[Hg] DR SCOT LEIVA DO [facility] 04-10-2022 16:01-0400 Body temperature 98.96 [degF] DR SCOT LEIVA DO [facility] 04-10-2022 16:01-0400 Body weight 53.[address] SCOT LEIVA DO [facility] 04-10-2022 16:01-0400 Diastolic blood pressure 75 mm[Hg] DR SCOT LEIVA DO [facility] 04-10-2022 16:01-0400 Heart rate 108 /min DR SCOT LEIVA DO [facility] 04-10-2022 16:01-0400 Mean blood pressure 84 mm[Hg] DR SCOT LEIVA DO [facility] 04-10-2022 16:01-0400 Respiratory rate 16 /min DR SCOT LEIVA DO [facility] 04-10-2022 16:01-0400 Systolic blood pressure 103 mm[Hg] DR SCOT LEIVA DO [facility] 04-10-2022 14:30-0400 Body temperature 98.1 [degF] Treasure Lamb APRN.WEIGHTS AND MEASURES INSPECTOR Work Phone: [facility] 04-10-2022 14:30-0400 Body weight 53.43 kg Treasure Lamb APRN.WEIGHTS AND MEASURES INSPECTOR Work Phone: [facility] 04-10-2022 14:30-0400 Diastolic blood pressure 80 mm[Hg] Treasure Lamb APRN.WEIGHTS AND MEASURES INSPECTOR Work Phone: [facility] 04-10-2022 14:30-0400 Heart rate 123 /min Treasure Lamb APRN.WEIGHTS AND MEASURES INSPECTOR Work Phone: [facility] 04-10-2022 14:30-0400 Respiratory rate 20 /min Treasure Lamb APRN.WEIGHTS AND MEASURES INSPECTOR Work Phone: [facility] 04-10-2022 14:30-0400 SaO2% (BldA) [Mass fraction] 100 % Treasure Lamb APRN.WEIGHTS AND MEASURES INSPECTOR Work Phone: [facility] 04-10-2022 14:30-0400 Systolic blood pressure 110 mm[Hg] Treasure Lamb APRN.WEIGHTS AND MEASURES INSPECTOR Work Phone: [facility] 03-17-2022 16:22-0400 Body temperature 98.91 [degF] Mo Starkey CURRICULUM COORDINATOR.WEIGHTS AND MEASURES INSPECTOR Work Phone: [facility] 03-17-2022 16:22-0400 Body weight 53.8 kg Mo Starkey CURRICULUM COORDINATOR.WEIGHTS AND MEASURES INSPECTOR Work Phone: [facility] 03-17-2022 16:22-0400 Diastolic blood pressure 82 mm[Hg] Mo Starkey CURRICULUM COORDINATOR.WEIGHTS AND MEASURES INSPECTOR Work Phone: [facility] 03-17-2022 16:22-0400 Heart rate 111 /min Mo Starkey CURRICULUM COORDINATOR.WEIGHTS AND MEASURES INSPECTOR Work Phone: [facility] 03-17-2022 16:22-0400 Respiratory rate 20 /min Mo Starkey CURRICULUM COORDINATOR.WEIGHTS AND MEASURES INSPECTOR Work Phone: [facility] 03-17-2022 16:22-0400 SaO2% (BldA) [Mass fraction] 100 % Mo Starkey CURRICULUM COORDINATOR.WEIGHTS AND MEASURES INSPECTOR Work Phone: [facility] 03-17-2022 16:22-0400 Systolic blood pressure 126 mm[Hg] Mo Starkey CURRICULUM COORDINATOR.WEIGHTS AND MEASURES INSPECTOR Work Phone: [facility] Encounters Encounter Date Encounter Type Care Provider Facility Start: 04-14-2025 Evaluation and manag ement of inpatient Dr. Izzy Leo DO -[facility] Work Phone: Start: 04-14-[address] Gatito Gottlieb MD Work Phone: [facility] Start: 12-29-2024 End: 12-29-2024 Patient encounter procedure Makenzie Akron CURRICULUM COORDINATOR.WEIGHTS AND MEASURES INSPECTOR Work Phone: OB/Gynecology Comment on above: Missed menses (Prima ry Dx) Start: 12-29-2024 End: 12-29-2024 ambulatory MAKENZIE TOM Facility:[facility] Start: 08-07-2023 End: 08-07-2023 ambulatory Antonia CRUZ [facility] Start: 06-12-2023 Telephone encounter Kendall Bowden MD Work Phone: [facility] Comment on above: Results (Urine Cx mi xed.) Start: 06-10-2023 End: 06-10-2023 Patient encounter procedure Treasure Lamb CURRICULUM COORDINATOR.WEIGHTS AND MEASURES INSPECTOR Work Phone: [facility] Comment on above: Urinary frequency (P rimary Dx); Recurrent UTI (urinary tract infection) Start: 04-19-2023 End: 04-20-2023 Emergency department patient visit DR YAHIR MATA MD Facility:[facility] Start: 04-19-2023 End: 04-19-2023 Emergency department patient visit DR YAHIR MATA MD [facility] Start: 11-13-2022 Telephone encounter Hollie Mehran vasquez CURRICULUM COORDINATOR.WEIGHTS AND MEASURES INSPECTOR Work Phone: [facility] Comment on above: Results Start: 11-11-2022 End: 11-11-2022 Patient encounter procedure Adore Granado CURRICULUM COORDINATOR.WEIGHTS AND MEASURES INSPECTOR Work Phone: [facility] Comment on above: Acute UTI (Primary D x); Urinary frequency Start: 07-13-2022 End: 07-13-2022 Patient encounter procedure Makenzie Arango CURRICULUM COORDINATOR.WEIGHTS AND MEASURES INSPECTOR Work Phone: OB/Gynecology Comment on above: Encounter for gyneco logical examination (general) (routine) without abnormal findings (Primary Dx); Encounter for contraceptive management, unspecified type Start: 07-10-2022 End: 07-10-2022 Patient encounter procedure Dina Dempsey CURRICULUM COORDINATOR.WEIGHTS AND MEASURES INSPECTOR Work Phone: [facility] Comment on above: Mass of upper outer quadrant of left breast (Primary Dx) Start: 05-16-2022 End: 05-17-2022 Emergency department patient visit DR BRET MARCUM MD Facility:[facility] Start: 05-16-2022 End: 05-16-2022 Emergency department patient visit DR BRET MARCUM MD [facility] Start: 04-10-2022 End: 04-10-2022 Emergency department patient visit DR SCOT LEIVA DO [facility] Start: 04-10-2022 End: 04-10-2022 Patient encounter procedure Treasure James MACEY.WEIGHTS AND MEASURES INSPECTOR Work Phone: [facility] Comment on above: Headache, unspecifie d headache type (Primary Dx); Vomiting, unspecified vomiting type, unspecified whether nausea present Start: 03-17-2022 End: 03-17-2022 Patient encounter procedure Mo King MACEY.WEIGHTS AND MEASURES INSPECTOR Work Phone: [facility] Comment on above: Migraine unspecified (Primary Dx) Start: 11-16-2017 Ambulatory MEAGHAN (WEIGHTS AND MEASURES INSPECTOR ) [facility] Procedures Date Procedure Procedure Detail Performing Clinician Start: 12-29-2024 UA DIP,URINE HCG (POC) Makenzie Arango APRN.WEIGHTS AND MEASURES INSPECTOR Work Phone: Start: 06-10-2023 Urnls dip stick/tabl et rgnt auto w/o microscopy Adore Granado APRN.WEIGHTS AND MEASURES INSPECTOR Work Phone: Start: 11-11-2022 Urnls dip stick/tabl et rgnt auto w/o microscopy Shanna Willams PA-C Work Phone: Start: 06-28-2019 Adult depression screening assessment Mo Starkey APRN.WEIGHTS AND MEASURES INSPECTOR Work Phone: None (qualifier value) DR RADHA LEIVA DO Plan of Treatment Date Care Activity Detail Author Start: 04-14-2025 Vital signs measurements [facility] Start: 04-14-2025 Vital signs measurements [facility] Start: 04-14-2025 Vital signs measurements [facility] Start: 04-14-2025 Vital signs measurements [facility] Start: 04-14-2025 Vital signs measurements [facility] Start: 04-14-2025 Vital signs measurements [facility] Start: 04-14-2025 Vital signs measurements [facility] Start: 04-14-2025 Vital signs measurements [facility] Start: 04-14-2025 Vital signs measurements [facility] Start: 04-14-2025 Vital signs measurements [facility] Start: 04-14-2025 Admission procedure [facility] Start: 04-14-2025 Assessment of risk o f venous thromboembolism [facility] Start: 04-14-2025 Medication education [facility] Start: 04-14-2025 Application of intermittent pneumatic compression device [facility] Start: 04-14-2025 Bedrest with bathroo m privileges [facility] Start: 04-14-2025 Verification routine [facility] Start: 04-14-2025 Hospital admission, emergency, from emergency room, medical nature [facility] Start: 04-14-2025 Consultation [facility] Start: 06-29-2024 Urine microalbumin profile [facility] Start: 06-11-2024 Covid-19 Vaccine ( season) Covid-19 Vaccine () [facility] Start: 06-11-2024 Influenza vaccination Influenza Vacc ine (#1) [facility] Start: 06-11-2023 Influenza vaccination INFLUENZA (#1) [facility] Start: 2022 PAP TESTING PAP TESTING [facility] Start: 2022 Screening for malign ant neoplasm of cervix Cervical Cancer Screening [facility] Start: 10-11-2022 DEPRESSION ASSESSMENT DEPRESSION ASS ESSMENT [facility] Start: 06-11-2022 Influenza vaccination C [facility] Start: 04-10-2022 End: 04-24-2022 Influenza virus A and B RNA and SARS-CoV-2 (COVID-19) N gene panel - Respiratory specimen by KVNG with probe detection [facility] Work Phone: Comment on above: Expected: 04/10/2022 , Expires: 04/24/2022 Start: 01-05-2022 COVID-19 VACCINE (4 - Booster for Moderna series) COVID-19 VACCINE (4 - Booster for Moderna series) [facility] Start: 01-05-2022 COVID-19 VACCINE (4 - Moderna series) COVID-19 VACCINE (4 - Moderna series) [facility] Start: 10-11-2021 DEPRESSION ASSESSMENT DEPRESSION ASS ESSMENT [facility] Start: 06-28-2020 Adult depression screening assessment DEPRESSION SCREENING [facility] Start: 2019 Anxiety Screening Anxiety Screening [facility] Start: 2019 CHLAMYDIA SCREENING (18-24) CHLAMYDIA SCREENING (1824) [facility] Start: 2019 Depression Screening Depression Scre ening [facility] Start: 2019 GC (GONORRHEA) SCREE ROMERO (1824) GC (GONORRHEA) SCREENING (18-24) [facility] Start: 2019 HEPATITIS C SCREENING HEPATITIS C SC [facility] Start: 2019 Hepatitis C screening Hepatitis C [facility] Start: 2019 HIV SCREENING HIV SCREENING [facility] Start: 2019 HIV screening HIV Screening [facility] Start: 2019 Screening for Chlamy mervin trachomatis Chlamydia Screening () [facility] Start: 2017 Meningococcal B Vacc ine (1 of 2 - Standard) Meningococcal B Vaccine (1 of 2 - Standard) [facility] Start: 2017 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 B: Con boilermaker assembly and erection based on risk (1 of 2 - Patient Seeks Protection) 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 B: Consider based on risk (1 of 2 - Patient Seeks Protection) [facility] Start: 2015 PEDS TO ADULT TRANSI TION ANNUAL ASSESSMENT PEDS TO ADULT TRANSITION ANNUAL ASSESSMENT [facility] Start: 2013 PEDS TO ADULT TRANSI TION INITIAL DISCUSSION PEDS TO ADULT TRANSITION INITIAL DISCUSSION [facility] Start: 2011 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 B: Con boilermaker assembly and erection based on risk (1 of 2 - Risk Bexsero 2-dose series) 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 B: Consider based on risk (1 of 2 - Risk Bexsero 2-dose series) [facility] Bacteria identified in Urine by Culture URINE CULTURE Microbiology Routine Urinary frequency Ordered: 11/11/2022 [facility] Work Phone: Comment on above: Ordered: 11/11/2022 Bacteria identified in Urine by Culture URINE CULTURE Microbiology Routine Urinary frequency 06/10/2023 7:44 PM EDT [facility] Work Phone: End: 08-09-2023 Us breast uni real time with image limited US BREAST LTD LT Radiology STAT Mass of upper outer quadrant of left breast 1 Occurrences starting 07/10/2022 until 08/09/2023 [facility] Work Phone: Comment on above: 1 Occurrences starti ng 07/10/2022 until 08/09/2023 [facility] Immunizations Immunization Date Immunization Notes Care Provider Destiny cevallos 06-28-2019 influenza, injectabl e, quadrivalent, contains preservative Mo Lalito CURRICULUM COORDINATOR.WEIGHTS AND MEASURES INSPECTOR Work Phone: [facility] 06-28-2019 influenza virus vacc ine, unspecified formulation Makenzie Tom CURRICULUM COORDINATOR.WEIGHTS AND MEASURES INSPECTOR Work Phone: [facility] 10-26-2017 Human Papillomavirus 9-valent vaccine Mo Lalito CURRICULUM COORDINATOR.WEIGHTS AND MEASURES INSPECTOR Work Phone: [facility] 10-26-2017 influenza, injectabl e, quadrivalent, contains preservative Mo Lalito CURRICULUM COORDINATOR.WEIGHTS AND MEASURES INSPECTOR Work Phone: [facility] 10-26-2017 meningococcal polysaccharide (groups A, C, Y and W-135) diphtheria toxoid conjugate vaccine (MCV4P) Mo Lalito CURRICULUM COORDINATOR.WEIGHTS AND MEASURES INSPECTOR Work Phone: [facility] 07-13-2014 influenza, live, intranasal, quadrivalent Mo Lalito CURRICULUM COORDINATOR.WEIGHTS AND MEASURES INSPECTOR Work Phone: [facility] 06-29-2014 human papilloma viru s vaccine, quadrivalent Mo Lalito CURRICULUM COORDINATOR.WEIGHTS AND MEASURES INSPECTOR Work Phone: [facility] Work Phone: 06-29-2014 meningococcal polysaccharide (groups A, C, Y and W-135) diphtheria toxoid conjugate vaccine (MCV4P) Mo Starkey CURRICULUM COORDINATOR.WEIGHTS AND MEASURES INSPECTOR Work Phone: [facility] Work Phone: 06-29-2014 tetanus toxoid, redu leona diphtheria toxoid, and acellular pertussis vaccine, adsorbed Mo Lalito CURRICULUM COORDINATOR.WEIGHTS AND MEASURES INSPECTOR Work Phone: [facility] Work Phone: 07-13-2009 influenza virus vacc ine, unspecified formulation Mo Lalito CURRICULUM COORDINATOR.[facility] Work Phone: [facility] Work Phone: 06-09-2007 diphtheria, tetanus toxoids and acellular pertussis vaccine Mo Starkey APRN.WEIGHTS AND MEASURES INSPECTOR Work Phone: [facility] Work Phone: 06-09-2007 measles, mumps and rubella virus vaccine Mo King ISAIN.[facility] Work Phone: [facility] Work Phone: 06-09-2007 pneumococcal conjuga te vaccine, 7 valent Mo Starkey APRN.[facility] Work Phone: [facility] Work Phone: 06-09-2007 poliovirus vaccine, inactivated Mo Starkey APRN.[facility] Work Phone: [facility] Work Phone: 06-09-2007 varicella virus vaccine River monisha King MACEY.[facility] Work Phone: [facility] Work Phone: 04-17-2004 diphtheria, tetanus toxoids and acellular pertussis vaccine Mo King ISAIN.[facility] Work Phone: [facility] Work Phone: 04-17-2004 haemophilus influenz ae type b vaccine, HbOC conjugate Mo Starkey APRN.[facility] Work Phone: [facility] Work Phone: 04-17-2004 hepatitis B vaccine, pediatric or pediatric/adolescent dosage Mo Starkey APRN.WEIGHTS AND MEASURES INSPECTOR Work Phone: [facility] Work Phone: 04-17-2004 varicella virus vaccine Riverthomas bearden King MACEY.[facility] Work Phone: [facility] Work Phone: 11-01-2002 measles, mumps and rubella virus vaccine Mo King ISAIN.[facility] Work Phone: [facility] Work Phone: 11-01-2002 pneumococcal conjuga te vaccine, 7 valent Mo Lalito CURRICULUM COORDINATOR.[facility] Work Phone: [facility] Work Phone: 11-01-2002 poliovirus vaccine, inactivated Om Lalito CURRICULUM COORDINATOR.WEIGHTS AND MEASURES INSPECTOR Work Phone: [facility] Work Phone: 04-21-2002 diphtheria, tetanus toxoids and acellular pertussis vaccine Mo Lalito CURRICULUM COORDINATOR.WEIGHTS AND MEASURES INSPECTOR Work Phone: [facility] Work Phone: 04-21-2002 haemophilus influenz ae type b vaccine, HbOC conjugate Mo Starkey CURRICULUM COORDINATOR.[facility] Work Phone: [facility] Work Phone: 04-21-2002 pneumococcal conjuga te vaccine, 7 valent Mo Lalito CURRICULUM COORDINATOR.[facility] Work Phone: [facility] Work Phone: 02-13-2002 diphtheria, tetanus toxoids and acellular pertussis vaccine Mo Lalito CURRICULUM COORDINATOR.WEIGHTS AND MEASURES INSPECTOR Work Phone: [facility] Work Phone: 02-13-2002 haemophilus influenz ae type b vaccine, HbOC conjugate Mo Starkey CURRICULUM COORDINATOR.WEIGHTS AND MEASURES INSPECTOR Work Phone: [facility] Work Phone: 02-13-2002 pneumococcal conjuga te vaccine, 7 valent Mo Lalito CURRICULUM COORDINATOR.WEIGHTS AND MEASURES INSPECTOR Work Phone: [facility] Work Phone: 02-13-2002 poliovirus vaccine, inactivated Mo Starkey CURRICULUM COORDINATOR.WEIGHTS AND MEASURES INSPECTOR Work Phone: [facility] Work Phone: 2001 diphtheria, tetanus toxoids and acellular pertussis vaccine Mo Lalito CURRICULUM COORDINATOR.WEIGHTS AND MEASURES INSPECTOR Work Phone: [facility] Work Phone: 2001 haemophilus influenz ae type b vaccine, HbOC conjugate Mo Lalito CURRICULUM COORDINATOR.WEIGHTS AND MEASURES INSPECTOR Work Phone: [facility] Work Phone: 2001 hepatitis B vaccine, pediatric or pediatric/adolescent dosage Mo Starkey CURRICULUM COORDINATOR.WEIGHTS AND MEASURES INSPECTOR Work Phone: [facility] Work Phone: 2001 pneumococcal conjuga te vaccine, 7 valent Mo Starkey CURRICULUM COORDINATOR.WEIGHTS AND MEASURES INSPECTOR Work Phone: [facility] Work Phone: 2001 poliovirus vaccine, inactivated Mo Starkey CURRICULUM COORDINATOR.WEIGHTS AND MEASURES INSPECTOR Work Phone: [facility] Work Phone: 2001 hepatitis B vaccine, pediatric or pediatric/adolescent dosage Mo Starkey CURRICULUM COORDINATOR.WEIGHTS AND MEASURES INSPECTOR Work Phone: [facility] Work Phone: Payers Date Payer Category Payer [place] [facility] BLUE CARD PPO OOS [id number] 2024 Unknown [id number] 2023 Self-pay 2023 Private Health Insurance [id number] 2022 Private Health Insurance [id number] 2017 Medicaid [facility] MEDICA[facility] [employer] MEDICAID [id number] 2017-Present [phone] [address] [place] [address] Medicaid [id number] 2017 Medicaid [id number] 2001 Unknown [id number] 2001 Unknown [id number] Unknown [id number] Unknown [id number] Social History Date Type Detail Facility Start: 09-13-2020 End: 04-14-2025 Tobacco smoking status NHIS Never smoked tobacco [facility] Start: 03-17-2022 End: 07-10-2022 Alcohol intake Lifetime non-drinker (finding) [facility] Start: 06-28-2019 History SDOH Alcohol Frequency 1 [facility] Start: 08-10-2013 End: 07-10-2022 Tobacco Comment mom and dad smoke - outside [facility] Start: 2001 Sex Assigned At Not on file [facility] Start: 03-31-2022 End: 07-13-2022 Exposure to SARS-CoV-2 (event) Not sure [facility] Work Phone: Sex Assigned At Sex [facility] History of tobacco use Passive smoker [facility] Start: 07-10-2022 Tobacco use and exposure Smokeless tobacco non-user [facility] Start: 07-13-2022 End: 06-10-2023 Alcohol intake Current drinker of alcohol (finding) [facility] Start: 07-13-2022 History SDOH Alcohol Comment Occasionally [facility] Start: 06-28-2019 End: 12-29-2024 History of Social function [facility] Start: 06-28-2019 End: 12-29-2024 Alcohol Use Disorder Identification Test - Consumption [AUDIT-C] [facility] How often to you hav e a drink containing alcohol? Never [facility] Average Number of Drinks Not on file [facility] Start: 05-16-2019 Lives Lives [facility] Start: 2001 Sex Assigned At Female [facility] Medical Equipment Procedure Code Equipment Code Equipment Origin al Text Equipment Identifier Dates [id number], [id number], [id number] Start: 12-01-2017 End: 12-29-2024 Comment on above: [...] Locked, Visitor at bedside, Safety level maintained [facility] 04-19-2023 Functional Status [facility] 05-16-2022 Functional Status Independent [facility] 05-16-2022 Functional Status Standard Safet y ID band on, Allergy Band on, Call device within reach, Bed in low position, Wheels locked, Upper/Half-Length side-rails up, Phone within reach, personal items within reach, Safety level maintained [facility] 04-10-2022 Functional Status Independent [facility] 04-10-2022 Functional Status Standard Safet y ID band on, Allergy Band on, Call device within reach, Bed in low position, Wheels locked, Upper/Half-Length side-rails up, Phone within reach, personal items within reach, Visitor at bedside [facility] 05-16-2015 Are you deaf, or do you have serious difficulty hearing No 05/16/2015 11:30 AM Elaine Johnson Ma [facility] 05-16-2015 Are you blind, or do you have serious difficulty seeing, even when wearing glasses No 05/16/2015 11:30 AM Elaine Johnson Ma [facility] 05-16-2015 Do you have serious difficulty walking or climbing stairs No 05/16/2015 11:30 AM Elaine Johnson Ma [facility] 05-16-2015 Do you have difficul ty dressing or bathing No 05/16/2015 11:30 AM Elaine Johnson Ma [facility] Mental Status Date Assessment Result Facility 04-19-2023 Mental Status Oriented x 4 [facility] 04-19-2023 Mental Status [facility] 05-16-2022 Mental Status Orientation Oriented x 4 [facility] 05-16-2022 Mental Status [facility] 04-10-2022 Mental Status Orientation Oriented x 4 [facility] 04-10-2022 Mental Status [facility] 05-16-2015 Because of a physica l, mental, or emotional condition, do you have serious difficulty concentrating, remembering, or making decisions No 05/16/2015 11:30 AM EDT Elaine Sanchez Ma [facility] Clinical Notes 03-17-2022 to 04-14-2025 Makenzie Arango APRN.CNP - 12/29/2024 2:34 PM EDTTelephone Encounter - Lisa Lopez MA - 06/13/2023 2:42 PM EDTTelephone Encounter - María Elena Valdez LPN - 06/12/2023 8:50 AM EDT Note Date & Type Note Facility 04-14-2025 Discharge summary [facility] 12-29-2024 Note HNO ID: [id number] Author: MAKENZIE ARANGO APRN.CNP Service: ? Author Type: Nurse Practitioner Type: Progress Notes Filed: 12/29/2024 14:55 Note Text: Aniyah Kapadia is a 24 year old female who presents for problem visit missed menses, LMP 11/15/2024, reported HPT 12/28/2024. 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 Aniyah Kapadia is a 24 year old female who presents for problem visit missed menses, LMP 11/15/2024, reported HPT 12/28/2024. 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 documented in this encounter [facility] 06-10-2023 History of Present illness Narrative [...] Uses as needed) Blood-Glucose Meter (PRECISION XTRA) [facility] Use as directed FREESTYLE LITE METER monitoring [...] Patient agreeable to treatment plan. Treasure Lamb APRN.WEIGHTS AND MEASURES INSPECTOR documented in this encounter [facility] 04-20-2023 Hospital Discharge instructions Patient Education [...] of your face Difficulty talking or seeing [phone] [employer]. [address] [place] [address]. All rights reserved. This information is not intended as a substitute for professional medical care. Always follow your healthcare professional's instructions. Follow Up Care 04/19/2023 21:13:08 With:Call Physician Referral Address:Unknown When:2-4 days [facility] 04-19-2023 Emergency department Discharge summary Discharge Instructions Thank you for allowing [place] to assist you with your healthcare needs. [...] of your face Difficulty talking or seeing [phone] [employer]. [address] [place] [address], [place] [address]. All rights reserved. This information is not intended as a substitute for professional medical care. Always follow your healthcare professional's instructions. Additional Information VACCINATE! IT SAVES LIVES! Members of the community who have not yet received the COVID-19 vaccine and would like to receive it can visit one of [facility] vaccine clinics. There are many vaccine clinic locations within the [facility]. For locations and available times, please visit www.[email or web address]/. It is important to note that some COVID mobile vaccine clinics are held outdoors and may be canceled in rainy or stormy conditions. To learn more about pediatric vaccinations (ages 5-11), we invite you to visit the [facility] webpage. https://www.[facility].org/pages/tl-Xzoovdqbsil-Kxppxcicyc-Asked-Questions.htm l To learn more about the COVID-19 vaccine, we invite you to visit the CDC website for a list of frequently asked questions. https://www.cdc.gov/coronavirus/2019-ncov/vac cines/faq.html [facility] Patient Portal Access Instructions: Stay connected with your healthcare team and access your personal medical information anytime with the [facility] Patient Portal. If you would like a full copy of your medical records please contact the [facility] Medical Records Department Wednesday through Wednesday between 8a.m. and 4:30p.m. Please follow the directions below to access the portal: 1.Access the email account you provided upon registration to the [facility].2.Look for an invitation email from [facility].3.Open the email and access the invitation link: Accept Invitation to [facility]4.Fill in the required mary to create your account. Sign into www.[facility] with your username and password that you [...] you will allow to register on the [facility] Patient Portal for access to your information. You can also access the [facility] Patient Portal on the [employer] ama. Simply click on Health Records under Health Data and then click on the [employer] logo. HOW TO SAFELY DISPOSE OF PRESCRIPTION [...] Call your local pharmacy or go to [email or web address] to find one close to you.3.Make use of household items: Use cat litter or old coffee grounds to dispose medications if other options are not available. Mix your drugs with these household products, seal them in an airtight container and throw it into the garbage. Call [facility]: [phone] to be sure your drugs can be [...] aware that I should contact my doctor. Patient/Fuel Cell Engineer Signature: Date/Time: Relationship to Patient: Witness Name/Signature: Date/Time: [facility] Tanisha Moriarty 11-13-2022 Miscellaneous Notes Formatting of this note might be differe nt from the original. Urine culture returns. > 100,000 e. Coli ATB prescribed is appropriate. Phone call placed. No answer. Voicemail message left. documented in this encounter [facility] 11-11-2022 Instructions Patience Bueno - 11/11/2022 [...] front to back documented in this encounter [facility] 11-11-2022 History of Present illness Narrative [...] Uses as needed) Blood-Glucose Meter (PRECISION XTRA) [facility] Use as directed FREESTYLE LITE METER monitoring [...] CULTURE Patience Bueno APRN -student TEACHING PROVIDER (Physician/PA/CURRICULUM COORDINATOR) NOTE OF PERSONAL INVOLVEMENT IN CARE: I have personally seen and examined the patient and performed the medical decision-making components. I have reviewed the Advanced Practice Registered Nurse (CURRICULUM COORDINATOR) Student's documentation and verified the findings in the note as written. Any additions or changes are noted in bold/italics. Signature: Adore Granado Date: 11/11/2022 Time: 2:06 PM documented in this encounter [facility] 07-13-2022 History of Present illness Narrative Formatting of this note is different fro m the original. Maintenance Helper Utility Engineer offered: Patient declines. 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 History LMP: 03/23/2022, Having periods Age at Menarche: Age at First : Age at Menopause: Cold Roll Packer Sheet Iron History Comments: Sexual Activity: Never; No partner [...] Makenzie Arango APRN.CNP documented in this encounter [facility] 07-10-2022 Instructions Dina Dempsey APRN.CNP - 07/10/2022 5:32 PM EDT Will check US and set up recheck with mathematics academic chair documented in this encounter [facility] 07-10-2022 History of Present illness Narrative [...] have confirmed and edited as necessary, the [facility] Review of Systems Constitutional: Negative for chills and fever. Musculoskeletal: Negative for joint pain and myalgias. Skin: Negative for itching and rash. ? Palpable breast lump, left upper quadrant All other systems reviewed and are negative. Objective Physical Exam Vitals and nursing note reviewed. Exam conducted with a hand spray operator present. Pulmonary: Effort: Pulmonary effort is [...] results Advise patient to follow up with COLD STORAGE SUPERVISOR for recheck Will schedule appointments. - US BREAST LTD LT Diagnosis and treatment plan were discussed and questions were answered to the patient's satisfaction. Pt acknowledged understanding of concepts and follow up plan. Specific signs and symptoms that would indicate the need for higher level of care were discussed in detail warranting prompt ER evaluation. Dina Dempsey APRN.TONI documented in this encounter [facility] 05-17-2022 Hospital Discharge instructions Patient Education [...] of your face Difficulty talking or seeing [phone] [employer]. [address] [place] [address]. All rights reserved. This information is not intended as a substitute for professional medical care. Always follow your healthcare professional's instructions. Follow Up Care 05/16/2022 20:58:50 With:WILLI TOSCANO MD Address: [address] [place] [address]- When:2-4 days With:[facility] Address: [phone] When:2-4 days [facility] 05-16-2022 Note Discharge Instructions Thank you for allowing [place] to assist you with your healthcare needs. The following is important discharge information regarding your hospital visit. Diagnosis from Today's Visit Migraine Headache What to Do Next Instructions from Your Care Team No qualifying data available. Post Acute Orders No qualifying data available. You Need to Schedule the Following Appointments Follow Up with WILLI TOSCANO MD When Within 2-4 days Where: [place] [address]- Follow Up with [facility] When Within 2-4 days Where: [phone] Allergies bacitracin Medications Please ask your primary [...] of your face Difficulty talking or seeing [phone] [employer]. [address] [place] [address], [place] [address]. All rights reserved. This information is not intended as a substitute for professional medical care. Always follow your healthcare professional's instructions. Additional Information VACCINATE! IT SAVES LIVES! Members of the community who have not yet received the COVID-19 vaccine and would like to receive it can visit one of [facility] vaccine clinics. There are many vaccine clinic locations within the [facility]. For locations and available times, please visit [email or web address]. It is important to note that some COVID mobile vaccine clinics are held outdoors and may be canceled in rainy or stormy conditions. To learn more about pediatric vaccinations (ages 5-11), we invite you to visit the [facility] webpage. https://www.[facility].org/pages/ wx-Ccbvjustjif-Kywpvzbzag-Asked-Questions.htm l To learn more about the COVID-19 vaccine, we invite you to visit the [facility] website for a list of frequently asked questions. https://tanisha.org/assets/Obhpdfxx-nta-Jjwhd ors/egeuc-Ifovtiv-Lbdgylgeob_Yvgrh-Questions. pdf [facility] Patient Portal Access Instructions: Stay connected with your healthcare team and access your personal medical information anytime with the [facility] Patient Portal. If you would like a full copy of your medical records please contact the [facility] Medical Records Department Wednesday through Wednesday between 8a.m. and 4:30p.m. Please follow the directions below to access the portal: 1.Access the email account you provided upon registration to the [facility].2.Look for an invitation email from [facility].3.Open the email and access the invitation link: Accept Invitation to [facility]4.Fill in the required mary to create your account. Sign into www.[facility] with your username and password that you [...] you will allow to register on the [facility] Patient Portal for access to your information. You can also access the [facility] Patient Portal on the [employer] ama. Simply click on Health Records under Health Data and then click on the [employer] logo. HOW TO SAFELY DISPOSE OF PRESCRIPTION [...] Call your local pharmacy or go to http://[email or web address] [email or web address] to find one close to you.3.Make use of household items: Use cat litter or old coffee grounds to dispose medications if other options are not available. Mix your drugs with these household products, seal them in an airtight container and throw it into the garbage. Call [facility]: [phone] to be sure your drugs can be [...] aware that I should contact my doctor. Patient/Fuel Cell Engineer Signature: Date/Time: Relationship to Patient: Witness Name/Signature: Date/Time: [facility] 04-10-2022 Hospital Discharge instructions Patient [...] face You have trouble talking or seeing [phone] [employer]. [address] [place] [address]. All rights reserved. This information is not intended as a substitute for professional medical care. Always follow your healthcare professional's instructions. Follow Up Care 04/10/2022 15:48:55 With:Follow up with primary care provider Address:Unknown When:2-4 days [facility] 04-10-2022 Note Discharge Instructions Thank you for allowing [place] to assist you with your healthcare needs. [...] face You have trouble talking or seeing [phone] [employer]. [address] [place] [address]. All rights reserved. This information is not intended as a substitute for professional medical care. Always follow your healthcare professional's instructions. Additional Information VACCINATE! IT SAVES LIVES! Members of the community who have not yet received the COVID-19 vaccine and would like to receive it can visit one of [facility] vaccine clinics. There are many vaccine clinic locations within the [facility]. For locations and available times, please visit [email or web address]. It is important to note that some COVID mobile vaccine clinics are held outdoors and may be canceled in rainy or stormy conditions. To learn more about pediatric vaccinations (ages 5-11), we invite you to visit the [facility] webpage. https://www.[facility].org/pages/ wu-Yxfutkmgcns-Mkcyphlgrv-Asked-Questions.htm l To learn more about the COVID-19 vaccine, we invite you to visit the [facility] website for a list of frequently asked questions. [email or web address]/assets/Gkmdlzyr-ppe-Aaajg [id number]. pdf [facility] Patient Portal Access Instructions: Stay connected with your healthcare team and access your personal medical information anytime with the [facility] Patient Portal. If you would like a full copy of your medical records please contact the [facility] Medical Records Department Wednesday through Wednesday between 8a.m. and 4:30p.m. Please follow the directions below to access the portal: 1.Access the email account you provided upon registration to the [facility].2.Look for an invitation email from [facility].3.Open the email and access the invitation link: Accept Invitation to [facility]4.Fill in the required mary to create your account. Sign into [email or web address] with your username and password that you [...] you will allow to register on the [facility] [employer] Patient Portal for access to your information. You can also access the [facility] Patient Portal on the [employer] ama. Simply click on Health Records under Health Data and then click on the [employer] logo. HOW TO SAFELY DISPOSE OF PRESCRIPTION [...] Call your local pharmacy or go to http://bit.ly/9A0Fm7m to find one close to you.3.Make use of household items: Use cat litter or old coffee grounds to dispose medications if other options are not available. Mix your drugs with these household products, seal them in an airtight container and throw it into the garbage. Call [facility]: [phone] to be sure your drugs can be [...] aware that I should contact my doctor. Patient/Fuel Cell Engineer Signature: Date/Time: Relationship to Patient: Witness Name/Signature: Date/Time: [facility] 04-10-2022 History of Present illness [...] blood ketones x3-4/day Blood-Glucose Meter (PRECISION XTRA) [facility] Use as directed FREESTYLE LITE METER monitoring [...] Treasure Lamb APRN.TONI documented in this encounter [facility] 03-17-2022 History of Present illness Narrative [...] blood ketones x3-4/day Blood-Glucose Meter (PRECISION XTRA) [facility] Use as directed FREESTYLE LITE METER monitoring [...] tremor. Coordination: Romberg sign negative. Coordination normal. Zmzxhi-Yqqg-Kwuzsh Test and Heel to Olivas Test normal. [...] ONDANSETRON 4 MG DISINTEGRATING TABLET Mo Starkey APRN.WEIGHTS AND MEASURES INSPECTOR documented in this encounter [facility] Discharge summary Note Date/Time April 14, 2025 2:42am [facility] Medical Records Department [address] [place] [address] Emergency Department Summary 04/14/25 MR#: [id number] Acct: [id number] Name: ANIYAH KAPADIA Rep #:[id number] : 2000 24 From: Gatito Gottlieb MD [...] know blood type. She states she her digital associate media director is through the [facility]. She denies any OB care. She [...] The umbilical cord was clamped. Spoke with digital associate media director on [address] [facility] [address] Kelsey Leo. Plan is observation [...] 85.4 H Lymph % (Auto) 8.6 L Navarro % (Auto) 4.6 Eos % (Auto) 0.1 Baso % (Auto) 0.3 Absolute Neuts (auto) 20.4 H Absolute Lymphs (auto) 2.05 Nucleated RBC % 0 Management Discussion w/another healthcare provider: Helicopter Pilot Instructor (Documented MDM portion of the EMR) Treatment and Re-Evaluation :: Patient having minimal bleeding at this time. The umbilical cord was clamped. Discharge Plan Dx/Rx/DC Orders Clinical Impression: Medical , incomplete, without complication, Elevated blood-pressure reading without diagnosis of hypertension Disposition Disposition: [facility] What to do if you have Problems For any increased pain, shortness of breath, bleeding, nausea or vomiting, chestpain, or any unexpected problems, contact your Primary Care Provider. Call [facility] ([phone]) or report to the closest Emergency Room. Call 911 if necessary. 04/14/25 0242 <Electronically signed by Gatito Gottlieb MD> Cosigner Signature (if applicable): CC: No Primary Care Physician ~ Signed [facility] Work Phone: Evaluation + Plan note No data available for this section [facility] Evaluation note* Diagnosis Migraine unspecified- Primary [facility] Diagnosis Headache, unspecified headache type- Primary Vomiting, unspecified vomiting type, unspecified whether nausea present [facility] Diagnosis Mass of upper outer quadrant of left breast- Primary [facility] Diagnosis Encounter for contraceptive management, unspecified type [facility] Diagnosis Acute UTI- Primary Urinary tract infection, site not specified Urinary frequency documented in this encounter [facility] note* Diagnosis Urinary frequency- Primary Recurrent UTI (urinary tract infection) Urinary tract infection, site not specified documented in this encounter [facility] note* Diagnosis Missed menses- Primary Absence of menstruation documented in this encounter [facility] note* Diagnosis Onset Date Resolution Status Admit Date Elevated blood-pressure read ing without diagnosis of hypertension acute April 14, 2025 2:52am Medical , incomplete , without complication acute April 14 2:52am [facility] Work Phone: Reason for referral (narrative)* Diagnostic Procedure Only (Urgent) - Authorized Specialty Diagnoses / Procedures Referred By Contac t Referred To Contact [facility] Diagnoses Mass of upper outer quadrant of left breast Procedures US BREAST LTD LT US BREAST UNI REAL TIME WITH IMAGE LIMITED Dina Dempsey APRN.CNP [address] [place] [address] [facility] [address] [place] [address] Referral ID Status Reason Start Date Expiration Date Visits Requested Visits Authorized [id number] Authorized Auto-Generat ed Referral 07/10/2022 08/09/2023 1 1 [facility] for referral (narrative)No reason for referral information [facility] Work Phone: Summary Purpose Family History No Family History Records FoundNo Family History Records FoundNo Family History Records FoundNo Family History Records Found Advance Directives Advance Directive Response Recorded Date/ Time Do you have a Healthcare Power of Figure Skater? No April 14, 2025 1:44am Medications Administered [...] section and content) DATE CREATED AUTHOR 04/04/2018 [facility] DATE CREATED AUTHOR AUTHOR'S ORGANIZ ATION 04/29/2023 [facility] ([place]) DATE CREATED AUTHOR AUTHOR'S ORGANIZ ATION 08/09/2023 [facility] DATE CREATED AUTHOR AUTHOR'S ORGANIZ ATION 01/02/2025 [facility] Comments (unrecognize d section and content) In the event this informatio n is protected by the Federal Confidentiality of Alcohol and Drug Abuse Patient Records regulations: The Federal rules restrict any use of the information to criminally investigate or prosecute any alcohol or drug abuse patient.[facility] the event this information is protected by the Federal Confidentiality of Alcohol and Drug Abuse Patient Records regulations: The Federal rules restrict any use of the information to criminally investigate or prosecute any alcohol or drug abuse patient.[facility] the event this information is protected by the Federal Confidentiality of Alcohol and Drug Abuse Patient Records regulations: The Federal rules restrict any use of the information to criminally investigate or prosecute any alcohol or drug abuse patient.[facility] the event this information is protected by the Federal Confidentiality of Alcohol and Drug Abuse Patient Records regulations: The Federal rules restrict any use of the information to criminally investigate or prosecute any alcohol or drug abuse patient.[facility] the event this information is protected by the Federal Confidentiality of Alcohol and Drug Abuse Patient Records regulations: The Federal rules restrict any use of the information to criminally investigate or prosecute any alcohol or drug abuse patient.[facility] Hospital[facility] the event this information is protected by the Federal Confidentiality of Alcohol and Drug Abuse Patient Records regulations: The Federal rules restrict any use of the information to criminally investigate or prosecute any alcohol or drug abuse patient.[facility] Hospital[facility] the event this information is protected by the Federal Confidentiality of Alcohol and Drug Abuse Patient Records regulations: The Federal rules restrict any use of the information to criminally investigate or prosecute any alcohol or drug abuse patient.[facility] Hospital[facility] the event this information is protected by the Federal Confidentiality of Alcohol and Drug Abuse Patient Records regulations: The Federal rules restrict any use of the information to criminally investigate or prosecute any alcohol or drug abuse patient.[facility] the event this information is protected by the Federal Confidentiality of Alcohol and Drug Abuse Patient Records regulations: The Federal rules restrict any use of the information to criminally investigate or prosecute any alcohol or drug abuse patient.[facility] Reason for Visit (unrecogniz ed section and content) Reason Comments Headache migraine x2 days, li ght sensitivity, nausea Reason Comments Headache with vomiting x1 day Reason Comments Breast Problem Soreness in L breast x1 week, noticed lump last night Reason Comments 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 Reason Comments Problem Visit Care Teams (unrecognized sec tion and content) School Cook Relationship Specialty Start Date End Date Lupillo Bolton MD [address] [place] [address] PCP - General 11/07/07 School Cook Relationship Specialty Start Date End Date Lupillo Bolton MD [address] [place] [address] PCP - General 11/07/07 School Cook Relationship Specialty Start Date End Date Lupillo Bolton MD [address] [place] [address] PCP - General 11/07/07 School Cook Relationship Specialty Start Date End Date Lupillo Bolton MD [address] [place] [address] PCP - General 11/07/07 School Cook Relationship Specialty Start Date End Date Lupillo Bolton MD [address] [place] [address] PCP - General 11/07/07 School Cook Relationship Specialty Start Date End Date Lupillo Bolton MD [address] [place] [address] PCP - General 11/07/07 School Cook Relationship Specialty [place] [address] [place] [address] PCP - General 11/07/07 Team Status: Active [...] Related Persons Name: KULWANT ESPAÑA Viet Address: [place] [address] [place] Name: HUONG ESPAÑAGINO Llanos Address: [place] [address] [place] Name: TACO KULWANT L Address: [address] Care Team Personnel Name: PHYSICIAN, NONE Position: Physician Member Role: Primary Care Physician Care Team Related Persons Name: KULWANT EPSAÑA Viet Address: [place] [address] [place] Name: HUONG ESPAÑAGINO Llanos Address: [place] [address] [place] Name: KULWANT ESPAÑA Viet Address: [address] FOR RECORDS PERTAINING TO PATIENTS WHO [...] BE BASED ON THE PRIMARY CLINICAL RECORDS. [employer] provides no warranty or guarantee of the accuracy or completeness of information in this document.
--- NOTE | 2025-04-14 07:25 | EX.PCM.OBVAG ---
Assessment & Plan (1) Medical , incomplete, without complication: Vaginal Delivery Vaginal Delivery Information Procedure Performed: Spontaneous Vaginal Delivery (Patient delivered fetus into the toilet in the ER) Surgeon/Practitioner: Izzy Leo Date of Procedure: 04/14/25 Pre-Procedure Diagnosis: Retained placenta Post-Procedure Diagnosis: As above Type of anesthesia: None Special Medications: None Estimated Blood Loss: 100 mL Fluids Replaced: N/A Findings Description of procedure: Patient received Cytotec from an online source to induce an . She was unsure of gestational age and LMP. She presented to the ER in pain and delivered a 20-24 week fetus into the toilet in the ER. Per ER physician the fetus was delivered footling breech and without a heartbeat. The ER physician clamped the umbilical cord and the patient was brought to L&D for further management. After Pitocin and 2 doses of Hemabate, the placenta was noted to be in the vagina. Bleeding minimal. Patient was given Morphine for pain control. With gentle traction on the umbilical cord, the cord avulsed. A hand was inserted in the vagina to manually removed the placenta with 2 attempts. Bleeding remained minimal. A bedside TAUS was performed showing an EMS of 1 cm and blood clot in the lower uterine segment/cervix with no increased vascularity. Low suspicion for any retained POC's. Discussed this with patient and reviewed ultrasound findings. Patient given 1 dose of Methergine and a repeat CBC ordered. Procedure findings: Grossly normal appearing demised 20-24 week fetus Normal appearing placenta Presentation: Footling Breech Amniotic Membrane Rupture Type: Spontaneous Placental Delivery Description: Spontaneous Placenta Disposition: Other Post Vaginal Deli Medications given after delivery: IV Pitocin, IM Methergin and IM Hemabate Episiotomy Description: None Laceration: None Complication Complications: No
--- NOTE | 2025-04-14 07:34 | DCINST_ITS ---
Discharge Instructions Diet Discharge Diet: No restrictions DC O2, CPAP, BIPAP needs Home O2 Discharge instructions: No Dressing / Incision Discharge Activity: May Drive and May Shower May resume sexual activity in: 4 weeks (nothing in the vagina, no soaking in water, no intercourse until the bleeding stops) Ice area for (Minutes): 15 Dressing / Incision Call your doctor if you observe: Fever of 101 or Higher, Using more than 1 pad per hour, Dizziness, Chest pain, Calf discomfort and Uncontrolled pain Follow Up Care Please Follow Up With: Izzy Leo DO When: 1 week for follow up and to discuss control Test Results: Test results from this visit will be discussed in further detail at your follow- up appointment, if applicable. Discharge Plan Admission Admit Date/Time: 04/14/25 03:10 Attending Provider: Izzy Leo Primary Care Provider: Care Physician,Christi Primary Discharge Orders/Prescriptions Prescriptions: No Action NK Referrals / Follow Up: Care Physician,No Primary [Primary Care Provider] - Disposition Disposition (needs filled in before D/C Order can be placed): Home, Self Care
[2025-04-14 08:24] LABS: Hematocrit 29.1 % (37-47); Hemoglobin 10.5 g/dL (12.0-15.0); Immature Granulocytes Count 0.290 X10^3/uL (0.0-0.0); Mean Corp Hgb Conc 36.1 g/dL (32-36); Mean Corpuscular Volume 88.4 fL (81-99); Mean Platelet Vol. 10.3 fl (6.2-12.0); NRBC Flagged by Analyzer 0 % (0-5); Platelet Count 246 K/mm3 (150-450); RBC Distribution Width CV 13.0 % (11.6-14.6); RBC Distribution Width SD 41.9 fl (35.1-43.9); Red Blood Count 3.29 M/mm3 (4.2-5.4); White Blood Count 22.8 K/mm3 (4.4-11.0)
--- NOTE | 2025-04-14 13:00 | CASEMGMT ---
Social Work Date of referral: 04/14/25 Reason for referral: Support/loss/grief Referred by: Izzy Leo Patient provided consent to social work visit. Upon entry to room, patient was lying in the hospital bed and patient's significant other (SO)was in a chair at patient's bedside. . Patient and s/o were holding hands, and quiet, no TV on or phones out. Patient and her s/o both were tearful and presented with a flat affect. Both stated they were ok given the circumstances and the s/o talked about just how quickly everything happened during their time in the ED. Patient and s/o appeared to be shock. storage worker asked patient and s/o if they would be interested in any resources related to loss/grief, which both stated they would be. Manager Surgical told patient and s/o that she would go gather resources and return which both were agreeable to. (end time: 10:15) storage worker met with patient and s/o for the second time, reviewed various presentations of depression and also reviewed current available supports (both verbal and written). Manager Surgical had patient and s/o think about their current supports. Patient identified her step-mom and stated that was mostly it for her. S/O identified both of his parents as supports and stated they would have normally been at the hospital to provide support but are currently in [place]. S/O stated he notified his parents on this date of the loss. Next, Manager Surgical requested to speak with patient alone which patient and s/o were both agreeable to. Manager Surgical completed the first part of the [place] with patient to assess current levels of depression. [place] SS[facility] SUICIDAL IDEATION 1. Wish to be ? Subject endorses thoughts about a wish to be or not alive anymore, or wish to fall asleep and not wake up. Have you wished you were or wished you could go to sleep and not wake up? Lifetime: Yes Past 1 month: Denied Please Describe if yes: ?Patient reported at the age of 17, she had general thoughts of ideation however denied any previous intent or attempts. Patient stated she used to engage in self-injurious behavior (cutting) however became involved in counseling through [facility] and reported that helped a lot. 2. Non-Specific Active Suicidal Thoughts General, non-specific thoughts of wanting to end one?s life/commit suicide (e.g., ?I?ve thought about killing myself?) without thoughts of ways to kills oneself/associated methods, intent, or plan during the assessment period.? Have you actually had any thoughts of killing yourself? Lifetime: Denied Past 1 month: Denied Please Describe if yes: N/A Manager Surgical asked patient if it would be ok for Manager Surgical to call [facility] and let them know about her loss so they can follow up with her telephonically in 24 hours to make sure she is still doing ok and patient was agreeable. Manager Surgical asked patient if she and her s/o found out about the at the same time and patient stated they did, a few weeks ago. Manager Surgical asked patient if she and her s/o found out she was in December with patient's OBGYN at which patient stated yes, I believe so. Manager Surgical provided emotional support, comfort and reassurance. Manager Surgical also provided patient with written resource for PCP as patient is not currently established. Patient denied needing any additional supports at this time. Plan: Manager Surgical will make phone contact with [facility] and request a 24 hour follow up call to patient in case they determine a home visit may be needed. (end time: 12:58) Lilia Saldivar, FOOD TESTER, LEAD SOFTWARE ENGINEER
--- NOTE | 2025-04-14 13:51 | CASEMGMT ---
Social Work take off worker made phone contact with Tao with the Crisis Team. Motion Study Analyst requested they make contact with patient tomorrow just to check on her and see how she is doing which Tao stated they will be able to do. Tao also confirmed they will be able to go out if needed. Lilia Saldivar, PRESSURE CONTROL SUPERVISOR, ASSURANCE SPECIALIST
== END 2025-04-14 14:00 | disposition home or self-care (01) | DRG 779 ==
LOC: ED 02:40 → WP 05:40
PROVIDERS: Admitting Provider Obstetrics & Gynecology; Emergency Provider Emergency Medicine; Visit Provider Obstetrics & Gynecology
DX: O03.4 Incomplete spontaneous abortion without complication (principal)
CPT/HCPCS: 84702; 85025; 86900; 86901; 99285; A4216; J2405